=== PATIENT | female | born 1940 | race Caucasian/White ===

== ENCOUNTER → 2016-08-12 | Outpatient (CLI) | payer OTHER, MEDICARE ==
[~2016-08-12] MED LIST: ACET-1256 PO; CARV12.5 PO; CARV12.52 PO; CHOL20007 PO; CIPR1TAB11 PO; ESTR0.5T3 PO; FERR1TAB13 PO; FRS/40 PO; FURO-85 PO; LEVO137T3 PO; LOSA100T65 PO; LOSA50TA6 PO; MULT-506 PO; OXYC-57 PO; RANI300T2 PO; RIFA300C34 PO; THY/120 PO; THYR15TA PO; TRAM-10 PO; WARF2TAB PO; WARF2TAB8 PO; ZNTT/150 PO; [UNRECOGNIZED DRUG - OTHER] TOP
== END | disposition home or self-care (01) ==
LOC: C.LABBFT 09:31
PROVIDERS: ATTEND Internal Medicine
DX: E03.9 Hypothyroidism, unspecified (principal); M35.3 Polymyalgia rheumatica

== ENCOUNTER → 2016-09-06 | Outpatient (CLI) | payer OTHER, MEDICARE ==
[2016-09-06 12:38] LABS: BASO % 0.7 %; BASO ABS # 0.04 K/uL (0-0.2); COMPLETE YES; EOS % 6.6 %; HEMATOCRIT 36.5 % (37-47); IG% 0.2 %; LYMPH % 27.5 %; LYMPH ABS # 1.55 K/uL (1.2-3.4); MEAN CELL VOLUME 90.8 fL (80-100); MEAN CORPUSCULAR HEMOGLOBIN 28.9 pg (25-34); MEAN CORPUSCULAR HGB CONC 31.8 g/dl (32-36); MEAN PLATELET VOLUME 9.5 fL (7.4-10.4); MONO % 8.3 %; NEUT % 56.7 %; PLATELET COUNT 269 K/uL (130-400); RED BLOOD COUNT 4.02 M/uL (4.2-5.4); WHITE BLOOD COUNT 5.64 K/uL (4.8-10.8)
[2016-09-06 13:04] LABS: ALT/SGPT 19 U/L (12-78); BLOOD UREA NITROGEN 33 mg/dl (7-18); BUN/CREATININE RATIO 25.7 (10-20); CALCIUM 9.2 mg/dl (8.5-10.1); CARBON DIOXIDE 25 mmol/L (21-32); CHLORIDE 106 mmol/L (98-107); GLUCOSE 90 mg/dl (70-99); POTASSIUM 4.3 mmol/L (3.5-5.1); SODIUM 140 mmol/L (136-145)
[2016-09-06 13:14] LABS: ALB/GLOB RATIO 1.1 (0.9-2); ALKALINE PHOSPHATASE 81 U/L (45-117); AST/SGOT 11 U/L (15-37)
--- NOTE | 2016-09-10 13:22 | CODING QUERY MEDICAL NECESSITY ---
SUPPORTING DIAGNOSIS NEEDED Anh TUCKER, A supporting diagnosis is required for the test/procedure performed on this patient in order for us to be reimbursed by the patient's insurance. Please provide a supporting diagnosis for the following test/procedure listed below next to the test name along with your signature. *If there is no additional diagnosis for this patient that would support the following test/procedure please document that below next to the test/procedure. Test(s)/Procedure(s) that require a supporting diagnosis: * ([id number]) VITAMIN D ASSAY DIAGNOSIS: DATE OF SERVICE: 09/06/16 Provider Signature: Date: Thank you Ap [facility] Information Management Once completed, please kindly fax back to [phone] For questions please call [phone]
== END | disposition home or self-care (01) ==
LOC: C.LABBFT 10:12
PROVIDERS: ATTEND Internal Medicine
DX: R53.83 Other fatigue (principal); E03.9 Hypothyroidism, unspecified

== ENCOUNTER → 2016-10-25 | Outpatient (CLI) | payer OTHER, MEDICARE ==
[~2016-10-25] MED LIST changes: +ASPI325T39 PO; +ASPI325T60 PO; +Boost Nutritional Drink PO; +CARV25TA PO; +DAPT500I IV; +DFL100 PO; +DOCU100C31 PO; +ERTA1INJ IV; +FRRS300 PO; +LCTX PO; +MCRK20 PO; +MGNO400 PO; +MRLP17 PO; +NYSP EXT; +OXYC-88 PO; +SNK PO; +WARF3TAB6 PO
[2016-10-25 12:40] LABS: BASO % 0.5 %; BASO ABS # 0.03 K/uL (0-0.2); COMPLETE YES; EOS % 6.1 %; HEMATOCRIT 39.1 % (37-47); LYMPH % 27.4 %; LYMPH ABS # 1.71 K/uL (1.2-3.4); MEAN CELL VOLUME 90.5 fL (80-100); MEAN CORPUSCULAR HEMOGLOBIN 28.7 pg (25-34); MEAN CORPUSCULAR HGB CONC 31.7 g/dl (32-36); MEAN PLATELET VOLUME 9.3 fL (7.4-10.4); MONO % 8.7 %; NEUT % 57.3 %; PLATELET COUNT 286 K/uL (130-400); RED BLOOD COUNT 4.32 M/uL (4.2-5.4); WHITE BLOOD COUNT 6.24 K/uL (4.8-10.8)
[2016-10-25 13:07] LABS: C-REACTIVE PROTEIN 1.01 mg/dl (0-0.29); RHEUMATOID FACTOR < 10.0 U/mL (0-15)
[2016-10-25 13:16] LABS: LYME DISEASE AB IGG NEG (NEG)
[2016-10-25 13:20] LABS: LYME DISEASE AB IGM NEG (NEG)
== END | disposition home or self-care (01) ==
LOC: C.LABBFT 10:02
PROVIDERS: ATTEND Physician Assistant Medical
DX: R53.83 Other fatigue (principal)

== ENCOUNTER → 2016-12-20 | Outpatient (CLI) | payer OTHER, MEDICARE ==
[2016-12-20 13:13] LABS: THYROID STIMULATING HORMONE 24.8 uIu/ml (0.300-4.500)
== END | disposition home or self-care (01) ==
LOC: C.LABBFT 10:13
PROVIDERS: ATTEND Physician Assistant Medical
DX: E03.9 Hypothyroidism, unspecified (principal)

== ENCOUNTER → 2017-01-10 | Outpatient (CLI) | payer OTHER, MEDICARE ==
--- NOTE | 2017-01-10 14:41 | DIAGNOSTIC IMAGING REPORT ---
RIGHT HIP UNILATERAL 2 VIEWS, LEFT HIP UNILATERAL 2 VIEWS CLINICAL HISTORY: BILATERAL HIP PAIN Right COMPARISON STUDY: Pelvis and right hip 01/28/2016. FINDINGS: Interval progression of the moderate to severe right hip osteoarthritis demonstrated by cartilage space narrowing subchondral sclerosis and small marginal osteophytes. There is also a focal subchondral lucency within the right femoral head which measures 7 mm. This was not present on the prior study. No acute fracture or dislocation within the pelvis or hips. Mild left hip osteoarthritis, unchanged. IMPRESSION: 1. Interval progression of the moderate to severe right hip osteoarthritis. No change in the mild left hip osteoarthritis. 2. A focal subchondral lucency within the right femoral head which measures 7 mm. This raises the possibility of a superimposed avascular necrosis. Consider right hip MRI for further evaluation. Electronically signed by: Deni Lee M.D. 01/10/2017 2:40 PM Dictated Date/Time: 01/10/2017 2:36 PM
== END | disposition home or self-care (01) ==
LOC: C.RAD1850 14:13
PROVIDERS: ATTEND Physician Assistant Medical
DX: M25.551 Pain in right hip (principal); M25.552 Pain in left hip

== ENCOUNTER → 2017-01-14 | Outpatient (CLI) | payer OTHER, MEDICARE ==
[~2017-01-14] MED LIST changes: -ASPI325T39 PO; -Boost Nutritional Drink PO; -CARV25TA PO; -DFL100 PO; -DOCU100C31 PO; -MCRK20 PO; -MGNO400 PO; -MRLP17 PO; -NYSP EXT; -OXYC-88 PO; -SNK PO; -WARF3TAB6 PO
--- NOTE | 2017-01-14 11:02 | DIAGNOSTIC IMAGING REPORT ---
MRI OF THE RIGHT HIP WITHOUT CONTRAST CLINICAL HISTORY: Severe right hip pain. Severe osteoarthritis. Evaluate for osteomyelitis. COMPARISON STUDY: Right hip radiographs January 10, 2017. TECHNIQUE: Utilizing a 1.5 Laisha magnet and dedicated coil, multiplanar, multiecho imaging of the right hip was performed without intravenous or intraarticular contrast. FINDINGS: There is marked joint space narrowing of the right hip. There is a 3.2 x 2 cm subchondral focus of signal abnormality within the anterior superior aspect of the right femoral head with moderate edema within the right femoral head and neck. There is subchondral irregularity which suggests partial collapse of articular surface. There is a small right hip joint effusion. There is edema within the acetabulum as well. Note is made of a 1.1 cm subchondral focus of signal abnormality within the anterior superior aspect of the left femoral head without collapse. There is moderate left hip joint space narrowing. No abnormalities within the pelvis are identified on this unenhanced exam. Adjacent musculature is unremarkable. IMPRESSION: 1. Subchondral signal abnormality within the right femoral head highly suggestive of avascular necrosis with associated mild articular surface collapse and secondary severe osteoarthritis. 2. Edema within the right femoral head and acetabulum which is likely related to severe osteoarthritis. Small right hip joint effusion. 3. 1.1 cm focus of signal abnormality with the left femoral head which suggests avascular necrosis of the left femoral head without collapse. Electronically signed by: Felipe Aguilar M.D. 01/14/2017 11:01 AM Dictated Date/Time: 01/14/2017 10:47 AM
== END | disposition home or self-care (01) ==
LOC: C.MRIBC 09:35
PROVIDERS: ATTEND Physician Assistant Medical
DX: M25.551 Pain in right hip (principal); R60.9 Edema, unspecified; M25.451 Effusion, right hip; M25.851 Other specified joint disorders, right hip; M25.852 Other specified joint disorders, left hip

== ENCOUNTER → 2017-02-05 | Outpatient (CLI) | payer OTHER, MEDICARE ==
[2017-02-05 17:39] LABS: HEMATOCRIT 40.6 % (37-47); MEAN CELL VOLUME 92.7 fL (80-100); MEAN CORPUSCULAR HEMOGLOBIN 27.6 pg (25-34); MEAN CORPUSCULAR HGB CONC 29.8 g/dl (32-36); MEAN PLATELET VOLUME 9.3 fL (7.4-10.4); PLATELET COUNT 308 K/uL (130-400); RED BLOOD COUNT 4.38 M/uL (4.2-5.4); WHITE BLOOD COUNT 5.96 K/uL (4.8-10.8)
[2017-02-05 18:00] LABS: BLOOD UREA NITROGEN 47 mg/dl (7-18); BUN/CREATININE RATIO 39.1 (10-20); CALCIUM 9.6 mg/dl (8.5-10.1); CARBON DIOXIDE 27 mmol/L (21-32); CHLORIDE 105 mmol/L (98-107); GLUCOSE 107 mg/dl (70-99); PHOSPHORUS 4.2 mg/dl (2.5-4.9); POTASSIUM 4.8 mmol/L (3.5-5.1); SODIUM 139 mmol/L (136-145)
[2017-02-06 07:32] LABS: ESTIMATED AVERAGE GLUCOSE 120 mg/dl; HA1C FLAG Normal (Normal)
== END | disposition home or self-care (01) ==
LOC: C.LABBFT 17:35
PROVIDERS: ATTEND Internal Medicine Nephrology
DX: E55.9 Vitamin D deficiency, unspecified (principal); N18.3 Chronic kidney disease, stage 3 (moderate); R80.9 Proteinuria, unspecified; I12.9 Hypertensive chronic kidney disease with stage 1 through stage 4 chronic kidney disease, or unspecified chronic kidney disease; E03.9 Hypothyroidism, unspecified; M35.3 Polymyalgia rheumatica; R73.01 Impaired fasting glucose

== ENCOUNTER → 2017-02-06 | Outpatient (CLI) | payer OTHER, MEDICARE ==
[2017-02-06 16:47] LABS: URINE APPEARANCE CLEAR (CLEAR); URINE BILIRUBIN NEG (NEG); URINE COLOR YELLOW; URINE EPITHELIAL CELL AUTO >30 /lpf (0-5); URINE NITRITE NEG (NEG); URINE SPECIFIC GRAVITY 1.025 (1.000-1.030); UROBILINOGEN NEG (NEG)
[2017-02-06 16:48] LABS: MANUAL MICROSCOPIC REQUIRED? NO; REVIEW REQ? NO; URINE PROTIEN/CREAT RATIO 0.8 (0-0.2); URINE TOTAL PROTEIN 70.8 mg/dl (0-11.9)
== END | disposition home or self-care (01) ==
LOC: C.LABBFT 16:26
PROVIDERS: ATTEND Internal Medicine Nephrology
DX: I12.9 Hypertensive chronic kidney disease with stage 1 through stage 4 chronic kidney disease, or unspecified chronic kidney disease (principal); N18.3 Chronic kidney disease, stage 3 (moderate); E55.9 Vitamin D deficiency, unspecified; R80.9 Proteinuria, unspecified

== ENCOUNTER 2017-03-19 05:59 | Inpatient (IN) | payer OTHER, MEDICARE ==
[2017-02-28 14:50] VITALS: BMI 46.0
--- NOTE | 2017-02-28 15:29 | PAT Medication Instructions ---
Service Date Feb 28, 2017. Current Home Medication List Carvedilol (Coreg), 2 TABS PO QAM Carvedilol (Coreg), 12.5 MG PO QPM Cholecalciferol (Vitamin D3), 2,000 INTUNIT PO QAM Estradiol (Estradiol), 0.25 MG PO HS Furosemide (Lasix), 20 MG PO Q2D Furosemide (Lasix), 40 MG PO Q2D Losartan Potassium (Cozaar), 50 MG PO BID Multivitamin (Multivitamin), 1 TAB PO QAM Oxycodone/Acetaminophen 5MG/325MG (Percocet 5MG/325MG), 2 TABLETS PO HS PRN for RN Ranitidine (Zantac), 300 MG PO HS Thyroid (Astor Thyroid), 120 MG PO QAM Tramadol (Ultram), 1-2 MG PO Q4-6H PRN for Pain [Faison Smooth Cr], 1 DOSE TOP PRN Medication Instructions For Your Scheduled Surgery Estradiol (Estradiol), 0.25 MG PO HS (check with surgeon for instructions) - Hold the following medications 24 hours prior to surgery: [Faison Smooth Cr], 1 DOSE TOP PRN - Hold the following medications the morning of surgery: Losartan Potassium (Cozaar), 50 MG PO BID Multivitamin (Multivitamin), 1 TAB PO QAM Furosemide (Lasix), 20 MG PO Q2D Furosemide (Lasix), 40 MG PO Q2D Cholecalciferol (Vitamin D3), 2,000 INTUNIT PO QAM - Take the following medications the morning of surgery with a sip of water: Thyroid (Astor Thyroid), 120 MG PO QAM Tramadol (Ultram), 1-2 MG PO Q4-6H PRN for Pain Oxycodone/Acetaminophen 5MG/325MG (Percocet 5MG/325MG), 2 TABLETS PO HS PRN for RN (okay to take up to 4 hours prior to surgery if needed) Carvedilol (Coreg), 2 TABS PO QAM - Hold the following medications as scheduled the night before surgery: Losartan Potassium (Cozaar), 50 MG PO BID - Take the following medications as scheduled the night before surgery: Ranitidine (Zantac), 300 MG PO HS Oxycodone/Acetaminophen 5MG/325MG (Percocet 5MG/325MG), 2 TABLETS PO HS PRN for RN (if needed) Carvedilol (Coreg), 12.5 MG PO QPM If you have any questions please call us at [phone] or [phone] or [phone]
--- NOTE | 2017-02-28 16:13 | DIAGNOSTIC IMAGING REPORT ---
CHEST 2 VIEWS ROUTINE HISTORY: Preop. COMPARISON: Chest 11/18/2015. FINDINGS: The lungs are clear. Cardiac silhouette is normal in size. No pleural effusions. No pneumothorax. IMPRESSION: No acute process. Electronically signed by: Deni Lee M.D. 02/28/2017 4:11 PM Dictated Date/Time: 02/28/2017 4:11 PM
[2017-02-28 16:47] LABS: BASO % 0.5 %; BASO ABS # 0.03 K/uL (0-0.2); COMPLETE YES; EOS % 5.7 %; HEMATOCRIT 40.8 % (37-47); IG% 0.2 %; LYMPH % 27.2 %; LYMPH ABS # 1.68 K/uL (1.2-3.4); MEAN CELL VOLUME 93.8 fL (80-100); MEAN CORPUSCULAR HEMOGLOBIN 29.7 pg (25-34); MEAN CORPUSCULAR HGB CONC 31.6 g/dl (32-36); MEAN PLATELET VOLUME 9.3 fL (7.4-10.4); MONO % 7.8 %; NEUT % 58.6 %; PLATELET COUNT 294 K/uL (130-400); RED BLOOD COUNT 4.35 M/uL (4.2-5.4); WHITE BLOOD COUNT 6.18 K/uL (4.8-10.8)
[2017-02-28 17:08] LABS: INR 0.9 (0.9-1.1); PARTIAL THROMBOPLASTIN RATIO 1.1
[2017-02-28 17:10] LABS: BUN/CREATININE RATIO 29.9 (10-20); CALCIUM 9.8 mg/dl (8.5-10.1); CREATININE 1.5 mg/dl (0.60-1.20); POTASSIUM 4.4 mmol/L (3.5-5.1)
--- NOTE | 2017-03-11 15:32 | HISTORY & PHYSICAL EXAMINATION ---
DATE OF ADMISSION: 03/19/2017 CHIEF COMPLAINT: Right hip pain. HISTORY OF PRESENT ILLNESS: This 76-year-old white female presents to the office with complaints of right hip pain that has been severe for the last several months. Hip pain initially started in January of last year. She thinks she was getting out of her SUV at the time when she felt a twist in her hip. Pain is worse with motion. It is worse with weightbearing. Pain is affecting her ADLs. She has used an assistive device for ambulation as well as oral anti-inflammatories and oral pain medications. She does take prednisone chronically. No new numbness or tingling. She has chronic right foot numbness from other back issues. She also has chronic leg edema secondary to previous vein stripping. She elects to proceed with surgical intervention in hopes of alleviating her pain. Preoperative x-rays have been obtained. MRI has also been obtained. PAST MEDICAL HISTORY: Significant for actinic keratosis, cervical spine disease, eczema, hypertension, hypothyroidism, osteoarthritis, chronic low back pain, seborrhea, sleep apnea, history of skin cancer, obesity, elevated cholesterol, use of CPAP, GERD. PREVIOUS SURGERIES: Total abdominal hysterectomy in 1986, tonsillectomy with adenoidectomy 1945, bilateral carpal tunnel releases, left knee arthroscopy x2, lumbar laminectomy with nerve decompression in March 2016, right foot spur removal and Cortes's neuroma excision, D&C x4, tubal ligation, cataract surgery, and deep vein thermoablasion 1969. ALLERGIES: KNOWN ALLERGY TO ERYTHROMYCIN, PENICILLIN, SULFA DRUGS, AND LATEX BANDAGES. All of these cause hives, itching and redness. CURRENT MEDICATIONS: [place]isle thyroid 120 mg p.o. daily, clobetasol 0.05% topical solution q.a.m., estradiol 0.5 mg p.o. daily, fluocinolone 0.01% topical oil at bedtime, [place] 5 mg p.o. p.r.n., carvedilol 12.5 mg p.o. b.i.d., losartan 50 mg p.o. b.i.d., multivitamin daily, ranitidine 150 mg p.o. b.i.d., tramadol p.r.n., Synthroid 125 mcg p.o. daily, vitamin D3 2000 units daily. FAMILY HISTORY: Significant for cancer, diabetes, heart disease and stroke. 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 . No tobacco use, no ETOH use. Quit smoking in 1986. REVIEW OF SYSTEMS: Significant for above stated conditions, otherwise unremarkable. PHYSICAL EXAMINATION: GENERAL: Well-developed, well-nourished, obese, elderly white female in no acute distress. Sitting on a chair. Alert and oriented. SKIN: No obvious discomfort. SKIN: Warm and dry with good turgor. No rashes or lesions. No ecchymosis or erythema. HEAD, EYES, EARS, NOSE, AND THROAT: Normocephalic, atraumatic. Eyes PERRLA, EOMI. Nares patent bilaterally without turbinate enlargement. Oropharynx without erythema or exudate. No lesions noted. Uvula midline. Oral mucosa moist. Good dentition. HEART: RRR. No MGR. LUNGS: Clear to auscultation bilaterally. No crackles, rhonchi or wheezing. Good air movement. ABDOMEN: Obese. Bowel sounds present x4, soft, nontender. No organomegaly. No masses. MUSCULOSKELETAL: Right hip has no obvious asymmetry or deformity. She describes soreness with palpation over the greater trochanter. Her worse pain is over the anterior flexion crease. Flexion to 90 degrees. Limited internal and external rotation secondary to pain. Ambulatory with an antalgic gait using a cane. Strength is 5/5 for resisted hip flexion, abduction, and adduction. NEUROLOGIC: Cranial nerves II through XII are intact. Gross sensation is intact across the right leg via soft touch. Peripheral pulses are 2+. DATA: X-rays previously obtained along with her MRI previously obtained show severe degenerative disease of the right hip with avascular necrosis of the head. Periarticular osteophytes, subchondral sclerosis, and joint space narrowing are present. 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 PLAN: Informed written consent was obtained to proceed with right total hip arthroplasty. Conservative care measures were discussed. Consent form was reviewed with the patient. Preoperative lab work, EKG, and chest x-ray have been ordered. Medical clearance has been requested from her PCP, Dr. Quiroz. Anticipate discharge to home with home health services for 2 weeks and then outpatient PT. Postoperative prescriptions for Percocet and Coumadin will be provided at discharge from the hospital. She already has a walker. [facility]
[~2017-03-19] VITALS: Ht 157.5 cm; Wt 115.5 kg
[2017-03-19] VITALS (7 sets, daily range): BP systolic 127–215; BP diastolic 63–91; PULSE 66–95; TEMP 36.5–36.9; O2SAT 98–100; Ht 157.5 cm; Wt 115.5 kg
[~2017-03-19 05:59] MED LIST changes: -ACET-1256 PO; -ASPI325T60 PO; -CIPR1TAB11 PO; -DAPT500I IV; -ERTA1INJ IV; -FERR1TAB13 PO; -FRRS300 PO; -LCTX PO; -LEVO137T3 PO; -LOSA100T65 PO; -RIFA300C34 PO; -THYR15TA PO; -WARF2TAB PO; -WARF2TAB8 PO; -ZNTT/150 PO
[2017-03-19] MEDS ORDERED: ROPIVACAINE 5MG/ML 30 ML 150 MG, BUPIVACAINE/EPINEPHR 0.5% MPF 30 ML, KETOROLAC TROMETH... INFIL SCH ×7 (06:00)
[2017-03-19] MEDS ORDERED: LACTATED RINGER'S 1000ML 1,000 ML IV SCH ×4 (06:00→06:30)
[2017-03-19] MEDS ORDERED: TRANEXAMIC ACID INJ 1,000 MG in SODIUM CHLORIDE 0.9% 100ML 100 ML IV SCH (06:00)
[2017-03-19] MEDS ORDERED: VANCOMYCIN INJ 1,700 MG in SODIUM CHLORIDE 0.9% 500ML 500 ML IV SCH ×2 (06:00→18:00)
--- NOTE | 2017-03-19 06:26 | History & Physical Bridge Note ---
H&P Re-Evaluation Bridge Note: I have examined the patient, reviewed the History & Physical and in the interval since the performance of the History & Physical I have noted the following changes of clinical significance: consent obtained.No changes noted
[2017-03-19] MEDS ORDERED: LACTATED RINGER'S 1000ML 500 ML IV ONE (06:30)
[2017-03-19] MEDS ORDERED: BUPIVACAINE 0.5 % 5 MG/1 ML PF 10ML VIAL ONE (06:33)
[2017-03-19] MEDS ORDERED: LIDOCAINE HCL 2% 2 ML VIAL (20MG/ML) ONE ×2 (07:26→08:30)
[2017-03-19] MEDS ORDERED: PROPOFOL IV EMULSION 10 MG/ML 20 ML VIAL IV ONE ×2 (07:26→10:36)
[2017-03-19] MEDS ORDERED: MIDAZOLAM HCL 1 MG/ML 2ML VIAL ONE ×2 (07:26)
[2017-03-19] MEDS ORDERED: POVIDONE-IODINE OP SOLN 30 ML BTL ONE (08:26)
[2017-03-19] MEDS ORDERED: ORTHO JOINT ANESTHETIC ONE (08:26)
[2017-03-19] MEDS ORDERED: ROCURONIUM BROMIDE 10 MG/ML 5 ML VIAL IV ONE ×2 (08:38→10:03)
[2017-03-19] MEDS ORDERED: FENTANYL CITRATE INJ 50 MCG/1 ML 2 ML VIAL ONE ×2 (08:40→10:52)
[2017-03-19] MEDS ORDERED: ATROPINE SULFATE 0.1 MG/ML 5ML SYR IV PRN (09:15)
[2017-03-19] MEDS ORDERED: ONDANSETRON INJ 2 MG/ML 2 ML VIAL IV PRN ×2 (09:15→11:00)
[2017-03-19] MEDS ORDERED: PHENYLEPHRINE 100MCG/ML 5ML SYR IV PRN (09:15)
[2017-03-19] MEDS ORDERED: EpHEDrine SULFATE INJ 50 MG/ML AMP IV PRN (09:15)
[2017-03-19] MEDS ORDERED: ONDANSETRON INJ 2 MG/ML 2 ML VIAL ONE (09:22)
[2017-03-19] MEDS ORDERED: DEXAMETHASONE SOD INJ 4 MG/ML VIAL ONE (09:22)
[2017-03-19] MEDS ORDERED: PHENYLEPHRINE 100MCG/ML 5ML SYR ONE (09:22)
[2017-03-19] MEDS ORDERED: LABETALOL HCL IV 5 MG/ML 20ML IV ONE (09:35)
[2017-03-19] MEDS ORDERED: NEOSTIGMINE METHYLSULFATE 5 MG/5 ML SYR ONE (09:58)
[2017-03-19] MEDS ORDERED: GLYCOPYRROLATE INJ 0.2 MG/ML VIAL ONE (09:58)
--- NOTE | 2017-03-19 10:49 | [facility] Post Operative Brief Note ---
Immediate Operative Summary Operative Date Mar 19, 2017. Pre-Operative Diagnosis Right Hip Degenerative Joint Disease Post-Operative Diagnosis Same as preop Procedure(s) Performed Right Total Hip Arthroplasty Surgeon Dr. Hong [id number] Programmer Surgeon(s) Barrington Agosto PA-C Estimated Blood Loss 400 ml Findings severe djd Fluids (cc crystalloids) 1400cc Specimens A. Right Femoral Head Drains none Anesthesia GET Complication(s) None Disposition Recovery Room / PACU
[2017-03-19] MEDS ORDERED: METOCLOPRAMIDE HCL INJ 5 MG/ML 2 ML VIAL IV PRN (11:00)
[2017-03-19] MEDS ORDERED: MoRPHine SULFATE 2 MG/ML CARP IV PRN (11:00)
[2017-03-19] MEDS ORDERED: DiphenhydrAMINE HCL 50 MG/ML VIAL IV PRN (11:00)
[2017-03-19] MEDS ORDERED: MAGNESIUM HYDROXIDE SUSP 30 ML UDC PO PRN (11:00)
[2017-03-19] MEDS ORDERED: HYDROmorphone INJ 1 MG/ML SYR IV PRN (11:00)
[2017-03-19] MEDS ORDERED: BISACODYL 10 MG SUPP PR PRN (11:00)
[2017-03-19] MEDS ORDERED: ACETAMINOPHEN 325 MG TAB PO PRN (11:00)
[2017-03-19] MEDS ORDERED: ALUMINUM/MAGNESIUM/SIMETH (MAALOX MAX) 30 ML UDC PO PRN (11:00)
[2017-03-19] MEDS: HYDROmorphone INJ 2 MG/ML SYR/VIAL IV PRN ×4 (11:05→11:20)
[2017-03-19] MEDS ORDERED: HydrALAZINE HCL 20 MG/ML VIAL ONE (11:19)
--- NOTE | 2017-03-19 11:43 | OPERATIVE REPORT ---
DATE OF OPERATION: 03/19/2017 PREOPERATIVE DIAGNOSIS: Severe osteoarthritis, right hip. POSTOPERATIVE DIAGNOSIS: Same. OPERATION PERFORMED: Noncemented right total hip replacement. SURGEON: Dr. Hong. MANAGER STYLE: Barrington Agosto PA-C. PERIOPERATIVE SITUATION: Medically cleared 76-year-old female with intractable hip pain. At this point in time wants to proceed with hip replacement. X-rays reveal end-stage disease with marked joint space narrowing. She is a large woman. She is cleared medically. SUMMARY OF IMPLANTS: Size 48 cup acetabular shell sector 6.5 x 20 mm screw, hole eliminator articular liner 32 mm x 48 neutral, femoral stem, 0 standard stem, femoral head 32 mm diameter +9. ESTIMATED BLOOD LOSS: 400 mL. CRYSTALLOID: 1400 mL. PERIOPERATIVE SITUATION: Medically cleared female with intractable hip pain with x-rays revealing end-stage disease with difficulty walking and sitting wants to proceed with surgical treatment. She has a high BMI, she is cleared medically. OPERATION AND FINDINGS: PROCEDURE: The patient appropriately identified, site verified, consent verified, the maximum dose of vancomycin instilled. The right lower extremity was prepped and draped in usual routine fashion with the patient in the left lateral decubitus position. Leg lengths were slightly long on that side to begin with. The generous approach was made based on size. Full thickness flaps raised. The fascia then incised. Gluteus zeynep to IT band retractors placed. Care taken to protect the sciatic nerve. Retractors placed proximally and distally. The short external rotators were released. They were all contracted. The capsule was all contracted and was excised. The hip was then dislocated, the femoral neck was then resected. Serial reaming carried up from 43 to 48, 48 trial fit well and the permanent cup impacted into position in appropriate anteversion and inclination. It had excellent pressfit, 6.5 x 20 screw was placed for help with early healing and early stability. The wound was irrigated, trial liner was seated. The femur was then flexed and delivered into the wound, internally rotated and then the box cut made, canal rasping carried out and size zero was impacted into position with excellent purchase. A trial reduction was then carried out, +5 and +9, the 9 made leg lengths symmetric. The hip was then dislocated. The wound was irrigated copiously and then the permanent hole eliminator seated, permanent liner seated, permanent head and neck seated, the hip reduced. It was stable in all planes. The wound was then irrigated with Betadine and then irrigated with Pulsavac. It was then closed in multiple layers using #2 Vicryl for the fascial layer for the deep fat layer, 2-0 Vicryl for the more superficial fat layer, skin with olivia and retention Prolene sutures 2 and 3. The wound was then appropriately dressed. The patient was then transferred to recovery room in satisfactory condition having tolerated the procedure well. Estimated blood loss was 400 mL. Crystalloid 1400 mL. Deep venous thrombosis prophylaxis per protocol. IMPLANTS: As noted above. I attest to the content of the Intraoperative Record and any orders documented therein. Any exception s are noted below.
--- NOTE | 2017-03-19 11:52 | DIAGNOSTIC IMAGING REPORT ---
AP PELVIS History: Right total hip arthroplasty. Degenerative arthritis. Postop. FINDINGS: The patient is status post a right total hip arthroplasty. The hardware is intact. No fracture or dislocation. Skin olivia are in place. IMPRESSION: Right total hip arthroplasty. No evidence for hardware complication Electronically signed by: Deni Lee M.D. 03/19/2017 11:51 AM Dictated Date/Time: 03/19/2017 11:49 AM
--- NOTE | 2017-03-19 12:38 | Anesthesiology Progress Note ---
Anesthesia Post Op Note Date & Time Mar 19, 2017 at 12:38 Vital Signs Pain Intensity: 6.0 Vital Signs Past 12 Hours Date Time Temp Pulse Resp B/P (MAP) Pulse Ox O2 Delivery O2 Flow Rate FiO2 03/19/17 12:05 Nasal Cannula 4.0 03/19/17 12:05 Nasal Cannula 2.0 03/19/17 12:05 36.9 74 10 148/63 (91) 99 Nasal Cannula 2.0 03/19/17 11:52 57 12 03/19/17 11:52 56 12 153/60 100 03/19/17 11:47 57 12 179/57 100 03/19/17 11:47 65 12 03/19/17 11:46 36.5 03/19/17 11:41 56 13 03/19/17 11:41 55 13 181/55 100 03/19/17 11:36 69 14 03/19/17 11:36 73 14 190/66 100 03/19/17 11:31 63 15 03/19/17 11:31 63 15 187/71 100 03/19/17 11:26 72 16 184/56 100 03/19/17 11:26 70 16 03/19/17 11:21 69 19 03/19/17 11:21 70 19 183/83 100 03/19/17 11:16 65 11 03/19/17 11:16 66 11 192/76 100 03/19/17 11:11 65 12 03/19/17 11:11 67 12 198/83 100 03/19/17 11:07 184/56 03/19/17 11:06 71 17 100 03/19/17 11:06 69 17 03/19/17 11:05 36.3 72 16 183/67 100 Oxymask 10 03/19/17 11:01 67 12 177/78 100 03/19/17 11:01 68 12 03/19/17 11:00 183/67 03/19/17 06:32 36.5 95 20 215/91 100 Room Air Notes Mental Status: alert / awake / arousable, participated in evaluation Pt Amnestic to Procedure: Yes Nausea / Vomiting: adequately controlled Pain: adequately controlled Airway Patency, RR, SpO2: stable & adequate BP & HR: stable & adequate Hydration State: stable & adequate Anesthetic Complications: no major complications apparent
[2017-03-19] MEDS ORDERED: D5W AND 1/2NSS + 20MEQ KCL 1,000 ML IV SCH (12:45)
[2017-03-19] MEDS ORDERED: MoRPHine SULFATE 4 MG/ML 1 ML CARP\\VIAL IV PRN (13:00)
--- NOTE | 2017-03-19 13:36 | [facility] Operative Report ---
Operative Report Operative Date Mar 19, 2017. Pre-Operative Diagnosis Right Hip Degenerative Joint Disease Post-Operative Diagnosis Right hip Same as preop Procedure(s) Performed Right Total Hip Arthroplasty Surgeon Dr. Hong Rubber Goods Inspector Tester Surgeon(s) Barrington Agosto PA-C Estimated Blood Loss 400 ml Findings Right hip DJD Fluids 1400cc Specimens A. Right Femoral Head Drains none Anesthesia GET Complication(s) None Disposition Recovery Room / PACU Indications This 76-year-old white female presented to the office with complaints of intractable right hip pain. Symptoms have been ongoing for several months. She had tried conservative care measures including activity modification and use of an assistive device without improvement. Preoperative imaging was obtained. She was found to have avascular necrosis of the hip. She elected to proceed with surgical intervention after being educated about potential risks and outcomes. Description of Procedure Patient was taken to the operating room and given general anesthesia. She was prepped and draped in usual sterile fashion. Please see Dr. Hong's operative report for specifics of the procedure. I was present for the entire case from initial patient positioning through final wound closure. Assistance was provided in patient positioning, tissue traction, hemostasis, trial implant placement, final implant placement, and final wound closure. Patient was taken to the recovery room in satisfactory condition. I attest to the content of the Intraoperative Record and any orders documented therein. Any exceptions are noted below.
--- NOTE | 2017-03-19 13:58 | PROGRESS NOTE ---
DATE: 03/19/2017 DATE: 03/19/2017 SUBJECTIVE: Postop check. At this point in time the patient is doing well. He has no major issues with pain. Vital signs are stable. She is afebrile. She denies chest pain, shortness of breath, fever, chills, nausea, vomiting, headache. Wound dressing clean, dry and intact. Neurovascular check femoral sciatic nerve is good. Postop x-ray looked excellent. ASSESSMENT: Doing well. Continue with postop care pathway. Mobilize. Coumadin tonight.
[2017-03-19] MEDS ORDERED: WARFARIN SOD 5 MG TAB PO ONE (16:00)
[2017-03-19] MEDS ORDERED: TRANEXAMIC ACID INJ 1,000 MG in SODIUM CHLORIDE 0.9% 100ML 100 ML IV ONE (16:00)
[2017-03-19] MEDS: KETOROLAC TROMETHAMINE 15 MG/ML VIAL IV. SCH ×2 (16:26→21:30)
[2017-03-19] MEDS ORDERED: WARF2TAB PO (16:48)
[2017-03-19] MEDS ORDERED: VANCOMYCIN INJ 1,700 MG in SODIUM CHLORIDE 0.9% 250ML 250 ML IV SCH (18:00)
[2017-03-19] MEDS: ACETAMINOPHEN IV 1,000 MG in EMPTY BAG 0 ML IV SCH (18:32)
[2017-03-19] MEDS: FERROUS GLUCONATE 324 MG TAB PO SCH (18:32)
[2017-03-19] MEDS: CARVEDILOL 12.5 MG TAB PO SCH (21:27)
[2017-03-19] MEDS: DOCUSATE SODIUM 100 MG CAP PO SCH (21:28)
[2017-03-19] MEDS: ESTRADIOL 1 MG TAB PO SCH (21:28)
[2017-03-19] MEDS: LOSARTAN POTASSIUM 50 MG TAB PO SCH (21:29)
[2017-03-20] VITALS (7 sets, daily range): BP systolic 129–151; BP diastolic 69–78; PULSE 73–86; TEMP 36.5–36.8; O2SAT 93–96
[2017-03-20] MEDS: OXYCODONE HCL IR 5 MG TAB (IMMEDIATE RELEASE) PO PRN ×4 (01:06→23:26)
[2017-03-20] MEDS: ACETAMINOPHEN IV 1,000 MG in EMPTY BAG 0 ML IV SCH ×2 (01:44→09:41)
[2017-03-20] MEDS: KETOROLAC TROMETHAMINE 15 MG/ML VIAL IV. SCH ×2 (04:15→09:41)
[2017-03-20 06:17] LABS: BASO % 0.1 %; BASO ABS # 0.01 K/uL (0-0.2); COMPLETE YES; HEMATOCRIT 29.4 % (37-47); IG% 0.3 %; LYMPH % 6.4 %; LYMPH ABS # 0.61 K/uL (1.2-3.4); MEAN CELL VOLUME 91.9 fL (80-100); MEAN CORPUSCULAR HEMOGLOBIN 29.7 pg (25-34); MEAN CORPUSCULAR HGB CONC 32.3 g/dl (32-36); MEAN PLATELET VOLUME 9.3 fL (7.4-10.4); MONO % 7.2 %; PLATELET COUNT 211 K/uL (130-400)
[2017-03-20 06:44] LABS: PROTHROMBIN TIME (PATIENT) 10.6 SECONDS (9.0-12.0)
[2017-03-20 06:56] LABS: BUN/CREATININE RATIO 27.9 (10-20); CALCIUM 7.5 mg/dl (8.5-10.1); CREATININE 1.3 mg/dl (0.60-1.20); POTASSIUM 4.8 mmol/L (3.5-5.1)
[2017-03-20] MEDS ORDERED: DEXAMETHASONE INJ 10 MG in SYRINGE 0 ML IV ONE (07:30)
--- NOTE | 2017-03-20 07:33 | PROGRESS NOTE ---
DATE: 03/20/2017 Postop day #1 status post right total hip replacement. At this point, the patient is comfortable. She denies any nausea, vomiting, chest pain, shortness of breath, fever or chills. Vital signs are stable, she is afebrile. Neurovascular check, femoral sciatic nerve is good. Hematocrit stable at 29.4. INR is 1.0. Chemistry is good. ASSESSMENT: Doing well. PT/OT today. Social service arrangements, likely home tomorrow. Coumadin per nomogram.
[2017-03-20] MEDS ORDERED: OXYC-57 PO (08:36)
--- NOTE | 2017-03-20 08:38 | Orthopedic Progress Note ---
Orthopedic Progress Note Date of Service Mar 20, 2017. Subjective Post OP Day: 1 Reports: feeling well, Denies: complaints, chest pain, SOB, nausea / vomiting, light headedness, calf pain Additional Notes: Had pain and spasms overnight, but controlled now. in room. Objective calves soft nontender, N/V intact, hip located, capillary refill less than 2 sec., dressing C/D/I, incision C/D/I, A&O x3, toes mobile, CMS intact dressings with minimal drainage Date Time Temp Pulse Resp B/P (MAP) Pulse Ox O2 Delivery O2 Flow Rate FiO2 03/20/17 07:25 36.8 73 19 130/71 (90) 96 Room Air 03/20/17 04:15 36.8 79 17 151/74 (99) 95 Room Air 03/20/17 00:30 CPAP 03/20/17 00:14 36.5 86 16 149/76 (100) 95 Room Air 03/19/17 19:47 36.8 75 17 140/69 (92) 98 Room Air 03/19/17 15:57 36.5 66 12 127/73 (91) 100 Nasal Cannula 3.0 03/19/17 15:20 Nasal Cannula 2.0 03/19/17 14:16 78 12 141/76 (97) 99 3.0 03/19/17 13:11 75 12 144/74 (97) 03/19/17 12:45 72 12 145/78 (100) 98 Nasal Cannula 2.0 03/19/17 12:05 Nasal Cannula 4.0 03/19/17 12:05 Nasal Cannula 2.0 03/19/17 12:05 36.9 74 10 148/63 (91) 99 Nasal Cannula 2.0 03/19/17 11:52 57 12 03/19/17 11:52 56 12 153/60 100 03/19/17 11:47 57 12 179/57 100 03/19/17 11:47 65 12 03/19/17 11:46 36.5 03/19/17 11:41 56 13 03/19/17 11:41 55 13 181/55 100 03/19/17 11:36 69 14 03/19/17 11:36 73 14 190/66 100 03/19/17 11:31 63 15 03/19/17 11:31 63 15 187/71 100 03/19/17 11:26 72 16 184/56 100 03/19/17 11:26 70 16 03/19/17 11:21 69 19 03/19/17 11:21 70 19 183/83 100 03/19/17 11:16 65 11 03/19/17 11:16 66 11 192/76 100 03/19/17 11:11 65 12 03/19/17 11:11 67 12 198/83 100 03/19/17 11:07 184/56 03/19/17 11:06 71 17 100 03/19/17 11:06 69 17 03/19/17 11:05 36.3 72 16 183/67 100 Oxymask 10 03/19/17 11:01 67 12 177/78 100 03/19/17 11:01 68 12 03/19/17 11:00 183/ Laboratory Results 24 Hours: Test 03/20/17 05:12 White Blood Count 9.50 K/uL Red Blood Count 3.20 M/uL Hemoglobin 9.5 g/dL Hematocrit 29.4 % Mean Corpuscular Volume 91.9 fL Mean Corpuscular Hemoglobin 29.7 pg Mean Corpuscular Hemoglobin Concent 32.3 g/dl Platelet Count 211 K/uL Mean Platelet Volume 9.3 fL Neutrophils (%) (Auto) 86.0 % Lymphocytes (%) (Auto) 6.4 % Monocytes (%) (Auto) 7.2 % Eosinophils (%) (Auto) 0.0 % Basophils (%) (Auto) 0.1 % Neutrophils # (Auto) 8.17 K/uL Lymphocytes # (Auto) 0.61 K/uL Monocytes # (Auto) 0.68 K/uL Eosinophils # (Auto) 0.00 K/uL Basophils # (Auto) 0.01 K/uL Prothromb Time International Ratio 1.0 Prothrombin Time 10.6 SECONDS Assessment & Plan Assessment: Right hip post op day 1 total hip arthroplasty Plan: PT/OT today, WBAT coumadin per nomogram dressing changed by me, wound looks good likely D/C to home tomorrow with home health continue total hip precautions Discharge Planning Discharge Planning: home with home health Pain Management: Percocet DVT Prophylaxis: TEDs, SCDs, Coumadin Therapy: Physical Therapy, Occupational Therapy
[2017-03-20] MEDS ORDERED: FUROSEMIDE 40 MG TAB PO SCH (09:00)
[2017-03-20] MEDS ORDERED: FUROSEMIDE 20 MG TAB PO SCH (09:00)
[2017-03-20] MEDS: ARMOUR THYROID 30 MG TAB PO SCH (09:30)
[2017-03-20] MEDS: FERROUS GLUCONATE 324 MG TAB PO SCH ×3 (09:30→19:05)
[2017-03-20] MEDS: LOSARTAN POTASSIUM 50 MG TAB PO SCH ×2 (09:31→19:07)
[2017-03-20] MEDS: PANTOprazole SOD 40 MG TAB PO SCH (09:31)
[2017-03-20] MEDS: MULTIVITAMIN TAB PO SCH (09:31)
[2017-03-20] MEDS: DOCUSATE SODIUM 100 MG CAP PO SCH ×2 (09:31→19:08)
[2017-03-20] MEDS: CARVEDILOL 12.5 MG TAB PO SCH ×2 (09:31→19:08)
--- NOTE | 2017-03-20 09:45 | DISCHARGE SUMMARY ---
DATE OF DISCHARGE: 03/20/2017 versus 03/21/2017 pending social service arrangements. CHIEF COMPLAINT: Right hip pain. HISTORY OF PRESENT ILLNESS: A 76-year-old female underwent elective right total hip replacement. She has tolerated the procedure well. She notes marked decrease in her hip pain. She just has incisional pain at this point. PAST MEDICAL HISTORY: Remarkable for actinic keratosis, cervical spine stenosis, eczema, hypertension, hypothyroidism, osteoarthritis, back pain, seborrhea, sleep apnea, history of skin cancer, obesity, hypercholesterolemia, CPAP use and GERD. PREVIOUS SURGERIES: Include total abdominal hysterectomy, tonsillectomy, carpal tunnel releases, knee arthroscopies, lumbar laminectomies, Cortes's neuroma excision, D&Cs, tubal ligation, cataract surgery, deep vein femoral ablation. ALLERGIES: ERYTHROMYCIN, PENICILLIN, SULFA, AND LATEX. These all cause hives, itching and redness. PREADMISSION MEDICATIONS: Include Armor thyroid 120 mg p.o. daily, clobetasol 0.5% topical solution q. a.m., estradiol 0.5 mg p.o. daily, fluocinolone 0.1% topical oil at bedtime, [place] 5 mg p.o. p.r.n., carvedilol 12.5 mg p.o. b.i.d., losartan 50 mg p.o. b.i.d., multivitamin daily, ranitidine 150 mg p.o. b.i.d., tramadol p.r.n., Synthroid 125 mcg p.o. daily, vitamin D supplement. She will also be discharged on Coumadin, keep INR 1.8 to 2.2. Will start at 4 mg. Check INR on Friday. FAMILY HISTORY: Remarkable for cancer, diabetes, heart disease, and stroke. 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 No tobacco or alcohol use. Quit smoking in 1986. REVIEW OF SYSTEMS: Noncontributory. HOSPITAL COURSE: At this point in time is uneventful. Postop x-rays look good. We will continue with mobilization and have criminal justice social worker assessment and prepare for discharge either later today or tomorrow. She will need a hospital bed at home. DISCHARGE ADDENDUM: Did well overnight. Will discharge today. Discharge on 4 mg of Coumadin. Check INR on Friday. [facility]
--- NOTE | 2017-03-20 10:25 | Clinical Documentation Query ---
CLINICAL DOCUMENTATION QUERY QUERY 1 OF 2 76-year-old white female presents to the office with complaints of right hip pain that has been severe for the last several months. In your clinical opinion is this patient being managed for: ( ) Chronic kidney disease, stage 3 ( ) Not Agree ( ) Other explanation of clinical findings (Please Explain) ( ) Unable to determine (Please Define) ( ) Need to Discuss The medical record reflects the following clinical findings, treatment, and risk factors. Clinical Indicators: Elevated BUN/Creat levels, Est GFR range 33.5 to 39.8, HTN, obesity Treatment: Medication therapy, lab monitoring, treatment of comorbid conditions Risk Factors: Age, obesity, HTN, DM QUERY 2 OF 2 In your clinical opinion is this patient being managed for: ( ) Acute blood loss anemia ( ) Not Agree ( ) Other explanation of clinical findings (Please Explain) ( ) Unable to determine (Please Define) ( ) Need to Discuss The medical record reflects the following clinical findings, treatment, and risk factors. Clinical Indicators: Initial Hgb 12.9 trended down to 9.5, 400 ml EBL Treatment: type and screen, serial H&H, Risk Factors: Surgical procedure, age, obesity Please clarify and document your clinical opinion in the progress notes and discharge summary. Terms such as "probable", "suspected", "likely", "questionable", "possible", or "still to be ruled out" are acceptable. IF IN AGREEMENT, YOU MUST DOCUMENT ABOVE DIAGNOSTIC STATEMENT IN DAILY PROGRESS NOTES AND DISCHARGE SUMMARY. This document is not part of the patient's record. Thank You, Neeta Fuentes RN [phone]
--- NOTE | 2017-03-20 12:57 | Anesthesiology Progress Note ---
Anesthesia Post Op Note Date & Time Mar 20, 2017 at 12:56 Vital Signs Pain Intensity: 8.0 Vital Signs Past 12 Hours Date Time Temp Pulse Resp B/P (MAP) Pulse Ox O2 Delivery O2 Flow Rate FiO2 03/20/17 11:28 36.5 73 19 144/78 (100) 95 Room Air 03/20/17 08:00 Room Air 03/20/17 07:25 36.8 73 19 130/71 (90) 96 Room Air 03/20/17 04:15 36.8 79 17 151/74 (99) 95 Room Air Notes Mental Status: alert / awake / arousable, participated in evaluation Anesthetic Complications: no major complications apparent
[2017-03-20] MEDS ORDERED: WARFARIN SOD 5 MG TAB PO SCH (16:00)
[2017-03-20] MEDS: ESTRADIOL 1 MG TAB PO SCH (19:11)
[2017-03-21] MEDS: OXYCODONE HCL IR 5 MG TAB (IMMEDIATE RELEASE) PO PRN ×2 (05:44→10:47)
[2017-03-21 06:20] LABS: INR 1.2 (0.9-1.1); PROTHROMBIN TIME (PATIENT) 13.4 SECONDS (9.0-12.0)
--- NOTE | 2017-03-21 07:01 | PROGRESS NOTE ---
DATE: 03/21/2017 Postop day #2 status post right total hip replacement. She is doing well. Denies chest pain, shortness of breath, fever, chills, nausea, vomiting or headache. Vital signs are stable. She is afebrile. Wound dressing clean, dry and intact. Neurovascular check femoral sciatic nerve is good; hip movement is excellent. Muscle control quad is excellent. ASSESSMENT: Doing well. INR is 1.2 today. Discharge on 4 mg Coumadin daily. Check INR on Friday because of the holiday. Follow up in roughly 2 weeks for suture removal and leave retention sutures in for additional several days. Weightbearing to tolerance. Home health.
[2017-03-21 07:21] VITALS: BP 137/69; PULSE 74; TEMP 36.8; O2SAT 97
[2017-03-21] MEDS: ARMOUR THYROID 30 MG TAB PO SCH (07:30)
[2017-03-21] MEDS: DOCUSATE SODIUM 100 MG CAP PO SCH (09:01)
[2017-03-21] MEDS: FERROUS GLUCONATE 324 MG TAB PO SCH (09:01)
[2017-03-21] MEDS: LOSARTAN POTASSIUM 50 MG TAB PO SCH (09:02)
[2017-03-21] MEDS: MULTIVITAMIN TAB PO SCH (09:02)
[2017-03-21] MEDS: PANTOprazole SOD 40 MG TAB PO SCH (09:02)
[2017-03-21] MEDS: CARVEDILOL 12.5 MG TAB PO SCH (09:02)
--- NOTE | 2017-03-21 09:12 | Discharge Instructions ---
Discharge Instructions Date of Service Mar 19, 2017. Admission Reason for Admission: Right Hip Avascular Necrosis, Degenerative Joint D Discharge Discharge Diagnosis / Problem: Right hip s/p total hip replacement Discharge Goals Goal(s): Decrease discomfort, Improve function, Increase independence Activity Recommendations Activity Limitations: as noted below Lifting Limitations: gradually increase as tolerated Exercise/Sports Limitations: until after follow-up appointment Shower/Bathe: keep incision dry Driving or Machine Use: No driving until cleared by Dr. Hong Weightbearing Status: Right weightbearing (as tolerated) . Instructions / Follow-Up Instructions / Follow-Up New Medicine: * You will likely be taking one or more of these medicines: 1. Percocet - Take, as directed, when you need it, every four to six hours to control your pain. 2. Coumadin - Thins your blood to lessen the chance of forming a blood clot. The dose of this is different for each person and is based on your blood tests that are done twice a week. * The most common side effects of pain medicine and iron are nausea and constipation. If nausea or constipation is too much of a problem or if you have any questions about your new medicines or doses, call [facility] at . We will try to help you manage these issues. VERY IMPORTANT TO READ AND REVIEW" Blood Clots and Blood Thinning Medicine: * You are given Coumadin during the immediate post-operative period to lessen the risk of blood clots forming in your legs and/or lungs. Coumadin is usually given for six weeks after surgery. * The prescription is for 2 mg tablets. At discharge, you should understand your dose and take it all at the same time every day, preferably after dinner. * You need to get your blood checked 1 - 2 times per week for six weeks, or as directed. * If your dose needs to change, we will call you. Do not take your medication on the day of the blood test until we call you. * If you don't hear from us after your blood draws, keep taking the same dose. Pain: * The immediate post-operative period after hip replacement surgery is often quite painful. * You are given a prescription for pain medicine. You should take it, as directed, when you need it, especially before physical therapy and before going to bed. Pain that interferes with sleep is very common and can last several months. * You will likely need pain medicine for the first two to four weeks. It will not stop all of the pain. The pain will lessen and as you feel better, you may change to milder pain medicine such as Tylenol. * The most common side effects of pain medicine are nausea and constipation, so don't take more than you need. Physical Therapy: * Follow the "Hip Precautions Instructions." * In some cases, the social worker aide at the hospital will arrange to have a therapist come to your house for the first couple of weeks to help you learn these skills. * You need to practice on your own or with the help of a family member as needed. * When you learn these skills, most of the therapy can be done on your own. Home Exercise: * You were shown a series of exercises in the hospital. Do these exercises three to four times each day including the exercises you were shown in physical therapy. Walking: * Get up and walk several times each day. For the first four weeks, try not to stand or walk for more than one hour at a time. If you do stand or walk for more than one hour, you will not hurt anything, but your leg will likely swell. * As you feel comfortable, you may change from the walker or crutches to a cane and then to independent walking. SELF CARE INSTRUCTIONS AFTER TOTAL HIP REPLACEMENT Until the incision and soft tissues around your hip have healed, there is a possibility that the hip prosthesis could dislocate. A. Observe the following precautions to prevent dislocation: 1. Don't bend your hip greater than 90 degrees. 2. Avoid crossing your legs or ankles while standing or lying. 3. Sit with your feet placed 6 inches apart. 4. When sitting, keep your knees below your hips. Sit on a firm surface, avoid deep, soft chairs and couches. Use an elevated toilet seat in the bathroom. 5. Don't bend over at the waist. Use a long handled shoehorn and a sock aid to help you put on your shoes and socks. A analysis analyst can help you pickling grader objects that are too high or too low to reach. 6. Keep car riding to a minimum for at least one month after surgery. B. Your balance may be shaky for a while. Use crutches or a walker until directed by your doctor. C. Use hand rails when walking on stairs. D. Wear low heeled shoes with non-slip soles. E. Be sure that your floors are free of things that could trip you - throw rugs , electrical cords, small objects. Avoid wet and waxed floors, especially with crutches and canes. F. Try to walk several times a day with rest periods between. G. Continue with all the exercises taught to you in the hospital. Again, make walking a part of your daily routine. VERY IMPORTANT TO READ AND REVIEW A. Take Coumadin, or Lovenox (blood thinning medications) as directed by your doctor. If you are on Coumadin, have a pro-time (blood test) drawn according to your doctor's instructions. This will tell the doctor how well the Coumadin is thinning your blood. B. There are a few signs you need to watch for after you are home. If you notice any of the followin. Increased severe hip pain. Some pain is expected especially when you exercise. 2. Increased swelling in your leg or knee; pain or swelling of the calf muscle in either lower leg. 3. Any fluid drainage from the incision. 4. Shortness of breath or chest pain. TEDs/Elastic Stockings: * The white elastic stockings help limit swelling and prevent blood clots from forming in your legs. The more you wear them, the more they work. * Wear them for six weeks. Prevention of Infection: * Take antibiotics one hour before any dental cleaning, dental work, urological procedure, gastrointestinal procedure or any invasive surgery in order to prevent your new joint from getting infected. * You may get the antibiotics from the doctor performing the procedure or we will call in a prescription to the pharmacy of your choice. Call the office for a prescription at least 2 days prior to your appointment. Things to Watch For: * Drainage from the incision site that occurs more than one week after your surgery. * Severely increased leg pain or swelling. * Increased redness at the incision site. * Fever above 101 degrees Fahrenheit. * Unusual chest pain or shortness of breath. * Unusual pain or burning with urination. Current Hospital Diet Patient's current hospital diet: Regular Diet Discharge Diet Recommended Diet: Regular Diet Procedures Procedures Performed: Right Total Hip Arthroplasty Pending Studies Studies pending at discharge: no Laboratory Results Hemoglobin A1c Test 02/05/17 14:06 Range/Units Estimated Average Glucose 120 mg/dl Hemoglobin A1c 5.8 H 4.5-5.6 % Medical Emergencies . Who to Call and When: Medical Emergencies: If at any time you feel your situation is an emergency, please call 911 immediately. . Non-Emergent Contact Non-Emergency issues call your: Primary Care Provider, Surgeon Call Non-Emergent contact if: temperature is above 101 . "Provider Documentation" section prepared by Barrington Agosto PA-C. . VTE Core Measure Inpt VTE Proph given/why not?: Warfarin (Coumadin), T.EÁngel Woods, SCD's [place] Drug Monitoring Program Search Results: no issues identified
--- NOTE | 2017-03-21 09:16 | Orthopedic Progress Note ---
Orthopedic Progress Note Date of Service Mar 21, 2017. Subjective Post OP Day: 2 Reports: feeling well, pain controlled w PO medications, Denies: complaints, chest pain, SOB, nausea / vomiting, light headedness, calf pain Additional Notes: walked well yesterday Objective calves soft nontender, N/V intact, hip located, capillary refill less than 2 sec., dressing C/D/I, incision C/D/I, A&O x3, toes mobile, CMS intact minimal drainage on dressings Date Time Temp Pulse Resp B/P (MAP) Pulse Ox O2 Delivery O2 Flow Rate FiO2 03/21/17 07:32 Room Air 03/21/17 07:21 36.8 74 18 137/69 (91) 97 Room Air 03/20/17 23:30 Room Air CPAP 03/20/17 23:29 36.5 75 16 150/69 (96) 93 Room Air 03/20/17 19:07 83 145/77 (99) 03/20/17 15:55 Room Air 03/20/17 15:26 36.6 77 20 129/70 (89) 95 Room Air 03/20/17 11:28 36.5 73 19 144/78 (100) 95 Room Air Laboratory Results 24 Hours: Test 03/21/17 05:20 Prothromb Time International Ratio 1.2 Prothrombin Time 13.4 SECONDS Assessment & Plan Assessment: Right hip post op day 2 total hip arthroplasty Plan: PT/OT today, WBAT coumadin per nomogram dressing changed by me, wound looks good D/C to home today with home health continue total hip precautions Discharge Planning Discharge Planning: home with home health Pain Management: Percocet DVT Prophylaxis: TEDs, SCDs, Coumadin Therapy: Physical Therapy, Occupational Therapy
[2017-03-21 09:52] VITALS: BP 137/69; PULSE 74; TEMP 36.8; O2SAT 97
[2017-03-21] MEDS ORDERED: WARFARIN SOD 5 MG TAB PO SCH (16:00)
[2017-03-26] MEDS ORDERED: VANCOMYCIN INJ 1,700 MG in SODIUM CHLORIDE 0.9% 500ML 500 ML IV SCH (06:00)
[2017-03-26] MEDS ORDERED: TRANEXAMIC ACID INJ 1,000 MG in SODIUM CHLORIDE 0.9% 100ML 100 ML IV SCH (06:00)
[2017-03-26] MEDS ORDERED: LACTATED RINGER'S 1000ML 1,000 ML IV SCH ×2 (06:00)
[2017-03-26] MEDS ORDERED: LACTATED RINGER'S 1000ML 500 ML IV ONE (06:00)
[2017-04-22] MEDS ORDERED: CIPR1TAB11 PO (14:14)
[2017-04-22] MEDS ORDERED: RIFA300C34 PO (14:14)
[2017-04-24] MEDS ORDERED: ERTA1INJ IV (11:42)
[2017-04-24] MEDS ORDERED: FRRS300 PO (11:42)
[2017-04-24] MEDS ORDERED: DAPT500I IV (11:42)
[2017-04-24] MEDS ORDERED: ASPI325T60 PO (11:45)
[2017-04-24] MEDS ORDERED: LCTX PO (11:59)
== END 2017-03-21 13:12 | disposition home health service (06) | DRG 470 ==
LOC: C.ACU 05:59 → C.3E 06:25 → ENRESERV 11:38
PROVIDERS: ADMIT Physical Medicine & Rehabilitation Sports Medicine; ATTEND Physical Medicine & Rehabilitation Sports Medicine
PROC: 0SR90JA Replacement of Right Hip Joint with Synthetic Substitute, Uncemented, Open Approach (ICD-10-PCS; principal; 2017-03-19 09:00)
DX: M16.11 Unilateral primary osteoarthritis, right hip (principal); Z68.42 Body mass index [BMI] 45.0-49.9, adult; I10 Essential (primary) hypertension; E03.9 Hypothyroidism, unspecified; G47.30 Sleep apnea, unspecified; K21.9 Gastro-esophageal reflux disease without esophagitis; E66.9 Obesity, unspecified; Z51.81 Encounter for therapeutic drug level monitoring; Z79.899 Other long term (current) drug therapy; Z85.828 Personal history of other malignant neoplasm of skin; Z83.3 Family history of diabetes mellitus; Z82.49 Family history of ischemic heart disease and other diseases of the circulatory system; Z82.3 Family history of stroke

== ENCOUNTER → 2017-04-01 | Outpatient (CLI) | payer OTHER, MEDICARE ==
[~2017-04-01] MED LIST changes: +ACET-1256 PO; +ASPI325T60 PO; +CIPR1TAB11 PO; +DAPT500I IV; +ERTA1INJ IV; +FERR1TAB13 PO; +FRRS300 PO; +LCTX PO; +RIFA300C34 PO; +THYR15TA PO; -TRAM-10 PO; +WARF2TAB PO; +WARF2TAB8 PO
[2017-04-01 16:28] LABS: INR 1.2 (0.9-1.1); PROTHROMBIN TIME (PATIENT) 12.8 SECONDS (9.0-12.0)
--- NOTE | 2017-04-10 10:38 | CODING QUERY NO DIAGNOSIS ---
: 1940 TREATMENT RENDERED WITHOUT A DIAGNOSIS To promote full compliance with coding requirements relating to patient care, physician participation is requested in all cases of track repair worker uncertainty. Please assist us with providing the following: Please provide the original, signed physician order for the following tests that were rendered on 04/01/17: PROTHROMBIN TIME PROFILE Thank you [facility] [employer] Once completed, please kindly fax back to [phone] For questions please call [phone]
== END | disposition home or self-care (01) ==
LOC: C.LABSPEC 14:54
PROVIDERS: ATTEND Physical Medicine & Rehabilitation Sports Medicine
DX: Z47.1 Aftercare following joint replacement surgery (principal); Z96.641 Presence of right artificial hip joint; I10 Essential (primary) hypertension

== ENCOUNTER → 2017-04-04 | Outpatient (CLI) | payer OTHER, MEDICARE ==
[2017-04-04 12:30] LABS: BASO % 0.5 %; BASO ABS # 0.04 K/uL (0-0.2); COMPLETE YES; EOS % 5.5 %; HEMATOCRIT 31.7 % (37-47); IG% 0.5 %; LYMPH % 15.2 %; LYMPH ABS # 1.32 K/uL (1.2-3.4); MEAN CELL VOLUME 93.8 fL (80-100); MEAN CORPUSCULAR HEMOGLOBIN 28.1 pg (25-34); MEAN PLATELET VOLUME 8.5 fL (7.4-10.4); MONO % 6.4 %; NEUT % 71.9 %; PLATELET COUNT 423 K/uL (130-400); RED BLOOD COUNT 3.38 M/uL (4.2-5.4); WHITE BLOOD COUNT 8.71 K/uL (4.8-10.8)
[2017-04-04 13:25] LABS: BLOOD UREA NITROGEN 33 mg/dl (7-18); BUN/CREATININE RATIO 25.2 (10-20); CALCIUM 9.5 mg/dl (8.5-10.1); CARBON DIOXIDE 27 mmol/L (21-32); CHLORIDE 105 mmol/L (98-107); GLUCOSE 115 mg/dl (70-99); POTASSIUM 4.6 mmol/L (3.5-5.1); SODIUM 139 mmol/L (136-145)
== END | disposition home or self-care (01) ==
LOC: C.LABBFT 09:47
PROVIDERS: ATTEND Physical Medicine & Rehabilitation Sports Medicine
DX: R53.83 Other fatigue (principal); E03.9 Hypothyroidism, unspecified; M87.051 Idiopathic aseptic necrosis of right femur; Z96.641 Presence of right artificial hip joint

== ENCOUNTER 2017-04-20 13:54 | Emergency (ER) | payer OTHER, MEDICARE ==
[~2017-04-20] VITALS: Ht 157.5 cm; Wt 112.0 kg
[~2017-04-20 13:54] MED LIST changes: -ACET-1256 PO; -ASPI325T60 PO; -CIPR1TAB11 PO; -DAPT500I IV; -ERTA1INJ IV; -FERR1TAB13 PO; -FRRS300 PO; -LCTX PO; -RIFA300C34 PO; -THYR15TA PO; -WARF2TAB8 PO
[2017-04-20 14:01] VITALS: Ht 157.5 cm; Wt 112.0 kg
[2017-04-20] MEDS ORDERED: THY/120 PO (14:13)
[2017-04-20] MEDS ORDERED: WARF2TAB8 PO (14:13)
[2017-04-20] MEDS ORDERED: THYR15TA PO (14:13)
[2017-04-20] MEDS ORDERED: FERR1TAB13 PO (14:14)
[2017-04-20] MEDS ORDERED: ACET-1256 PO (14:14)
[2017-04-20] MEDS ORDERED: SODIUM CHLORIDE 0.9% 1000ML 1,000 ML IV STA (14:25)
[2017-04-20] MEDS ORDERED: FAMOTIDINE IV INJ 20 MG in DEXTROSE 5% 100ML 100 ML IV STA (14:25)
[2017-04-20] MEDS ORDERED: DiphenhydrAMINE HCL 50 MG/ML VIAL IV STA (14:25)
[2017-04-20] MEDS ORDERED: METOCLOPRAMIDE HCL INJ 5 MG/ML 2 ML VIAL IV STA (14:25)
--- NOTE | 2017-04-20 14:29 | EMERGENCY ROOM VISIT NOTE ---
History Report prepared by [place]: Eris Martinez Under the Supervision of: Dr. Justin Cardenas M.D. First contact with patient: 14:00 Chief Complaint: ABDOMINAL PAIN Stated Complaint: ILLNESS Nursing Triage Summary: Pt arrived via ambulance. Pt had recent hip surgery and has been going to PT. Pt stated that she started to have nausea yesterday morning and vomited x5. Pt has been having liquid stool yesterday and today. Pt has not had anything solid to eat since yesterday evening. Pt has been sipping water. Pt complains of burning epigastric pain and a pounding CASTANEDA. Pt stated that her temperature was elevated 101 at home. Pt took 2 tylenol. When EMS arrived pts temp was 99.1. Pt states that she her headache is a 6 out of 10 on pain scale and she still has epigastric pain. Pt was given 4mg Zofran IV which took her nausea away. Pt has + bowel sounds x 4 and no abdominal tenderness. History of Present Illness The patient is a 77 year old white female with a past medical history of hypertension, hypothyroid, 50% renal function, polymyalgia, and a recent right hip replacement who presents to the ED with a cc of abdominal pain that began yesterday but has resolved. Positive headache, diarrhea, abdominal discomfort, and a fever prior to arrival. Negative falls, nausea, vomiting, and abnormal urinary symptoms. She denies any exposures to stream water, well water, or any abnormal foods. Yesterday, she began having nausea and vomiting. She then started to experience sharp abdominal pain with diarrhea. When EMS arrived today , the patient was given Zofran 4 mg PO which helped her nausea and abdominal pain. She took 2 Tylenol prior to EMS arrival, which lowered her fever. She is taking Coumadin for her hip replacement. Source of History: patient Onset: yesterday Position: abdomen Symptom Intensity: mild Quality: other (Discomfort) Timing: constant Associated Symptoms: + headache, + diarrhea, No fevers (Secondary to 2 Tylenol), No nausea, No vomiting, No urinary symptoms Review of Systems See HPI for pertinent positives and negatives. A total of ten systems were reviewed and were otherwise negative. 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 (3) Hypotension (4) Hypothyroid Family History Omitted secondary to the patient's age. Social History Smoking Status: Former Smoker Smokeless Tobacco Use: No Drug Use: none Marital Status: Housing Status: lives with family Occupation Status: retired Current/Historical Medications Scheduled Carvedilol (Coreg), 2 TABS PO QAM Carvedilol (Coreg), 12.5 MG PO QPM Cholecalciferol (Vitamin D3), 2,000 INTUNIT PO QAM Estradiol (Estradiol), 0.25 MG PO HS Ferrous Sulfate (Kp Ferrous Sulfate), 325 MG PO DAILY Furosemide (Lasix), 20 MG PO Q2D Furosemide (Lasix), 40 MG PO Q2D Losartan Potassium (Cozaar), 50 MG PO BID Multivitamin (Multivitamin), 1 TAB PO QAM Ranitidine (Zantac), 300 MG PO HS Thyroid ([place] Thyroid), 120 MG PO QAM Thyroid ([place] Thyroid), 15 MG PO QAM Warfarin Sod (Jantoven), 2 MG PO DAILY Scheduled PRN Acetaminophen (Tylenol), 1,000 MG PO Q6 PRN for Pain Allergies Coded Allergies: Adhesives (Verified Allergy, Mild, RASH, 04/20/17) Clindamycin (Verified Allergy, Mild, RASH, 04/20/17) Ezetimibe (Verified Allergy, Mild, MEMORY LOSS, 04/20/17) Latex (Verified Allergy, Mild, RASH, 04/20/17) Penicillins (Verified Allergy, Mild, HIVES, 04/20/17) Quinolones (Verified Allergy, Mild, UNKNOWN, 03/19/17) Simvastatin (Verified Allergy, Mild, MUSCLE ACHES, 04/20/17) Sulfa Antibiotics (Verified Allergy, Mild, RASH AND ITCHING, 04/20/17) Erythromycin (Verified Allergy, Unknown, RASH, 04/20/17) Irbesartan (Verified Allergy, Unknown, FATIGUE, 04/20/17) Lisinopril (Verified Allergy, Unknown, PERIORBITAL SWELLING, 04/20/17) Niacin (Verified Allergy, Unknown, UNKNOWN, 04/20/17) Tetracycline (Verified Allergy, Unknown, RASH, 04/20/17) Gabapentin (Verified Adverse Reaction, Unknown, SWELLING ("ALL OVER"), 04/20/17) Physical Exam Vital Signs Date Time Temp Pulse Resp B/P (MAP) Pulse Ox O2 Delivery O2 Flow Rate FiO2 04/20/17 21:37 84 18 158/66 91 Room Air 04/20/17 20:26 80 18 148/63 94 Room Air 04/20/17 18:58 81 18 145/85 94 Room Air 04/20/17 17:35 37.8 88 16 174/81 94 Room Air 04/20/17 16:51 89 18 178/94 97 Room Air 04/20/17 16:02 84 18 168/71 96 Room Air 04/20/17 14:50 78 04/20/17 14:01 36.9 84 20 194/99 96 Room Air Physical Exam GENERAL: Awake, alert, well-appearing, NAD HENT: Normocephalic, atraumatic. EYES: Normal conjunctiva. Sclera non-icteric. NECK: Supple. No nuchal rigidity. FROM. RESPIRATORY: CTAB, no rhonchi, wheezing, crackles CARDIAC: RRR, no MRG ABDOMEN: Soft, mild abdominal discomfort. No focal tenderness. ND, BS+ MSK: No chest wall TTP, no LE edema. Surgical cite to the right hip. Well appearing. Mild erythema. No drainage. NEURO: GCS 15, CN 2-12 intact, moves all 4s on command. Good finger to nose. No pronator drift. 5/5 bilateral UE's and LLE strength. 4/5 strength in RLE secondary to hip replacement. SKIN: No rash or jaundice noted. Medical Decision & Procedures ER Provider Diagnostic Interpretation: Radiology results as stated below per my review and radiologist interpretation: ABD/PELVIS IV CONTRAST ONLY HISTORY: 77 years-old Female epigastric pain, diarrhea, vomiting, recent R hip DEANN acute epigastric abdominal pain with diarrhea and vomiting. Recent right total hip arthroplasty COMPARISON: Pelvis radiographs 03/19/2017 TECHNIQUE: Multiple axial CT images of the abdomen and pelvis were obtained following the intravenous administration of 117 mL Optiray 320. A dose lowering technique was used consistent with the principals of ALARA. FINDINGS: Lung bases are generally clear small left Bochdalek hernia. No pneumoperitoneum. Imaged inferior cardiac chambers are unremarkable with trace pericardial effusion. Liver, spleen, gallbladder, pancreas and adrenal glands are within normal limits. Kidneys, ureters and urinary bladder are unremarkable. Evaluation of the pelvic structures is limited secondary to right hip arthroplasty hardware. Prior hysterectomy. There is moderate arthritic carotid plaquing of the abdominal aorta. No bulky retroperitoneal adenopathy identified. Small sliding-type hiatal hernia. No focal bowel wall thickening or bowel obstruction. Scattered noninflamed colonic diverticula. There is a large partially imaged peripherally enhancing fluid collection involving the right lateral thigh, 5.5 x 5.4 x 10.2 cm within the subcutaneous tissues lateral to the right hip. Arthroplasty hardware appears intact. There is mild convex left curvature of the lumbar spine. Severe multilevel degenerative changes of the spine. There is asymmetrically increased vascularity of the right inguinal tissues which appears to emanate from the right femoral vein suggesting collateral vessels. IMPRESSION: 1. Right hip arthroplasty noted. Large partially imaged peripherally enhancing fluid collection of the subcutaneous tissues lateral right thigh measuring over 10 cm suggests postoperative seroma, hematoma or abscess. 2. No acute intra-abdominal or intrapelvic abnormality identified. 3. Colonic diverticulosis without diverticulitis. The above report was generated using voice recognition software. It may contain grammatical, syntax or spelling errors. Electronically signed by: Lance Washington M.D. 04/20/2017 5:07 PM Dictated Date/Time: 04/20/2017 5:01 PM Laboratory Results 04/20/17 13:30 Red Blood Count 3.60, Mean Corpuscular Volume 88.6, Mean Corpuscular Hemoglobin 28.1, Mean Corpuscular Hemoglobin Concent 31.7, Mean Platelet Volume 8.8, Neutrophils (%) (Auto) 85.8, Lymphocytes (%) (Auto) 7.0, Monocytes (%) (Auto) 6.7, Eosinophils (%) (Auto) 0.2, Basophils (%) (Auto) 0.1, Neutrophils # (Auto) 11.17, Lymphocytes # (Auto) 0.91, Monocytes # (Auto) 0.87, Eosinophils # (Auto) 0.03, Basophils # (Auto) 0.01 04/20/17 13:30 Test 04/20/17 13:30 04/20/17 14:39 04/20/17 20:00 White Blood Count 13.02 K/uL (4.8-10.8) Red Blood Count 3.60 M/uL (4.2-5.4) Hemoglobin 10.1 g/dL (12.0-16.0) Hematocrit 31.9 % (37-47) Mean Corpuscular Volume 88.6 fL (80-100) Mean Corpuscular Hemoglobin 28.1 pg (25-34) Mean Corpuscular Hemoglobin Concent 31.7 g/dl (32-36) Platelet Count 283 K/uL (130-400) Mean Platelet Volume 8.8 fL (7.4-10.4) Neutrophils (%) (Auto) 85.8 % Lymphocytes (%) (Auto) 7.0 % Monocytes (%) (Auto) 6.7 % Eosinophils (%) (Auto) 0.2 % Basophils (%) (Auto) 0.1 % Neutrophils # (Auto) 11.17 K/uL (1.4-6.5) Lymphocytes # (Auto) 0.91 K/uL (1.2-3.4) Monocytes # (Auto) 0.87 K/uL (0.11-0.59) Eosinophils # (Auto) 0.03 K/uL (0-0.5) Basophils # (Auto) 0.01 K/uL (0-0.2) RDW Standard Deviation 45.2 fL (36.4-46.3) RDW Coefficient of Variation 13.8 % (11.5-14.5) Immature Granulocyte % (Auto) 0.2 % Immature Granulocyte # (Auto) 0.03 K/uL (0.00-0.02) Erythrocyte Sedimentation Rate 59 mm/hr (0-21) Prothrombin Time 21.4 SECONDS (9.0-12.0) Prothromb Time International Ratio 1.9 (0.9-1.1) Activated Partial Thromboplast Time 54.5 SECONDS (21.0-31.0) Partial Thromboplastin Ratio 2.1 Anion Gap 12.0 mmol/L (3-11) Est Creatinine Clear Calc Drug Dose 50.6 ml/min Estimated GFR () 56.1 Estimated GFR (Non- 48.4 BUN/Creatinine Ratio 20.5 (10-20) Calcium Level 9.5 mg/dl (8.5-10.1) Total Bilirubin 0.5 mg/dl (0.2-1) Direct Bilirubin 0.2 mg/dl (0-0.2) Aspartate Amino Transf (AST/SGOT) 12 U/L (15-37) Alanine Aminotransferase (ALT/SGPT) 15 U/L (12-78) Alkaline Phosphatase 103 U/L (45-117) Troponin I < 0.015 ng/ml (0-0.045) C-Reactive Protein 12.80 mg/dl (0-0.29) Total Protein 6.8 gm/dl (6.4-8.2) Albumin 3.1 gm/dl (3.4-5.0) Lipase 147 U/L (73-393) Urine Color YELLOW Urine Appearance CLOUDY (CLEAR) Urine pH 5.0 (4.5-7.5) Urine Specific [place] 1.026 (1.000-1.030) Urine Protein 3+ (NEG) Urine Glucose (UA) NEG (NEG) Urine Ketones NEG (NEG) Urine Occult Blood TRACE (NEG) Urine Nitrite NEG (NEG) Urine Bilirubin NEG (NEG) Urine Urobilinogen NEG (NEG) Urine Leukocyte Esterase NEG (NEG) Urine WBC (Auto) 5-10 /hpf (0-5) Urine RBC (Auto) 0-4 /hpf (0-4) Urine Hyaline Casts (Auto) 10-30 /lpf (0-5) Urine Epithelial Cells (Auto) >30 /lpf (0-5) Urine Bacteria (Auto) NEG (NEG) Urine Renal Epithelial Cells 0-5 /lpf (0-5) Urine Crystals AMORPHOUS SEDIMENT (NONE Urine Pathogenic Casts 1-5 GRANULAR CASTS /lpf (0) Urine Yeast (Auto) (NONE PRSENT) Body Fluid Source HIP Body Fluid Color ROBERTO CARLOS Body Fluid Appearance TURBID Body Fluid WBC 34 /uL Body Fluid RBC 11074 /uL Body Fluid Polynuclear WBCs (%) 93.4 % Body Fluid Mononuclear WBCs (%) 6.6 % Laboratory results reviewed by me Medications Administered Medications (Trade) Dose Ordered Sig/Fuentes Route Start Time Stop Time Status Last Admin Dose Admin Sodium Chloride 1,000 ml @ 999 mls/hr Q1H1M STAT IV 04/20/17 14:25 04/20/17 15:25 DC 04/20/17 14:25 999 MLS/HR Metoclopramide HCl (Reglan Inj) 10 mg NOW STAT IV 04/20/17 14:25 04/20/17 14:27 DC 04/20/17 14:53 10 MG Diphenhydramine HCl (Benadryl Inj) 25 mg NOW STAT IV 04/20/17 14:25 04/20/17 14:27 DC 04/20/17 14:53 25 MG Famotidine 20 mg/ Dextrose 102 ml @ 200 mls/hr ONE STAT IV 04/20/17 14:25 04/20/17 14:55 DC 04/20/17 14:53 200 MLS/HR Lidocaine HCl (Viscous Lidocaine 2% Soln) 20 ml STK-MED ONCE .ROUTE 04/20/17 16:00 04/20/17 16:01 DC 04/20/17 16:04 10 ML Al Hydroxide/Mg Hydroxide (Maalox Susp) 30 ml STK-MED ONCE .ROUTE 04/20/17 16:00 04/20/17 16:01 DC 04/20/17 16:04 30 ML Morphine Sulfate (MoRPHine SULFATE INJ) 4 mg NOW STAT IV 04/20/17 16:05 04/20/17 16:06 DC 04/20/17 16:50 4 MG Acetaminophen (Tylenol Tab) 1,000 mg NOW STAT PO 04/20/17 17:47 04/20/17 17:48 DC 04/20/17 18:10 1,000 MG Ceftriaxone Sodium (Rocephin Inj) 2 gm NOW STAT IV 04/20/17 18:06 04/20/17 18:09 DC 04/20/17 18:54 2 GM Vancomycin HCl 1500 mg/Sodium Chloride 280 ml @ 125 mls/hr NOW STAT IV 04/20/17 18:06 04/20/17 20:20 DC 04/20/17 19:33 125 MLS/HR Miscellaneous Information (Nursing Verbal Med Order) 1 ea ONE ONCE N/A 04/20/17 19:45 04/20/17 19:49 DC 04/20/17 20:29 1 EA ECG Indication: abdominal pain Rate (beats per minute): 86 Rhythm: normal sinus Findings: no ectopy, other (Normal intervals, normal axis, questionable q-wave in V2 and 3 not in contiguous leads. Questionable t-wave inversion in lead 3. No other STS changes.) ED Course 1400: The patient was evaluated in room C2B. A complete history and physical exam was performed. 1600: The patient refused some of her medications. 1814: Upon reexamination, the patient was resting. I discussed the test results and treatment plan with Dr. Jacques of Orthopedics. The patient will be evaluated for further management. Medical Decision Differential diagnosis: Etiologies such as appendicitis, diverticulitis, PUD, biliary pathology, UTI, pancreatitis, obstruction, mesenteric ischemia, aortic pathology, infections, inflammatory bowel disease, renal colic, as well as others were entertained. The patient is a 77 year old white female with a past medical history of hypertension, hypothyroid, 50% renal function, polymyalgia, and a recent right hip replacement who presents to the ED with a cc of abdominal pain that began yesterday but has resolved. Positive headache, diarrhea, abdominal discomfort, and a fever prior to arrival. Negative falls, nausea, vomiting, and abnormal urinary symptoms. Patient had blood work as well as a UA and CT scan performed. Patient's headache and abdominal pain mildly improved. Patient had a CT the abdomen pelvis was completed without any acute intra-abdominal abnormality. Of note patient did have a fluid collection just lateral to the right hip and is 5 x 5 x 10 cm. Upon initial evaluation the site while well- healing was very erythematous and warm with mild tenderness to palpation. Given the recent procedure with her physical exam in addition to elevated white blood cell count 10 recent fever, I did speak with orthopedics who agreed that the patient should be admitted. I did speak with radiology in order to help facilitate an aspirin of this fluid under fluoroscopy. Patient did have additional lab work that was sent. Patient's UA was fairly unremarkable. Patient was seen in house by ORS. Dr. Hong performed bedside aspiration and had fluid sent. POC is for patient to be seen in clinic tomorrow. Initial WBC 34 w/ RBC 33327. Gram stain shows no organisms. Cultures pending. Patient finished abx and at which was d/c'ed to home from the department w/ f/u tomorrow in [facility]S clinic. Medication Reconcilliation Current Medication List: was personally reviewed by me Blood Pressure Screening Patient's blood pressure: Elevated blood pressure Blood pressure disposition: Elevated BP felt to be situational Consults Time Called: 1809 Consulting Physician: Dr. Jacques - Orthopedics Returned Call: 1814 Discussed the patient's case. The patient will be evaluated for further treatment and disposition. Impression Primary Impression: Abscess of hip Additional Impressions: Leukocytosis Hip pain Abdominal pain Scribe Attestation The scribe's documentation has been prepared under my direction and personally reviewed by me in its entirety. I confirm that the note above accurately reflects all work, treatment, procedures, and medical decision making performed by me. Departure Information Dispostion Home / Self-Care Referrals Noman Quiroz M.D. (PCP) Vinny Hong M.D. Patient Instructions Abdominal Pain, My [facility], Replacement Hip Manage Pain Additional Instructions Please return to the emergency department if you have worsening or recurrent symptoms not amenable to at-home treatment. Please call for a follow-up appointment with her primary care physician. Please take your medications as prescribed. If you have other concerns and/or complaints please feel free to also call your primary care physician's office or return the ED for further evaluation, management, and treatment. You may take 600 mg Ibuprofen every 6 hours as needed for pain with food for no more than 2 consecutive days. You may take tylenol 1000mg every 6 hours as needed for pain. You may take motrin and tylenol separately or at the same time. You have been examined and treated today on an emergency basis only. This is not a substitute for, or an effort to provide, complete comprehensive medical care. It is impossible to recognize and treat all injuries or illnesses in a single emergency department visit. It is therefore important that you follow up closely with [facility]. Call as soon as possible for an appointment. Thank you for your time and consideration. I look forward to speaking with you again soon. Please don't hesitate to call us if you have any questions. Problem Qualifiers Additional Impressions: Leukocytosis Leukocytosis type: unspecified Qualified Codes: D72.829 - Elevated white blood cell count, unspecified Hip pain Laterality: right Qualified Codes: M25.551 - Pain in right hip Abdominal pain Abdominal location: epigastric Qualified Codes: R10.13 - Epigastric pain
[2017-04-20 14:41] LABS: BASO % 0.1 %; BASO ABS # 0.01 K/uL (0-0.2); COMPLETE YES; EOS % 0.2 %; HEMATOCRIT 31.9 % (37-47); IG% 0.2 %; LYMPH ABS # 0.91 K/uL (1.2-3.4); MEAN CELL VOLUME 88.6 fL (80-100); MEAN CORPUSCULAR HEMOGLOBIN 28.1 pg (25-34); MEAN CORPUSCULAR HGB CONC 31.7 g/dl (32-36); MEAN PLATELET VOLUME 8.8 fL (7.4-10.4); MONO % 6.7 %; NEUT % 85.8 %; PLATELET COUNT 283 K/uL (130-400); WHITE BLOOD COUNT 13.02 K/uL (4.8-10.8)
[2017-04-20 14:54] LABS: BUN/CREATININE RATIO 20.5 (10-20); CALCIUM 9.5 mg/dl (8.5-10.1); CREATININE 1.1 mg/dl (0.60-1.20)
[2017-04-20 15:07] LABS: URINE APPEARANCE CLOUDY (CLEAR); URINE BILIRUBIN NEG (NEG); URINE COLOR YELLOW; URINE EPITHELIAL CELL AUTO >30 /lpf (0-5); URINE NITRITE NEG (NEG); URINE SPECIFIC GRAVITY 1.026 (1.000-1.030); UROBILINOGEN NEG (NEG); ZZUR CULT IF INDIC CLEAN CATCH YES
[2017-04-20 15:11] LABS: MANUAL MICROSCOPIC REQUIRED? NO; REVIEW REQ? YES
[2017-04-20 15:21] LABS: URINE PATH CASTS 1-5 GRANULAR CASTS /lpf (0)
[2017-04-20] MEDS ORDERED: GI COCKTAIL PO STA (15:39)
[2017-04-20] MEDS ORDERED: LIDOCAINE HCL 2% VISC SOLN 20 ML UDC ONE (16:00)
[2017-04-20] MEDS ORDERED: ALUMINUM/MAGNESIUM SUSP 30 ML UDC ONE (16:00)
[2017-04-20] MEDS ORDERED: MoRPHine SULFATE 4 MG/ML 1 ML CARP\\VIAL IV STA (16:05)
[2017-04-20] MEDS ORDERED: OPTIRAY 320 IV PRN (16:45)
--- NOTE | 2017-04-20 17:08 | DIAGNOSTIC IMAGING REPORT ---
ABD/PELVIS IV CONTRAST ONLY HISTORY: 77 years-old Female epigastric pain, diarrhea, vomiting, recent R hip DEANN acute epigastric abdominal pain with diarrhea and vomiting. Recent right total hip arthroplasty COMPARISON: Pelvis radiographs 03/19/2017 TECHNIQUE: Multiple axial CT images of the abdomen and pelvis were obtained following the intravenous administration of 117 mL Optiray 320. A dose lowering technique was used consistent with the principals of ABDULLAHI. FINDINGS: Lung bases are generally clear small left Bochdalek hernia. No pneumoperitoneum. Imaged inferior cardiac chambers are unremarkable with trace pericardial effusion. Liver, spleen, gallbladder, pancreas and adrenal glands are within normal limits. Kidneys, ureters and urinary bladder are unremarkable. Evaluation of the pelvic structures is limited secondary to right hip arthroplasty hardware. Prior hysterectomy. There is moderate arthritic carotid plaquing of the abdominal aorta. No bulky retroperitoneal adenopathy identified. Small sliding-type hiatal hernia. No focal bowel wall thickening or bowel obstruction. Scattered noninflamed colonic diverticula. There is a large partially imaged peripherally enhancing fluid collection involving the right lateral thigh, 5.5 x 5.4 x 10.2 cm within the subcutaneous tissues lateral to the right hip. Arthroplasty hardware appears intact. There is mild convex left curvature of the lumbar spine. Severe multilevel degenerative changes of the spine. There is asymmetrically increased vascularity of the right inguinal tissues which appears to emanate from the right femoral vein suggesting collateral vessels. IMPRESSION: 1. Right hip arthroplasty noted. Large partially imaged peripherally enhancing fluid collection of the subcutaneous tissues lateral right thigh measuring over 10 cm suggests postoperative seroma, hematoma or abscess. 2. No acute intra-abdominal or intrapelvic abnormality identified. 3. Colonic diverticulosis without diverticulitis. The above report was generated using voice recognition software. It may contain grammatical, syntax or spelling errors. Electronically signed by: Lance Washington M.D. 04/20/2017 5:07 PM Dictated Date/Time: 04/20/2017 5:01 PM
[2017-04-20] MEDS ORDERED: ACETAMINOPHEN 500 MG TAB PO STA (17:47)
[2017-04-20] MEDS ORDERED: VANCOMYCIN INJ 1,500 MG in SODIUM CHLORIDE 0.9% 250ML 250 ML IV STA (18:06)
[2017-04-20] MEDS ORDERED: CEFTRIAXONE SOD INJ 1 GM ADDVIAL IV STA (18:06)
[2017-04-20] MEDS ORDERED: NURSING VERBAL MED ORDER ONE (19:45)
[2017-04-20] MEDS ORDERED: LIDOCAINE HCL 2% LOCAL 20 ML VIAL INFIL ONE (20:00)
[2017-04-20 20:01] LABS: INR 1.9 (0.9-1.1); PARTIAL THROMBOPLASTIN RATIO 2.1; PROTHROMBIN TIME (PATIENT) 21.4 SECONDS (9.0-12.0)
--- NOTE | 2017-04-20 20:42 | Orthopedic Consultation ---
Orthopedic Consultation Date of Consultation: Apr 20, 2017. Attending Physician: Reason for Consultation: Right hip pain History of Present Illness Mismatches 77-year-old female status post a right total hip by Dr. Hong on 03/19/2017. She came into the emergency room tonight with epigastric pain as well as some right hip pain since Friday. She had some nausea and vomiting earlier today. She had a dose of morphine in the emergency room and this helped with her abdominal pain as well as her hip pain. Her daughters measured temperature home and is 101.6 but she is afebrile here. Orthopedics was consult it after a CT scan of her chest abdomen and pelvis was negative for abdominal pathology but did show a fluid collection in the subcutaneous tissues of the right hip. Past Medical/Surgical History Medical Problems: (1) Abdominal pain Status: Acute (2) Abscess of hip Status: Acute (3) Hip pain Status: Acute (4) Leukocytosis Status: Acute Social History Smoking Status: Former Smoker Smokeless Tobacco Use: No Drug Use: none Marital Status: Housing Status: lives with family Occupation Status: retired Allergies Coded Allergies: Adhesives (Verified Allergy, Mild, RASH, 04/20/17) Clindamycin (Verified Allergy, Mild, RASH, 04/20/17) Ezetimibe (Verified Allergy, Mild, MEMORY LOSS, 04/20/17) Latex (Verified Allergy, Mild, RASH, 04/20/17) Penicillins (Verified Allergy, Mild, HIVES, 04/20/17) Quinolones (Verified Allergy, Mild, UNKNOWN, 03/19/17) Simvastatin (Verified Allergy, Mild, MUSCLE ACHES, 04/20/17) Sulfa Antibiotics (Verified Allergy, Mild, RASH AND ITCHING, 04/20/17) Erythromycin (Verified Allergy, Unknown, RASH, 04/20/17) Irbesartan (Verified Allergy, Unknown, FATIGUE, 04/20/17) Lisinopril (Verified Allergy, Unknown, PERIORBITAL SWELLING, 04/20/17) Niacin (Verified Allergy, Unknown, UNKNOWN, 04/20/17) Tetracycline (Verified Allergy, Unknown, RASH, 04/20/17) Gabapentin (Verified Adverse Reaction, Unknown, SWELLING ("ALL OVER"), 04/20/17) Home Medications Scheduled Carvedilol (Coreg), 2 TABS PO QAM Carvedilol (Coreg), 12.5 MG PO QPM Cholecalciferol (Vitamin D3), 2,000 INTUNIT PO QAM Estradiol (Estradiol), 0.25 MG PO HS Ferrous Sulfate (Kp Ferrous Sulfate), 325 MG PO DAILY Furosemide (Lasix), 20 MG PO Q2D Furosemide (Lasix), 40 MG PO Q2D Losartan Potassium (Cozaar), 50 MG PO BID Multivitamin (Multivitamin), 1 TAB PO QAM Ranitidine (Zantac), 300 MG PO HS Thyroid ([place] Thyroid), 120 MG PO QAM Thyroid ([place] Thyroid), 15 MG PO QAM Warfarin Sod (Jantoven), 2 MG PO DAILY Scheduled PRN Acetaminophen (Tylenol), 1,000 MG PO Q6 PRN for Pain Current Inpatient Medications Current Inpatient Medications Medications (Trade) Dose Ordered Sig/Fuentes Route Start Time Stop Time Status Last Admin Dose Admin Ioversol (Optiray 320) 116 ml UD PRN IV 04/20/17 16:45 04/24/17 16:44 Physical Exam Date Time Temp Pulse Resp B/P (MAP) Pulse Ox O2 Delivery O2 Flow Rate FiO2 04/20/17 20:26 80 18 148/63 94 Room Air 04/20/17 18:58 81 18 145/85 94 Room Air 04/20/17 17:35 37.8 88 16 174/81 94 Room Air 04/20/17 16:51 89 18 178/94 97 Room Air 04/20/17 16:02 84 18 168/71 96 Room Air 04/20/17 14:50 78 04/20/17 14:01 36.9 84 20 194/99 96 Room Air General Appearance: no apparent distress Extremities/Musculoskelatal: + inflammation, + swelling, + pertinent finding ( examination of her right hip reveals patient be able do a straight leg raise off the bed. She can tolerate a logroll as well as passive hip flexion up to 60 without discomfort. She does have some redness over the lateral aspect of the hip approximately 12 cm in diameter with palpable of fluid collection. Slightly warm to the touch. She's distally neurovascularly intact.) Laboratory Results Last 24 Hours Test 04/20/17 13:30 04/20/17 14:39 04/20/17 20:00 White Blood Count 13.02 K/uL Red Blood Count 3.60 M/uL Hemoglobin 10.1 g/dL Hematocrit 31.9 % Mean Corpuscular Volume 88.6 fL Mean Corpuscular Hemoglobin 28.1 pg Mean Corpuscular Hemoglobin Concent 31.7 g/dl Platelet Count 283 K/uL Mean Platelet Volume 8.8 fL Neutrophils (%) (Auto) 85.8 % Lymphocytes (%) (Auto) 7.0 % Monocytes (%) (Auto) 6.7 % Eosinophils (%) (Auto) 0.2 % Basophils (%) (Auto) 0.1 % Neutrophils # (Auto) 11.17 K/uL Lymphocytes # (Auto) 0.91 K/uL Monocytes # (Auto) 0.87 K/uL Eosinophils # (Auto) 0.03 K/uL Basophils # (Auto) 0.01 K/uL RDW Standard Deviation 45.2 fL RDW Coefficient of Variation 13.8 % Immature Granulocyte % (Auto) 0.2 % Immature Granulocyte # (Auto) 0.03 K/uL Erythrocyte Sedimentation Rate 59 mm/hr Prothrombin Time 21.4 SECONDS Prothromb Time International Ratio 1.9 Activated Partial Thromboplast Time 54.5 SECONDS Partial Thromboplastin Ratio 2.1 Sodium Level 137 mmol/L Potassium Level 4.0 mmol/L Chloride Level 102 mmol/L Carbon Dioxide Level 23 mmol/L Anion Gap 12.0 mmol/L Blood Urea Nitrogen 23 mg/dl Creatinine 1.10 mg/dl Est Creatinine Clear Calc Drug Dose 50.6 ml/min Estimated GFR () 56.1 Estimated GFR (Non- 48.4 BUN/Creatinine Ratio 20.5 Random Glucose 117 mg/dl Calcium Level 9.5 mg/dl Total Bilirubin 0.5 mg/dl Direct Bilirubin 0.2 mg/dl Aspartate Amino Transf (AST/SGOT) 12 U/L Alanine Aminotransferase (ALT/SGPT) 15 U/L Alkaline Phosphatase 103 U/L Troponin I < 0.015 ng/ml C-Reactive Protein 12.80 mg/dl Total Protein 6.8 gm/dl Albumin 3.1 gm/dl Lipase 147 U/L Urine Color YELLOW Urine Appearance CLOUDY Urine pH 5.0 Urine Specific [place] 1.026 Urine Protein 3+ Urine Glucose (UA) NEG Urine Ketones NEG Urine Occult Blood TRACE Urine Nitrite NEG Urine Bilirubin NEG Urine Urobilinogen NEG Urine Leukocyte Esterase NEG Urine WBC (Auto) 5-10 /hpf Urine RBC (Auto) 0-4 /hpf Urine Hyaline Casts (Auto) 10-30 /lpf Urine Epithelial Cells (Auto) >30 /lpf Urine Bacteria (Auto) NEG Urine Renal Epithelial Cells 0-5 /lpf Urine Crystals AMORPHOUS SEDIMENT Urine Pathogenic Casts 1-5 GRANULAR CASTS /lpf Urine Yeast (Auto) Assessment & Plan Impression right hip seroma. Plan: Patient was seen by Dr. Hong. He aspirated her hip and we sent this for cell count stat Gram stain and culture. Please see Dr. Hong' s note for the procedure details. Patient will be discharged from the emergency room after she receives her IV antibiotics. She will follow up in Dr. Hong's clinic tomorrow.
[2017-04-20 20:43] LABS: FLUID APPEARANCE TURBID; FLUID RBC (A) 15000 /uL; FLUID WBC (A) 34 /uL
[2017-04-20 20:44] LABS: FLUID MONONUC 6.6 %; FLUID POLYNUC 93.4 %
--- NOTE | 2017-04-20 20:45 | OPERATIVE REPORT ---
DATE OF OPERATION: 04/20/2017 PREOPERATIVE DIAGNOSIS: At this point in time, the patient has a seroma of her right hip. Seroma, right hip. POSTOPERATIVE DIAGNOSIS: Same. PROCEDURE PERFORMED: Aspiration of right hip seroma for approximately 250 mL of cloudy serosanguineous fluid. PERIOPERATIVE SITUATION: Complicated by the patient having diarrhea, epigastric pain, nausea and vomiting for 24-36 hours prior to coming in, has some increased hip pain. She is status post hip replacement roughly 3-1/2 to 4 weeks ago. At this point in time in order to be safe, will aspirate fluid and empirically treat her with some antibiotics and it is here in the office in the morning. DESCRIPTION OF PROCEDURE: Timeout performed, verbal and written consent obtained. Area prepared with ChloraPrep and then aspirated with an 18 gauge spinal needle. It was very superficial ;deep did not produce any fluid ; superficially roughly 5-1/2 syringes fluid came out. It was sent for stat Gram stain stat cell count and aerobic and anaerobic culture. At this point in time, the area of redness was almost completely eliminated with the aspiration of the fluid indicating that this was probably more related pressure and not from infection. A pressure dressing was applied in order to try to prevent the seroma from reoccurring. As long as she is not having any major issues, she will be discharged from the ER and follow up in the office. She received vancomycin and already received some cefazolin. We will hold her Coumadin at this point in time. Follow up in a.m. Culture reports pending. I attest to the content of the Intraoperative Record and any orders documented therein. Any exceptions are noted below. ALAN
[2017-04-20 23:26] VITALS: TEMP 37.3
[2017-04-20 23:32] VITALS: BP 159/65; PULSE 85; O2SAT 95
--- NOTE | 2017-04-22 11:29 | Pharmacy Progress Note ---
ED Pharmacist Culture FollowUp Date of Service: Apr 22, 2017. One of 2 blood cultures from 04/20 is growing gram negative rods. The patient had been seen on 04/20 for nausea, vomiting, fever and epigastric pain in the setting of recent hip replacement. CT abd/pelvis was negative for intraabdominal process however a fluid collection was noted later to the R hip. Ortho was consulted, a bedside aspiration was performed in the ED. She was given IV Rocephin and Vancomycin in the ER and discharged home w/ instructions to f/u with Ortho on 04/21. I reviewed this BLCX result w/ Dr Aldana and the decision was made to have the patient return for eval in the ER. I spoke with the patient over the phone and told her we would like to see her in the ER given the abnormal blood cx results. The patient was already aware of the GNR in blood cx and the GPC in the R hip aspiration cultures. She stated she was contacted by Dr Hong 's office and the results were given to her. She stated Dr Hong started her on Ciprofloxacin and Rifampin on Friday. Despite starting ABX she feels no better. She stated she has an appointment with Dr Hong today at 1300. I contacted Dr Hong's office to be sure that he was aware of the blood cx results and to confirm the treatment plan. The RN in the office said he is currently in the OR but someone will f/u with him. She did confirm the patient does have an appointment w/ him today at 1300. I requested she call me back to confirm the patient is going to be seen in the office rather than the ER.
[2017-04-22] MEDS ORDERED: RIFA300C34 PO (14:14)
[2017-04-22] MEDS ORDERED: CIPR1TAB11 PO (14:14)
--- NOTE | 2017-04-23 12:52 | Pharmacy Progress Note ---
ED Pharmacist Culture FollowUp Date of Service: Apr 23, 2017. ED secretary specialist forwarded results of joint fluid cx to me today. The culture is growing enterococcus faecalis - pansensitive. Yesterday the patient was admitted to [facility] as a direct admit via Dr Quiroz due to gram negative rickey bacteremia. She is currently receiving Vancomycin IV, which will cover the enterococcus in this culture, as well as ertapenem for the GNR bacteremia. ID is consulted and following this patient and has referred to this cx in prior note. No action required from ED perspective.
[2017-04-24] MEDS ORDERED: FRRS300 PO (11:42)
[2017-04-24] MEDS ORDERED: ERTA1INJ IV (11:42)
[2017-04-24] MEDS ORDERED: DAPT500I IV (11:42)
[2017-04-24] MEDS ORDERED: ASPI325T60 PO (11:45)
[2017-04-24] MEDS ORDERED: LCTX PO (11:59)
== END 2017-04-20 23:34 | disposition home or self-care (01) ==
LOC: EDBD 13:54 → C.EDC 13:56
DX: L02.415 Cutaneous abscess of right lower limb (principal); D72.829 Elevated white blood cell count, unspecified; M25.551 Pain in right hip; R10.13 Epigastric pain; M19.90 Unspecified osteoarthritis, unspecified site; M16.10 Unilateral primary osteoarthritis, unspecified hip; I95.9 Hypotension, unspecified; E03.9 Hypothyroidism, unspecified; Z87.891 Personal history of nicotine dependence; Z79.01 Long term (current) use of anticoagulants; Z51.81 Encounter for therapeutic drug level monitoring

== ENCOUNTER → 2017-05-05 | Outpatient (CLI) | payer OTHER, MEDICARE ==
[~2017-05-05] MED LIST changes: +ACET-1256 PO; +ASPI325T60 PO; +DAPT500I IV; +ERTA1INJ IV; +FRRS300 PO; +LCTX PO; -OXYC-57 PO; +THYR15TA PO; -WARF2TAB PO; -[UNRECOGNIZED DRUG - OTHER] TOP
== END | disposition home or self-care (01) ==
LOC: C.RDSM 12:30
PROVIDERS: ATTEND Physical Medicine & Rehabilitation Sports Medicine
DX: Z96.641 Presence of right artificial hip joint (principal)

== ENCOUNTER 2017-05-08 10:11 | Inpatient (IN) | payer OTHER, MEDICARE ==
[~2017-05-08] VITALS: Ht 157.5 cm; Wt 112.7 kg
[2017-05-08] MEDS ORDERED: SODIUM CHLORIDE 0.9% 1000ML 1,000 ML IV ONE (10:50)
--- NOTE | 2017-05-08 10:50 | EMERGENCY ROOM VISIT NOTE ---
History Report prepared by [place]: Samaria Harper Under the Supervision of: Dr. Zhang Portillo M.D. First contact with patient: 10:35 Chief Complaint: WEAKNESS Stated Complaint: WEAKNESS, EXHAUSTION Nursing Triage Summary: Feeling weak and dehyrated per the pt. Currently being treated for sepsis, IV in place left hand. Had a fever last evening per daughter History of Present Illness The patient is a 77 year old female who presents to the Emergency Room with complaints of persistent weakness that began several days ago. She currently rates her discomfort as a 5/10 in severity. The patient states that she is currently undergoing IV antibiotic treatment for Sepsis. She states that her Infectious Disease doctors have not found the source of her infection and she states that she was going to see them today, but felt too weak. The patient states that Friday evening she began experiencing vomiting and diarrhea and states that she has not eaten since then. She states that she has been feeling fatigued today. The patient's daughter states that the patient had a fever of 101.6 degrees Fahrenheit on Friday evening. She notes that the patient has missed her last two days of IV antibiotic treatment. The patient states that she has 2 more days of Invanz and 15 more days of Daptomycin left. She denies any abdominal pain. The patient states that her bowel movements were partially formed today. Source of History: patient Onset: several days ago Position: other (global) Symptom Intensity: 5/10 Quality: other (weakness) Timing: other (persistent) Associated Symptoms: + fevers, + vomiting, + diarrhea, + fatigue Review of Systems See HPI for pertinent positives & negatives. A total of 10 systems reviewed and were otherwise negative. 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 (3) Gram-neg septicemia (4) Hypotension (5) Hypothyroid (6) Nausea & vomiting (7) Weakness (8) Wound infection after surgery Family History Cancer Diabetes mellitus Gallbladder disease Heart disease Hypertension Kidney disease Kidney stones Stroke Social History Smoking Status: Former Smoker Alcohol Use: occasionally Drug Use: none Marital Status: Housing Status: lives with family Occupation Status: retired Current/Historical Medications Scheduled Aspirin Buffered (Vel Carb-Mag (Tri-Buffered Aspirin), 325 MG PO DAILY Carvedilol (Coreg), 2 TABS PO QAM Carvedilol (Coreg), 12.5 MG PO QPM Cholecalciferol (Vitamin D3), 2,000 INTUNIT PO QAM Daptomycin (Daptomycin), 600 MG IV DAILY Ertapenem Sodium (Invanz), 1 GM IV DAILY Estradiol (Estradiol), 0.25 MG PO HS Ferrous Sulfate (Ferrous Sulfate), 325 MG PO DAILY Furosemide (Lasix), 20 MG PO Q2D Furosemide (Lasix), 40 MG PO Q2D Lactobacillus Acidophilus (Floranex), 1 TAB PO TID Losartan Potassium (Cozaar), 50 MG PO BID Multivitamin (Multivitamin), 1 TAB PO QAM Ranitidine (Zantac), 300 MG PO HS Thyroid ([place] Thyroid), 120 MG PO QAM Thyroid ([place] Thyroid), 15 MG PO QAM Scheduled PRN Acetaminophen (Tylenol), 1,000 MG PO Q6 PRN for Pain Allergies Coded Allergies: Adhesives (Verified Allergy, Mild, RASH, 05/06/17) Clindamycin (Verified Allergy, Mild, RASH, 05/06/17) Ezetimibe (Verified Allergy, Mild, MEMORY LOSS, 05/06/17) Latex (Verified Allergy, Mild, RASH, 05/06/17) Penicillins (Verified Allergy, Mild, HIVES, 05/06/17) Quinolones (Verified Allergy, Mild, UNKNOWN, 05/06/17) Simvastatin (Verified Allergy, Mild, MUSCLE ACHES, 05/06/17) Sulfa Antibiotics (Verified Allergy, Mild, RASH AND ITCHING, 05/06/17) Erythromycin (Verified Allergy, Unknown, RASH, 05/06/17) Irbesartan (Verified Allergy, Unknown, FATIGUE, 05/06/17) Lisinopril (Verified Allergy, Unknown, PERIORBITAL SWELLING, 05/06/17) Niacin (Verified Allergy, Unknown, UNKNOWN, 05/06/17) Tetracycline (Verified Allergy, Unknown, RASH, 05/06/17) Gabapentin (Verified Adverse Reaction, Unknown, SWELLING ("ALL OVER"), ) Physical Exam Vital Signs Date Time Temp Pulse Resp B/P (MAP) Pulse Ox O2 Delivery O2 Flow Rate FiO2 05/08/17 14:24 36.9 87 18 169/113 94 05/08/17 14:22 87 169/113 94 Room Air 05/08/17 13:17 96 Room Air 05/08/17 12:40 87 18 163/80 96 05/08/17 11:37 94 Room Air 05/08/17 10:16 36.9 83 18 153/79 96 Physical Exam GENERAL: Patient is a healthy-appearing well-nourished female HEAD: Normocephalic atraumatic EYES: Ocular movements intact pupils equal and react to light OROPHARYNX mucous membranes are moist no exudates present no erythema or edema present NECK: Supple no nuchal rigidity CHEST: Good equal expansion LUNGS: Clear and equal to auscultation CARDIAC: Normal S1 and S2 ABDOMEN: Soft nontender no guarding BACK: No CVA tenderness EXTREMITIES: Good range of motion of right hip area of cellulitis extending about 12 inches down the right leg approximately 6 inches in circumference NEURO: Patient is following commands and answering questions appropriately. Alert and oriented x3 Cranial Nerves 2-12 grossly intact Medical Decision & Procedures ER Provider Diagnostic Interpretation: X-ray results as stated below per interpretation by me and the radiologist: CHEST ONE VIEW PORTABLE CLINICAL HISTORY: Sepsis COMPARISON STUDY: 04/24/2017 FINDINGS: The cardiac and mediastinal contours are normal. There is no evidence of focal pulmonary consolidation. There is no evidence of failure. No pleural effusions are visualized.[ IMPRESSION: No active disease in the chest. Electronically signed by: Mahin Farr M.D. 05/08/2017 11:18 AM Dictated Date/Time: 05/08/2017 11:18 AM Laboratory Results 05/08/17 10:56 Red Blood Count 3.38, Mean Corpuscular Volume 87.0, Mean Corpuscular Hemoglobin 27.8, Mean Corpuscular Hemoglobin Concent 32.0, Mean Platelet Volume 8.5, Neutrophils (%) (Auto) 69.3, Lymphocytes (%) (Auto) 15.1, Monocytes (%) (Auto) 8.7, Eosinophils (%) (Auto) 6.6, Basophils (%) (Auto) 0.2, Neutrophils # (Auto) 6.02, Lymphocytes # (Auto) 1.31, Monocytes # (Auto) 0.76, Eosinophils # (Auto) 0.57, Basophils # (Auto) 0.02 05/08/17 10:56 Test 05/08/17 10:56 05/08/17 11:28 05/08/17 12:10 White Blood Count 8.69 K/uL (4.8-10.8) Red Blood Count 3.38 M/uL (4.2-5.4) Hemoglobin 9.4 g/dL (12.0-16.0) Hematocrit 29.4 % (37-47) Mean Corpuscular Volume 87.0 fL (80-100) Mean Corpuscular Hemoglobin 27.8 pg (25-34) Mean Corpuscular Hemoglobin Concent 32.0 g/dl (32-36) Platelet Count 356 K/uL (130-400) Mean Platelet Volume 8.5 fL (7.4-10.4) Neutrophils (%) (Auto) 69.3 % Lymphocytes (%) (Auto) 15.1 % Monocytes (%) (Auto) 8.7 % Eosinophils (%) (Auto) 6.6 % Basophils (%) (Auto) 0.2 % Neutrophils # (Auto) 6.02 K/uL (1.4-6.5) Lymphocytes # (Auto) 1.31 K/uL (1.2-3.4) Monocytes # (Auto) 0.76 K/uL (0.11-0.59) Eosinophils # (Auto) 0.57 K/uL (0-0.5) Basophils # (Auto) 0.02 K/uL (0-0.2) RDW Standard Deviation 45.5 fL (36.4-46.3) RDW Coefficient of Variation 14.3 % (11.5-14.5) Immature Granulocyte % (Auto) 0.1 % Immature Granulocyte # (Auto) 0.01 K/uL (0.00-0.02) Erythrocyte Sedimentation Rate 76 mm/hr (0-21) Prothrombin Time 10.7 SECONDS (9.0-12.0) Prothromb Time International Ratio 1.0 (0.9-1.1) Activated Partial Thromboplast Time 28.4 SECONDS (21.0-31.0) Partial Thromboplastin Ratio 1.1 Anion Gap 11.0 mmol/L (3-11) Est Creatinine Clear Calc Drug Dose 45.0 ml/min Estimated GFR () 49.0 Estimated GFR (Non- 42.3 BUN/Creatinine Ratio 23.8 (10-20) Calcium Level 9.4 mg/dl (8.5-10.1) Total Bilirubin 0.4 mg/dl (0.2-1) Aspartate Amino Transf (AST/SGOT) 12 U/L (15-37) Alanine Aminotransferase (ALT/SGPT) 19 U/L (12-78) Alkaline Phosphatase 101 U/L (45-117) Total Creatine Kinase 28 U/L (26-192) Creatine Kinase MB 0.5 ng/ml (0.5-3.6) Creatine Kinase MB Ratio 1.8 (0-3.0) Troponin I < 0.015 ng/ml (0-0.045) C-Reactive Protein 13.40 mg/dl (0-0.29) Total Protein 7.3 gm/dl (6.4-8.2) Albumin 2.9 gm/dl (3.4-5.0) Globulin 4.4 gm/dl (2.5-4.0) Albumin/Globulin Ratio 0.7 (0.9-2) Bedside Lactic Acid Venous 0.70 mmol/L (0.90-1.70) Urine Color YELLOW Urine Appearance CLEAR (CLEAR) Urine pH 5.0 (4.5-7.5) Urine Specific [place] 1.019 (1.000-1.030) Urine Protein 2+ (NEG) Urine Glucose (UA) NEG (NEG) Urine Ketones TRACE (NEG) Urine Occult Blood NEG (NEG) Urine Nitrite NEG (NEG) Urine Bilirubin NEG (NEG) Urine Urobilinogen NEG (NEG) Urine Leukocyte Esterase NEG (NEG) Urine WBC (Auto) 1-5 /hpf (0-5) Urine RBC (Auto) 0-4 /hpf (0-4) Urine Hyaline Casts (Auto) 1-5 /lpf (0-5) Urine Epithelial Cells (Auto) >30 /lpf (0-5) Urine Bacteria (Auto) NEG (NEG) Labs reviewed by ED physician. Medications Administered Medications (Trade) Dose Ordered Sig/Fuentes Route Start Time Stop Time Status Last Admin Dose Admin Sodium Chloride 1,000 ml @ 999 mls/hr Q1H1M ONCE IV 05/08/17 10:50 05/08/17 11:50 DC 05/08/17 12:02 999 MLS/HR Ertapenem 1 gm/ Sodium Chloride 50 ml @ 100 mls/hr NOW ONCE IV 05/08/17 11:45 05/08/17 12:14 DC 05/08/17 12:02 100 MLS/HR Daptomycin 600 mg/ Sodium Chloride 62 ml @ 120 mls/hr NOW ONCE IV 05/08/17 11:45 05/08/17 12:15 DC 05/08/17 12:02 120 MLS/HR ECG Indication: weakness Rate (beats per minute): 75 Rhythm: normal sinus Findings: no acute ischemic change, no ectopy ED Course 1044: Past medical records reviewed. The patient was evaluated in room C4. A complete history and physical examination was performed. 1050: Ordered Sodium Chloride 1000 ml @ 999 mls/hr IV. 1145: Ordered Daptomycin 600 mg/Sodium Chloride 62 ml @ 120 mls/hr IV, Ertapenem 1 gm/Sodium Chloride 50 ml @ 100 mls/hr IV. 1255: I discussed the patients case with Dr. Cintron. He states that the patient should be evaluated for further treatment. 1302: I discussed the patients case with Dr. Carr, Infectious Disease. He said that the patient should be evaluated for further evaluation. 1315: The patient's case was [place] [facility] [place] going to evaluate the patient for further treatment. Medical Decision Differential diagnosis: Etiologies such as viral syndrome, otitis, pharyngitis, pneumonia, influenza, meningitis, urinary tract infection, sepsis, bacteremia, as well as others were entertained. This is a 77-year-old female who presents emergency department complaining of increasing redness to the right extremity. Patient is currently being treated on antibiotics however has missed the last 2 doses due to weakness is. I did discussed the case with the patient's orthopedic surgeon as well as infectious disease who asked that the patient be admitted to the hospitalist service. The patient was pancultured up and started on Invanz and daptomycin. Medication Reconcilliation Current Medication List: was personally reviewed by me Blood Pressure Screening Patient's blood pressure: Elevated blood pressure Blood pressure disposition: Referred to PCP Consults Time Called: 1255 Consulting Physician: Dr. Roberts Returned Call: 1255 I discussed the patients case with Dr. Cintron. He states that the patient should be evaluated for further treatment. Additional Consults: Time Called: 1300 Consulted Physician: Dr. Carr, Infectious Disease Returned Call: 1302 Additional Comments: I discussed the patients case with Dr. Carr, Infectious Disease. He said that the patient should be evaluated for further evaluation. Time Called: 1305 Consulted Physician: EFRA Conway Returned Call: [phone] Additional Comments: The patient's case was discussed with EFRA Conway. He is going to evaluate the patient for further treatment. Impression Primary Impression: Cellulitis Scribe Attestation The scribe's documentation has been prepared under my direction and personally reviewed by me in its entirety. I confirm that the note above accurately reflects all work, treatment, procedures, and medical decision making performed by me. Departure Information Dispostion Being Evaluated By Hospitalist Referrals Noman Quiroz M.D. (PCP) Problem Qualifiers Primary Impression: Cellulitis Site of cellulitis: extremity Site of cellulitis of extremity: lower extremity Laterality: right Qualified Codes: L03.115 - Cellulitis of right lower limb
--- NOTE | 2017-05-08 11:20 | DIAGNOSTIC IMAGING REPORT ---
CHEST ONE VIEW PORTABLE CLINICAL HISTORY: Sepsis COMPARISON STUDY: 04/24/2017 FINDINGS: The cardiac and mediastinal contours are normal. There is no evidence of focal pulmonary consolidation. There is no evidence of failure. No pleural effusions are visualized.[ IMPRESSION: No active disease in the chest. Electronically signed by: Mahin Farr M.D. 05/08/2017 11:18 AM Dictated Date/Time: 05/08/2017 11:18 AM
[2017-05-08 11:42] LABS: PARTIAL THROMBOPLASTIN RATIO 1.1; PROTHROMBIN TIME (PATIENT) 10.7 SECONDS (9.0-12.0)
[2017-05-08 11:45] LABS: BASO % 0.2 %; BASO ABS # 0.02 K/uL (0-0.2); COMPLETE YES; EOS % 6.6 %; HEMATOCRIT 29.4 % (37-47); IG% 0.1 %; LYMPH % 15.1 %; LYMPH ABS # 1.31 K/uL (1.2-3.4); MEAN CORPUSCULAR HEMOGLOBIN 27.8 pg (25-34); MEAN PLATELET VOLUME 8.5 fL (7.4-10.4); MONO % 8.7 %; NEUT % 69.3 %; PLATELET COUNT 356 K/uL (130-400); RED BLOOD COUNT 3.38 M/uL (4.2-5.4); WHITE BLOOD COUNT 8.69 K/uL (4.8-10.8)
[2017-05-08] MEDS ORDERED: ERTAPENEM IV 1 GM in SODIUM CHLOR 0.9% AD-VAN 50ML IV ONE (11:45)
[2017-05-08] MEDS ORDERED: DAPTOmycin IV 600 MG in SODIUM CHLORIDE 0.9% 50ML 50 ML IV ONE (11:45)
[2017-05-08 11:56] LABS: ALT/SGPT 19 U/L (12-78); AST/SGOT 12 U/L (15-37); BLOOD UREA NITROGEN 29 mg/dl (7-18); BUN/CREATININE RATIO 23.8 (10-20); CALCIUM 9.4 mg/dl (8.5-10.1); CARBON DIOXIDE 23 mmol/L (21-32); CHLORIDE 103 mmol/L (98-107); CREATININE 1.23 mg/dl (0.60-1.20); GLUCOSE 101 mg/dl (70-99); POTASSIUM 4.1 mmol/L (3.5-5.1); SODIUM 137 mmol/L (136-145)
[2017-05-08 12:01] LABS: ALB/GLOB RATIO 0.7 (0.9-2); ALKALINE PHOSPHATASE 101 U/L (45-117); CKMB/CK RATIO 1.8 (0-3.0)
[2017-05-08 12:43] LABS: URINE APPEARANCE CLEAR (CLEAR); URINE BILIRUBIN NEG (NEG); URINE COLOR YELLOW; URINE EPITHELIAL CELL AUTO >30 /lpf (0-5); URINE NITRITE NEG (NEG); URINE SPECIFIC GRAVITY 1.019 (1.000-1.030); UROBILINOGEN NEG (NEG); ZZUR CULT IF INDIC CLEAN CATCH NO
[2017-05-08 12:44] LABS: MANUAL MICROSCOPIC REQUIRED? NO; REVIEW REQ? NO
[2017-05-08 13:17] VITALS: O2SAT 96; Ht 157.5 cm; Wt 112.7 kg
--- NOTE | 2017-05-08 13:22 | History and Physical ---
History & Physical Date & Time of Service: May 08, 2017 at 13:17 Chief Complaint: Weakness, Exhaustion Primary Care Physician: Noman Quiroz M.D. History of Present Illness Source: patient This is a 77 y/o female with a history of HTN, HLD, diastolic CHF, CKD stage III , prediabetes, hypothyroidism, PMR, recent post op wound infection. The patient had a right DEANN on 03/19 - developed a fluid collection which was drained and cultured - returned positive for Enterococcus Faecalis. The pt was eventually DCd 04/24 to complete an outpt course of Daptomycin and Ertapenem. She presently has 2 remaining days of treatment however she had missed her antibiotics the past 2 days. This past Tue she had a fever of 101.7 per her daughter. She also c/o of 2 days of nausea, a few episodes of vomiting and diarrhea, although this appears to have resolved. She has also developed a degree of cellulitis extending down from the wound over the past few days. The pt was evaluated by orthopedics in the ER and is to undergo washout of her wound AM. Past Medical/Surgical History 1) HTN 2) HLD 3) Diastolic CHF 4) CKD stage III 5) Prediabetes 6) Hypothyroidism 7) PMR 8) Psoriasis Family History Cancer Diabetes mellitus Gallbladder disease Heart disease Hypertension Kidney disease Kidney stones Stroke Social History Smoking Status: Former Smoker Drug Use: none Marital Status: Housing status: lives with family Occupational Status: retired Immunizations History of Influenza Vaccine: No History of Tetanus Vaccine?: No History of Pneumococcal: No History of Hepatitis B Vaccine: Yes Multi-Drug Resistant Organisms History of MDRO: No Allergies Coded Allergies: Adhesives (Verified Allergy, Mild, RASH, 05/06/17) Clindamycin (Verified Allergy, Mild, RASH, 05/06/17) Ezetimibe (Verified Allergy, Mild, MEMORY LOSS, 05/06/17) Latex (Verified Allergy, Mild, RASH, 05/06/17) Penicillins (Verified Allergy, Mild, HIVES, 05/06/17) Quinolones (Verified Allergy, Mild, UNKNOWN, 05/06/17) Simvastatin (Verified Allergy, Mild, MUSCLE ACHES, 05/06/17) Sulfa Antibiotics (Verified Allergy, Mild, RASH AND ITCHING, 05/06/17) Erythromycin (Verified Allergy, Unknown, RASH, 05/06/17) Irbesartan (Verified Allergy, Unknown, FATIGUE, 05/06/17) Lisinopril (Verified Allergy, Unknown, PERIORBITAL SWELLING, 05/06/17) Niacin (Verified Allergy, Unknown, UNKNOWN, 05/06/17) Tetracycline (Verified Allergy, Unknown, RASH, 05/06/17) Gabapentin (Verified Adverse Reaction, Unknown, SWELLING ("ALL OVER"), ) Home Medications Scheduled Aspirin Buffered (Vel Carb-Mag (Tri-Buffered Aspirin), 325 MG PO DAILY Carvedilol (Coreg), 2 TABS PO QAM Carvedilol (Coreg), 12.5 MG PO QPM Cholecalciferol (Vitamin D3), 2,000 INTUNIT PO QAM Daptomycin (Daptomycin), 600 MG IV DAILY Ertapenem Sodium (Invanz), 1 GM IV DAILY Estradiol (Estradiol), 0.25 MG PO HS Ferrous Sulfate (Ferrous Sulfate), 325 MG PO DAILY Furosemide (Lasix), 20 MG PO Q2D Furosemide (Lasix), 40 MG PO Q2D Lactobacillus Acidophilus (Floranex), 1 TAB PO TID Losartan Potassium (Cozaar), 50 MG PO BID Multivitamin (Multivitamin), 1 TAB PO QAM Ranitidine (Zantac), 300 MG PO HS Thyroid ([place] Thyroid), 120 MG PO QAM Thyroid ([place] Thyroid), 15 MG PO QAM Scheduled PRN Acetaminophen (Tylenol), 1,000 MG PO Q6 PRN for Pain Review of Systems Constitutional: + fever, + weakness, No chills, No sweats Eyes: No worsening of vision, No eye pain ENT: No hearing loss, No unusual epistaxis, No nasal symptoms Respiratory: No cough, No sputum, No wheezing Cardiovascular: No chest pain, No orthopnea, No PND Abdomen: + nausea, + vomiting, + diarrhea, No pain Musculoskeletal: + joint pain (Pain at R hip) Genitourinary - Female: No dysuria, No urinary frequency, No urinary urgency Neurologic: + weakness, No memory loss, No paralysis Psychiatric: No depression symptoms Endocrine: No fatigue Hematologic / Lymphatic: No abnormal bleeding/bruising Integumentary: + rash (Redness over R hip) Physical Exam Vital Signs Date Time Temp Pulse Resp B/P (MAP) Pulse Ox O2 Delivery O2 Flow Rate FiO2 05/08/17 12:40 87 18 163/80 96 05/08/17 11:37 94 Room Air 05/08/17 10:16 36.9 83 18 153/79 96 General Appearance: WD/WN, no apparent distress Head: normocephalic Eyes: normal inspection, EOMI ENT: normal ENT inspection, pharynx normal Neck: supple, + pertinent finding (Cannot assess JVD) Respiratory/Chest: chest non-tender, lungs clear, normal breath sounds Cardiovascular: regular rate, rhythm, no edema, no gallop, no murmur, normal peripheral pulses Abdomen/GI: normal bowel sounds, non tender, soft Back: normal inspection, no CVA tenderness, no muscle spasm, normal range of motion Neurologic/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: [employer]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 tested, no motor/sensory deficits, alert Skin: normal color, warm/dry, no rash Diagnostics Laboratory Results Results Past 24 Hours Test 05/08/17 10:56 05/08/17 11:28 05/08/17 12:10 Range/Units White Blood Count 8.69 4.8-10.8 K/uL Red Blood Count 3.38 4.2-5.4 M/uL Hemoglobin 9.4 12.0-16.0 g/dL Hematocrit 29.4 37-47 % Mean Corpuscular Volume 87.0 80-100 fL Mean Corpuscular Hemoglobin 27.8 25-34 pg Mean Corpuscular Hemoglobin Concent 32.0 32-36 g/dl Platelet Count 356 130-400 K/uL Mean Platelet Volume 8.5 7.4-10.4 fL Neutrophils (%) (Auto) 69.3 % Lymphocytes (%) (Auto) 15.1 % Monocytes (%) (Auto) 8.7 % Eosinophils (%) (Auto) 6.6 % Basophils (%) (Auto) 0.2 % Neutrophils # (Auto) 6.02 1.4-6.5 K/uL Lymphocytes # (Auto) 1.31 1.2-3.4 K/uL Monocytes # (Auto) 0.76 0.11-0.59 K/uL Eosinophils # (Auto) 0.57 0-0.5 K/uL Basophils # (Auto) 0.02 0-0.2 K/uL RDW Standard Deviation 45.5 36.4-46.3 fL RDW Coefficient of Variation 14.3 11.5-14.5 % Immature Granulocyte % (Auto) 0.1 % Immature Granulocyte # (Auto) 0.01 0.00-0.02 K/uL Erythrocyte Sedimentation Rate 76 0-21 mm/hr Prothrombin Time 10.7 9.0-12.0 SECONDS Prothromb Time International Ratio 1.0 0.9-1.1 Activated Partial Thromboplast Time 28.4 21.0-31.0 SECONDS Partial Thromboplastin Ratio 1.1 Sodium Level 137 136-145 mmol/L Potassium Level 4.1 3.5-5.1 mmol/L Chloride Level 103 98-107 mmol/L Carbon Dioxide Level 23 21-32 mmol/L Anion Gap 11.0 3-11 mmol/L Blood Urea Nitrogen 29 7-18 mg/dl Creatinine 1.23 0.60-1.20 mg/dl Est Creatinine Clear Calc Drug Dose 45.0 ml/min Estimated GFR () 49.0 Estimated GFR (Non- 42.3 BUN/Creatinine Ratio 23.8 10-20 Random Glucose 101 70-99 mg/dl Calcium Level 9.4 8.5-10.1 mg/dl Total Bilirubin 0.4 0.2-1 mg/dl Aspartate Amino Transf (AST/SGOT) 12 15-37 U/L Alanine Aminotransferase (ALT/SGPT) 19 12-78 U/L Alkaline Phosphatase 101 45-117 U/L Total Creatine Kinase 28 26-192 U/L Creatine Kinase MB 0.5 0.5-3.6 ng/ml Creatine Kinase MB Ratio 1.8 0-3.0 Troponin I < 0.015 0-0.045 ng/ml C-Reactive Protein 13.40 0-0.29 mg/dl Total Protein 7.3 6.4-8.2 gm/dl Albumin 2.9 3.4-5.0 gm/dl Globulin 4.4 2.5-4.0 gm/dl Albumin/Globulin Ratio 0.7 0.9-2 Bedside Lactic Acid Venous 0.70 0.90-1.70 mmol/L Urine Color YELLOW Urine Appearance CLEAR CLEAR Urine pH 5.0 4.5-7.5 Urine Specific [place] 1.019 1.000-1.030 Urine Protein 2+ NEG Urine Glucose (UA) NEG NEG Urine Ketones TRACE NEG Urine Occult Blood NEG NEG Urine Nitrite NEG NEG Urine Bilirubin NEG NEG Urine Urobilinogen NEG NEG Urine Leukocyte Esterase NEG NEG Urine WBC (Auto) 1-5 0-5 /hpf Urine RBC (Auto) 0-4 0-4 /hpf Urine Hyaline Casts (Auto) 1-5 0-5 /lpf Urine Epithelial Cells (Auto) >30 0-5 /lpf Urine Bacteria (Auto) NEG NEG Microbiology Results 05/08/17 Blood Culture, Received Pending 05/08/17 Blood Culture, Received Pending Impression Assessment and Plan This is a 77 y/o female with a history of HTN, HLD, diastolic CHF, CKD stage III , prediabetes, hypothyroidism, PMR, recent post op wound infection. The patient had a right DEANN on 03/19 - developed a fluid collection which was drained and cultured - returned positive for Enterococcus Faecalis. The pt was eventually DCd 04/24 to complete an outpt course of Daptomycin and Ertapenem. She presently has 2 remaining days of treatment however she had missed her antibiotics the past 2 days. This past Tue she had a fever of 101.7 per her daughter. She also c/o of 2 days of nausea, a few episodes of vomiting and diarrhea, although this appears to have resolved. She has also developed a degree of cellulitis extending down from the wound over the past few days. The pt was evaluated by orthopedics in the ER and is to undergo washout of her wound AM. 1) Wound infection - for AM washout - will continue current antibiotics per sensitivities - will be evaluated by ID. Due to c/o duirrhea we will r/o C diff. 2) Diatolic CHF - we are providing gentle hydration at present and additional Lasix will be held until after her procedure - volume status will bear monitoring. 3) CKD - IVF provided - repeat BMP following procedure. 4) HTN - cont B benito - ARB held until after surgery. 5) Hypothyroidism - cont Synthroid Full code - SCDs Total time for this admit inclufding review of labs, meds, imaging - discussion with pt and ER attending - 36 min Level of Care Med/Surg Resuscitation Status FULL RESUSCITATION VTE Prophylaxis Given or contraindicated: SCD's
[2017-05-08] MEDS ORDERED: ACETAMINOPHEN 325 MG TAB PO PRN (13:45)
[2017-05-08] MEDS ORDERED: ALUMINUM/MAGNESIUM/SIMETH (MAALOX MAX) 30 ML UDC PO PRN (13:45)
[2017-05-08] MEDS ORDERED: HEPARIN SOD 5000 UNIT/0.5 ML CARP SQ SCH (13:45)
[2017-05-08] MEDS ORDERED: MAGNESIUM HYDROXIDE SUSP 30 ML UDC PO PRN (13:45)
[2017-05-08] MEDS ORDERED: IV FLUIDS COMPLETED PRN (14:00)
--- NOTE | 2017-05-08 14:27 | Medical Consult ---
Consultation Date of Consultation: May 08, 2017. Attending Physician: Dr. 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 Patient states that she saw Dr. Hong earlier this week but did not have these symptoms other than the hip pain and redness. Pt states that she has been on IV ABX per infectious disease since the surgery ( Ertapenem and Daptomycin). Patient denies CP, SOB, GORMAN, LOC, syncope, visual disturbances, N/ T in extremities but has difficulty bearing wt or ambulating on the Left LE. Past Medical/Surgical History Medical Problems: (1) Abdominal pain Status: Acute (2) Abscess of hip Status: Acute (3) Cellulitis Status: Acute (4) Hip pain Status: Acute (5) Leukocytosis Status: Acute Family History Cancer Diabetes mellitus Gallbladder disease Heart disease Hypertension Kidney disease Kidney stones Stroke Social History Smoking Status: Former Smoker Smokeless Tobacco Use: No Alcohol Use: occasionally Drug Use: none Marital Status: Housing Status: lives with family Occupation Status: retired Allergies Coded Allergies: Adhesives (Verified Allergy, Mild, RASH, 05/06/17) Clindamycin (Verified Allergy, Mild, RASH, 05/06/17) Ezetimibe (Verified Allergy, Mild, MEMORY LOSS, 05/06/17) Latex (Verified Allergy, Mild, RASH, 05/06/17) Penicillins (Verified Allergy, Mild, HIVES, 05/06/17) Quinolones (Verified Allergy, Mild, UNKNOWN, 05/06/17) Simvastatin (Verified Allergy, Mild, MUSCLE ACHES, 05/06/17) Sulfa Antibiotics (Verified Allergy, Mild, RASH AND ITCHING, 05/06/17) Erythromycin (Verified Allergy, Unknown, RASH, 05/06/17) Irbesartan (Verified Allergy, Unknown, FATIGUE, 05/06/17) Lisinopril (Verified Allergy, Unknown, PERIORBITAL SWELLING, 05/06/17) Niacin (Verified Allergy, Unknown, UNKNOWN, 05/06/17) Tetracycline (Verified Allergy, Unknown, RASH, 05/06/17) Gabapentin (Verified Adverse Reaction, Unknown, SWELLING ("ALL OVER"), ) Current Inpatient Medications Current Inpatient Medications Medications (Trade) Dose Ordered Sig/Fuentes Route Start Time Stop Time Status Last Admin Dose Admin Ertapenem 1 gm/ Sodium Chloride 50 ml @ 120 mls/hr Q24H IV 05/09/17 13:30 05/23/17 13:29 UNV Daptomycin 600 mg/ Sodium Chloride 62 ml @ 100 mls/hr DAILY IV 05/09/17 09:00 05/23/17 08:59 UNV Heparin Sodium (Porcine) (Heparin Sq 5000 Unit/0.5ml) 5,000 unit Q8H SQ 05/08/17 13:45 06/07/17 13:44 UNV Acetaminophen (Tylenol Tab) 650 mg Q4H PRN PO 05/08/17 13:45 06/07/17 13:44 Al Hydrox/Mg Hydrox/Simethicone (Maalox Max Susp) 15 ml Q4H PRN PO 05/08/17 13:45 06/07/17 13:44 Magnesium Hydroxide (Milk Of Magnesia Susp) 30 ml Q6H PRN PO 05/08/17 13:45 06/07/17 13:44 Review of Systems Constitutional: + fever, + chills, + sweats, + weakness, + fatigue, No weight loss, No problem reported Eyes: No worsening of vision, No eye pain, No redness, No discharge, No diplopia, No problem reported Respiratory: No cough, No sputum, No wheezing, No shortness of breath, No dyspnea on exertion, No dyspnea at rest, No hemoptysis, No problem reported Cardiovascular: No chest pain, No orthopnea, No PND, No edema, No claudication , No palpitations, No problem reported Abdomen: + nausea, + vomiting, + diarrhea, No pain, No constipation, No GI bleeding, No problem reported Musculoskeletal: + joint pain, + muscle pain, + swelling, No calf pain, No problem reported Neurologic: No memory loss, No paralysis, No weakness, No numbness/tingling, No vertigo, No balance problems, No problem reported Psychiatric: No depression symptoms, No anhedonism, No anxiety, No insomnia, No substance abuse, No problem reported Endocrine: + fatigue, No excessive thirst, No excessive urination, No problem reported Hematologic / Lymphatic: No abnormal bleeding/bruising, No clotting problems, No swollen lymph nodes, No night sweats, No problem reported Integumentary: + color change, + problem reported (Cellulitic area to Rt lateral hip / thigh measuring 36 cm x 18 cm that is tender and warm to touch.), No rash, No itch, No new/changing skin lesions, No bleeding Allergic / Immunologic: No environmental allergies, No seasonal allergies, No pet sensitivities, No food allergies, No hives, No frequent infections, No poor healing, No prolonged convalescence, No problem reported Physical Exam Date Time Temp Pulse Resp B/P (MAP) Pulse Ox O2 Delivery O2 Flow Rate FiO2 05/08/17 13:17 96 Room Air 05/08/17 12:40 87 18 163/80 96 05/08/17 11:37 94 Room Air 05/08/17 10:16 36.9 83 18 153/79 96 General Appearance: WD/WN, no apparent distress, + mild distress, + obese Eyes: normal inspection, PERRL, EOMI ENT: normal ENT inspection, pharynx normal Neck: no adenopathy, trachea midline Respiratory/Chest: chest non-tender, lungs clear, normal breath sounds, no respiratory distress, no accessory muscle use Cardiovascular: regular rate, rhythm, no edema, no gallop, no JVD, normal peripheral pulses, + systolic murmur (Grade II/ holosystolic murmur heard best over left sternal border) Abdomen/GI: normal bowel sounds, non tender, soft Extremities/Musculoskelatal: no calf tenderness, normal capillary refill, + swelling, + pertinent finding (Right hip: 36 cm x 18 cm cellulitic area over lateral hip/thigh. + tenderness, warrmth and erythema. No flucutance, dehiscense or discharge. Very limited ROM at hip with exqusite pain elicited with light intermal/external rotation and attempted straight leg raise. N/V intact. Periph pulses palpable. Cap refill < 2 seconds.) Neurologic/Psych: no motor/sensory deficits, alert, oriented x 3 Skin: normal color (Except for area described in Extremities/Musculoskeletal exam) Lymphatic: no adenopathy Laboratory Results Last 24 Hours Test 05/08/17 10:56 05/08/17 11:28 05/08/17 12:10 White Blood Count 8.69 K/uL Red Blood Count 3.38 M/uL Hemoglobin 9.4 g/dL Hematocrit 29.4 % Mean Corpuscular Volume 87.0 fL Mean Corpuscular Hemoglobin 27.8 pg Mean Corpuscular Hemoglobin Concent 32.0 g/dl Platelet Count 356 K/uL Mean Platelet Volume 8.5 fL Neutrophils (%) (Auto) 69.3 % Lymphocytes (%) (Auto) 15.1 % Monocytes (%) (Auto) 8.7 % Eosinophils (%) (Auto) 6.6 % Basophils (%) (Auto) 0.2 % Neutrophils # (Auto) 6.02 K/uL Lymphocytes # (Auto) 1.31 K/uL Monocytes # (Auto) 0.76 K/uL Eosinophils # (Auto) 0.57 K/uL Basophils # (Auto) 0.02 K/uL RDW Standard Deviation 45.5 fL RDW Coefficient of Variation 14.3 % Immature Granulocyte % (Auto) 0.1 % Immature Granulocyte # (Auto) 0.01 K/uL Erythrocyte Sedimentation Rate 76 mm/hr Prothrombin Time 10.7 SECONDS Prothromb Time International Ratio 1.0 Activated Partial Thromboplast Time 28.4 SECONDS Partial Thromboplastin Ratio 1.1 Sodium Level 137 mmol/L Potassium Level 4.1 mmol/L Chloride Level 103 mmol/L Carbon Dioxide Level 23 mmol/L Anion Gap 11.0 mmol/L Blood Urea Nitrogen 29 mg/dl Creatinine 1.23 mg/dl Est Creatinine Clear Calc Drug Dose 45.0 ml/min Estimated GFR () 49.0 Estimated GFR (Non- 42.3 BUN/Creatinine Ratio 23.8 Random Glucose 101 mg/dl Calcium Level 9.4 mg/dl Total Bilirubin 0.4 mg/dl Aspartate Amino Transf (AST/SGOT) 12 U/L Alanine Aminotransferase (ALT/SGPT) 19 U/L Alkaline Phosphatase 101 U/L Total Creatine Kinase 28 U/L Creatine Kinase MB 0.5 ng/ml Creatine Kinase MB Ratio 1.8 Troponin I < 0.015 ng/ml C-Reactive Protein 13.40 mg/dl Total Protein 7.3 gm/dl Albumin 2.9 gm/dl Globulin 4.4 gm/dl Albumin/Globulin Ratio 0.7 Bedside Lactic Acid Venous 0.70 mmol/L Urine Color YELLOW Urine Appearance CLEAR Urine pH 5.0 Urine Specific [place] 1.019 Urine Protein 2+ Urine Glucose (UA) NEG Urine Ketones TRACE Urine Occult Blood NEG Urine Nitrite NEG Urine Bilirubin NEG Urine Urobilinogen NEG Urine Leukocyte Esterase NEG Urine WBC (Auto) 1-5 /hpf Urine RBC (Auto) 0-4 /hpf Urine Hyaline Casts (Auto) 1-5 /lpf Urine Epithelial Cells (Auto) >30 /lpf Urine Bacteria (Auto) NEG Assessment & Plan Assessment: Septic Right hip s/p total hip arthroplasty Plan: Dr. Hong is planning on Irrigation and debridement with poly exchange of the Right hip tomorrow around 11 AM. Consent form was reviewed with patient regarding the procedure and advises that Dr. Hong will go over it again tomorrow and both will sign the surgical consent form. Pt will be admitted by hospitalist staff with orders placed. I&D with be consulted to manage IV ABX. Additional Copies To Vinny Hong M.D.
[2017-05-08 15:00] VITALS: BP 187/88; PULSE 88; TEMP 36.5; O2SAT 91
[2017-05-08] MEDS ORDERED: DEXTROSE 50% 50 ML SYR IV PRN (15:00)
[2017-05-08] MEDS ORDERED: GLUCOSE 10 TABS/TUBE PO PRN (15:00)
[2017-05-08] MEDS ORDERED: GLUCAGON FOR INJ 1 MG VIAL SQ PRN (15:00)
[2017-05-08] MEDS ORDERED: GLUCOSE 40% GEL 15 GM TUBE PO PRN (15:00)
[2017-05-08 16:36] VITALS: BP 152/75
[2017-05-08] MEDS ORDERED: INSULIN ASPART 100 UNITS/ML 3 ML PEN SC SCH ×2 (18:00→21:00)
[2017-05-08] MEDS ORDERED: NURSING VERBAL MED ORDER ONE ×2 (19:15→23:15)
--- NOTE | 2017-05-08 19:43 | HISTORY & PHYSICAL EXAMINATION ---
DATE OF ADMISSION: 05/08/2017 ADDENDUM At this point in time, the patient is visited in bed. She is relatively comfortable. Her vital signs are stable, her T-max is 36.9. Pulse ox is in the 90s. Her wound is checked and there is a reaccumulated seroma with some minor redness around it. Logrolling of the hip is not remarkably painful. Neurovascular check distally is within normal limits. There is no sign of any DVT in the calves or in the thigh. ASSESSMENT: Perplexing problem based on the fact that she has had a blood culture with a gram negative rickey and a wound aspirate that had a gram positive cocci that was strep faecalis obviously from topical penetration, postop. She presented with nausea and diarrhea as her main symptoms however At this point in time, due to the fact that she has felt bad and had a fever and she had what appears to be either an early cellulitis or an inflammatory response to reaccumulating seroma /bursitis in light of her positive culture we have no option, but to explore the wound and potentially do either an I&D poly exchange and head exchange with cement beads with antibiotics versus complete removal and a cement spacer with antibiotic in the cement spacer. She was consented for all list including all the routine risks and complications and benefits to the procedure. Please see the consent. She understands that this could be quite complicated and could require multiple operations. She understands at this point in time that we will do what is best in clinical judgment as assessed at the time of the procedure tomorrow. She is scheduled for 11:00 a.m. She will be allowed to eat since she is not septic and things are quite stable right now. White count is relatively normal. She will have a repeat blood work tomorrow morning and will proceed with the procedure at roughly 11:00 a.m. tomorrow. Family was present and witnessed consent. ALAN
[2017-05-08] MEDS ORDERED: SODIUM CHLORIDE 0.9% 1000ML 1,000 ML IV SCH (20:00)
[2017-05-08 20:47] VITALS: BP 136/65; PULSE 86; O2SAT 94
[2017-05-08] MEDS: NYSTATIN POWDER 15GM BTL EXT PRN (20:51)
[2017-05-08] MEDS: RANITIDINE HCL 150 MG TAB PO SCH (20:54)
[2017-05-08] MEDS: CARVEDILOL 12.5 MG TAB PO SCH (20:54)
[2017-05-08] MEDS: LACTOBACILLUS ACIDOPHILUS (FLORANEX) TAB PO SCH (20:54)
[2017-05-08 23:21] VITALS: BP 126/68; PULSE 85; TEMP 36.8; O2SAT 94
[2017-05-08] MEDS: INSULIN ASPART 100 UNITS/ML 3 ML PEN SC SCH (23:51)
[2017-05-09] VITALS (7 sets, daily range): BP systolic 125–188; BP diastolic 61–80; PULSE 70–85; TEMP 36.4–36.6; O2SAT 91–98
[2017-05-09 05:50] LABS: HEMATOCRIT 30.4 % (37-47); MEAN CELL VOLUME 87.4 fL (80-100); MEAN CORPUSCULAR HEMOGLOBIN 27.3 pg (25-34); MEAN CORPUSCULAR HGB CONC 31.3 g/dl (32-36); MEAN PLATELET VOLUME 8.2 fL (7.4-10.4); PLATELET COUNT 309 K/uL (130-400); RED BLOOD COUNT 3.48 M/uL (4.2-5.4); WHITE BLOOD COUNT 6.61 K/uL (4.8-10.8)
[2017-05-09] MEDS: INSULIN ASPART 100 UNITS/ML 3 ML PEN SC SCH ×4 (06:00→21:23)
[2017-05-09] MEDS: ARMOUR THYROID 30 MG TAB PO SCH ×4 (06:00→06:45)
[2017-05-09 06:08] LABS: BUN/CREATININE RATIO 23.2 (10-20); CALCIUM 9.4 mg/dl (8.5-10.1); CREATININE 1.18 mg/dl (0.60-1.20); MAGNESIUM 2.2 mg/dl (1.8-2.4)
--- NOTE | 2017-05-09 06:44 | History & Physical Bridge Note ---
H&P Re-Evaluation Bridge Note: I have examined the patient, reviewed the History & Physical and in the interval since the performance of the History & Physical I have noted the following changes of clinical significance:surgical site signed.afebrile and wbc decreasing.wound with no drainage. will continue with present plan.
--- NOTE | 2017-05-09 07:21 | PROGRESS NOTE ---
DATE: 05/09/2017 The patient did reasonably well overnight and had no major pain issues. Her vital signs are stable. She is afebrile. White count is 6.6, hematocrit stable at 30.4. Wound redness without any real change, collection of fluid without changes, no drainage. Complex scenario. Clinically, patient presents with recurrent accumulation of fluid with some redness around the wound, has no fever, has no white count; however, in light of her prodrome and her cultures, I think we are forced to surgically explore this due to the continued issues despite IV antibiotic treatment. We will proceed with surgical procedure as consented for and scheduled for around 11:00 a.m. today. Keep n.p.o. for now. Can take medications with a sip of water.
[2017-05-09] MEDS ORDERED: BUPIVACAINE 0.5 % 5 MG/1 ML PF 10ML VIAL ONE (07:50)
[2017-05-09] MEDS: FERROUS SULFATE 325 MG TAB PO SCH (08:51)
[2017-05-09] MEDS: LACTOBACILLUS ACIDOPHILUS (FLORANEX) TAB PO SCH ×3 (08:51→20:31)
[2017-05-09] MEDS: CARVEDILOL 25 MG TAB PO SCH (08:51)
[2017-05-09] MEDS ORDERED: ROCURONIUM BROMIDE 10 MG/ML 5 ML VIAL IV ONE ×2 (10:40→13:24)
[2017-05-09] MEDS ORDERED: MIDAZOLAM HCL 1 MG/ML 2ML VIAL ONE (10:40)
[2017-05-09] MEDS ORDERED: LIDOCAINE HCL 2% 2 ML VIAL (20MG/ML) ONE (10:40)
[2017-05-09] MEDS ORDERED: PROPOFOL IV EMULSION 10 MG/ML 20 ML VIAL IV ONE (10:40)
[2017-05-09] MEDS ORDERED: FENTANYL CITRATE INJ 50 MCG/1 ML 2 ML VIAL ONE ×3 (10:41→12:48)
--- NOTE | 2017-05-09 10:54 | Progress Note ---
Progress Note Date of Service May 09, 2017. Progress Note ID Consult Dictated #[id number] A/P: 1. Post op infection Right hip -Continue current abx, follow blood cultures -For washout and poly exchange today, follow OR findings/cultures -Thank you
--- NOTE | 2017-05-09 11:15 | INFECT. DISEASE CONSULTATION ---
DATE OF CONSULTATION: 05/09/2017 REQUESTING PHYSICIAN: Dr. Marr. HISTORY OF PRESENT ILLNESS: This is a 77-year-old female who was admitted to the hospital yesterday after she had worsening fever at home as high as 101.7. She has also noticed worsening erythema, pain and edema at a previous right hip incision. She was recently admitted to the hospital for the same. She did have an aspiration of the hip and a culture that grew enterococcus. She has been on daptomycin at the medical therapy unit. She does have a PENICILLIN ALLERGY. She has been tolerating these antibiotics well. She was also found to have gram negative bloodstream infection and has been on ertapenem for this. This is due to stop tomorrow. She had been doing well at home up until the past few days when she had worsening weakness and some nausea and vomiting. She did have C. diff specimen sent this admission and it is negative. Blood cultures were obtained and the urine are negative. Her white blood count is normal at 6.6; however, her sed rate is elevated at 76. She has been afebrile since admission, but was having fevers at home. She continues on ertapenem and daptomycin via an alternating peripheral line that she was unable to have a PICC line placed. There was an attempt since her last admission to change her over to oral Zyvox therapy as she was having difficulty with IV access; however, her co-pay was greater than $4000 and she has elected to continue on daptomycin therapy. She is due for poly exchange later today. Her only complaint on my examination is pain in the hip that radiates into the groin. She denies any fevers or chills currently. She has no chest pain, cough, shortness of breath, nausea, vomiting or diarrhea. She has no abdominal pain. All remaining review of systems reviewed and are unremarkable. PAST MEDICAL HISTORY: Significant for hypertension, high cholesterol, CHF, chronic kidney disease, prediabetes, hypothyroidism, polymyalgia rheumatica, and psoriasis. PAST SURGICAL HISTORY: Significant for a right hip replacement on March 19. FAMILY HISTORY: Noncontributory. SOCIAL HISTORY: Significant for history of tobacco use. She denies any alcohol or drug use. She lives with her family. Her and daughter are present on my examination. ALLERGIES: SHE HAS MULTIPLE ALLERGIES INCLUDING ADHESIVE TAPE, CLINDAMYCIN, EZETIMIBE, LATEX, PENICILLIN, QUINOLONES, SIMVASTATIN, SULFA, ERYTHROMYCIN, IRBESARTAN, LISINOPRIL, NIACIN, TETRACYCLINE AND GABAPENTIN. CURRENT MEDICATIONS: Include ertapenem, daptomycin, Coreg, iron, thyroid supplement, insulin, Floranex, Zantac, nystatin powder, Percocet, Tylenol, Maalox, and milk of magnesia. PHYSICAL EXAMINATION: VITAL SIGNS: She is afebrile, pulse 84, respiratory rate 18, blood pressure 188/71, and oxygen saturation is 96% on room air. GENERAL: She is awake, alert and oriented x3. She is in no acute distress. HEENT: Mucous membranes are moist. Extraocular muscles are intact. HEART: Regular. LUNGS: Clear bilaterally. ABDOMEN: Soft, nontender, and nondistended. EXTREMITIES: There is no edema. Examination of the right hip reveals significant erythema and fluctuance, which is new from her prior exam. There is no active drainage and she denies any drainage at home. There is tenderness to palpation. LABORATORY STUDIES: CBC today reveals a white blood cell count of 6.6, hemoglobin 9.5, and platelets are 309. Sed rate is 76. Chemistry panel reveals a sodium of 142, potassium 4.0, chloride 111, bicarbonate 24, BUN 27, creatinine 1.1, and glucose is 109. Urinalysis is negative. C. diff is negative. Blood cultures are pending. A chest x-ray was unremarkable. ASSESSMENT AND PLAN: Right hip postoperative infection with previous cultures growing enterococcus. She will be continued on her current IV antibiotics pending additional culture results. She will likely need a prolonged course of antibiotics postoperatively. We will follow along with you. Thank you for this consultation. ALAN
[2017-05-09] MEDS ORDERED: POVIDONE-IODINE OP SOLN 30 ML BTL ONE (11:21)
[2017-05-09] MEDS ORDERED: TOBRAMYCIN SULF 1.2 GM VIAL (POWDER) ONE (11:21)
[2017-05-09] MEDS ORDERED: DOXYCYCLINE HYCLATE 100 MG VIAL IV ONE (11:22)
[2017-05-09] MEDS ORDERED: BACITRACIN 50000 UNIT VIAL ONE (11:22)
[2017-05-09] MEDS ORDERED: GENTAMICIN SULFATE 40 MG/ML 2 ML VIAL ONE ×4 (11:22→11:36)
[2017-05-09] MEDS ORDERED: VANCOMYCIN HCL 1000MG/20ML VIAL ONE ×2 (11:23→11:41)
[2017-05-09] MEDS: DAPTOmycin IV 600 MG in SODIUM CHLORIDE 0.9% 50ML 50 ML IV SCH (12:00)
--- NOTE | 2017-05-09 12:15 | Hospitalist Progress Note ---
Hospitalist Progress Note Date of Service May 09, 2017. (Nicole Boyer PA-C) Subjective Pt evaluation today including: conversation w/ patient, conversation w/ family , physical exam, chart review, lab review, review of studies, review of inpatient medication list Pain: R Hip PO Intake: NPO Voiding: no voiding problems Patient seen and evaluated. No acute events overnight. Missed 2 days Abx and had fever at home and increased redness at hip. Due for washout today by orthopedics. C. Diff was negative. Denies feelings of fever or chills since admission. Verbalizes no other complaints. Constitutional: No fever, No chills Respiratory: No cough, No shortness of breath Cardiovascular: No chest pain, No palpitations Abdomen: + problem reported (loose stool since on Abx), No pain, No nausea, No vomiting, No diarrhea, No constipation Musculoskeletal: + joint pain (R hip), No calf pain Female : No dysuria Heme: No abnormal bleeding/bruising (Nicole Boyer, NADINEC) Medications Current Inpatient Medications Medications (Trade) Dose Ordered Sig/Fuentes Route Start Time Stop Time Status Last Admin Dose Admin Ertapenem 1 gm/ Sodium Chloride 50 ml @ 120 mls/hr Q24H IV 05/09/17 13:30 05/23/17 13:29 Daptomycin 600 mg/ Sodium Chloride 62 ml @ 100 mls/hr Q24H IV 05/09/17 12:00 05/23/17 11:59 Acetaminophen (Tylenol Tab) 650 mg Q4H PRN PO 05/08/17 13:45 06/07/17 13:44 05/08/17 22:37 650 MG Al Hydrox/Mg Hydrox/Simethicone (Maalox Max Susp) 15 ml Q4H PRN PO 05/08/17 13:45 06/07/17 13:44 Magnesium Hydroxide (Milk Of Magnesia Susp) 30 ml Q6H PRN PO 05/08/17 13:45 06/07/17 13:44 Miscellaneous (Iv Fluids Completed) 1 ea PRN PRN N/A 05/08/17 14:00 05/08/18 13:59 Carvedilol (Coreg Tab) 25 mg QAM PO 05/09/17 09:00 06/08/17 08:59 05/09/17 08:51 25 MG Carvedilol (Coreg Tab) 12.5 mg QPM PO 05/08/17 21:00 06/07/17 20:59 05/08/17 20:54 12.5 MG Ferrous Sulfate (Feosol Tab) 325 mg DAILY PO 05/09/17 09:00 06/08/17 08:59 05/09/17 08:51 325 MG Lactobacillus Acidophilus (Floranex Tab) 1 tab TID PO 05/08/17 21:00 06/07/17 20:59 05/09/17 08:51 1 TAB Miscellaneous Information (Order Awaiting Action) 1 ea QS N/A 05/08/17 16:00 06/07/17 15:59 Ranitidine HCl (zANTac TAB) 300 mg HS PO 05/08/17 21:00 06/07/17 20:59 05/08/17 20:54 300 MG Thyroid ([place] Thyroid Tab) 15 mg DAILYBB PO 05/09/17 06:00 06/08/17 06:59 05/09/17 06:45 15 MG Thyroid ([place] Thyroid Tab) 120 mg DAILYBB PO 05/09/17 06:00 06/08/17 06:59 05/09/17 06:45 120 MG Oxycodone/ Acetaminophen (Percocet 10-325MG Tab) 1 tab Q4H PRN PO 05/08/17 14:30 05/22/17 14:29 Glucose (Glucose 40% Gel) 15-30 GRAMS 15 GRAMS... UD PRN PO 05/08/17 15:00 06/07/17 14:59 Glucose (Glucose Chew Tab) 4-8 Tablets 4 Tabl... UD PRN PO 05/08/17 15:00 06/07/17 14:59 Dextrose (Dextrose 50% 50ML Syringe) 25-50ML OF 50% DW IV FOR... UD PRN IV 05/08/17 15:00 06/07/17 14:59 Glucagon (Glucagon Inj) 1 mg UD PRN SQ 05/08/17 15:00 06/07/17 14:59 Nystatin (Mycostatin Powder) 1 appln DAILY PRN EXT 05/08/17 15:00 06/07/17 14:59 05/08/17 20:51 1 APPLN Insulin Aspart (novoLOG ASPART) SLIDING SCALE G... Q6 SC 05/09/17 00:00 06/08/17 00:00 (Nicole Boyer PA-C) Objective Vital Signs Date Time Temp Pulse Resp B/P (MAP) Pulse Ox O2 Delivery O2 Flow Rate FiO2 05/09/17 10:45 36.7 87 18 166/72 (103) 98 Room Air 05/09/17 07:45 36.5 84 18 188/71 (110) 96 Room Air 05/08/17 23:45 Room Air 05/08/17 23:21 36.8 85 16 126/68 (87) 94 Room Air 05/08/17 20:47 86 136/65 (88) 94 Room Air 05/08/17 16:36 152/75 (100) 05/08/17 16:30 Room Air 05/08/17 15:00 36.5 88 18 187/88 (121) 91 Room Air 05/08/17 14:24 36.9 87 18 169/113 94 05/08/17 14:22 87 169/113 94 Room Air 05/08/17 13:17 96 Room Air 05/08/17 12:40 87 18 163/80 96 (Nicole Boyer PA-C) Physical Exam General Appearance: WD/WN, no apparent distress Eyes: sclerae normal ENT: hearing grossly normal Neck: supple, no JVD, trachea midline Respiratory/Chest: lungs clear, normal breath sounds, no respiratory distress, no accessory muscle use Cardiovascular: regular rate, rhythm, no gallop, + systolic murmur (II/ murmur loudest at [place]) Abdomen: normal bowel sounds, non tender, soft Extremities: no pedal edema Neurologic/Psychiatric: alert, oriented x 3 Skin: normal color, warm/dry (Nicole Boyer PA-C) Laboratory Results Last 24 Hours Test 05/08/17 12:10 05/08/17 18:08 05/08/17 21:08 05/08/17 23:50 Urine Color YELLOW Urine Appearance CLEAR Urine pH 5.0 Urine Specific [place] 1.019 Urine Protein 2+ Urine Glucose (UA) NEG Urine Ketones TRACE Urine Occult Blood NEG Urine Nitrite NEG Urine Bilirubin NEG Urine Urobilinogen NEG Urine Leukocyte Esterase NEG Urine WBC (Auto) 1-5 /hpf Urine RBC (Auto) 0-4 /hpf Urine Hyaline Casts (Auto) 1-5 /lpf Urine Epithelial Cells (Auto) >30 /lpf Urine Bacteria (Auto) NEG Bedside Glucose 98 mg/dl 104 mg/dl 115 mg/dl Test 05/09/17 05:39 05/09/17 06:03 White Blood Count 6.61 K/uL Red Blood Count 3.48 M/uL Hemoglobin 9.5 g/dL Hematocrit 30.4 % Mean Corpuscular Volume 87.4 fL Mean Corpuscular Hemoglobin 27.3 pg Mean Corpuscular Hemoglobin Concent 31.3 g/dl RDW Standard Deviation 44.9 fL RDW Coefficient of Variation 14.3 % Platelet Count 309 K/uL Mean Platelet Volume 8.2 fL Sodium Level 142 mmol/L Potassium Level 4.0 mmol/L Chloride Level 111 mmol/L Carbon Dioxide Level 24 mmol/L Anion Gap 7.0 mmol/L Blood Urea Nitrogen 27 mg/dl Creatinine 1.18 mg/dl Est Creatinine Clear Calc Drug Dose 46.9 ml/min Estimated GFR () 51.5 Estimated GFR (Non- 44.5 BUN/Creatinine Ratio 23.2 Random Glucose 99 mg/dl Calcium Level 9.4 mg/dl Magnesium Level 2.2 mg/dl Bedside Glucose 109 mg/dl (Nicole Boyer, PALisaC) Assessment and Plan Ms. Swain is a 77 y/o female with PMHx of HTN, HLD, Diastolic CHF, CKD Stage III, Pre-DM, Hypothyroidism, PMR, and recent post-op wound infection with Enterococcus faecalis. Wound Infection: S/P R DEANN on 03/19 with Fluid Collection of Enterococcus faecalis - Due for washout today - await further cultures from procedure - Initial symptoms of fever, nausea, vomiting are resolved - reports continued loose stool since on Abx with C. Diff negative - Possibly inflammatory response? - no leukocytosis, no fever - Daptomycin and Ertapenem - Orthopedics and ID following - plan to continue current Abx coverage until further cultures obtained Chronic Diastolic CHF: - Appears euvolemic and will D/C fluids. Hold Lasix tonight until renal function assessed tomorrow after surgery HTN: - Coreg 25 mg AM and 12.5 mg PM - Continue to hold Losartan until after surgery can cover with PRN Hydralazine CKD Stage III: STABLE Pre-DM: - SSI correction coverage - no insulin needs so far Disposition: - Await further cultures from washout - continue current Abx treatment - Patient has poor venous access - was receiving treatment at [facility] Continued [facility] stay due to: multiple IV medications needed Discharge planning: home (Nicole Boyer, PA-C) I agree with PA assessment and plan and have seen and examined pt myself Resting comfortably in bed Pt admitted for polyexchange and I&D Reports fevers two days ago and missing 1 day of antibs Ortho and ID consulted No leukocytosis or fevers thus far Scheduled to OR this afternoon, await cx, cont antibx at this time Right hip swollen and red, warm to touch and mildy tender (Sacha Mcmullen, D.O.)
[2017-05-09] MEDS ORDERED: DEXAMETHASONE SOD INJ 4 MG/ML VIAL ONE (13:24)
[2017-05-09] MEDS ORDERED: ONDANSETRON INJ 2 MG/ML 2 ML VIAL ONE (13:24)
[2017-05-09] MEDS ORDERED: NEOSTIGMINE METHYLSULFATE 5 MG/5 ML SYR ONE (13:25)
[2017-05-09] MEDS ORDERED: GLYCOPYRROLATE INJ 0.2 MG/ML VIAL ONE (13:25)
[2017-05-09] MEDS ORDERED: ONDANSETRON INJ 2 MG/ML 2 ML VIAL IV PRN ×2 (13:45→14:15)
[2017-05-09] MEDS ORDERED: EpHEDrine SULFATE INJ 50 MG/ML AMP IV PRN (13:45)
[2017-05-09] MEDS ORDERED: NALOXONE HCL 0.4 MG/1 ML VIAL/CARP IV PRN (13:45)
[2017-05-09] MEDS ORDERED: LABETALOL HCL IV 5 MG/ML 20ML IV PRN (13:45)
[2017-05-09] MEDS ORDERED: ATROPINE SULFATE 0.1 MG/ML 5ML SYR IV PRN (13:45)
[2017-05-09] MEDS ORDERED: PROMETHAZINE HCL INJ 12.5 MG in SODIUM CHLORIDE 0.9% 50ML 50 ML IV PRN (13:45)
[2017-05-09] MEDS ORDERED: FLUMAZENIL 0.1 MG/1 ML 10 ML VIAL IV PRN (13:45)
[2017-05-09] MEDS ORDERED: SUCCINYLCHOLINE 100MG/5ML SYR IV ONE (13:45)
[2017-05-09] MEDS ORDERED: HYDROmorphone INJ 1 MG/ML SYR IV PRN (13:45)
--- NOTE | 2017-05-09 13:50 | [facility] Post Operative Brief Note ---
Immediate Operative Summary Operative Date May 09, 2017. Pre-Operative Diagnosis Right Hip Infection Status Post Right Total Hip Arthroplasty Post-Operative Diagnosis Right Hip Infection Status Post Right Total Hip Arthroplasty Procedure(s) Performed Right Hip Incision and Drainage, Poly Exchange, Application of Stimulan Beads Surgeon Dr. Vinny Hong Nurse'S Assistant Surgeon(s) Tony Ortez PA-C Estimated Blood Loss 250ml Findings seroma with possible extension deep Fluids (cc crystalloids) 2000cc Specimens microbiology: STAT specimen pickup sent to lab at 1211 by [place] -seroma fluid cultures Permanent: A. Right Hip Explanted Hardware Drains none Anesthesia GET Complication(s) None Disposition Recovery Room / PACU
[2017-05-09] MEDS: ERTAPENEM IV 1 GM in SODIUM CHLOR 0.9% AD-VAN 50ML 50 ML IV SCH (14:00)
[2017-05-09] MEDS ORDERED: ACETAMINOPHEN 500 MG TAB PO PRN (14:00)
[2017-05-09] MEDS ORDERED: HYDROmorphone INJ 2 MG/ML SYR/VIAL ONE (14:08)
[2017-05-09] MEDS ORDERED: MoRPHine SULFATE 2 MG/ML CARP IV PRN (14:15)
--- NOTE | 2017-05-09 14:21 | [facility] Operative Report ---
Operative Report Operative Date May 09, 2017. Pre-Operative Diagnosis Right Hip Infection Status Post Right Total Hip Arthroplasty Post-Operative Diagnosis Right Hip Infection Status Post Right Total Hip Arthroplasty Procedure(s) Performed Right Hip Incision and Drainage, Poly Exchange, Application of Stimulan Beads Surgeon Dr. Vinny Hong Scalehouse Attendant Surgeon(s) Tony Ortez PA-C Estimated Blood Loss 250ml Findings same Fluids 2000cc Specimens microbiology: STAT specimen pickup sent to lab at 1211 by [place] -seroma fluid cultures Permanent: A. Right Hip Explanted Hardware Drains none Anesthesia GET Complication(s) None Disposition Recovery Room / PACU Indications continued right hip pathology for infection s/p right DEANN that ultimately failed conservative treatment, surgery recommended, consents obtained by Dr. Hong Description of Procedure taken to the OR, prepped and draped, I was present the entire case, please see Dr. Hong's operative note for further findings and detail I attest to the content of the Intraoperative Record and any orders documented therein. Any exceptions are noted below.
--- NOTE | 2017-05-09 14:32 | OPERATIVE REPORT ---
DATE OF OPERATION: 05/09/2017 SURGEON: Vinny Hong MD [employer]ALTH[employer] INSURANCE SALES AGENT: Tony Ortez PA-C No resident or fellow available. PREOPERATIVE DIAGNOSIS: Seroma, right hip, possible sepsis. POSTOPERATIVE DIAGNOSIS: Same. OPERATION PERFORMED: Irrigation and debridement, superficial and deep with poly and head exchange and application of Stimulan beads with vancomycin and gentamicin. PERIOPERATIVE SITUATION: Medical cleared female with a long saga of recent 7 weeks having some increasing pain and intermittent fevers with a seroma that was aspirated, had a scant Streptococcus faecalis and had positive blood cultures with an unusual gram negative organism . She had some urinary symptoms. She presented with GI symptoms with diarrhea and nausea and vomiting. Upon aspiration of the seroma, the wound actually very good and she was placed on oral antibiotics preemptively, waiting for cultures and the cultures came back. Clinically, she was doing fine. So, we just tried to empirically treat her with IV antibiotics; however, at this point in time, it let to this scenario where she had again nausea, vomiting and had the fever for 24 hours. She has been afebrile last 48 hours. White count never spiked in the last 2 weeks and at this point, due to the confusion of the whole issue, we decided to proceed with irrigation and debridement, poly exchange, head exchange and application of Stimulan beads. DESCRIPTION OF PROCEDURE: The patient was appropriately identified, site verified, consent verified and antibiotics confirmed as being given. The right lower extremity was prepped and draped in the usual routine fashion with the patient in left lateral decubitus position. She is a large woman. The old incision was opened. There was a subcutaneous collection of fluid, which was evacuated and then using the Versajet, all of the skin and subcutaneous tissue were cleaned up. There was no obvious rent in the fascia; however, due to the chronicity of her complaints, it was elected to open this and debride everything. This was taken care of. There was no gross fluid encountered deep. The wound was opened and capsule excised. Care was taken to protect the sciatic nerve by palpation. Things were scarred together, so it was hard to identify normal layers. The IT band was opened from distal and worked proximal through the old visible suture line. The Charnley retractor was never placed deep in order to protect the nerves. The capsule was then excised. The hip was then dislocated and the head removed. There was no problem with fixation of the femoral stem. There was no problem with the fixation of the acetabulum. The liner was then removed using the [place] liner removal device. The hole eliminator was then removed. Everything was then irrigated behind the cup as best as possible with Pulsavac, with bacitracin and with Betadine. Once this was completed, the area was evacuated of all fluid. The hole eliminator then reseated a new one and a new liner seated with a good fit and then the new head seated. The head fit well. The head was easily reduced and stayed reduced and had excellent stability. The wound was then irrigated multiple times again with Pulsavac and Betadine and then ultimately the Stimulan beads placed about the hip in the deep layers and then the deep layer closed with #2 Vicryl and a small amount of the Stimulan was placed in the subcutaneous layer and a flap closed over that with #2 Vicryl and then the superficial 2-0 Vicryl used to close the subcutaneous layer there. The wound was then closed with horizontal mattress 2-0 nylon. Appropriate dressing applied. The patient was then transferred to recovery room in satisfactory condition having tolerated the procedure well. ESTIMATED BLOOD LOSS: 250 mL. CRYSTALLOID: Approximately 2000 mL. SUMMARY OF IMPLANTS: A poly exchange, 32 liner neutral and 32 head, +9. I attest to the content of the Intraoperative Record and any orders documented therein. Any exceptions are noted below. MTDD
[2017-05-09 14:33] LABS: HEMATOCRIT 26.1 % (37-47)
--- NOTE | 2017-05-09 15:05 | Anesthesiology Progress Note ---
Anesthesia Post Op Note Date & Time May 09, 2017 at 15:05 Vital Signs Pain Intensity: 0 Vital Signs Past 12 Hours Date Time Temp Pulse Resp B/P (MAP) Pulse Ox O2 Delivery O2 Flow Rate FiO2 05/09/17 15:00 68 16 128/67 93 Oxymask 2 05/09/17 14:50 36.4 64 16 145/67 94 Oxymask 2 05/09/17 14:40 70 16 177/82 96 Oxymask 2 05/09/17 14:30 72 16 173/73 99 Oxymask 3 05/09/17 14:20 71 16 155/92 99 Oxymask 5 05/09/17 14:10 73 16 164/63 99 Oxymask 10 05/09/17 14:04 36.0 74 16 144/54 99 Oxymask 10 05/09/17 10:45 36.7 87 18 166/72 (103) 98 Room Air 05/09/17 08:30 Room Air 05/09/17 07:45 36.5 84 18 188/71 (110) 96 Room Air Notes Mental Status: alert / awake / arousable, participated in evaluation Pt Amnestic to Procedure: Yes Nausea / Vomiting: adequately controlled Pain: adequately controlled Airway Patency, RR, SpO2: stable & adequate BP & HR: stable & adequate Hydration State: stable & adequate Anesthetic Complications: no major complications apparent
[2017-05-09] MEDS ORDERED: NURSING VERBAL MED ORDER ONE (16:30)
--- NOTE | 2017-05-09 16:42 | DIAGNOSTIC IMAGING REPORT ---
PELVIS AND RIGHT HIP 2 VIEWS CLINICAL HISTORY: Right hip arthroplasty incision and drainage. COMPARISON STUDY: 05/05/2017 FINDINGS: There are postsurgical changes of a total right hip arthroplasty. Postsurgical changes are evident, and multiple radiopaque pledgets project over the joint and adjacent soft tissues. These likely represent antibiotic pledgets. There is no acute fracture. There are no dislocations. IMPRESSION: Interval surgery with apparent placement of multiple radiopaque antibiotic pledgets Electronically signed by: Mahin Farr M.D. 05/09/2017 4:41 PM Dictated Date/Time: 05/09/2017 4:39 PM
--- NOTE | 2017-05-09 17:06 | PROGRESS NOTE ---
DATE: 05/09/2017 POSTOP CHECK: The patient is tired, pain is well managed. She denies chest pain, shortness of breath, fever, chills, nausea, vomiting or headache. OBJECTIVE: Vital signs are stable. She is afebrile. Neurovascular check femoral sciatic nerve is normal. Wound dressing clean, dry and intact. IMAGING DATA: Postop x-rays reveal no issue of any bony injury. The stimulant beads are in place. ASSESSMENT AND PLAN: Status post incision and drainage, right hip with poly exchange and femoral head exchange in order to maximize surgical washout and minimize recurrence. At this point in time, permitting was discussed in detail with her and her family. Will continue with present plans. Will change dressing tomorrow and apply a Prevena wound VAC dressing.
[2017-05-09] MEDS ORDERED: WARFARIN SOD 5 MG TAB PO ONE (20:00)
[2017-05-09] MEDS: CARVEDILOL 12.5 MG TAB PO SCH (20:27)
[2017-05-09] MEDS: DOCUSATE SODIUM 100 MG CAP PO SCH (20:28)
[2017-05-09] MEDS: LOSARTAN POTASSIUM 50 MG TAB PO SCH (20:29)
[2017-05-09] MEDS: RANITIDINE HCL 150 MG TAB PO SCH (20:30)
[2017-05-09] MEDS: NYSTATIN POWDER 15GM BTL EXT PRN (20:32)
[2017-05-09] MEDS: OXYCODONE/ACETAMINOPHEN 10/325MG TAB PO PRN (23:53)
[2017-05-10] MEDS: OXYCODONE/ACETAMINOPHEN 10/325MG TAB PO PRN ×2 (04:21→20:13)
[2017-05-10 04:23] VITALS: BP 143/71; PULSE 80; TEMP 36.4; O2SAT 97
[2017-05-10] MEDS: ARMOUR THYROID 30 MG TAB PO SCH ×2 (05:37→05:38)
[2017-05-10 06:58] VITALS: BP 99/62; PULSE 69; TEMP 36.6; O2SAT 92
[2017-05-10] MEDS: INSULIN ASPART 100 UNITS/ML 3 ML PEN SC SCH ×4 (08:00→21:00)
[2017-05-10 08:15] VITALS: BP 142/76
[2017-05-10 08:40] LABS: BASO % 0.1 %; BASO ABS # 0.01 K/uL (0-0.2); EOS % 0.1 %; HEMATOCRIT 25.8 % (37-47); IG% 0.2 %; LYMPH % 11.3 %; LYMPH ABS # 1.02 K/uL (1.2-3.4); MEAN CELL VOLUME 86.6 fL (80-100); MEAN CORPUSCULAR HEMOGLOBIN 27.5 pg (25-34); MEAN CORPUSCULAR HGB CONC 31.8 g/dl (32-36); MEAN PLATELET VOLUME 8.4 fL (7.4-10.4); MONO % 5.9 %; NEUT % 82.4 %; PLATELET COUNT 324 K/uL (130-400); RED BLOOD COUNT 2.98 M/uL (4.2-5.4); WHITE BLOOD COUNT 9.01 K/uL (4.8-10.8)
[2017-05-10 08:49] LABS: PROTHROMBIN TIME (PATIENT) 10.7 SECONDS (9.0-12.0)
[2017-05-10] MEDS ORDERED: DAPTOmycin 500 MG VIAL IV SCH (09:00)
[2017-05-10] MEDS ORDERED: FUROSEMIDE 20 MG TAB PO SCH (09:00)
[2017-05-10 09:01] LABS: COMPLETE YES
--- NOTE | 2017-05-10 09:03 | PROGRESS NOTE ---
DATE: 05/10/2017 Postop day #1 status post I&D, poly and head exchange and application of Stimulan beads to her right hip. At this point in time, she has been afebrile. She notes that her pain is well managed. She notes that her wound is comfortable. She denies any chest pain, shortness of breath, fever, chills, nausea, vomiting or headache. She is alert and oriented x3. Vital signs are stable. She is afebrile. Neurovascular check of femoral sciatic nerve is normal. She was able to get up and sit in a chair for a while yesterday and get up and walk to the bathroom. Dressing is changed today. There was a moderate amount of serosanguineous drainage on it. The wound is clean. There is no sign of any recollection. Prevena wound VAC is applied. LABORATORY WORK: This morning is pending. ASSESSMENT: Overall, doing reasonably well. We will check hematocrit today. Transfusion criteria per hospitalist coverage. We will try to hold off as long as she is not symptomatic. Continue with present antibiotic course. Would suggest another full 6 weeks based on the procedure that was performed yesterday. Adjust per infectious disease. Mobilize and weightbearing to tolerance on the right lower extremity, but no exercises to promote range of motion of the hip to try to let the wound incision calm down. Change Prevena dressing as needed. Coumadin for DVT prophylaxis.
[2017-05-10 09:15] LABS: BUN/CREATININE RATIO 23.6 (10-20); CALCIUM 10.6 mg/dl (8.5-10.1); CREATININE 1.22 mg/dl (0.60-1.20)
[2017-05-10] MEDS: FERROUS SULFATE 325 MG TAB PO SCH ×2 (09:54→18:19)
[2017-05-10] MEDS: DOCUSATE SODIUM 100 MG CAP PO SCH ×2 (09:55→20:11)
[2017-05-10] MEDS: CARVEDILOL 25 MG TAB PO SCH (09:55)
[2017-05-10] MEDS: MULTIVITAMIN TAB PO SCH (09:55)
[2017-05-10] MEDS: LOSARTAN POTASSIUM 50 MG TAB PO SCH ×2 (09:55→20:12)
[2017-05-10] MEDS: LACTOBACILLUS ACIDOPHILUS (FLORANEX) TAB PO SCH ×3 (09:56→20:11)
[2017-05-10] MEDS: NYSTATIN POWDER 15GM BTL EXT PRN (09:56)
[2017-05-10] MEDS: DAPTOmycin IV 600 MG in SODIUM CHLORIDE 0.9% 50ML 50 ML IV SCH (12:37)
[2017-05-10] MEDS: ERTAPENEM IV 1 GM in SODIUM CHLOR 0.9% AD-VAN 50ML 50 ML IV SCH (13:02)
[2017-05-10 15:16] VITALS: BP 100/63; PULSE 73; TEMP 36.4; O2SAT 93
[2017-05-10] MEDS ORDERED: ENOXAPARIN 40 MG/0.4 ML SYR SQ ONE (15:30)
--- NOTE | 2017-05-10 15:32 | Progress Note ---
Subjective Date of Service: May 10, 2017. Subjective Pt evaluation today including: conversation w/ patient, physical exam, chart review, lab review, review of studies (intra-op cultures, etc), review of inpatient medication list Pain: right hip only PO Intake: normal Voiding: no voiding problems no issues overnight reports she will be returning home rather than going to rehab at discharge feels overall pretty good Problem List Medical Problems: (1) Abdominal pain Status: Acute (2) Abscess of hip Status: Acute (3) Cellulitis Status: Acute (4) Hip pain Status: Acute (5) Leukocytosis Status: Acute Review of Systems Constitutional: No fever, No chills Respiratory: No shortness of breath Cardiac: No chest pain, No orthopnea Abdomen: + diarrhea (but improved today), No pain Objective Vital Signs Date Time Temp Pulse Resp B/P (MAP) Pulse Ox O2 Delivery O2 Flow Rate FiO2 05/10/17 15:16 36.4 73 16 100/63 (75) 93 Room Air 05/10/17 10:27 CPAP 05/10/17 08:15 142/76 (98) 05/10/17 06:58 36.6 69 15 99/62 (74) 92 CPAP 05/10/17 04:23 36.4 80 18 143/71 (95) 97 CPAP 05/09/17 23:45 CPAP 05/09/17 23:43 36.6 85 18 153/63 (93) 94 Room Air 05/09/17 18:38 36.6 79 18 143/80 (101) 97 Nasal Cannula 2.0 05/09/17 17:43 36.5 83 18 125/61 (82) 91 Room Air 05/09/17 16:44 36.4 77 18 146/75 (98) 93 Room Air 05/09/17 16:00 36.6 70 18 143/80 (101) 97 Oxymask 2.0 05/09/17 15:30 98 Oxymask 2.0 05/09/17 15:30 98 Oxymask 2.0 05/09/17 15:30 36.5 70 18 144/78 (100) 98 Oxymask 2.0 Physical Exam General Appearance: no apparent distress, + obese ENT: pharynx normal Neck: no JVD Respiratory/Chest: lungs clear, no respiratory distress, no accessory muscle use Cardiovascular: regular rate, rhythm, no gallop, + systolic murmur (2/6 RUSB) Abdomen: normal bowel sounds, non tender, soft, no organomegaly Extremities: no pedal edema Neurologic/Psychiatric: alert, oriented x 3 Skin: + pertinent finding (skin - large incision right hip with wound vac in place ) Laboratory Results Last 24 Hours Test 05/09/17 17:14 05/09/17 20:54 05/10/17 07:58 05/10/17 08:26 Bedside Glucose 119 mg/dl 191 mg/dl 120 mg/dl White Blood Count 9.01 K/uL Red Blood Count 2.98 M/uL Hemoglobin 8.2 g/dL Hematocrit 25.8 % Mean Corpuscular Volume 86.6 fL Mean Corpuscular Hemoglobin 27.5 pg Mean Corpuscular Hemoglobin Concent 31.8 g/dl Platelet Count 324 K/uL Mean Platelet Volume 8.4 fL Neutrophils (%) (Auto) 82.4 % Lymphocytes (%) (Auto) 11.3 % Monocytes (%) (Auto) 5.9 % Eosinophils (%) (Auto) 0.1 % Basophils (%) (Auto) 0.1 % Neutrophils # (Auto) 7.42 K/uL Lymphocytes # (Auto) 1.02 K/uL Monocytes # (Auto) 0.53 K/uL Eosinophils # (Auto) 0.01 K/uL Basophils # (Auto) 0.01 K/uL RDW Standard Deviation 45.2 fL RDW Coefficient of Variation 14.3 % Immature Granulocyte % (Auto) 0.2 % Immature Granulocyte # (Auto) 0.02 K/uL Red Blood Cell Morphology Unremarkable Prothrombin Time 10.7 SECONDS Prothromb Time International Ratio 1.0 Sodium Level 139 mmol/L Potassium Level 5.0 mmol/L Chloride Level 107 mmol/L Carbon Dioxide Level 25 mmol/L Anion Gap 7.0 mmol/L Blood Urea Nitrogen 29 mg/dl Creatinine 1.22 mg/dl Est Creatinine Clear Calc Drug Dose 45.4 ml/min Estimated GFR () 49.5 Estimated GFR (Non- 42.7 BUN/Creatinine Ratio 23.6 Random Glucose 118 mg/dl Calcium Level 10.6 mg/dl Test 05/10/17 12:02 Bedside Glucose 129 mg/dl Assessment and Plan 77yo female - 1. 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 Await intra-op culture (thus far negative). Prior culture from 04/20/17 showed enterococcus faecalis - pansensitive. Remains on ertapenem & daptomycin (ertapenem is for a single positive blood culture from earlier this month - gram negative rickey). Appreciate orthopedic assistance. PT, OT; WBAT on right leg per ortho recommendations. 2. acute/chronic anemia - acute component 2nd to acute blood loss anemia from surgery, blood draws, etc - Hb 8.2 today CBC in am Cont Fe replacement Tx if Hb is <7.5 3. diarrhea - antibiotic associated; c. diff negative. Lactinex TID. 4. chronic diastolic CHF - compensated. 5. HTN - controlled. 6. CKD stage 3 - creatinine stable; BMP am. 7. pre-T2DM - control adequate. 8. hypothyroidism - TSH compensated; cont armour thyroid replacement. 9. minimal hypercalcemia - follow, repeat BMP in am. 10. DVT proph - lovenox 40mg daily until INR is therapeutic on the coumadin nomogram. Continued [facility] stay due to: ambulation difficulties, multiple IV medications needed Discharge planning: home
[2017-05-10] MEDS ORDERED: WARFARIN SOD 5 MG TAB PO ONE (16:00)
[2017-05-10 20:10] VITALS: BP 126/68; PULSE 73
[2017-05-10] MEDS: CARVEDILOL 12.5 MG TAB PO SCH (20:11)
[2017-05-10] MEDS: RANITIDINE HCL 150 MG TAB PO SCH (20:11)
[2017-05-10 23:38] VITALS: BP 99/58; PULSE 77; TEMP 36.9; O2SAT 93
[2017-05-11] VITALS (16 sets, daily range): BP systolic 95–152; BP diastolic 43–79; PULSE 77–108; TEMP 36.7–37.5; O2SAT 90–94
[2017-05-11] MEDS: ARMOUR THYROID 30 MG TAB PO SCH ×2 (05:38→05:40)
[2017-05-11 06:34] LABS: BASO % 0.6 %; BASO ABS # 0.05 K/uL (0-0.2); EOS % 6.2 %; HEMATOCRIT 23.9 % (37-47); IG% 0.2 %; LYMPH ABS # 1.72 K/uL (1.2-3.4); MEAN CELL VOLUME 86.3 fL (80-100); MEAN CORPUSCULAR HEMOGLOBIN 27.8 pg (25-34); MEAN CORPUSCULAR HGB CONC 32.2 g/dl (32-36); MEAN PLATELET VOLUME 8.3 fL (7.4-10.4); MONO % 6.8 %; NEUT % 67.2 %; PLATELET COUNT 299 K/uL (130-400); RED BLOOD COUNT 2.77 M/uL (4.2-5.4); WHITE BLOOD COUNT 9.06 K/uL (4.8-10.8)
[2017-05-11 06:52] LABS: INR 1.1 (0.9-1.1); PROTHROMBIN TIME (PATIENT) 11.7 SECONDS (9.0-12.0)
[2017-05-11 06:57] LABS: COMPLETE YES; MICROCYTOSIS PRESENT
[2017-05-11 07:05] LABS: BUN/CREATININE RATIO 27.1 (10-20); CALCIUM 11.9 mg/dl (8.5-10.1); CREATININE 1.52 mg/dl (0.60-1.20); POTASSIUM 4.5 mmol/L (3.5-5.1)
[2017-05-11] MEDS ORDERED: ACETAMINOPHEN 325 MG TAB PO ONE (08:30)
[2017-05-11] MEDS ORDERED: FUROSEMIDE INJ 20 MG in SYRINGE 0 ML IV ONE (09:00)
[2017-05-11] MEDS ORDERED: NURSING VERBAL MED ORDER ONE (09:00)
[2017-05-11] MEDS ORDERED: FUROSEMIDE 40 MG TAB PO SCH (09:00)
[2017-05-11] MEDS: FERROUS SULFATE 325 MG TAB PO SCH ×3 (09:08→18:00)
[2017-05-11] MEDS: DOCUSATE SODIUM 100 MG CAP PO SCH ×2 (09:08→22:07)
[2017-05-11] MEDS: LACTOBACILLUS ACIDOPHILUS (FLORANEX) TAB PO SCH ×3 (09:08→22:08)
[2017-05-11] MEDS: LOSARTAN POTASSIUM 50 MG TAB PO SCH (09:09)
[2017-05-11] MEDS: CARVEDILOL 25 MG TAB PO SCH (09:09)
[2017-05-11] MEDS: MULTIVITAMIN TAB PO SCH (09:09)
--- NOTE | 2017-05-11 09:10 | PROGRESS NOTE ---
DATE: 05/11/2017 SUBJECTIVE: Postop check day #2. At this point in time, the patient feeling kind of tired and has a low grade temp of 37.3. Feels a little bit achy. She notes that her hip pain overall is feeling better. She feels very fatigued. She denies chest pain, shortness of breath, fever, chills, nausea, vomiting or headache. OBJECTIVE: VITAL SIGNS: Stable. T max is 37.3. SKIN: Reveals no rashes. EXTREMITY: Upper extremity exam reveals no problems with joints. Right leg is checked. Wound VAC is draining appropriately with serosanguineous drainage. Not a high-volume reservoir, so frequent changing is not unusual. Wound dressing is clean, dry and intact. There is no major discomfort about the hip with palpation. Log rolling is relatively comfortable. Neurovascular check femoral sciatic nerve is normal. Calves nontender. LABORATORY DATA: Hematocrit reveals that she has had 23.9 with a hemoglobin of 7.7. White count is 9.06. INR is 1.1. Glucose is in the 113 ranges. ASSESSMENT: Overall, feeling fatigued. Hemoglobin at this point in time is at 7.7 with her symptoms suggested transfusing 2 units over 3 hours each, premedicate with Tylenol. We will try to avoid Benadryl based on age. I suggest that she stay in the hospital presently. Continue with IV antibiotic treatments as previous. Continue Coumadin. Continue social service assessment. Of note that her appointments cannot be until after 9:00 a.m. based on travel schedules. We will follow up daily with rounds. She is not ready for discharge. ALAN
[2017-05-11] MEDS: ENOXAPARIN 40 MG/0.4 ML SYR SQ SCH (09:12)
[2017-05-11] MEDS ORDERED: WARFARIN SOD 6 MG TAB PO SCH (16:00)
[2017-05-11 17:34] LABS: BUN/CREATININE RATIO 23.4 (10-20); CALCIUM 12.6 mg/dl (8.5-10.1); CREATININE 1.57 mg/dl (0.60-1.20); POTASSIUM 4.4 mmol/L (3.5-5.1)
[2017-05-11] MEDS: DAPTOmycin IV 600 MG in SODIUM CHLORIDE 0.9% 50ML 50 ML IV SCH (17:55)
--- NOTE | 2017-05-11 18:38 | PROGRESS NOTE ---
DATE: 05/11/2017 SUBJECTIVE: At this point in time, the patient is feeling slightly more energetic, but still feels quite tired. She notes that she feels cold. Vital signs are stable. She has been afebrile. She is not tachycardic. Her H&H has improved nicely with hemoglobin above 10 and hematocrit about 30. Of note, his her calcium is elevated, PTH has been ordered per medicine and will have them treat that appropriately. Continue with supportive management. Continue antibiotics. Discussed home arrangements to prefer to go home. Will follow up in a.m. Continue with wound VAC dressing which has minimal drainage. ALAN
[2017-05-11] MEDS: SODIUM CHLORIDE 0.9% 1000ML 1,000 ML IV SCH (18:54)
[2017-05-11 18:55] LABS: MAGNESIUM 1.4 mg/dl (1.8-2.4); PHOSPHORUS 4.4 mg/dl (2.5-4.9); THYROID STIMULATING HORMONE 0.099 uIu/ml (0.300-4.500)
[2017-05-11] MEDS: ERTAPENEM IV 1 GM in SODIUM CHLOR 0.9% AD-VAN 50ML 50 ML IV SCH (18:55)
[2017-05-11] MEDS: OXYCODONE/ACETAMINOPHEN 10/325MG TAB PO PRN (19:08)
[2017-05-11] MEDS ORDERED: CALCITONIN SALMON 400 INTER.UNIT/2 ML SQ SCH (19:30)
--- NOTE | 2017-05-11 19:44 | Progress Note ---
Subjective Date of Service: May 11, 2017. Subjective Pt evaluation today including: conversation w/ patient, conversation w/ family (children, ), physical exam, chart review, lab review, review of studies (labs from today (numerous)), conversation w/ healthcare network consultant (nephrology ([facility]), endocrinology ([place])), review of inpatient medication list Pain: right hip PO Intake: poor today Voiding: no voiding problems pt states "I just don't feel well." reports lack of appetite, fatigue, feeling cold, and simply very tired. denies dyspnea. no bowel movement in 2 days. Problem List Medical Problems: (1) Abdominal pain Status: Acute (2) Abscess of hip Status: Acute (3) Cellulitis Status: Acute (4) Hip pain Status: Acute (5) Leukocytosis Status: Acute Review of Systems Constitutional: + fatigue, No fever, No chills Respiratory: No shortness of breath, No dyspnea on exertion Cardiac: No chest pain, No orthopnea, No PND, No edema Abdomen: No pain, No nausea, No vomiting Objective Vital Signs Date Time Temp Pulse Resp B/P (MAP) Pulse Ox O2 Delivery O2 Flow Rate FiO2 05/11/17 19:11 36.8 81 17 93 2.0 05/11/17 15:43 36.8 81 17 149/79 (102) 93 Room Air 05/11/17 15:30 36.8 81 17 149/79 93 05/11/17 14:33 36.9 78 15 132/77 94 05/11/17 14:03 36.7 77 16 106/43 90 05/11/17 13:25 37.0 81 16 105/66 93 05/11/17 13:14 37.2 78 16 109/65 91 05/11/17 13:01 37.0 79 16 95/55 92 05/11/17 12:38 36.9 80 18 121/72 93 05/11/17 11:28 36.9 85 110/50 91 05/11/17 10:40 37.5 106 20 124/71 91 05/11/17 10:11 37.2 101 16 122/74 90 05/11/17 09:50 37.5 103 16 138/79 91 05/11/17 09:35 37.5 105 16 137/75 90 05/11/17 09:21 37.4 108 18 148/75 93 05/11/17 07:35 Room Air 05/11/17 07:00 37.3 96 18 140/74 (96) 94 Room Air 05/10/17 23:45 CPAP 05/10/17 23:38 36.9 77 16 99/58 (72) 93 Room Air 05/10/17 20:10 73 126/68 (87) Physical Exam General Appearance: no apparent distress, + obese, + pertinent finding (looks very tired/ill but nontoxic) ENT: pharynx normal Neck: no JVD Respiratory/Chest: lungs clear, no respiratory distress, no accessory muscle use Cardiovascular: regular rate, rhythm, no gallop, + systolic murmur (1/6 DAVE LSB ) Abdomen: normal bowel sounds, non tender, soft, no organomegaly Extremities: no pedal edema, + pertinent finding (right hip dressing in place with wound vac) Neurologic/Psychiatric: alert, oriented x 3 (but sleepy) Skin: + pallor Laboratory Results Last 24 Hours Test 05/10/17 20:47 05/11/17 06:24 05/11/17 06:53 05/11/17 16:57 Bedside Glucose 111 mg/dl 113 mg/dl White Blood Count 9.06 K/uL Red Blood Count 2.77 M/uL Hemoglobin 7.7 g/dL 10.2 g/dL Hematocrit 23.9 % 32.0 % Mean Corpuscular Volume 86.3 fL Mean Corpuscular Hemoglobin 27.8 pg Mean Corpuscular Hemoglobin Concent 32.2 g/dl Platelet Count 299 K/uL Mean Platelet Volume 8.3 fL Neutrophils (%) (Auto) 67.2 % Lymphocytes (%) (Auto) 19.0 % Monocytes (%) (Auto) 6.8 % Eosinophils (%) (Auto) 6.2 % Basophils (%) (Auto) 0.6 % Neutrophils # (Auto) 6.09 K/uL Lymphocytes # (Auto) 1.72 K/uL Monocytes # (Auto) 0.62 K/uL Eosinophils # (Auto) 0.56 K/uL Basophils # (Auto) 0.05 K/uL RDW Standard Deviation 45.9 fL RDW Coefficient of Variation 14.4 % Immature Granulocyte % (Auto) 0.2 % Immature Granulocyte # (Auto) 0.02 K/uL Microcytosis PRESENT Prothrombin Time 11.7 SECONDS Prothromb Time International Ratio 1.1 Sodium Level 138 mmol/L 136 mmol/L Potassium Level 4.5 mmol/L 4.4 mmol/L Chloride Level 105 mmol/L 103 mmol/L Carbon Dioxide Level 25 mmol/L 24 mmol/L Anion Gap 8.0 mmol/L 9.0 mmol/L Blood Urea Nitrogen 41 mg/dl 37 mg/dl Creatinine 1.52 mg/dl 1.57 mg/dl Est Creatinine Clear Calc Drug Dose 36.4 ml/min 35.3 ml/min Estimated GFR () 37.9 36.5 Estimated GFR (Non- 32.7 31.5 BUN/Creatinine Ratio 27.1 23.4 Random Glucose 104 mg/dl 107 mg/dl Calcium Level 11.9 mg/dl 12.6 mg/dl Test 05/11/17 18:12 05/11/17 18:18 Phosphorus Level 4.4 mg/dl Magnesium Level 1.4 mg/dl Albumin 2.8 gm/dl Thyroid Stimulating Hormone (TSH) 0.099 uIu/ml Parathyroid Hormone (Intact) < 5.5 pg/mL Total Creatine Kinase 58 U/L Assessment and Plan 77yo female - 1. 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 Intra-op culture thus far negative. Prior culture from 04/20/17 showed enterococcus faecalis - pansensitive. Remains on ertapenem & daptomycin (ertapenem is for a single positive blood culture from earlier this month - gram negative rickey). Blood cx's this admission negative. Appreciate orthopedic assistance. PT, OT; WBAT on right leg per ortho recommendations. 2. acute/chronic anemia - acute component 2nd to acute blood loss anemia from surgery, blood draws, etc - Hb 7.7 - agree with PRBCs given her heart conditions, symptoms, etc. CBC after the transfusion and again in am. To be complete obtain hemoccult to ensure GI bleeding is not the cause. Cont Fe replacement. 3. diarrhea - antibiotic associated; c. diff negative. Lactinex TID. Resolved. 4. chronic diastolic CHF - compensated. Hold PO lasix since IV lasix will be given with PRBCs today. 5. HTN - controlled. 6. CKD stage 3 - creatinine modestly worse today at 1.5. Repeat later today and then again in AM. 7. pre-T2DM - control adequate. 8. hypothyroidism - TSH was formerly normal this summer but repeat tonight markedly suppressed. Will hold her AM armour thyroid and will speak with her primary tube building machine operator tomorrow. 9. DVT proph - lovenox 40mg daily until INR is therapeutic on the coumadin nomogram. 10. hypercalcemia - on 05/09 her total calcium level was normal at 9.4. On 05/10 it regi into the 10s, this AM regi into the 11s, and it was repeated again this evening and is now over 12. Corrected calcium is 13.2 accounting for mildly low albumin. Spoke with endocrinology as well as nephrology. Her acute hypercalcemia is puzzling as her calcium levels have been normal for weeks prior to her surgery on 05/09. Perhaps she had an occult parathyroid process that has manifested in this illness. Either way the cause is quite uncertain. TSH was checked - suppressed - see above. Awaiting intact PTH, phos, mag levels. Vitamin D levels and SPEP/UPEP also to be checked. Given the rapid rise in level and symptoms from such (lethargy, anorexia, etc) will start fluids now. Caution given her CHF history but at the current time she is wellcompensated ( and, if anything, is modestly dry). Will give 1 dose of calcitonin now. Hold off on IV bisphosphonate. BMP at midnight tonight and then again in AM. Transfer to telemetry for close monitoring. Pt, pt's , and staff are aware of transfer. If she becomes volume overloaded due to fluids then will need to give additional IV lasix. Total time about 70 minutes including 2 separate visits, multiple conversations with specialists, etc. Continued [facility] stay due to: ambulation difficulties, multiple IV medications needed, other (hypercalcemia) Discharge planning: uncertain
[2017-05-11] MEDS: MAGNESIUM SULFATE 1GM / D5W 1 GM in PREMIXED IN D5W 100 ML IV SCH ×2 (22:00→23:35)
[2017-05-11] MEDS: RANITIDINE HCL 150 MG TAB PO SCH (22:07)
[2017-05-11] MEDS: CARVEDILOL 12.5 MG TAB PO SCH (22:09)
[2017-05-12] MEDS: SODIUM CHLORIDE 0.9% 1000ML 1,000 ML IV SCH ×4 (00:40→16:56)
[2017-05-12] MEDS: METOCLOPRAMIDE HCL INJ 5 MG/ML 2 ML VIAL IV PRN ×2 (01:11→22:01)
[2017-05-12 01:20] LABS: BUN/CREATININE RATIO 24.6 (10-20); CALCIUM 12.9 mg/dl (8.5-10.1); CREATININE 1.34 mg/dl (0.60-1.20); POTASSIUM 4.1 mmol/L (3.5-5.1)
[2017-05-12 03:03] VITALS: BP 149/68; PULSE 98; TEMP 36.9; O2SAT 91
[2017-05-12 06:17] LABS: BASO % 0.4 %; BASO ABS # 0.04 K/uL (0-0.2); COMPLETE YES; EOS % 6.9 %; HEMATOCRIT 30.1 % (37-47); IG% 0.2 %; LYMPH % 10.8 %; LYMPH ABS # 1.03 K/uL (1.2-3.4); MEAN CELL VOLUME 85.3 fL (80-100); MEAN CORPUSCULAR HEMOGLOBIN 27.2 pg (25-34); MEAN CORPUSCULAR HGB CONC 31.9 g/dl (32-36); MEAN PLATELET VOLUME 8.6 fL (7.4-10.4); MONO % 7.7 %; PLATELET COUNT 296 K/uL (130-400); RED BLOOD COUNT 3.53 M/uL (4.2-5.4); WHITE BLOOD COUNT 9.53 K/uL (4.8-10.8)
[2017-05-12 06:19] LABS: INR 1.5 (0.9-1.1); PROTHROMBIN TIME (PATIENT) 16.8 SECONDS (9.0-12.0)
[2017-05-12 06:47] LABS: BUN/CREATININE RATIO 23.9 (10-20); CALCIUM 12.2 mg/dl (8.5-10.1); CREATININE 1.31 mg/dl (0.60-1.20); POTASSIUM 4.1 mmol/L (3.5-5.1)
--- NOTE | 2017-05-12 07:09 | ORTHOPEDICS PROGRESS NOTE ---
DATE: 05/12/2017 At this point in time, the patient is feeling somewhat better today, not as tired and not as weak overall. She notes that her pain is well managed. She denies chest pain, shortness of breath, fever, chills, nausea, vomiting or headache. She did have an episode of nausea with emesis last evening but has had none since. She states the whole period lasted about 8-10 minutes. Denied any chest pain with that. Vital signs are stable. She is afebrile. Abdomen soft, nontender. Neurovascular check all 4 extremities within normal limits. Hip logrolling and flexion without much discomfort. Has some minor pulling from the wound VAC. The wound VAC has been changed appropriately. The canisters have been changed appropriately. LABORATORY WORK: Reveals the hematocrit to be stable at 30.1, hemoglobin at 9.6. INR is now 1.5, would suggest stopping the Lovenox at this point in time. Chemistry reveals that her potassium is 4.1 and her calcium has dropped from 12.9 to 12.2 with the IV hydration. Other laboratory work is pending. ASSESSMENT: Overall responding to management for hypercalcemia. Workup for parathyroid and thyroid dysfunction as well as other medical issues as per medicine. INR is now 1.5. Would suggest decreasing the Lovenox to prevent extra serous drainage from the hip wound, keep INR in the 1.8-2.2 range. Coumadin will be ordered today by myself. I will leave the Lovenox up to the internal medicine coverage. Discussed wound VAC management and dressing change with the patient, she is feeling better. Presently, we will leave this in place and likely change sometime midweek.
[2017-05-12 07:44] VITALS: BP 152/69; PULSE 97; TEMP 36.8; O2SAT 91
[2017-05-12] MEDS: FERROUS SULFATE 325 MG TAB PO SCH ×3 (08:07→15:49)
[2017-05-12] MEDS: MULTIVITAMIN TAB PO SCH (08:08)
[2017-05-12] MEDS: CARVEDILOL 25 MG TAB PO SCH (08:08)
[2017-05-12] MEDS: LACTOBACILLUS ACIDOPHILUS (FLORANEX) TAB PO SCH ×3 (08:09→20:17)
[2017-05-12] MEDS: DOCUSATE SODIUM 100 MG CAP PO SCH ×2 (08:09→20:16)
[2017-05-12] MEDS: ENOXAPARIN 40 MG/0.4 ML SYR SQ SCH (08:10)
--- NOTE | 2017-05-12 10:09 | Progress Note ---
Subjective Date of Service: May 12, 2017. Subjective Pt evaluation today including: conversation w/ patient, conversation w/ family , physical exam, chart review, lab review pt seen in followup, had some vomiting overnight. no f/c. some pain in hip. Tolerating abx. all cultures negative, undergoing workup for high Ca. No abd pain, Remaining ros reviewed and are negative. Problem List Medical Problems: (1) Abdominal pain Status: Acute (2) Abscess of hip Status: Acute (3) Cellulitis Status: Acute (4) Hip pain Status: Acute (5) Leukocytosis Status: Acute Objective Vital Signs Date Time Temp Pulse Resp B/P (MAP) Pulse Ox O2 Delivery O2 Flow Rate FiO2 05/12/17 07:50 Room Air 05/12/17 07:44 36.8 97 20 152/69 (96) 91 05/12/17 04:00 Room Air 05/12/17 03:03 36.9 98 19 149/68 (95) 91 CPAP 05/12/17 00:02 Room Air 05/11/17 23:25 37.0 89 20 152/76 (101) 90 BiPAP 05/11/17 20:00 Room Air 05/11/17 19:11 36.8 81 17 93 05/11/17 15:43 36.8 81 17 149/79 (102) 93 Room Air 05/11/17 15:30 36.8 81 17 149/79 93 05/11/17 15:10 Room Air 05/11/17 14:33 36.9 78 15 132/77 94 05/11/17 14:03 36.7 77 16 106/43 90 05/11/17 13:25 37.0 81 16 105/66 93 05/11/17 13:14 37.2 78 16 109/65 91 05/11/17 13:01 37.0 79 16 95/55 92 05/11/17 12:38 36.9 80 18 121/72 93 05/11/17 11:28 36.9 85 110/50 91 05/11/17 10:40 37.5 106 20 124/71 91 05/11/17 10:11 37.2 101 16 122/74 90 Physical Exam General Appearance: WD/WN, no apparent distress Eyes: normal inspection, EOMI Neck: supple Respiratory/Chest: lungs clear, + decreased breath sounds Cardiovascular: regular rate, rhythm, no edema Abdomen: non tender, soft Extremities: no pedal edema Neurologic/Psychiatric: alert, oriented x 3 Skin: normal color, no rash Laboratory Results Item Value Date Time C.difficile Toxin B Gene (PCR) - Final Complete 04/22/17 1824 Stool No C. difficile toxin B gene detected Blood Culture - Preliminary Resulted 04/22/17 1549 Blood NO GROWTH TO DATE. Blood Culture - Preliminary Resulted 04/22/17 1539 Blood NO GROWTH TO DATE. Gram Stain - Final Complete 04/20/17 2000 Joint Fluid/Space (Synovial) Hip , Right Blood Culture - Preliminary Resulted 04/20/17 1831 Blood Gram Negative Bacilli Gram Stain - Final Resulted 05/09/17 1205 Joint Fluid/Space (Synovial) Hip , Right Blood Culture - Preliminary Resulted 05/08/17 1115 Blood NO GROWTH TO DATE. Blood Culture - Preliminary Resulted 05/08/17 1056 Blood NO GROWTH TO DATE. Last 24 Hours Test 05/11/17 16:57 05/11/17 18:12 05/11/17 18:18 05/12/17 00:41 Hemoglobin 10.2 g/dL Hematocrit 32.0 % Sodium Level 136 mmol/L 136 mmol/L Potassium Level 4.4 mmol/L 4.1 mmol/L Chloride Level 103 mmol/L 102 mmol/L Carbon Dioxide Level 24 mmol/L 23 mmol/L Anion Gap 9.0 mmol/L 11.0 mmol/L Blood Urea Nitrogen 37 mg/dl 33 mg/dl Creatinine 1.57 mg/dl 1.34 mg/dl Est Creatinine Clear Calc Drug Dose 35.3 ml/min 41.3 ml/min Estimated GFR () 36.5 44.2 Estimated GFR (Non- 31.5 38.1 BUN/Creatinine Ratio 23.4 24.6 Random Glucose 107 mg/dl 141 mg/dl Calcium Level 12.6 mg/dl 12.9 mg/dl Phosphorus Level 4.4 mg/dl Magnesium Level 1.4 mg/dl Albumin 2.8 gm/dl Thyroid Stimulating Hormone (TSH) 0.099 uIu/ml Parathyroid Hormone (Intact) < 5.5 pg/mL Total Creatine Kinase 58 U/L Test 05/12/17 05:47 White Blood Count 9.53 K/uL Red Blood Count 3.53 M/uL Hemoglobin 9.6 g/dL Hematocrit 30.1 % Mean Corpuscular Volume 85.3 fL Mean Corpuscular Hemoglobin 27.2 pg Mean Corpuscular Hemoglobin Concent 31.9 g/dl Platelet Count 296 K/uL Mean Platelet Volume 8.6 fL Neutrophils (%) (Auto) 74.0 % Lymphocytes (%) (Auto) 10.8 % Monocytes (%) (Auto) 7.7 % Eosinophils (%) (Auto) 6.9 % Basophils (%) (Auto) 0.4 % Neutrophils # (Auto) 7.05 K/uL Lymphocytes # (Auto) 1.03 K/uL Monocytes # (Auto) 0.73 K/uL Eosinophils # (Auto) 0.66 K/uL Basophils # (Auto) 0.04 K/uL RDW Standard Deviation 47.0 fL RDW Coefficient of Variation 15.0 % Immature Granulocyte % (Auto) 0.2 % Immature Granulocyte # (Auto) 0.02 K/uL Prothrombin Time 16.8 SECONDS Prothromb Time International Ratio 1.5 Sodium Level 136 mmol/L Potassium Level 4.1 mmol/L Chloride Level 102 mmol/L Carbon Dioxide Level 26 mmol/L Anion Gap 8.0 mmol/L Blood Urea Nitrogen 31 mg/dl Creatinine 1.31 mg/dl Est Creatinine Clear Calc Drug Dose 42.3 ml/min Estimated GFR () 45.4 Estimated GFR (Non- 39.2 BUN/Creatinine Ratio 23.9 Random Glucose 128 mg/dl Calcium Level 12.2 mg/dl 25-Hydroxy Vitamin D Total 29.5 ng/ml Free Thyroxine 0.73 ng/dl Assessment and Plan (1) Wound infection after surgery Assessment & Plan: will continue abx for now, if cultures remain negative, will likely stop ertapenem in am and continue with Dapto to continue treatment for previously diagnosed infection Continued [facility] stay due to: ambulation difficulties, multiple IV medications needed, other (hypercalcemia) Discharge planning: uncertain
[2017-05-12 11:31] VITALS: BP 149/69; PULSE 81; TEMP 36.9; O2SAT 90
--- NOTE | 2017-05-12 11:35 | Medical Student: [facility] ---
Med Student Progress Note Date of Service May 12, 2017. Subjective Pt evaluation today including: conversation w/ patient, physical exam Ms. Swain is a 77 year-old female with a history of DEANN, infected seroma, CHF, HTN, anemia, CKD, DM, and hypothroidism hospital day 4 for nausea, vomiting, and weakness likely secondary to hypercalcemia. Today she reports feeling "alright." She says she is feeling more alert but is still exhausted. She still feels very nauseous and reports vomiting 3 times since admission. She denies CP , SOB, dysuria, back pain, fevers, or chills. She has not had a BM since admission. She says that since her surgery, she "just doesn't care" about anything and this feeling "isn't me." She's had decreased energy, and family reports that she is more irritable. She denies ideas of self harm. She is concerned she is not getting her thyroid medication because without it, her fatigue is so intense that "she can't move her legs." Review of Systems Notes: per HPI Objective Vital Signs Date Time Temp Pulse Resp B/P (MAP) Pulse Ox O2 Delivery O2 Flow Rate FiO2 05/12/17 11:31 36.9 81 18 149/69 (95) 90 05/12/17 07:50 Room Air 05/12/17 07:44 36.8 97 20 152/69 (96) 91 05/12/17 04:00 Room Air 05/12/17 03:03 36.9 98 19 149/68 (95) 91 CPAP 05/12/17 00:02 Room Air 05/11/17 23:25 37.0 89 20 152/76 (101) 90 BiPAP 05/11/17 20:00 Room Air 05/11/17 19:11 36.8 81 17 93 05/11/17 15:43 36.8 81 17 149/79 (102) 93 Room Air 05/11/17 15:30 36.8 81 17 149/79 93 05/11/17 15:10 Room Air 05/11/17 14:33 36.9 78 15 132/77 94 05/11/17 14:03 36.7 77 16 106/43 90 05/11/17 13:25 37.0 81 16 105/66 93 05/11/17 13:14 37.2 78 16 109/65 91 05/11/17 13:01 37.0 79 16 95/55 92 05/11/17 12:38 36.9 80 18 121/72 93 Physical Exam General Appearance: no apparent distress, + pertinent finding (appears fatigued ) Neck: no carotid bruits Respiratory/Chest: lungs clear, normal breath sounds Cardiovascular: regular rate, rhythm, no gallop, + systolic murmur Abdomen: normal bowel sounds, non tender Extremities: no calf tenderness, + pedal edema Neurologic/Psychiatric: alert Laboratory Results Last 24 Hours Test 05/11/17 16:57 05/11/17 18:12 05/11/17 18:18 05/12/17 00:41 Hemoglobin 10.2 g/dL Hematocrit 32.0 % Sodium Level 136 mmol/L 136 mmol/L Potassium Level 4.4 mmol/L 4.1 mmol/L Chloride Level 103 mmol/L 102 mmol/L Carbon Dioxide Level 24 mmol/L 23 mmol/L Anion Gap 9.0 mmol/L 11.0 mmol/L Blood Urea Nitrogen 37 mg/dl 33 mg/dl Creatinine 1.57 mg/dl 1.34 mg/dl Est Creatinine Clear Calc Drug Dose 35.3 ml/min 41.3 ml/min Estimated GFR () 36.5 44.2 Estimated GFR (Non- 31.5 38.1 BUN/Creatinine Ratio 23.4 24.6 Random Glucose 107 mg/dl 141 mg/dl Calcium Level 12.6 mg/dl 12.9 mg/dl Phosphorus Level 4.4 mg/dl Magnesium Level 1.4 mg/dl Albumin 2.8 gm/dl Thyroid Stimulating Hormone (TSH) 0.099 uIu/ml Parathyroid Hormone (Intact) < 5.5 pg/mL Total Creatine Kinase 58 U/L Test 05/12/17 05:47 White Blood Count 9.53 K/uL Red Blood Count 3.53 M/uL Hemoglobin 9.6 g/dL Hematocrit 30.1 % Mean Corpuscular Volume 85.3 fL Mean Corpuscular Hemoglobin 27.2 pg Mean Corpuscular Hemoglobin Concent 31.9 g/dl Platelet Count 296 K/uL Mean Platelet Volume 8.6 fL Neutrophils (%) (Auto) 74.0 % Lymphocytes (%) (Auto) 10.8 % Monocytes (%) (Auto) 7.7 % Eosinophils (%) (Auto) 6.9 % Basophils (%) (Auto) 0.4 % Neutrophils # (Auto) 7.05 K/uL Lymphocytes # (Auto) 1.03 K/uL Monocytes # (Auto) 0.73 K/uL Eosinophils # (Auto) 0.66 K/uL Basophils # (Auto) 0.04 K/uL RDW Standard Deviation 47.0 fL RDW Coefficient of Variation 15.0 % Immature Granulocyte % (Auto) 0.2 % Immature Granulocyte # (Auto) 0.02 K/uL Prothrombin Time 16.8 SECONDS Prothromb Time International Ratio 1.5 Sodium Level 136 mmol/L Potassium Level 4.1 mmol/L Chloride Level 102 mmol/L Carbon Dioxide Level 26 mmol/L Anion Gap 8.0 mmol/L Blood Urea Nitrogen 31 mg/dl Creatinine 1.31 mg/dl Est Creatinine Clear Calc Drug Dose 42.3 ml/min Estimated GFR () 45.4 Estimated GFR (Non- 39.2 BUN/Creatinine Ratio 23.9 Random Glucose 128 mg/dl Calcium Level 12.2 mg/dl 25-Hydroxy Vitamin D Total 29.5 ng/ml Free Thyroxine 0.73 ng/dl Medications Current Inpatient Medications Medications (Trade) Dose Ordered Sig/Fuentes Route Start Time Stop Time Status Last Admin Dose Admin Ertapenem 1 gm/ Sodium Chloride 50 ml @ 120 mls/hr Q24H IV 05/09/17 13:30 05/23/17 13:29 05/11/17 18:55 120 MLS/HR Daptomycin 600 mg/ Sodium Chloride 62 ml @ 100 mls/hr Q24H IV 05/09/17 12:00 05/23/17 11:59 05/11/17 17:55 100 MLS/HR Acetaminophen (Tylenol Tab) 650 mg Q4H PRN PO 05/08/17 13:45 06/07/17 13:44 05/08/17 22:37 650 MG Al Hydrox/Mg Hydrox/Simethicone (Maalox Max Susp) 15 ml Q4H PRN PO 05/08/17 13:45 06/07/17 13:44 Magnesium Hydroxide (Milk Of Magnesia Susp) 30 ml Q6H PRN PO 05/08/17 13:45 06/07/17 13:44 Miscellaneous (Iv Fluids Completed) 1 ea PRN PRN N/A 05/08/17 14:00 05/08/18 13:59 Carvedilol (Coreg Tab) 25 mg QAM PO 05/09/17 09:00 06/08/17 08:59 05/12/17 08:08 25 MG Carvedilol (Coreg Tab) 12.5 mg QPM PO 05/08/17 21:00 06/07/17 20:59 05/11/17 22:09 12.5 MG Miscellaneous Information (Order Awaiting Action) 1 ea QS N/A 05/08/17 16:00 06/07/17 15:59 Ranitidine HCl (zANTac TAB) 300 mg HS PO 05/08/17 21:00 06/07/17 20:59 05/11/17 22:07 300 MG Thyroid (Kennard Thyroid Tab) 15 mg DAILYBB PO 05/09/17 06:00 06/08/17 06:59 Future Hold 05/11/17 05:40 15 MG Thyroid (Kennard Thyroid Tab) 120 mg DAILYBB PO 05/09/17 06:00 06/08/17 06:59 Future Hold 05/11/17 05:38 120 MG Oxycodone/ Acetaminophen (Percocet 10-325MG Tab) 1 tab Q4H PRN PO 05/08/17 14:30 05/22/17 14:29 05/11/17 19:08 1 TAB Glucose (Glucose 40% Gel) 15-30 GRAMS 15 GRAMS... UD PRN PO 05/08/17 15:00 06/07/17 14:59 Glucose (Glucose Chew Tab) 4-8 Tablets 4 Tabl... UD PRN PO 05/08/17 15:00 06/07/17 14:59 Dextrose (Dextrose 50% 50ML Syringe) 25-50ML OF 50% DW IV FOR... UD PRN IV 05/08/17 15:00 06/07/17 14:59 Glucagon (Glucagon Inj) 1 mg UD PRN SQ 05/08/17 15:00 06/07/17 14:59 Nystatin (Mycostatin Powder) 1 appln DAILY PRN EXT 05/08/17 15:00 06/07/17 14:59 05/10/17 09:56 1 APPLN Acetaminophen (Tylenol Tab) 1,000 mg Q6 PRN PO 05/09/17 14:00 06/08/17 13:59 05/10/17 12:36 1,000 MG Furosemide (Lasix Tab) 20 mg Q2D@0900 PO 05/10/17 09:00 06/09/17 08:59 Future Hold 05/10/17 09:55 20 MG Furosemide (Lasix Tab) 40 mg Q2D@0900 PO 05/11/17 09:00 06/10/17 08:59 Future Hold Losartan Potassium (coZAAR TAB) 50 mg BID PO 05/09/17 21:00 06/08/17 20:59 Future Hold 05/11/17 09:09 50 MG Multivitamins (Multivitamin Tab) 1 tab QAM PO 05/10/17 09:00 06/09/17 08:59 05/12/17 08:08 1 TAB Morphine Sulfate (MoRPHine SULFATE INJ) 2 mg Q2HWA PRN IV 05/09/17 14:15 05/23/17 14:14 Docusate Sodium (coLACE CAP) 100 mg BID PO 05/09/17 21:00 06/08/17 20:59 05/12/17 08:09 100 MG Ondansetron HCl (Zofran Inj) 4 mg Q6H PRN IV 05/09/17 14:15 06/08/17 14:14 05/11/17 20:08 4 MG Metoclopramide HCl (Reglan Inj) 10 mg Q6H PRN IV 05/09/17 14:15 06/08/17 14:14 05/12/17 01:11 10 MG Lactobacillus Acidophilus (Floranex Tab) 4 tab TID PO 05/10/17 21:00 06/07/17 20:59 05/12/17 08:09 4 TAB Enoxaparin Sodium (Lovenox Inj) 40 mg QAM SQ 05/11/17 09:00 06/10/17 08:59 05/12/17 08:10 40 MG Ferrous Sulfate (Feosol Tab) 325 mg TIDM PO 05/10/17 17:45 06/09/17 17:44 05/12/17 08:07 325 MG Sodium Chloride 1,000 ml @ 150 mls/hr Q6H40M IV 05/11/17 18:00 06/10/17 17:59 05/12/17 08:07 150 MLS/HR Calcitonin Lamoure (Calcimar Inj) 400 inter.unit ONE SQ 05/11/17 19:30 06/10/17 19:29 Warfarin Sodium (Coumadin Tab) 4 mg DAILY@16 PO 05/12/17 16:00 05/12/17 18:00 Assessment and Plan Assessment and Plan: Ms. Swain is a 77 year-old female with a history of DEANN, infected seroma, CHF, HTN, anemia, CKD, DM, and hypothroidism hospital day 4 for nausea, vomiting, and weakness likely secondary to hypercalcemia. Patient feels exhausted and still nauseous. 1. Hypercalcemia Continue diuresis 2. Infected seroma Continue ertapenem and daptomycin 3. Anemia Continue iron supplementation 4. CHF Continue lasix 5. CKD Continue to monitor RFTs - BUN 31 and Cr 1.31 today 6. Diabetes Mellitus Continue current management 7. DVT prophylaxis Continue enoxaparin and warfarin 8. Nausea Continue to offer Zofran Continued [facility] stay due to: ambulation difficulties, multiple IV medications needed, other (hypercalcemia) Discharge planning: uncertain
[2017-05-12] MEDS: DAPTOmycin IV 600 MG in SODIUM CHLORIDE 0.9% 50ML 50 ML IV SCH (12:17)
[2017-05-12] MEDS: ERTAPENEM IV 1 GM in SODIUM CHLOR 0.9% AD-VAN 50ML 50 ML IV SCH (13:52)
[2017-05-12 14:30] LABS: BUN/CREATININE RATIO 20.6 (10-20); CALCIUM 12.4 mg/dl (8.5-10.1); CREATININE 1.28 mg/dl (0.60-1.20); POTASSIUM 3.9 mmol/L (3.5-5.1)
[2017-05-12] MEDS: POLYETHYLENE (MIRALAX) 17 GM PACK PO SCH (14:45)
[2017-05-12 15:19] VITALS: BP 189/68; PULSE 82; TEMP 36.7; O2SAT 91
[2017-05-12] MEDS ORDERED: WARFARIN SOD 4 MG TAB PO SCH (16:00)
[2017-05-12] MEDS: OXYCODONE/ACETAMINOPHEN 10/325MG TAB PO PRN (16:53)
[2017-05-12] MEDS: SENNA 8.6 MG TAB PO SCH (16:54)
--- NOTE | 2017-05-12 17:25 | Progress Note ---
Progress Note Date of Service May 12, 2017. Progress Note I placed a piece of Ioban over Lalitha's already reinforced wound vac over the right hip. I used approximately 2/3 of the Ioban provided from the OR. It appeared to resolve the issue with air leaking around the wound vac and created what appeared to be an air tight seal. The wound vac machine was no longer struggling to work. Ultimately, this will be changed tomorrow by Dr. Hong. The patient had no other questions or concerns. Pleased with this evening's visit.
[2017-05-12] MEDS ORDERED: CALCITONIN SALMON 400 INTER.UNIT/2 ML SQ ONE (18:15)
--- NOTE | 2017-05-12 18:27 | Progress Note ---
Subjective Date of Service: May 12, 2017. Subjective Pt evaluation today including: conversation w/ patient, conversation w/ family ( at bedside), physical exam, chart review, lab review, conversation w/ employment consultant (nephrology, endocrinology, and orthopedics), review of inpatient medication list Pain: "achy" all over PO Intake: very poor - "just no appetite" Voiding: no voiding problems tele stable overnight once transferred to tele unit she had nausea with emesis; latter resolved, but still w/ occasional nausea still quite tired/fatigued no energy no dyspnea or orthopnea reports her armour thyroid dose was increased recently to 135mg daily no bowel movement in several days but denies abdominal pain Problem List Medical Problems: (1) Abdominal pain Status: Acute (2) Abscess of hip Status: Acute (3) Cellulitis Status: Acute (4) Hip pain Status: Acute (5) Leukocytosis Status: Acute Review of Systems Constitutional: + fatigue, No fever, No chills Respiratory: No cough, No sputum, No wheezing, No shortness of breath, No dyspnea on exertion Cardiac: No chest pain, No orthopnea, No PND, No edema Abdomen: + nausea, + constipation, No pain, No vomiting, No GI bleeding Female : No dysuria Objective Vital Signs Date Time Temp Pulse Resp B/P (MAP) Pulse Ox O2 Delivery O2 Flow Rate FiO2 05/12/17 16:00 Room Air 05/12/17 15:19 36.7 82 19 189/68 (108) 91 Room Air 05/12/17 12:15 Room Air 05/12/17 11:31 36.9 81 18 149/69 (95) 90 05/12/17 07:50 Room Air 05/12/17 07:44 36.8 97 20 152/69 (96) 91 05/12/17 04:00 Room Air 05/12/17 03:03 36.9 98 19 149/68 (95) 91 CPAP 05/12/17 00:02 Room Air 05/11/17 23:25 37.0 89 20 152/76 (101) 90 BiPAP 05/11/17 20:00 Room Air 05/11/17 19:11 36.8 81 17 93 Physical Exam General Appearance: no apparent distress, + obese, + pertinent finding (still looks ill and tired) ENT: pharynx normal Neck: no JVD Respiratory/Chest: lungs clear, no respiratory distress, no accessory muscle use Cardiovascular: regular rate, rhythm, no gallop, no murmur Abdomen: normal bowel sounds, non tender, soft, no organomegaly Extremities: no pedal edema, + pertinent finding (right hip dressing/wound vac intact) Neurologic/Psychiatric: alert, oriented x 3 Skin: no rash Laboratory Results Last 24 Hours Test 05/11/17 18:18 05/12/17 00:41 05/12/17 05:47 05/12/17 12:40 Total Creatine Kinase 58 U/L Sodium Level 136 mmol/L 136 mmol/L Potassium Level 4.1 mmol/L 4.1 mmol/L Chloride Level 102 mmol/L 102 mmol/L Carbon Dioxide Level 23 mmol/L 26 mmol/L Anion Gap 11.0 mmol/L 8.0 mmol/L Blood Urea Nitrogen 33 mg/dl 31 mg/dl Creatinine 1.34 mg/dl 1.31 mg/dl Est Creatinine Clear Calc Drug Dose 41.3 ml/min 42.3 ml/min Estimated GFR () 44.2 45.4 Estimated GFR (Non- 38.1 39.2 BUN/Creatinine Ratio 24.6 23.9 Random Glucose 141 mg/dl 128 mg/dl Calcium Level 12.9 mg/dl 12.2 mg/dl White Blood Count 9.53 K/uL Red Blood Count 3.53 M/uL Hemoglobin 9.6 g/dL Hematocrit 30.1 % Mean Corpuscular Volume 85.3 fL Mean Corpuscular Hemoglobin 27.2 pg Mean Corpuscular Hemoglobin Concent 31.9 g/dl Platelet Count 296 K/uL Mean Platelet Volume 8.6 fL Neutrophils (%) (Auto) 74.0 % Lymphocytes (%) (Auto) 10.8 % Monocytes (%) (Auto) 7.7 % Eosinophils (%) (Auto) 6.9 % Basophils (%) (Auto) 0.4 % Neutrophils # (Auto) 7.05 K/uL Lymphocytes # (Auto) 1.03 K/uL Monocytes # (Auto) 0.73 K/uL Eosinophils # (Auto) 0.66 K/uL Basophils # (Auto) 0.04 K/uL RDW Standard Deviation 47.0 fL RDW Coefficient of Variation 15.0 % Immature Granulocyte % (Auto) 0.2 % Immature Granulocyte # (Auto) 0.02 K/uL Prothrombin Time 16.8 SECONDS Prothromb Time International Ratio 1.5 25-Hydroxy Vitamin D Total 29.5 ng/ml Free Thyroxine 0.73 ng/dl Test 05/12/17 13:32 Sodium Level 136 mmol/L Potassium Level 3.9 mmol/L Chloride Level 104 mmol/L Carbon Dioxide Level 24 mmol/L Anion Gap 8.0 mmol/L Blood Urea Nitrogen 26 mg/dl Creatinine 1.28 mg/dl Est Creatinine Clear Calc Drug Dose 43.2 ml/min Estimated GFR () 46.7 Estimated GFR (Non- 40.3 BUN/Creatinine Ratio 20.6 Random Glucose 120 mg/dl Calcium Level 12.4 mg/dl Assessment and Plan 77yo female - 1. 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 Intra-op culture continues to be negative. Prior culture from 04/20/17 showed enterococcus faecalis - pansensitive. Remains on ertapenem & daptomycin (ertapenem is for a single positive blood culture from earlier this month - gram negative rickey). Blood cx's this admission negative. Appreciate orthopedic assistance and ID consultation. PT, OT; WBAT on right leg per ortho recommendations. 2. acute/chronic anemia - stable H/H overnight. Cont Fe supplementation. 3. diarrhea - antibiotic associated; c. diff negative. Lactinex TID. Resolved. 4. chronic diastolic CHF - compensated event despite copious hydration. Continue IVF cautiously. 5. HTN - uncontrolled. Now that YAJAIRA has resolved can resume losartan cautiously. 6. CKD stage 3 with acute kidney injury - latter resolved, creatinine back to baseline. BMP later today and again in AM for stability. 7. pre-T2DM - control adequate. 8. hypothyroidism - TSH suppressed; spoke with Dr. Dunn, endocrinology - recommends lowering armour thyroid dose to 120mg (from 135mg) f/u TSH in 6 weeks. 9. DVT proph - lovenox 40mg daily until INR is therapeutic on the coumadin nomogram. She is moving very little and I am concerned about DVT while she is quite bedbound. I believe risks are outweighed by benefits of lovenox until her coumadin is therapeutic 10. constipation - add miralax + senna; #11 will make this worse 11. hypercalcemia - on 05/09 her total calcium level was normal at 9.4. For several years calcium level had been normal. On 05/10 it regi into the 10s, then into the 11s and 12s on 05/11. Corrected levels were about 13. She was started on aggressive fluid resuscitation and given calcitonin 4units/ kg last evening. peak total calcium was 12.9, now down modestly today Spoke with endocrinology (2 individuals) and nephrology as well yesterday/today at this time the leading culprit for the acute hypercalcemia is the application of STIMULAN beads these abx-impregnated beads are composed of calcium sulfate there is a case-series of 15 patients in [place] that showed that 3 patients developed significant hypercalcemia post-op vitamin D level is normal PTH level is 0 doubt multiple myeloma or a PTH-related peptide issue (not ruled out, but very unlikely given the acuity of the event) the case-series suggests to treat the hypercalcemia in typical fashion (fluids, calcitonin, etc) will give another dose of calcitonin 4units/kg today repeat BMP tonight and in am I believe all the current symptoms -- fatigue, anorexia, achiness, etc - is from the high calcium patient/ informed of the possible connection between the beads and the calcium total time again today about 60 minutes including multiple phone calls to consultants, checking and reviewing frequent labs, etc Continued [facility] stay due to: ambulation difficulties, multiple IV medications needed, other (hypercalcemia) Discharge planning: uncertain
[2017-05-12 18:58] VITALS: BP 160/63; PULSE 85; TEMP 36.7; O2SAT 96
[2017-05-12 20:08] LABS: CREATININE 1.16 mg/dl (0.60-1.20); POTASSIUM 4.2 mmol/L (3.5-5.1)
[2017-05-12 20:11] LABS: CALCIUM 12.1 mg/dl (8.5-10.1)
[2017-05-12] MEDS: CARVEDILOL 12.5 MG TAB PO SCH (20:16)
[2017-05-12] MEDS: RANITIDINE HCL 150 MG TAB PO SCH (20:17)
[2017-05-12] MEDS: LOSARTAN POTASSIUM 50 MG TAB PO SCH (21:26)
[2017-05-12 23:27] VITALS: BP 155/76; PULSE 91; TEMP 36.7; O2SAT 90
[2017-05-13] VITALS (9 sets, daily range): BP systolic 125–205; BP diastolic 62–79; PULSE 70–92; TEMP 36.3–37; O2SAT 84–96
[2017-05-13] MEDS: SODIUM CHLORIDE 0.9% 1000ML 1,000 ML IV SCH ×2 (03:48→11:22)
[2017-05-13] MEDS: ARMOUR THYROID 30 MG TAB PO SCH (06:22)
[2017-05-13] MEDS: FERROUS SULFATE 325 MG TAB PO SCH ×3 (07:30→17:09)
[2017-05-13 08:40] LABS: BUN/CREATININE RATIO 21.3 (10-20); CREATININE 0.94 mg/dl (0.60-1.20); POTASSIUM 3.8 mmol/L (3.5-5.1)
[2017-05-13] MEDS: METOCLOPRAMIDE HCL INJ 5 MG/ML 2 ML VIAL IV PRN (08:58)
--- NOTE | 2017-05-13 09:15 | Orthopedic Progress Note ---
Orthopedic Progress Note Date of Service May 13, 2017. Subjective Reports: feeling well, pain controlled w PO medications, Denies: complaints, chest pain, SOB, nausea / vomiting, light headedness, calf pain Additional Notes: She states she only has pain when getting up out of bed and trying to stand. No pain with walking. Using walker to assist with ambulation. Wound VAC functioning, no issues overnight. Objective calves soft nontender, N/V intact, capillary refill less than 2 sec., dressing C /D/I, A&O x3, toes mobile Wound VAC in place and functioning Date Time Temp Pulse Resp B/P (MAP) Pulse Ox O2 Delivery O2 Flow Rate FiO2 05/13/17 07:19 36.5 88 20 184/75 (111) 91 Room Air 05/13/17 04:00 Room Air 05/13/17 03:49 36.3 83 18 187/71 (109) 91 Room Air 05/12/17 23:59 Room Air 05/12/17 23:27 36.7 91 18 155/76 (102) 90 Room Air 05/12/17 20:00 Room Air 05/12/17 18:58 36.7 85 20 160/63 (95) 96 Room Air 05/12/17 16:00 Room Air 05/12/17 15:19 36.7 82 19 189/68 (108) 91 Room Air 05/12/17 12:15 Room Air 05/12/17 11:31 36.9 81 18 149/69 (95) 90 Laboratory Results 24 Hours: Test 05/13/17 07:26 Hemoglobin 9.6 g/dL Assessment & Plan Assessment: Postop day 4 - status post I&D right total hip arthroplasty, poly-exchange, stimulan bead placement Plan: Continue out of bed, weightbearing as tolerated with the assistance of a walker Posterior hip precautions Continue wound VAC. Dr. Hong be up later today to possibly change. Diet as ordered. SCDs for DVT prophylaxis. Will continue to follow. Will discuss findings with Dr. Hong. (1) Wound infection after surgery
--- NOTE | 2017-05-13 10:08 | Medical Student: [facility] ---
Med Student Progress Note Date of Service May 13, 2017. Subjective Pt evaluation today including: conversation w/ patient, physical exam Pain: None PO Intake: Poor Voiding: no voiding problems Ms. Swain is a 77 year-old female with a history of DEANN, infected seroma, CHF, HTN, anemia, CKD, DM, and hypothroidism hospital day 4 for nausea, vomiting, and weakness likely secondary to hypercalcemia. Patient reports still having nausea and vomiting last night. This is associated with epigastric pain. She has not been able to eat. She had a bowel movement last night which describes as black and firm. She thinks this is due to the iron supplement she is taking. Pt is also concerned about hand swelling and requests that fluids be stopped as soon as possible. Review of Systems Constitutional: No fever, No chills Respiratory: No cough, No shortness of breath Cardiac: No chest pain, No palpitations Abdomen: + pain (epigastric), + nausea, + vomiting, No diarrhea Female : No dysuria, No urinary frequency Objective Vital Signs Date Time Temp Pulse Resp B/P (MAP) Pulse Ox O2 Delivery O2 Flow Rate FiO2 05/13/17 08:00 Room Air 05/13/17 07:19 36.5 88 20 184/75 (111) 91 Room Air 05/13/17 04:00 Room Air 05/13/17 03:49 36.3 83 18 187/71 (109) 91 Room Air 05/12/17 23:59 Room Air 05/12/17 23:27 36.7 91 18 155/76 (102) 90 Room Air 05/12/17 20:00 Room Air 05/12/17 18:58 36.7 85 20 160/63 (95) 96 Room Air 05/12/17 16:00 Room Air 05/12/17 15:19 36.7 82 19 189/68 (108) 91 Room Air 05/12/17 12:15 Room Air 05/12/17 11:31 36.9 81 18 149/69 (95) 90 Laboratory Results Last 24 Hours Test 05/12/17 12:40 05/12/17 13:32 05/12/17 19:31 05/13/17 07:26 Sodium Level 136 mmol/L 138 mmol/L 136 mmol/L Potassium Level 3.9 mmol/L 4.2 mmol/L 3.8 mmol/L Chloride Level 104 mmol/L 105 mmol/L 104 mmol/L Carbon Dioxide Level 24 mmol/L 24 mmol/L 24 mmol/L Anion Gap 8.0 mmol/L 9.0 mmol/L 9.0 mmol/L Blood Urea Nitrogen 26 mg/dl 26 mg/dl 20 mg/dl Creatinine 1.28 mg/dl 1.16 mg/dl 0.94 mg/dl Est Creatinine Clear Calc Drug Dose 43.2 ml/min 47.7 ml/min 59.4 ml/min Estimated GFR () 46.7 52.6 67.8 Estimated GFR (Non- 40.3 45.4 58.5 BUN/Creatinine Ratio 20.6 22.0 21.3 Random Glucose 120 mg/dl 116 mg/dl 110 mg/dl Calcium Level 12.4 mg/dl 12.1 mg/dl 12.0 mg/dl Hemoglobin 9.6 g/dL Assessment and Plan Assessment and Plan: Ms. Swain is a 77 year-old female with a history of DEANN, infected seroma, CHF, HTN, anemia, CKD, DM, and hypothroidism hospital day 4 for nausea, vomiting, and weakness likely secondary to hypercalcemia. Hypercalcemia Patient continues to be symptomatic with nausea, vomiting, and anorexia. However , her energy seems to be improving - Calcium level was 12.0 today. Two doses of calcitonin as well as fluids given. Will contact event marketing representative for additional guidance. Nausea Nausea may be separate from hypercalcemia - ordered EKG, KUB, and CXR. EKG and CXR within normal limits. KUB shows large amount of stool. Patient has only had 'only 1 BM in 7 days.' Continue to offer Zofran at 8 mg. Edema Lasix will be started. CHF Compensated. Patient reports no orthopnea or SOB. Lower extremity swelling is minimal. Continue current regimen Seroma Resolved - pt denies fever or chills. Culture negative. Monitor for changes. DM Stable - random blood sugar of 110. Continue current regimen. Hypothyroidism Thyroid replacement resumed but decreased to 120 mcg. Thyroid function tests to be done in 6 weeks outpatient. Continued [facility] stay due to: ambulation difficulties, multiple IV medications needed, other (hypercalcemia) Discharge planning: uncertain
[2017-05-13] MEDS: LOSARTAN POTASSIUM 50 MG TAB PO SCH ×2 (10:15→20:05)
[2017-05-13] MEDS: SENNA 8.6 MG TAB PO SCH (10:16)
[2017-05-13] MEDS: MULTIVITAMIN TAB PO SCH (10:16)
[2017-05-13] MEDS: LACTOBACILLUS ACIDOPHILUS (FLORANEX) TAB PO SCH ×3 (10:16→20:05)
[2017-05-13] MEDS: CARVEDILOL 25 MG TAB PO SCH (10:16)
[2017-05-13] MEDS: ENOXAPARIN 40 MG/0.4 ML SYR SQ SCH (10:17)
[2017-05-13] MEDS: POLYETHYLENE (MIRALAX) 17 GM PACK PO SCH (10:17)
[2017-05-13] MEDS ORDERED: DOCUSATE SODIUM 100 MG CAP ONE (10:19)
[2017-05-13] MEDS: DOCUSATE SODIUM 100 MG CAP PO SCH ×2 (10:20→20:04)
[2017-05-13] MEDS ORDERED: ONDANSETRON INJ 2 MG/ML 2 ML VIAL IV STA (10:47)
[2017-05-13] MEDS ORDERED: ONDANSETRON INJ 8 MG in DEXTROSE 5% 50ML 50 ML IV ONE (11:15)
[2017-05-13] MEDS ORDERED: PANTOprazole SOD 40 MG TAB PO STA (12:23)
--- NOTE | 2017-05-13 12:24 | DIAGNOSTIC IMAGING REPORT ---
ABDOMEN 2VIEW W/PA CHEST RTN CLINICAL HISTORY: persistent vomiting; eval for ileus COMPARISON STUDY: CT scan dated 04/20/2017 FINDINGS: The erect chest reveals no free air. There is no focal pulmonary consolidation. Erect and supine views the abdomen reveal no abnormally dilated loops of large or small bowel. There are no transition zones indicate bowel obstruction. There is moderate stool throughout the colon. Multiple radiopaque pledgets project over the right hip region. IMPRESSION: No evidence of bowel obstruction. No evidence of free air. Electronically signed by: Mahin Farr M.D. 05/13/2017 12:22 PM Dictated Date/Time: 05/13/2017 12:22 PM
[2017-05-13] MEDS ORDERED: FUROSEMIDE INJ 20 MG in SYRINGE 0 ML IV ONE (12:30)
[2017-05-13 12:50] LABS: INR 2.7 (0.9-1.1); PROTHROMBIN TIME (PATIENT) 30.4 SECONDS (9.0-12.0)
[2017-05-13] MEDS: DAPTOmycin IV 600 MG in SODIUM CHLORIDE 0.9% 50ML 50 ML IV SCH (13:09)
--- NOTE | 2017-05-13 14:00 | Progress Note ---
Subjective Date of Service: May 13, 2017. Subjective pt tolerating abx. All cultures negative to date, blood and OR. vac remains. ertapenem stopped earlier today. afebrile overnight. Problem List Medical Problems: (1) Abdominal pain Status: Acute (2) Abscess of hip Status: Acute (3) Cellulitis Status: Acute (4) Hip pain Status: Acute (5) Leukocytosis Status: Acute Objective Vital Signs Date Time Temp Pulse Resp B/P (MAP) Pulse Ox O2 Delivery O2 Flow Rate FiO2 05/13/17 12:40 Room Air 05/13/17 11:01 37.0 92 16 200/79 (119) 84 Room Air 05/13/17 10:12 Room Air 05/13/17 08:00 Room Air 05/13/17 07:19 36.5 88 20 184/75 (111) 91 Room Air 05/13/17 04:00 Room Air 05/13/17 03:49 36.3 83 18 187/71 (109) 91 Room Air 05/12/17 23:59 Room Air 05/12/17 23:27 36.7 91 18 155/76 (102) 90 Room Air 05/12/17 20:00 Room Air 05/12/17 18:58 36.7 85 20 160/63 (95) 96 Room Air 05/12/17 16:00 Room Air 05/12/17 15:19 36.7 82 19 189/68 (108) 91 Room Air Laboratory Results Item Value Date Time Gram Stain - Final Resulted 05/09/17 1205 Joint Fluid/Space (Synovial) Hip , Right Blood Culture - Preliminary Resulted 05/08/17 1115 Blood NO GROWTH TO DATE. Blood Culture - Preliminary Resulted 05/08/17 1056 Blood NO GROWTH TO DATE. Gram Stain - Final Resulted 05/09/17 1205 Joint Fluid/Space (Synovial) Hip , Right Last 24 Hours Test 05/12/17 19:31 05/13/17 07:26 05/13/17 12:23 Sodium Level 138 mmol/L 136 mmol/L Potassium Level 4.2 mmol/L 3.8 mmol/L Chloride Level 105 mmol/L 104 mmol/L Carbon Dioxide Level 24 mmol/L 24 mmol/L Anion Gap 9.0 mmol/L 9.0 mmol/L Blood Urea Nitrogen 26 mg/dl 20 mg/dl Creatinine 1.16 mg/dl 0.94 mg/dl Est Creatinine Clear Calc Drug Dose 47.7 ml/min 59.4 ml/min Estimated GFR () 52.6 67.8 Estimated GFR (Non- 45.4 58.5 BUN/Creatinine Ratio 22.0 21.3 Random Glucose 116 mg/dl 110 mg/dl Calcium Level 12.1 mg/dl 12.0 mg/dl Hemoglobin 9.6 g/dL Prothrombin Time 30.4 SECONDS Prothromb Time International Ratio 2.7 Assessment and Plan (1) Wound infection after surgery Assessment & Plan: continue dapto, would give 4 weeks from time of poly exchange, OR cultures negative to date, continue to follow. will need weekly cbc ,cmp, esr, cpk while on dapto. had previously attempted to place pt on zyvox due to access issues but co pay is > $4000. will continue with dapto and follow in office in 2 weeks. Continued [facility] stay due to: ambulation difficulties, multiple IV medications needed, other (hypercalcemia) Discharge planning: uncertain
[2017-05-13] MEDS ORDERED: NURSING VERBAL MED ORDER ONE (15:45)
[2017-05-13] MEDS: NITROGLYCERIN OINT 2% 1GM PACKET EXT SCH ×2 (16:41→21:56)
--- NOTE | 2017-05-13 16:49 | ORTHOPEDICS PROGRESS NOTE ---
DATE: 05/13/2017 SUBJECTIVE: The patient is feeling a little bit stronger. Still have moments where she feels quite fatigued. She notes she has no chest pain, shortness of breath, fever, chills, nausea or vomiting. T-max is 37. OBJECTIVE: VITAL SIGNS: Vital signs are stable, but she is a bit hypertensive. Neurovascular check femoral sciatic nerve is excellent. Wound VAC is changed today. The wound looks very clean, much less edema in the leg and much less niya-incisional redness. Minimal drainage. LABORATORY WORK: Today reveals hemoglobin stable at 9.6. INR is 2.7. Will discontinue the Lovenox. Hold Coumadin today. Calcium is decreased to 12.0 from a peak of 12.9. ASSESSMENT AND PLAN: Status post I&D, poly exchange infected seroma, right hip. Present cultures are negative but likely suppressed from previous antibiotics. Suggest full 6-week course of IV antibiotics post-surgery. Leave antibiotic choice up ID. With respect to postdischarge care, I had discussion with her and her in the presence of her son to have her consider rehabilitation facility, either [facility] or place like [place] or equivalent. We will discuss with social worker psychiatric as well at my advice. Will follow up tomorrow. Continue to mobilize to tolerance. No excessive hip range of motion.
[2017-05-13] MEDS ORDERED: CARVEDILOL 12.5 MG TAB PO ONE (17:30)
[2017-05-13] MEDS: CARVEDILOL 12.5 MG TAB PO SCH (20:04)
[2017-05-13] MEDS: RANITIDINE HCL 150 MG TAB PO SCH (20:05)
--- NOTE | 2017-05-13 21:34 | Progress Note ---
Subjective Date of Service: May 13, 2017. Subjective Pt evaluation today including: conversation w/ patient, conversation w/ family (son, ), physical exam, chart review, lab review, review of studies ( chest/abd x-rays), review of inpatient medication list Pain: achiness modestly improved; right hip pain controlled PO Intake: poor Voiding: no voiding problems patient continues with nausea, vomiting intermittently, and mild epigastric discomfort when she has the vomiting continues with weakness and fatigue denies ANY dyspnea, chest pain, or orthopnea tele overnight wnl - no a. fib, etc she is reluctant to go to rehab because her mother had a bad experience in rehab 20 years ago encouraging her to go to inpatient rehab, however, as is orthopedics Problem List Medical Problems: (1) Abdominal pain Status: Acute (2) Abscess of hip Status: Acute (3) Cellulitis Status: Acute (4) Hip pain Status: Acute (5) Leukocytosis Status: Acute Review of Systems Constitutional: No fever, No chills Respiratory: No cough, No sputum, No wheezing Cardiac: + edema (minimal legs), No chest pain, No orthopnea, No PND Abdomen: + pain, + nausea, + vomiting, + constipation, No GI bleeding Objective Vital Signs Date Time Temp Pulse Resp B/P (MAP) Pulse Ox O2 Delivery O2 Flow Rate FiO2 05/13/17 19:05 36.5 77 18 173/62 (99) 92 Room Air 05/13/17 16:34 205/65 (111) 05/13/17 16:00 Room Air 05/13/17 14:54 36.5 77 19 198/64 (108) 92 05/13/17 14:08 36.6 14 155/78 (103) 94 Room Air 05/13/17 12:40 Room Air 05/13/17 11:01 37.0 92 16 200/79 (119) 84 Room Air 05/13/17 10:12 Room Air 05/13/17 08:00 Room Air 05/13/17 07:19 36.5 88 20 184/75 (111) 91 Room Air 05/13/17 04:00 Room Air 05/13/17 03:49 36.3 83 18 187/71 (109) 91 Room Air 05/12/17 23:59 Room Air 05/12/17 23:27 36.7 91 18 155/76 (102) 90 Room Air Physical Exam General Appearance: no apparent distress, + obese, + pertinent finding (looks a little better than yesterday) ENT: pharynx normal Neck: no JVD Respiratory/Chest: lungs clear, no respiratory distress, no accessory muscle use Cardiovascular: regular rate, rhythm, no gallop, no murmur Abdomen: normal bowel sounds, soft, no organomegaly, + tenderness (high epigastric region ) Extremities: + pedal edema (trace b/l ) Neurologic/Psychiatric: alert, oriented x 3, + pertinent finding (not as sleepy today) Skin: + pertinent finding (wound vac in place right lateral thigh ) Laboratory Results Last 24 Hours Test 05/13/17 07:26 05/13/17 12:23 Hemoglobin 9.6 g/dL Sodium Level 136 mmol/L Potassium Level 3.8 mmol/L Chloride Level 104 mmol/L Carbon Dioxide Level 24 mmol/L Anion Gap 9.0 mmol/L Blood Urea Nitrogen 20 mg/dl Creatinine 0.94 mg/dl Est Creatinine Clear Calc Drug Dose 59.4 ml/min Estimated GFR () 67.8 Estimated GFR (Non- 58.5 BUN/Creatinine Ratio 21.3 Random Glucose 110 mg/dl Calcium Level 12.0 mg/dl Prothrombin Time 30.4 SECONDS Prothromb Time International Ratio 2.7 Assessment and Plan 77yo female - 1. infected right-sided hip seroma in the setting of prior right hip replacement - POD # 4 = s/p Right Hip Incision and Drainage, Poly Exchange, Application of Stimulan Beads. Intra-op culture continues to be negative. Prior culture from 04/20/17 showed enterococcus faecalis - pansensitive. Remains on ertapenem & daptomycin (ertapenem is for a single positive blood culture from earlier this month - gram negative rickey). Blood cx's this admission negative. Appreciate orthopedic assistance and ID consultation. PT, OT; WBAT on right leg per ortho recommendations. Ertapenem to be discontinued today. Daptomycin to continue. 2. acute/chronic anemia - stable H/H overnight. Cont Fe supplementation. 3. nausea/emesis/abd pain - suspect combination of hypercalcemia, constipation , +/- stress gastritis. Treat the constipation with miralax + senna. Treat possible gastritis with PPI qam and zantac at HS (latter she takes at home chronically). Continue to treat the hypercalcemia. Checked EKG to ensure some of the GI symptoms were not cardiac in origin - EKG wnl. Abdominal x-rays with no obstruction but copious stool. 4. chronic diastolic CHF - compensated event despite copious hydration. Continue IVF cautiously for hypercalcemia but add back IV lasix today to promote calcium excretion and prevent pulmonary edema. 5. HTN - uncontrolled. Suspect hypercalcemia and hydration playing a role. Added nitropaste 1" q6h today without improvement. Increase coreg to 25mg BID. 6. CKD stage 3 with acute kidney injury - latter resolved, creatinine back to baseline. BMP again in am. 7. pre-T2DM - control adequate. 8. hypothyroidism - TSH suppressed; spoke with Dr. Dunn, endocrinology - recommends lowering armour thyroid dose to 120mg (from 135mg) f/u TSH in 6 weeks. 9. DVT proph - INR is >2. d/c lovenox. 10. hypercalcemia - on 05/09 her total calcium level was normal at 9.4. For several years calcium level had been normal. On 05/10 it regi into the 10s, then into the 11s and 12s on 05/11. Corrected levels were about 13. She was started on aggressive fluid resuscitation and given calcitonin 4units/ kg two days in a row. Peak total calcium was 12.9, now down to 12. Spoke with endocrinology (2 individuals) and nephrology as well in the last 48 hours. at this time the leading culprit for the acute hypercalcemia is the application of STIMULAN beads these abx-impregnated beads are composed of calcium sulfate there is a case-series of 15 patients in [place] that showed that 3 patients developed significant hypercalcemia post-op vitamin D level is normal PTH level is 0 doubt multiple myeloma or a PTH-related peptide issue (not ruled out, but very unlikely given the acuity of the event) the case-series suggests to treat the hypercalcemia in typical fashion (fluids, calcitonin, etc) I believe many of her current symptoms -- fatigue, anorexia, nausea, achiness, etc - is from the high calcium patient/ informed of the possible connection between the beads and the calcium Dr. Hong aware as well dispo - highly encouraged her to consider inpatient rehab Continued [facility] stay due to: inadequate po fluid intake, ambulation difficulties , multiple IV medications needed, other (hypercalcemia) Discharge planning: uncertain
[2017-05-14] MEDS: SODIUM CHLORIDE 0.9% 1000ML 1,000 ML IV SCH ×4 (02:18→21:43)
[2017-05-14 03:30] VITALS: BP 170/68; PULSE 94; TEMP 36.5; O2SAT 94
[2017-05-14] MEDS: NITROGLYCERIN OINT 2% 1GM PACKET EXT SCH ×4 (03:35→20:53)
[2017-05-14] MEDS: ARMOUR THYROID 30 MG TAB PO SCH (05:26)
[2017-05-14 06:51] LABS: HEMATOCRIT 30.1 % (37-47); MEAN CELL VOLUME 85.5 fL (80-100); MEAN CORPUSCULAR HEMOGLOBIN 27.3 pg (25-34); MEAN CORPUSCULAR HGB CONC 31.9 g/dl (32-36); MEAN PLATELET VOLUME 8.3 fL (7.4-10.4); PLATELET COUNT 307 K/uL (130-400); RED BLOOD COUNT 3.52 M/uL (4.2-5.4); WHITE BLOOD COUNT 8.01 K/uL (4.8-10.8)
[2017-05-14 07:00] LABS: INR 2.6 (0.9-1.1); PROTHROMBIN TIME (PATIENT) 29.4 SECONDS (9.0-12.0)
--- NOTE | 2017-05-14 07:15 | PROGRESS NOTE ---
DATE: 05/14/2017 SUBJECTIVE: At this point in time, the patient has been resting comfortably. She notes she had no pertinent nausea or vomiting. She denies any chest pain, shortness of breath, fever or chills. OBJECTIVE: VITAL SIGNS: Stable. She is afebrile. Blood pressure is much better controlled in the 160 to 170 range systolically, diastolic in the 60s and 70s. EXTREMITIES: Calves are nontender. Wound dressing clean, dry and intact. ABDOMEN: Soft, nontender. NEUROVASCULAR: Both upper extremities and both lower extremities within normal limits. LABORATORY DATA: Hematocrit is stable in the 30 range. Hemoglobin at 9.6. White count is 8.0. INR is pending. Chemistry is pending. ASSESSMENT: Overall, doing well with respect to pain management. Continue to watch laboratory and hypercalcemia. We will continue with encouragement of transfer to rehab; however, she is resistant to that. Continue with present wound VAC dressing. Follow daily.
[2017-05-14 07:27] LABS: BUN/CREATININE RATIO 17.6 (10-20); CALCIUM 13.2 mg/dl (8.5-10.1); CREATININE 1.06 mg/dl (0.60-1.20); MAGNESIUM 1.3 mg/dl (1.8-2.4); PHOSPHORUS 2.6 mg/dl (2.5-4.9); POTASSIUM 3.3 mmol/L (3.5-5.1)
[2017-05-14 07:54] VITALS: BP 196/53; PULSE 80; TEMP 36.8; O2SAT 95
[2017-05-14] MEDS: DOCUSATE SODIUM 100 MG CAP PO SCH ×2 (08:04→20:51)
[2017-05-14] MEDS: FERROUS SULFATE 325 MG TAB PO SCH ×3 (08:05→17:43)
[2017-05-14] MEDS: CARVEDILOL 25 MG TAB PO SCH ×2 (08:06→20:52)
[2017-05-14] MEDS: LOSARTAN POTASSIUM 50 MG TAB PO SCH ×2 (08:06→20:51)
[2017-05-14] MEDS: LACTOBACILLUS ACIDOPHILUS (FLORANEX) TAB PO SCH ×4 (08:07→20:55)
[2017-05-14] MEDS: POLYETHYLENE (MIRALAX) 17 GM PACK PO SCH (08:07)
[2017-05-14] MEDS ORDERED: FUROSEMIDE 40 MG/4 ML VIAL IV STA (08:07)
[2017-05-14] MEDS: PANTOprazole SOD 40 MG TAB PO SCH (08:08)
[2017-05-14] MEDS: MULTIVITAMIN TAB PO SCH (08:08)
[2017-05-14] MEDS: SENNA 8.6 MG TAB PO SCH (08:08)
[2017-05-14 08:15] LABS: ALBUMIN % 68.07 %; ALPHA-2-GLOBULIN % 10.58 %; BETA GLOBULIN % 10.81 %; CREATININE UR 42 MG/DL (20-320); GAMMA GLOBULIN % 7.91 %
[2017-05-14] MEDS ORDERED: MAGNESIUM SULFATE 1GM / D5W 1 GM in PREMIXED IN D5W 100 ML IV ONE (08:30)
[2017-05-14] MEDS: POTASSIUM CHLORIDE 20 MEQ TABCR PO SCH ×2 (08:38→17:43)
[2017-05-14 10:21] VITALS: BP 159/74; PULSE 68; TEMP 36.4; O2SAT 91
[2017-05-14] MEDS: DAPTOmycin IV 600 MG in SODIUM CHLORIDE 0.9% 50ML 50 ML IV SCH (11:18)
--- NOTE | 2017-05-14 14:05 | Medical Student: [facility] ---
Med Student Progress Note Date of Service May 14, 2017. Subjective Pt evaluation today including: conversation w/ patient, physical exam Pain: None PO Intake: Poor Voiding: no voiding problems Ms. Swain is a 77 year-old female with a history of DEANN causing an infected seroma, CHF, HTN, anemia, CKD, DM, and hypothroidism hospital day 5 for nausea, vomiting, and weakness likely secondary to hypercalcemia. Patient reports decreased nausea with increased dose of Zofran. She denies vomiting last night. She is more amenable to PT today and walked around the unit. She had one BM this morning but says that it was small. She is urinating frequently. Currently has no complaints. Review of Systems Constitutional: No fever, No chills Respiratory: No shortness of breath Cardiac: No chest pain Abdomen: No pain, No vomiting Objective Vital Signs Date Time Temp Pulse Resp B/P (MAP) Pulse Ox O2 Delivery O2 Flow Rate FiO2 05/14/17 10:21 36.4 68 20 159/74 (102) 91 Room Air 05/14/17 08:00 Room Air 05/14/17 07:54 36.8 80 16 196/53 (100) 95 Room Air 05/14/17 04:02 Room Air 05/14/17 03:30 36.5 94 20 170/68 (102) 94 Room Air 05/14/17 00:02 Room Air 05/13/17 23:39 37.0 80 18 155/65 (95) 96 CPAP 05/13/17 21:57 70 125/62 (83) 05/13/17 20:00 Room Air 05/13/17 19:05 36.5 77 18 173/62 (99) 92 Room Air 05/13/17 16:34 205/65 (111) 05/13/17 16:00 Room Air 05/13/17 14:54 36.5 77 19 198/64 (108) 92 05/13/17 14:08 36.6 14 155/78 (103) 94 Room Air Physical Exam General Appearance: no apparent distress (appears sleepy) ENT: pharynx normal (membranes moist) Respiratory/Chest: lungs clear, normal breath sounds Cardiovascular: regular rate, rhythm, + systolic murmur Abdomen: normal bowel sounds Extremities: no calf tenderness, + pedal edema (1+) Laboratory Results Last 24 Hours Test 05/14/17 06:39 10/25/17 08:35 05/14/17 09:15 White Blood Count 8.01 K/uL Red Blood Count 3.52 M/uL Hemoglobin 9.6 g/dL Hematocrit 30.1 % Mean Corpuscular Volume 85.5 fL Mean Corpuscular Hemoglobin 27.3 pg Mean Corpuscular Hemoglobin Concent 31.9 g/dl RDW Standard Deviation 45.8 fL RDW Coefficient of Variation 14.5 % Platelet Count 307 K/uL Mean Platelet Volume 8.3 fL Prothrombin Time 29.4 SECONDS Prothromb Time International Ratio 2.6 Sodium Level 138 mmol/L Potassium Level 3.3 mmol/L Chloride Level 105 mmol/L Carbon Dioxide Level 27 mmol/L Anion Gap 6.0 mmol/L Blood Urea Nitrogen 19 mg/dl Creatinine 1.06 mg/dl Est Creatinine Clear Calc Drug Dose 51.9 ml/min Estimated GFR () 58.7 Estimated GFR (Non- 50.6 BUN/Creatinine Ratio 17.6 Random Glucose 104 mg/dl Calcium Level 13.2 mg/dl Phosphorus Level 2.6 mg/dl Magnesium Level 1.3 mg/dl Stool Occult Blood NEGATIVE Medications Current Inpatient Medications Medications (Trade) Dose Ordered Sig/Fuentes Route Start Time Stop Time Status Last Admin Dose Admin Acetaminophen (Tylenol Tab) 650 mg Q4H PRN PO 05/08/17 13:45 06/07/17 13:44 05/08/17 22:37 650 MG Al Hydrox/Mg Hydrox/Simethicone (Maalox Max Susp) 15 ml Q4H PRN PO 05/08/17 13:45 06/07/17 13:44 Magnesium Hydroxide (Milk Of Magnesia Susp) 30 ml Q6H PRN PO 05/08/17 13:45 06/07/17 13:44 Miscellaneous (Iv Fluids Completed) 1 ea PRN PRN N/A 05/08/17 14:00 05/08/18 13:59 Carvedilol (Coreg Tab) 25 mg QAM PO 05/09/17 09:00 06/08/17 08:59 05/14/17 08:06 25 MG Miscellaneous Information (Order Awaiting Action) 1 ea QS N/A 05/08/17 16:00 06/07/17 15:59 Ranitidine HCl (zANTac TAB) 300 mg HS PO 05/08/17 21:00 06/07/17 20:59 05/13/17 20:05 300 MG Thyroid ([place] Thyroid Tab) 120 mg DAILYBB PO 05/09/17 06:00 06/08/17 06:59 Future hold 05/14/17 05:26 120 MG Oxycodone/ Acetaminophen (Percocet 10-325MG Tab) 1 tab Q4H PRN PO 05/08/17 14:30 05/22/17 14:29 05/12/17 16:53 1 TAB Glucose (Glucose 40% Gel) 15-30 GRAMS 15 GRAMS... UD PRN PO 05/08/17 15:00 06/07/17 14:59 Glucose (Glucose Chew Tab) 4-8 Tablets 4 Tabl... UD PRN PO 05/08/17 15:00 06/07/17 14:59 Dextrose (Dextrose 50% 50ML Syringe) 25-50ML OF 50% DW IV FOR... UD PRN IV 05/08/17 15:00 06/07/17 14:59 Glucagon (Glucagon Inj) 1 mg UD PRN SQ 05/08/17 15:00 06/07/17 14:59 Nystatin (Mycostatin Powder) 1 appln DAILY PRN EXT 05/08/17 15:00 06/07/17 14:59 05/10/17 09:56 1 APPLN Acetaminophen (Tylenol Tab) 1,000 mg Q6 PRN PO 05/09/17 14:00 06/08/17 13:59 05/10/17 12:36 1,000 MG Furosemide (Lasix Tab) 20 mg Q2D@0900 PO 05/10/17 09:00 06/09/17 08:59 Future Hold 05/10/17 09:55 20 MG Furosemide (Lasix Tab) 40 mg Q2D@0900 PO 05/11/17 09:00 06/10/17 08:59 Future Hold Losartan Potassium (coZAAR TAB) 50 mg BID PO 05/09/17 21:00 06/08/17 20:59 Future hold 05/14/17 08:06 50 MG Multivitamins (Multivitamin Tab) 1 tab QAM PO 05/10/17 09:00 06/09/17 08:59 05/14/17 08:08 1 TAB Morphine Sulfate (MoRPHine SULFATE INJ) 2 mg Q2HWA PRN IV 05/09/17 14:15 05/23/17 14:14 Docusate Sodium (coLACE CAP) 100 mg BID PO 05/09/17 21:00 06/08/17 20:59 05/14/17 08:04 100 MG Ondansetron HCl (Zofran Inj) 4 mg Q6H PRN IV 05/09/17 14:15 06/08/17 14:14 05/11/17 20:08 4 MG Metoclopramide HCl (Reglan Inj) 10 mg Q6H PRN IV 05/09/17 14:15 06/08/17 14:14 05/13/17 08:58 10 MG Lactobacillus Acidophilus (Floranex Tab) 4 tab TID PO 05/10/17 21:00 06/07/17 20:59 05/14/17 13:56 4 TAB Ferrous Sulfate (Feosol Tab) 325 mg TIDM PO 05/10/17 17:45 06/09/17 17:44 05/14/17 11:16 325 MG Sodium Chloride 1,000 ml @ 125 mls/hr Q8H IV 05/11/17 18:00 06/10/17 17:59 05/14/17 13:56 125 MLS/HR Polyethylene (Miralax Powder Packet) 17 gm DAILY PO 05/12/17 14:45 06/11/17 14:44 05/13/17 10:17 17 GM Senna (Senokot Tab) 17.2 mg QAM PO 05/12/17 14:45 06/11/17 14:44 05/14/17 08:08 17.2 MG Nitroglycerin (Nitroglycerin 2% Oint) 1 inch Q6H EXT 05/13/17 16:00 06/12/17 15:59 05/14/17 09:11 1 INCH Carvedilol (Coreg Tab) 25 mg QPM PO 05/14/17 21:00 06/07/17 20:59 Pantoprazole Sodium (Protonix Tab) 40 mg QAM PO 05/14/17 09:00 06/13/17 08:59 05/14/17 08:08 40 MG Potassium Chloride (Klor-Con Tab) 20 meq BIDM PO 05/14/17 09:00 05/15/17 07:31 05/14/17 08:38 20 MEQ Daptomycin 600 mg/ Syringe 12 ml @ 6 mls/min DAILY@1200 IV 05/15/17 12:00 05/23/17 11:59 Assessment and Plan Assessment and Plan: Ms. Swain is a 77 year-old female with a history of DEANN causing an infected seroma, CHF, HTN, anemia, CKD, DM, and hypothroidism hospital day 5 for nausea, vomiting, and weakness likely secondary to hypercalcemia. Hypercalcemia Patient continues to be symptomatic with nausea and anorexia. However, her energy seems to be improving. Calcium level has increased to 13.2 today. We will increase her fluids to 125 cc/hour. [employer], the ship carpenter for the Stimulan beads, has been contacted. Their clinical compliance administrator is currently out of office, but the director for clinical research is looking into this and will contact me with updates. Edema Lasix given. CHF Compensated. Patient reports no orthopnea or SOB. Clears clear to ausculatation and lower extremity swelling is minimal. Continue current regimen. Seroma Resolved - pt denies fever or chills. Culture negative. Monitor for changes. DM Stable - Continue current regimen. Hypothyroidism Thyroid replacement resumed but decreased to 120 mcg. Thyroid function tests to be done in 6 weeks outpatient. Continued [facility] stay due to: inadequate po fluid intake, ambulation difficulties , multiple IV medications needed, other (hypercalcemia) Discharge planning: uncertain
[2017-05-14] MEDS ORDERED: NURSING VERBAL MED ORDER ONE ×3 (15:15→19:45)
[2017-05-14 15:32] VITALS: BP_SYST 162; BP_SYST 197; BP_DIAS 64; BP_DIAS 70; PULSE 80; TEMP 36.8; O2SAT 93
--- NOTE | 2017-05-14 15:51 | Progress Note ---
Subjective Date of Service: May 14, 2017. Subjective pt is not feeling the effects of her high calcium, the direct cause is still to be determined, she has some right hip pain at the operative site but is able to tolerate ambulation Problem List Medical Problems: (1) Abdominal pain Status: Acute (2) Abscess of hip Status: Acute (3) Cellulitis Status: Acute (4) Hip pain Status: Acute (5) Leukocytosis Status: Acute Review of Systems Constitutional: No fever, No chills Respiratory: No cough, No sputum Cardiac: No chest pain, No orthopnea Abdomen: No pain, No nausea Musculoskeletal: + joint pain, + muscle pain Objective Vital Signs Date Time Temp Pulse Resp B/P (MAP) Pulse Ox O2 Delivery O2 Flow Rate FiO2 05/14/17 07:54 36.8 80 16 196/53 (100) 95 Room Air 05/14/17 04:02 Room Air 05/14/17 03:30 36.5 94 20 170/68 (102) 94 Room Air 05/14/17 00:02 Room Air 05/13/17 23:39 37.0 80 18 155/65 (95) 96 CPAP 05/13/17 21:57 70 125/62 (83) 05/13/17 20:00 Room Air 05/13/17 19:05 36.5 77 18 173/62 (99) 92 Room Air 05/13/17 16:34 205/65 (111) 05/13/17 16:00 Room Air 05/13/17 14:54 36.5 77 19 198/64 (108) 92 05/13/17 14:08 36.6 14 155/78 (103) 94 Room Air 05/13/17 12:40 Room Air 05/13/17 11:01 37.0 92 16 200/79 (119) 84 Room Air 05/13/17 10:12 Room Air Physical Exam General Appearance: WD/WN, + mild distress Eyes: PERRL, EOMI Respiratory/Chest: chest non-tender, lungs clear, normal breath sounds Cardiovascular: regular rate, rhythm, no murmur Abdomen: non tender, soft Skin: + pertinent finding (wound site with vac in place, no fluctuance or focal swelling) Laboratory Results Last 24 Hours Test 05/13/17 12:23 05/14/17 06:39 Prothrombin Time 30.4 SECONDS 29.4 SECONDS Prothromb Time International Ratio 2.7 2.6 White Blood Count 8.01 K/uL Red Blood Count 3.52 M/uL Hemoglobin 9.6 g/dL Hematocrit 30.1 % Mean Corpuscular Volume 85.5 fL Mean Corpuscular Hemoglobin 27.3 pg Mean Corpuscular Hemoglobin Concent 31.9 g/dl RDW Standard Deviation 45.8 fL RDW Coefficient of Variation 14.5 % Platelet Count 307 K/uL Mean Platelet Volume 8.3 fL Sodium Level 138 mmol/L Potassium Level 3.3 mmol/L Chloride Level 105 mmol/L Carbon Dioxide Level 27 mmol/L Anion Gap 6.0 mmol/L Blood Urea Nitrogen 19 mg/dl Creatinine 1.06 mg/dl Est Creatinine Clear Calc Drug Dose 51.9 ml/min Estimated GFR () 58.7 Estimated GFR (Non- 50.6 BUN/Creatinine Ratio 17.6 Random Glucose 104 mg/dl Calcium Level 13.2 mg/dl Phosphorus Level 2.6 mg/dl Magnesium Level 1.3 mg/dl Assessment and Plan 77yo female with infected right-sided hip seroma in the setting of prior right hip replacement - 05/09 s/p Right Hip Incision and Drainage, Poly Exchange, Application of Stimulan Beads. Intra-op culture negative. Prior culture from 04/20/17 showed enterococcus faecalis - pansensitive. Remains on daptomycin (ertapenem is for a single positive blood culture from earlier this month - gram negative rickey). Blood cx's this admission negative. Appreciate orthopedic assistance and ID consultation. continue PT, OT; WBAT on right leg per ortho HyperCalcemia, will continue aggressive fluid hydration, lasix and intermittent calcitonin, will follow daily levels sent pThRP acute/chronic anemia -suspect iron deficiency anemia, stable H/H overnight. Cont Fe supplementation. constipation with miralax + senna. gastritis with PPI qam and zantac at HS (latter she takes at home chronically). chronic diastolic CHF - compensated event despite copious hydration. Continue IVF cautiously HTN - uncontrolled. augmented by ivf administration, nitropaste 1" q6h . Increased coreg to 25mg BID. CKD stage 3 with acute kidney injury resolved hypothyroidism - TSH suppressed; Dr Stovall spoke with Dr. Dunn, endocrinology - recommended lowering armour thyroid dose to 120mg (from 135mg) f/u TSH in 6 weeks. DVT proph - INR is >2. d/c lovenox. patient/ informed of the possible connection between the beads and the calcium, family updated at bedside 05/14 Dr. Hong aware as well dispo - highly encouraged her to consider inpatient rehab Continued [facility] stay due to: inadequate po fluid intake, ambulation difficulties , multiple IV medications needed, other (hypercalcemia) Discharge planning: uncertain
[2017-05-14] MEDS ORDERED: FUROSEMIDE 40 MG/4 ML VIAL IV SCH (16:00)
[2017-05-14] MEDS ORDERED: CALCITONIN SALMON 400 INTER.UNIT/2 ML SQ ONE (17:00)
[2017-05-14] MEDS: METOCLOPRAMIDE HCL INJ 5 MG/ML 2 ML VIAL IV PRN (18:19)
[2017-05-14 19:35] VITALS: BP 195/72; PULSE 84; TEMP 36.8; O2SAT 94
[2017-05-14] MEDS ORDERED: SOD PHOSPHATE/SOD BIPHOSPHATE ENEMA 132 ML BTL PR ONE (19:45)
[2017-05-14] MEDS ORDERED: PROMETHAZINE HCL INJ 25 MG in SODIUM CHLORIDE 0.9% 50ML 50 ML IV ONE (19:45)
[2017-05-14] MEDS: RANITIDINE HCL 150 MG TAB PO SCH (20:53)
[2017-05-14 23:24] VITALS: BP 150/65; PULSE 77; TEMP 36.5; O2SAT 98
[2017-05-15] VITALS (8 sets, daily range): BP systolic 118–175; BP diastolic 51–75; PULSE 66–88; TEMP 36.3–37.2; O2SAT 90–96
[2017-05-15 00:29] LABS: ALBUMIN 2.8 G/DL (3.8-4.8); GAMMA GLOBULIN 0.5 G/DL (0.8-1.7); TOTAL PROTEIN 5.6 G/DL (6.2-8.3)
[2017-05-15] MEDS: NITROGLYCERIN OINT 2% 1GM PACKET EXT SCH ×4 (04:12→21:38)
[2017-05-15] MEDS: ARMOUR THYROID 30 MG TAB PO SCH (06:33)
[2017-05-15] MEDS: POTASSIUM CHLORIDE 20 MEQ TABCR PO SCH ×3 (08:06→21:15)
[2017-05-15] MEDS: FERROUS SULFATE 325 MG TAB PO SCH ×2 (08:06→11:40)
[2017-05-15] MEDS: CARVEDILOL 25 MG TAB PO SCH ×2 (08:07→21:13)
[2017-05-15] MEDS: DOCUSATE SODIUM 100 MG CAP PO SCH ×2 (08:07→21:13)
[2017-05-15] MEDS: LOSARTAN POTASSIUM 50 MG TAB PO SCH ×2 (08:08→21:13)
[2017-05-15] MEDS: POLYETHYLENE (MIRALAX) 17 GM PACK PO SCH ×3 (08:08→20:41)
[2017-05-15] MEDS: LACTOBACILLUS ACIDOPHILUS (FLORANEX) TAB PO SCH ×3 (08:08→21:13)
[2017-05-15] MEDS: MULTIVITAMIN TAB PO SCH (08:09)
[2017-05-15] MEDS: SENNA 8.6 MG TAB PO SCH (08:09)
[2017-05-15] MEDS: PANTOprazole SOD 40 MG TAB PO SCH (08:09)
--- NOTE | 2017-05-15 08:24 | PROGRESS NOTE ---
DATE: 05/15/2017 SUBJECTIVE: At this point in time, the patient is resting comfortably in bed eating breakfast. She had some nausea yesterday evening that lasted for a couple hours responded well to Phenergan. She denies any chest pain, shortness of breath, fever, chills, nausea or vomiting presently. OBJECTIVE: Vital signs are stable. She is afebrile. Wound dressing clean, dry and intact. Calves nontender. Hip range of motion is supple without any significant discomfort. ASSESSMENT: Overall, doing reasonably well. Gastrointestinal issues, constipation remained biggest problem. Presently she has been afebrile now for multiple days. We will continue with present antibiotic treatment, present dressing treatment and will discuss anticoagulation status with medical coverage. I see no orders for PT/INR today. We will need to get that assessed. Keep her on a dose of Coumadin to keep INR between 1.8-2.2. Leave present dressing in place until next week. Can be discharged per medicine at their discretion. I have advised her again to consider transfer to [facility]. She states she will consider this.
[2017-05-15] MEDS ORDERED: FUROSEMIDE INJ 40 MG in SYRINGE 0 ML IV SCH (09:00)
[2017-05-15 09:11] LABS: BASO % 0.3 %; BASO ABS # 0.03 K/uL (0-0.2); EOS % 6.2 %; HEMATOCRIT 33.1 % (37-47); IG% 0.4 %; LYMPH % 18.2 %; LYMPH ABS # 1.65 K/uL (1.2-3.4); MEAN CELL VOLUME 85.5 fL (80-100); MEAN CORPUSCULAR HEMOGLOBIN 27.9 pg (25-34); MEAN PLATELET VOLUME 8.4 fL (7.4-10.4); MONO % 9.8 %; NEUT % 65.1 %; PLATELET COUNT 378 K/uL (130-400); RED BLOOD COUNT 3.87 M/uL (4.2-5.4); WHITE BLOOD COUNT 9.09 K/uL (4.8-10.8)
[2017-05-15 09:15] LABS: COMPLETE YES; MEAN CORPUSCULAR HGB CONC 32.6 g/dl (32-36)
[2017-05-15] MEDS: MAGNESIUM OXIDE 400 MG TAB PO SCH ×2 (10:18→21:13)
[2017-05-15 10:20] LABS: BUN/CREATININE RATIO 18.4 (10-20); CALCIUM 14.1 mg/dl (8.5-10.1); CREATININE 1.24 mg/dl (0.60-1.20); POTASSIUM 3.3 mmol/L (3.5-5.1)
[2017-05-15 10:29] LABS: INR 1.9 (0.9-1.1); PARTIAL THROMBOPLASTIN RATIO 1.6; PROTHROMBIN TIME (PATIENT) 20.7 SECONDS (9.0-12.0)
[2017-05-15] MEDS: SODIUM CHLORIDE 0.9% 1000ML 1,000 ML IV SCH ×3 (11:39→21:16)
[2017-05-15] MEDS: DAPTOmycin IV 600 MG in SYRINGE 0 ML IV SCH (12:18)
--- NOTE | 2017-05-15 13:18 | Medical Student: [facility] ---
Med Student Progress Note Date of Service May 15, 2017. Subjective Pt evaluation today including: conversation w/ patient, physical exam Pain: None PO Intake: Poor Voiding: no voiding problems Ms. Swain is a 77 year-old female with a history of DEANN causing an infected seroma, CHF, HTN, anemia, CKD, DM, and hypothroidism hospital day 5 for nausea, vomiting, and weakness likely secondary to hypercalcemia. Despite being given Zofran, she continues to have nausea and reported vomiting twice last night. For this she was given Promethazine with significant improvement of her symptoms and allowed her to have restful sleep. She has been able to walk more around the unit. She moved her bowels this AM and says it was well formed. She denies difficulty urinating. She reports she is otherwise "good." Review of Systems Constitutional: No fever Respiratory: No shortness of breath Cardiac: No chest pain Abdomen: + nausea, No pain, No diarrhea Objective Vital Signs Date Time Temp Pulse Resp B/P (MAP) Pulse Ox O2 Delivery O2 Flow Rate FiO2 05/15/17 12:08 36.5 66 19 150/68 (95) 90 Room Air 05/15/17 12:00 Room Air 05/15/17 08:03 36.3 73 19 175/69 (104) 95 Nasal Cannula 2.0 05/15/17 08:00 Nasal Cannula 2.0 05/15/17 04:00 36.7 80 16 159/51 (87) 96 Nasal Cannula 2.0 05/15/17 04:00 Room Air 05/14/17 23:59 Room Air 05/14/17 23:24 36.5 77 18 150/65 (93) 98 Nasal Cannula 2.0 05/14/17 20:00 Room Air 05/14/17 19:35 36.8 84 20 195/72 (113) 94 Room Air 05/14/17 16:00 Room Air 05/14/17 15:32 36.8 80 17 197/64 (108) 93 Room Air 162/70 (100) Physical Exam General Appearance: no apparent distress Eyes: bilateral eyes PERRL ENT: pharynx normal Respiratory/Chest: lungs clear, normal breath sounds, no respiratory distress Cardiovascular: regular rate, rhythm, + systolic murmur Abdomen: normal bowel sounds, non tender Extremities: no calf tenderness, + pedal edema (1+) Laboratory Results Last 24 Hours Test 05/15/17 08:57 White Blood Count 9.09 K/uL Red Blood Count 3.87 M/uL Hemoglobin 10.8 g/dL Hematocrit 33.1 % Mean Corpuscular Volume 85.5 fL Mean Corpuscular Hemoglobin 27.9 pg Mean Corpuscular Hemoglobin Concent 32.6 g/dl Platelet Count 378 K/uL Mean Platelet Volume 8.4 fL Neutrophils (%) (Auto) 65.1 % Lymphocytes (%) (Auto) 18.2 % Monocytes (%) (Auto) 9.8 % Eosinophils (%) (Auto) 6.2 % Basophils (%) (Auto) 0.3 % Neutrophils # (Auto) 5.92 K/uL Lymphocytes # (Auto) 1.65 K/uL Monocytes # (Auto) 0.89 K/uL Eosinophils # (Auto) 0.56 K/uL Basophils # (Auto) 0.03 K/uL RDW Standard Deviation 46.0 fL RDW Coefficient of Variation 14.5 % Immature Granulocyte % (Auto) 0.4 % Immature Granulocyte # (Auto) 0.04 K/uL Prothrombin Time 20.7 SECONDS Prothromb Time International Ratio 1.9 Activated Partial Thromboplast Time 41.2 SECONDS Partial Thromboplastin Ratio 1.6 Sodium Level 139 mmol/L Potassium Level 3.3 mmol/L Chloride Level 103 mmol/L Carbon Dioxide Level 28 mmol/L Anion Gap 8.0 mmol/L Blood Urea Nitrogen 23 mg/dl Creatinine 1.24 mg/dl Est Creatinine Clear Calc Drug Dose 44.0 ml/min Estimated GFR () 48.5 Estimated GFR (Non- 41.9 BUN/Creatinine Ratio 18.4 Random Glucose 121 mg/dl Calcium Level 14.1 mg/dl Magnesium Level 1.5 mg/dl Medications Current Inpatient Medications Medications (Trade) Dose Ordered Sig/Fuentes Route Start Time Stop Time Status Last Admin Dose Admin Acetaminophen (Tylenol Tab) 650 mg Q4H PRN PO 05/08/17 13:45 06/07/17 13:44 05/08/17 22:37 650 MG Al Hydrox/Mg Hydrox/Simethicone (Maalox Max Susp) 15 ml Q4H PRN PO 05/08/17 13:45 06/07/17 13:44 Magnesium Hydroxide (Milk Of Magnesia Susp) 30 ml Q6H PRN PO 05/08/17 13:45 06/07/17 13:44 05/14/17 17:49 30 ML Miscellaneous (Iv Fluids Completed) 1 ea PRN PRN N/A 05/08/17 14:00 05/08/18 13:59 Carvedilol (Coreg Tab) 25 mg QAM PO 05/09/17 09:00 06/08/17 08:59 05/15/17 08:07 25 MG Ranitidine HCl (zANTac TAB) 300 mg HS PO 05/08/17 21:00 06/07/17 20:59 05/14/17 20:53 300 MG Thyroid ([place] Thyroid Tab) 120 mg DAILYBB PO 05/09/17 06:00 06/08/17 06:59 Future hold 05/15/17 06:33 120 MG Oxycodone/ Acetaminophen (Percocet 10-325MG Tab) 1 tab Q4H PRN PO 05/08/17 14:30 05/22/17 14:29 05/12/17 16:53 1 TAB Glucose (Glucose 40% Gel) 15-30 GRAMS 15 GRAMS... UD PRN PO 05/08/17 15:00 06/07/17 14:59 Glucose (Glucose Chew Tab) 4-8 Tablets 4 Tabl... UD PRN PO 05/08/17 15:00 06/07/17 14:59 Dextrose (Dextrose 50% 50ML Syringe) 25-50ML OF 50% DW IV FOR... UD PRN IV 05/08/17 15:00 06/07/17 14:59 Glucagon (Glucagon Inj) 1 mg UD PRN SQ 05/08/17 15:00 06/07/17 14:59 Nystatin (Mycostatin Powder) 1 appln DAILY PRN EXT 05/08/17 15:00 06/07/17 14:59 05/10/17 09:56 1 APPLN Acetaminophen (Tylenol Tab) 1,000 mg Q6 PRN PO 05/09/17 14:00 06/08/17 13:59 05/10/17 12:36 1,000 MG Furosemide (Lasix Tab) 20 mg Q2D@0900 PO 05/10/17 09:00 06/09/17 08:59 Future Hold 05/10/17 09:55 20 MG Furosemide (Lasix Tab) 40 mg Q2D@0900 PO 05/11/17 09:00 06/10/17 08:59 Future Hold Losartan Potassium (coZAAR TAB) 50 mg BID PO 05/09/17 21:00 06/08/17 20:59 Future hold 05/15/17 08:08 50 MG Multivitamins (Multivitamin Tab) 1 tab QAM PO 05/10/17 09:00 06/09/17 08:59 05/15/17 08:09 1 TAB Morphine Sulfate (MoRPHine SULFATE INJ) 2 mg Q2HWA PRN IV 05/09/17 14:15 05/23/17 14:14 05/14/17 19:46 2 MG Docusate Sodium (coLACE CAP) 100 mg BID PO 05/09/17 21:00 06/08/17 20:59 05/15/17 08:07 100 MG Ondansetron HCl (Zofran Inj) 4 mg Q6H PRN IV 05/09/17 14:15 06/08/17 14:14 05/11/17 20:08 4 MG Metoclopramide HCl (Reglan Inj) 10 mg Q6H PRN IV 05/09/17 14:15 06/08/17 14:14 05/14/17 18:19 10 MG Lactobacillus Acidophilus (Floranex Tab) 4 tab TID PO 05/10/17 21:00 06/07/17 20:59 05/15/17 08:08 4 TAB Ferrous Sulfate (Feosol Tab) 325 mg TIDM PO 05/10/17 17:45 06/09/17 17:44 05/15/17 11:40 325 MG Sodium Chloride 1,000 ml @ 150 mls/hr Q6H40M IV 05/11/17 18:00 06/10/17 17:59 05/15/17 11:39 150 MLS/HR Senna (Senokot Tab) 17.2 mg QAM PO 05/12/17 14:45 06/11/17 14:44 05/15/17 08:09 17.2 MG Nitroglycerin (Nitroglycerin 2% Oint) 1 inch Q6H EXT 05/13/17 16:00 06/12/17 15:59 05/15/17 10:18 1 INCH Carvedilol (Coreg Tab) 25 mg QPM PO 05/14/17 21:00 06/07/17 20:59 05/14/17 20:52 25 MG Pantoprazole Sodium (Protonix Tab) 40 mg QAM PO 05/14/17 09:00 06/13/17 08:59 05/15/17 08:09 40 MG Daptomycin 600 mg/ Syringe 12 ml @ 6 mls/min DAILY@1200 IV 05/15/17 12:00 05/23/17 11:59 05/15/17 12:18 6 MLS/MIN Polyethylene (Miralax Powder Packet) 17 gm BID PO 05/15/17 09:00 06/11/17 14:44 Magnesium Oxide (Mag-Ox Tab) 400 mg BID PO 05/15/17 09:00 06/14/17 08:59 05/15/17 10:18 400 MG Potassium Chloride (Klor-Con Tab) 20 meq BID PO 05/15/17 11:00 05/16/17 09:01 05/15/17 12:18 20 MEQ Warfarin Sodium (Coumadin Tab) 2.5 mg TODAY@1600 PO 05/15/17 16:00 05/15/17 18:00 Assessment and Plan Assessment and Plan: Assessment and Plan: Ms. Swain is a 77 year-old female with a history of DEANN causing an infected seroma, CHF, HTN, anemia, CKD, DM, and hypothroidism hospital day 5 for nausea, vomiting, and weakness likely secondary to hypercalcemia. Hypercalcemia It has been deduced that most likely cause of this is the use of Stimulin Beads as a vehicle for antibiotics in her most recent hip surgery. Patient continues to be symptomatic with nausea and anorexia. However, her energy seems to be improving. Calcium level has increased to 14.1 today. [employer], the non destructive testing scientist for the Stimulan beads, has been contacted. Their clinical medicaid plan compliance director is currently out of office, but the director for clinical research is looking into this and will contact the team with updates. Due to calcium levels rising despite IVF, 3 doses of calcitonin, and furosemide, we consider adding a single dose of bisphosphonate to decrease calcium release from bone. Conversations with endocrinology and nephrology are in agreement that this is the next best step before even considering dialysis. Our team is proposing a 4mg injection of zoledronic acid. This is being checked with her orthopedic surgeon, Dr. Hong, as this might interfere with bone healing and she recently underwent DEANN. Once he approves, we will administer. Nausea Patient was previously controlled on Zofran but required Promethazine last night. She reports nausea is decreased this morning. Continue to offer Zofran PRN. Edema Lasix given. Lower extremity has had 1+ edema over the past few days and remains stable. CHF Compensated. Patient reports no orthopnea or SOB. Lungs clear to auscultation and lower extremity swelling is minimal. Continue current regimen. Seroma Resolved - pt denies fever or chills. Culture negative. Monitor for changes. DM Stable - Continue current regimen. Hypothyroidism Thyroid replacement resumed but decreased to 120 mcg. Thyroid function tests to be done in 6 weeks outpatient. Continued [facility] stay due to: inadequate po fluid intake, ambulation difficulties , multiple IV medications needed, other (hypercalcemia) Discharge planning: uncertain
[2017-05-15] MEDS ORDERED: ZOLEDRONIC ACID INJ 4 MG in SODIUM CHLORIDE 0.9% 100ML 100 ML IV ONE (14:30)
[2017-05-15] MEDS: OXYCODONE/ACETAMINOPHEN 10/325MG TAB PO PRN (15:15)
[2017-05-15] MEDS ORDERED: WARFARIN SOD 2.5 MG TAB PO SCH (16:00)
--- NOTE | 2017-05-15 17:03 | Progress Note ---
Subjective Date of Service: May 15, 2017. Subjective This patient in the morning appeared to be slightly sedate and had a nayak color although should receive Phenergan and morphine and I before for intractable vomiting. Her informs that she's had dyspeptic abdominal discomfort for many years without a good cause. Although she takes antiacid medications this has not been greatly controlled. The patient informs that she developed epigastric burning which is more intense but somewhat or previous episodes prior to her vomiting last evening next She is in no recurrence of her vomiting she's been able tolerate breakfast and lunch so far and she's feeling somewhat better Problem List Medical Problems: (1) Abdominal pain Status: Acute (2) Abscess of hip Status: Acute (3) Cellulitis Status: Acute (4) Hip pain Status: Acute (5) Leukocytosis Status: Acute Review of Systems Constitutional: + weakness, No fever, No chills Respiratory: No cough, No sputum Cardiac: No chest pain, No orthopnea Abdomen: + pain, + nausea, + vomiting Psychiatric: + depression symptoms Objective Vital Signs Date Time Temp Pulse Resp B/P (MAP) Pulse Ox O2 Delivery O2 Flow Rate FiO2 05/15/17 16:00 Room Air 05/15/17 15:15 36.4 82 18 155/59 (91) 92 Room Air 05/15/17 12:08 36.5 66 19 150/68 (95) 90 Room Air 05/15/17 12:00 Room Air 05/15/17 08:03 36.3 73 19 175/69 (104) 95 Nasal Cannula 2.0 05/15/17 08:00 Nasal Cannula 2.0 05/15/17 04:00 36.7 80 16 159/51 (87) 96 Nasal Cannula 2.0 05/15/17 04:00 Room Air 05/14/17 23:59 Room Air 05/14/17 23:24 36.5 77 18 150/65 (93) 98 Nasal Cannula 2.0 05/14/17 20:00 Room Air 05/14/17 19:35 36.8 84 20 195/72 (113) 94 Room Air Physical Exam General Appearance: WD/WN, + mild distress Eyes: PERRL, EOMI Respiratory/Chest: chest non-tender, lungs clear, normal breath sounds Cardiovascular: regular rate, rhythm, no murmur Abdomen: normal bowel sounds, non tender, soft Extremities: no pedal edema, no calf tenderness Neurologic/Psychiatric: alert, oriented x 3 Laboratory Results Last 24 Hours Test 05/15/17 08:57 White Blood Count 9.09 K/uL Red Blood Count 3.87 M/uL Hemoglobin 10.8 g/dL Hematocrit 33.1 % Mean Corpuscular Volume 85.5 fL Mean Corpuscular Hemoglobin 27.9 pg Mean Corpuscular Hemoglobin Concent 32.6 g/dl Platelet Count 378 K/uL Mean Platelet Volume 8.4 fL Neutrophils (%) (Auto) 65.1 % Lymphocytes (%) (Auto) 18.2 % Monocytes (%) (Auto) 9.8 % Eosinophils (%) (Auto) 6.2 % Basophils (%) (Auto) 0.3 % Neutrophils # (Auto) 5.92 K/uL Lymphocytes # (Auto) 1.65 K/uL Monocytes # (Auto) 0.89 K/uL Eosinophils # (Auto) 0.56 K/uL Basophils # (Auto) 0.03 K/uL RDW Standard Deviation 46.0 fL RDW Coefficient of Variation 14.5 % Immature Granulocyte % (Auto) 0.4 % Immature Granulocyte # (Auto) 0.04 K/uL Prothrombin Time 20.7 SECONDS Prothromb Time International Ratio 1.9 Activated Partial Thromboplast Time 41.2 SECONDS Partial Thromboplastin Ratio 1.6 Sodium Level 139 mmol/L Potassium Level 3.3 mmol/L Chloride Level 103 mmol/L Carbon Dioxide Level 28 mmol/L Anion Gap 8.0 mmol/L Blood Urea Nitrogen 23 mg/dl Creatinine 1.24 mg/dl Est Creatinine Clear Calc Drug Dose 44.0 ml/min Estimated GFR () 48.5 Estimated GFR (Non- 41.9 BUN/Creatinine Ratio 18.4 Random Glucose 121 mg/dl Calcium Level 14.1 mg/dl Magnesium Level 1.5 mg/dl Assessment and Plan 77yo female with 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 Intra-op culture negative. Prior culture from 04/20/17 showed enterococcus faecalis - pansensitive. Remains on daptomycin Blood cx's this admission negative. Appreciate orthopedic assistance and ID consultation. continue PT, OT; WBAT on right leg per ortho HyperCalcemia, will continue aggressive fluid hydration, lasix and had multiple conversations with physicians on 05/15 these included her primary care provider Dr. Quiroz, electric range servicer Dr. Dunn tool grinder operator surface Dr. Junior Lindsey, with orthopedic surgeon Dr. Vinny Hong. All p all parties were updated on the patient's case and condition and discussions of other therapies to further reduce her serum calcium levels. Discussions of possible dialysis were brought up with nephrology who did not feel it was indicated at this present time, endocrinology felt that zoledronic acid be attempted at its downside were little and although her hypercalcemia was not from osteoclastic bone turnover he may have a chance of reducing serum calcium level. Dr. Jonatan Buck he did not feel there was imminent risk to her hip implant as the distance from surgery is been good to promote healing and there is also little evidence to suggest zoledronic acid could affect bone healing. Her Lasix was held due to elevation of creatinine but this will be given on day-to-day basis and we're currently awaiting a pThRP that is a send out test. Nausea vomiting abdominal pain this is acute on chronic patient is in no recurrence certainly could be impacted by her high calcium levels continue to offer antiemetics and antiacid medications acute/chronic anemia -suspect iron deficiency anemia, stable H/H overnight. We will hold Fe supplementation. As it is a GI irritation constipation with miralax + senna. gastritis with PPI qam and zantac at HS (latter she takes at home chronically). chronic diastolic CHF - compensated event despite copious hydration. Continue IVF cautiously HTN - augmented by ivf administration, nitropaste 1" q6h . Increased coreg to 25mg BID. CKD stage 3 with acute kidney injury resolved hypothyroidism - TSH suppressed; Dr Stovall spoke with Dr. Dunn, endocrinology - recommended lowering armour thyroid dose to 120mg (from 135mg) f/u TSH in 6 weeks. DVT proph - INR is based upon the orthopedic nomogram patient/ informed of the possible connection between the beads and the calcium, family updated at bedside 05/14, 05/15 Dr. Hong aware as well dispo - highly encouraged her to consider inpatient rehab Continued [facility] stay due to: inadequate po fluid intake, ambulation difficulties , multiple IV medications needed, other (hypercalcemia) Discharge planning: uncertain
[2017-05-15] MEDS: RANITIDINE HCL 150 MG TAB PO SCH (21:13)
[2017-05-16] MEDS: SODIUM CHLORIDE 0.9% 1000ML 1,000 ML IV SCH ×4 (03:50→23:28)
[2017-05-16] MEDS: NITROGLYCERIN OINT 2% 1GM PACKET EXT SCH ×3 (03:51→15:36)
[2017-05-16] MEDS: ARMOUR THYROID 30 MG TAB PO SCH (06:39)
[2017-05-16 07:13] VITALS: BP 161/72; PULSE 89; TEMP 36.7; O2SAT 91
[2017-05-16 07:18] LABS: BUN/CREATININE RATIO 23.7 (10-20); CALCIUM 12.8 mg/dl (8.5-10.1); CREATININE 1.11 mg/dl (0.60-1.20); MAGNESIUM 1.3 mg/dl (1.8-2.4); POTASSIUM 3.9 mmol/L (3.5-5.1)
--- NOTE | 2017-05-16 08:10 | PROGRESS NOTE ---
DATE: 05/16/2017 DATE: 05/16/2017 SUBJECTIVE: The patient is resting comfortably. She states she had a good night, slept most of the night without any pain. She denies any chest pain, shortness of breath, fever, chills, nausea, vomiting or headache. OBJECTIVE: VITAL SIGNS: Stable. T-max 37.2. Temperature presently is 36.7. ABDOMEN: Soft, nontender. EXTREMITIES: Calves are soft, nontender. Wound dressing clean and dry. Neurovascular check femoral sciatic nerve is good. Hematocrit yesterday 33.1. INR yesterday was 1.9. Received Coumadin 2.5 mg. Check INR today. Calcium has decreased from 14.1 to 12.8. Magnesium still remains low. ASSESSMENT: Overall, doing well. At this point in time, continue with wound VAC, keep that on, needs to be changed sometime between Friday and next week. Depending on where she is located we can arrange that. Coumadin dose per medicine. Continue to follow calcium per medicine. Transfer from a medical perspective when they feel most comfortable. From an orthopedic perspective can be transferred at any time. Continue present antibiotic treatment. Keep sutures in roughly 18 days. Continue weightbearing as tolerated. No dedicated range of motion of the hip. At this point and time will let the wound calm down. Keep the wound as stable as possible for the next 2-3 week, just range of motion for gait training only. We will have Barrington Agosto follow in my absence. I am leaving to give a presentation off-site for the next 2 days.
[2017-05-16] MEDS: LACTOBACILLUS ACIDOPHILUS (FLORANEX) TAB PO SCH ×3 (08:50→20:30)
[2017-05-16] MEDS: LOSARTAN POTASSIUM 50 MG TAB PO SCH ×2 (08:50→20:31)
[2017-05-16] MEDS: FUROSEMIDE INJ 20 MG in SYRINGE 0 ML IV SCH (08:50)
[2017-05-16] MEDS: DOCUSATE SODIUM 100 MG CAP PO SCH ×2 (08:50→20:30)
[2017-05-16] MEDS: POLYETHYLENE (MIRALAX) 17 GM PACK PO SCH ×2 (08:51→20:31)
[2017-05-16] MEDS: SENNA 8.6 MG TAB PO SCH (08:51)
[2017-05-16] MEDS: MAGNESIUM OXIDE 400 MG TAB PO SCH ×2 (08:52→20:31)
[2017-05-16] MEDS: CARVEDILOL 25 MG TAB PO SCH ×2 (08:52→20:32)
[2017-05-16] MEDS: POTASSIUM CHLORIDE 20 MEQ TABCR PO SCH (08:53)
[2017-05-16] MEDS: OXYCODONE/ACETAMINOPHEN 10/325MG TAB PO PRN ×2 (09:04→15:40)
[2017-05-16] MEDS: PANTOprazole SOD 40 MG TAB PO SCH (09:05)
--- NOTE | 2017-05-16 09:37 | Orthopedic Progress Note ---
Orthopedic Progress Note Date of Service May 16, 2017. Subjective Post OP Day: day 7 Reports: feeling well, pain controlled w PO medications, Denies: complaints, chest pain, SOB, nausea / vomiting, light headedness, using FUNCTIONAL TESTER Objective calves soft nontender, N/V intact, hip located, capillary refill less than 2 sec., dressing C/D/I, incision C/D/I, A&O x3, toes mobile, CMS intact Unable to perform SLRT in Right LE. Light flexion in knee causes anterior quad pain. Date Time Temp Pulse Resp B/P (MAP) Pulse Ox O2 Delivery O2 Flow Rate FiO2 05/16/17 07:20 Room Air 05/16/17 07:13 36.7 89 16 161/72 (101) 91 Room Air 05/15/17 23:23 37.2 75 14 118/66 (83) 91 Room Air 05/15/17 23:22 CPAP 05/15/17 21:15 88 144/68 (93) 05/15/17 17:35 36.9 77 18 156/75 (102) 92 Room Air 05/15/17 17:30 Room Air 05/15/17 17:01 36.4 82 18 92 2.0 05/15/17 16:00 Room Air 05/15/17 15:15 36.4 82 18 155/59 (91) 92 Room Air 05/15/17 12:08 36.5 66 19 150/68 (95) 90 Room Air 05/15/17 12:00 Room Air Assessment & Plan Assessment: Postop day 7 - status post I&D right total hip arthroplasty, poly-exchange, stimulan bead placement Plan: Continue out of bed, weightbearing as tolerated with the assistance of a walker Posterior hip precautions Continue wound VAC. Diet as ordered. SCDs for DVT prophylaxis. Will continue to follow. Is planning on discharge to [facility] upon discharge per Medicine. Will discuss findings with Dr. Hong. (1) Wound infection after surgery Discharge Planning Discharge Planning: rehab hospital
[2017-05-16 10:57] LABS: PROTHROMBIN TIME (PATIENT) 22.5 SECONDS (9.0-12.0)
[2017-05-16] MEDS: DAPTOmycin IV 600 MG in SYRINGE 0 ML IV SCH (11:49)
[2017-05-16 15:03] VITALS: BP 146/66; PULSE 82; TEMP 37.1; O2SAT 92
--- NOTE | 2017-05-16 15:06 | Medical Student: [facility] ---
Med Student Progress Note Date of Service May 16, 2017. Subjective Pain: Controlled PO Intake: Minimal, but improving Voiding: no voiding problems Ms. Swain is a 77 year-old female with a history of DEANN causing an infected seroma, CHF, HTN, anemia, CKD, DM, and hypothroidism hospital day 8 for nausea, vomiting, and weakness likely secondary to hypercalcemia. She continues to report improvement with her nausea each day. She has been able to eat about half of her meals. Her pain is much better controlled today after taking her PRN pain meds. She says this allows her to be more mobile. Review of Systems Constitutional: No fever, No chills Respiratory: No cough, No shortness of breath Cardiac: No chest pain, No palpitations Abdomen: No pain, No nausea, No vomiting, No diarrhea Female : No dysuria, No urinary frequency Objective Vital Signs Date Time Temp Pulse Resp B/P (MAP) Pulse Ox O2 Delivery O2 Flow Rate FiO2 05/16/17 07:20 Room Air 05/16/17 07:13 36.7 89 16 161/72 (101) 91 Room Air 05/15/17 23:23 37.2 75 14 118/66 (83) 91 Room Air 05/15/17 23:22 CPAP 05/15/17 21:15 88 144/68 (93) 05/15/17 17:35 36.9 77 18 156/75 (102) 92 Room Air 05/15/17 17:30 Room Air 05/15/17 17:01 36.4 82 18 92 2.0 05/15/17 16:00 Room Air 05/15/17 15:15 36.4 82 18 155/59 (91) 92 Room Air Physical Exam General Appearance: no apparent distress Eyes: bilateral eyes PERRL, bilateral eyes EOMI ENT: hearing grossly normal, pharynx normal Respiratory/Chest: lungs clear, normal breath sounds, no respiratory distress Cardiovascular: regular rate, rhythm, + systolic murmur Abdomen: normal bowel sounds, non tender Extremities: non-tender, + pedal edema (1+) Laboratory Results Last 24 Hours Test 05/16/17 06:06 05/16/17 10:40 Sodium Level 140 mmol/L Potassium Level 3.9 mmol/L Chloride Level 107 mmol/L Carbon Dioxide Level 27 mmol/L Anion Gap 6.0 mmol/L Blood Urea Nitrogen 26 mg/dl Creatinine 1.11 mg/dl Est Creatinine Clear Calc Drug Dose 49.2 ml/min Estimated GFR () 55.5 Estimated GFR (Non- 47.9 BUN/Creatinine Ratio 23.7 Random Glucose 104 mg/dl Calcium Level 12.8 mg/dl Magnesium Level 1.3 mg/dl Prothrombin Time 22.5 SECONDS Prothromb Time International Ratio 2.0 Assessment and Plan Assessment and Plan: Ms. Swain is a 77 year-old female with a history of DEANN causing an infected seroma, CHF, HTN, anemia, CKD, DM, and hypothroidism hospital day 8 for nausea, vomiting, and weakness likely secondary to hypercalcemia. Hypercalcemia It has been deduced that most likely cause of this is the use of Stimulin Beads as a vehicle for antibiotics in her most recent hip surgery. Patient continues to be symptomatic with nausea. However, her energy and eating seem to be improving. Calcium level has decreased to 12.8 on 05/16 with the addition of 4mg injection of zoledronic acid. Continue daily CMP to monitor for progress. Continue 150 cc/hour of normal saline. Continue furosemide 20 mg. PTH-rp still pending. Nausea Pt reports improvement. Continue to offer Zofran 4mg PRN. Pain Morphine 2mg Q2h PRN Edema Stable - Furosemide as above. Lower extremity has had 1+ edema over the past few days. HTN Continue losartan 50 mg BID Continue nitroglycerin ointment PRN Continue carvedilol 25 mg daily. CHF Compensated. Patient reports no orthopnea or SOB. Lungs clear to auscultation and lower extremity swelling is minimal. Continue furosemide as above . Seroma Resolved - pt denies fever or chills. Culture negative. Monitor for changes. Continue Daptomycin 600 mg daily until 05/23. Gastritis Continue pantoprazole 40 mg. Continue Ranitidine 300 mg. Prediabetes Diet controlled - stable. Continue to monitor daily blood sugar. Hypothyroidism Thyroid replacement resumed but decreased to 120 mcg. Thyroid function tests to be done in 6 weeks outpatient. DVT prophylaxis. Continue warfarin 2.5 mg daily. Pt denies calf pain. Continued [facility] stay due to: inadequate po fluid intake, ambulation difficulties , multiple IV medications needed, other (hypercalcemia) Discharge planning: uncertain
[2017-05-16] MEDS ORDERED: WARFARIN SOD 2.5 MG TAB PO SCH (16:00)
--- NOTE | 2017-05-16 16:48 | Progress Note ---
Subjective Date of Service: May 16, 2017. Subjective this pt appears improved today, no further nausea and vomiting, family is at bedside and updated, pt is walking in hallways but still wants to consider rehab Problem List Medical Problems: (1) Abdominal pain Status: Acute (2) Abscess of hip Status: Acute (3) Cellulitis Status: Acute (4) Hip pain Status: Acute (5) Leukocytosis Status: Acute Review of Systems Constitutional: No fever, No chills, No weakness Respiratory: No cough, No shortness of breath Cardiac: No chest pain, No orthopnea, No edema Abdomen: No pain, No nausea, No vomiting Musculoskeletal: No joint pain, No muscle pain Neurologic: No memory loss, No paralysis, No weakness Psychiatric: No depression symptoms, No anhedonism Objective Vital Signs Date Time Temp Pulse Resp B/P (MAP) Pulse Ox O2 Delivery O2 Flow Rate FiO2 05/16/17 07:20 Room Air 05/16/17 07:13 36.7 89 16 161/72 (101) 91 Room Air 05/15/17 23:23 37.2 75 14 118/66 (83) 91 Room Air 05/15/17 23:22 CPAP 05/15/17 21:15 88 144/68 (93) 05/15/17 17:35 36.9 77 18 156/75 (102) 92 Room Air 05/15/17 17:30 Room Air 05/15/17 17:01 36.4 82 18 92 2.0 05/15/17 16:00 Room Air 05/15/17 15:15 36.4 82 18 155/59 (91) 92 Room Air 05/15/17 12:08 36.5 66 19 150/68 (95) 90 Room Air 05/15/17 12:00 Room Air Physical Exam General Appearance: WD/WN, + mild distress Eyes: PERRL, EOMI Respiratory/Chest: chest non-tender, lungs clear, normal breath sounds Cardiovascular: regular rate, rhythm, no murmur Abdomen: normal bowel sounds, non tender, soft Extremities: no pedal edema, no calf tenderness, + pertinent finding (right wound vac intact and non red) Neurologic/Psychiatric: alert, oriented x 3 Laboratory Results Last 24 Hours Test 05/16/17 06:06 Sodium Level 140 mmol/L Potassium Level 3.9 mmol/L Chloride Level 107 mmol/L Carbon Dioxide Level 27 mmol/L Anion Gap 6.0 mmol/L Blood Urea Nitrogen 26 mg/dl Creatinine 1.11 mg/dl Est Creatinine Clear Calc Drug Dose 49.2 ml/min Estimated GFR () 55.5 Estimated GFR (Non- 47.9 BUN/Creatinine Ratio 23.7 Random Glucose 104 mg/dl Calcium Level 12.8 mg/dl Magnesium Level 1.3 mg/dl Assessment and Plan 77yo female with 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 cultures are negative, previously(04/20/17) showed enterococcus faecalis - pansensitive. Remains on daptomycin continue PT, OT; WBAT on right leg per ortho, will look to [facility] rehab HyperCalcemia,improved with aggressive fluid hydration, lasix and zoledronic acid, I personally had multiple conversations with physicians on 05/15 these included her primary care provider Dr. Quiroz, manager support Dr. Dunn hospice entrance attendant Dr. Junior Lindsey, with orthopedic surgeon Dr. Vinny Hong. All parties were updated on the patient's case and condition and discussions of other therapies to further reduce her serum calcium levels. Discussions of possible dialysis were brought up with nephrology who did not feel it was indicated at this present time, endocrinology felt that zoledronic acid be attempted at its downside were little and although her hypercalcemia was not from osteoclastic bone turnover he may have a chance of reducing serum calcium level. Dr. Hong did not feel there was imminent risk to her hip implant as the distance from surgery is been good to promote healing and there is also little evidence to suggest zoledronic acid could affect bone healing. still with a pending pThRP that is a send out test. Nausea vomiting abdominal pain this has resolved acute/chronic anemia -suspect iron deficiency anemia, H/H continues to be stable We will hold Fe supplementation. As it is a GI irritation constipation resolved with miralax + senna. gastritis stable with PPI qam and zantac at HS (latter she takes at home chronically). chronic diastolic CHF - compensated event despite copious hydration. Continue IVF no signs of HF HTN - augmented by ivf administration, nitropaste 1" q6h . Increased coreg to 25mg BID. CKD stage 3 with acute kidney injury resolved hypothyroidism - TSH suppressed; Dr Stovall spoke with Dr. Dunn, endocrinology - recommended lowering armour thyroid dose to 120mg (from 135mg) f/u TSH in 6 weeks. DVT proph - INR is based upon the orthopedic nomogram patient/ informed of the possible connection between the beads and the calcium, family updated at bedside 05/14, 05/15, 05/16 Dr. Hong aware as well dispo - highly encouraged her to consider inpatient rehab Continued [facility] stay due to: inadequate po fluid intake, ambulation difficulties , multiple IV medications needed, other (hypercalcemia) Discharge planning: uncertain
[2017-05-16 20:30] VITALS: BP 172/81; PULSE 81; O2SAT 97
[2017-05-16] MEDS: RANITIDINE HCL 150 MG TAB PO SCH (20:32)
[2017-05-16 21:20] VITALS: BP 153/61; PULSE 82; O2SAT 96
[2017-05-16 23:26] VITALS: BP 163/77; PULSE 85; TEMP 36.9; O2SAT 95
[2017-05-17] MEDS: SODIUM CHLORIDE 0.9% 1000ML 1,000 ML IV SCH ×3 (05:55→20:59)
[2017-05-17] MEDS: ARMOUR THYROID 30 MG TAB PO SCH (05:56)
[2017-05-17 06:11] LABS: INR 2.1 (0.9-1.1); PROTHROMBIN TIME (PATIENT) 22.7 SECONDS (9.0-12.0)
[2017-05-17 07:28] VITALS: BP 189/65; PULSE 91; TEMP 37.3; O2SAT 94
[2017-05-17] MEDS: CARVEDILOL 25 MG TAB PO SCH ×2 (07:35→20:55)
[2017-05-17] MEDS: PANTOprazole SOD 40 MG TAB PO SCH (07:35)
[2017-05-17] MEDS: LACTOBACILLUS ACIDOPHILUS (FLORANEX) TAB PO SCH ×3 (07:35→20:55)
[2017-05-17] MEDS: SENNA 8.6 MG TAB PO SCH (07:36)
[2017-05-17] MEDS: POLYETHYLENE (MIRALAX) 17 GM PACK PO SCH ×2 (07:36→20:55)
[2017-05-17] MEDS: MAGNESIUM OXIDE 400 MG TAB PO SCH ×2 (07:36→20:55)
[2017-05-17] MEDS: DOCUSATE SODIUM 100 MG CAP PO SCH ×2 (07:36→20:54)
[2017-05-17] MEDS: LOSARTAN POTASSIUM 50 MG TAB PO SCH ×2 (07:36→20:55)
[2017-05-17] MEDS: FUROSEMIDE INJ 20 MG in SYRINGE 0 ML IV SCH (07:41)
[2017-05-17 09:04] VITALS: BP 161/72
--- NOTE | 2017-05-17 09:44 | ORTHOPEDICS PROGRESS NOTE ---
DATE: 05/17/2017 DATE: 05/17/2017 SUBJECTIVE: I was called this morning about Ms. Swain having some increased drainage from her wound VAC. She has the small 40 mL containers and this had to be changed twice this morning. The patient is resting comfortably in bed. She still has some groin pain which she has had with ambulation and trying to lift her leg. She has an INR of 2.1 this morning. No fevers or chills. OBJECTIVE: VITAL SIGNS: Examination of her right hip, the patient was rolled on her side. She has a wound VAC dressing in place with a good suction seal and only a small 1 inch area of very faint erythema likely from her recent surgery. Certainly nothing concerning for an infection. The wound VAC tubing shows some serous drainage in it. She tolerates logroll and passive hip flexion to 60 with minimal pain. RESULTS REVIEWED: Her INR this morning is 2.1. Her most recent albumin was low at 2.8 measured on 05/11/2017. Again, her cultures were negative from the surgery despite having earlier grown Enterococcus faecalis. She continues on daptomycin for antibiotics. BMI is 43. IMPRESSION: Serous wound drainage from the right hip status post I&D and poly exchange 8 days ago with negative cultures. PLAN: I placed a compressive dressing over the wound vac this morning with ABD' s and Microfoam tape. I instructed the nursing staff to change to a little bit larger wound VAC container so it will not have to be changed as often. We are also going to add Ensure to her diet 3 times per day to increase her protein intake since her albumin would indicate she is malnourished as this could be a potential contributing factor. Finally, her anticoagulation could be contributing. I spoke with Dr. Hong and he would like to hold her coumadin today. This was relayed to her nurse. We will check a new INR tomorrow. Goal INR is between 1.8 and 2.2. She should continue to mobilize with physical therapy and occupational therapy. MTDD
[2017-05-17] MEDS ORDERED: NURSING VERBAL MED ORDER ONE ×3 (10:00→10:30)
[2017-05-17] MEDS: DAPTOmycin IV 600 MG in SYRINGE 0 ML IV SCH (11:38)
[2017-05-17] MEDS: BOOST BREEZE NUTRITION DRINK 1 BOX PO SCH ×2 (13:20→20:53)
[2017-05-17] MEDS: OXYCODONE/ACETAMINOPHEN 10/325MG TAB PO PRN (13:21)
--- NOTE | 2017-05-17 14:46 | Progress Note ---
Subjective Date of Service: May 17, 2017. Subjective pt feels much better, does have some persistent right anterior thigh pain worsened with ambulation, no overt fluctuance or erythema seen Problem List Medical Problems: (1) Abdominal pain Status: Acute (2) Abscess of hip Status: Acute (3) Cellulitis Status: Acute (4) Hip pain Status: Acute (5) Leukocytosis Status: Acute Review of Systems Constitutional: + weakness, No fever, No chills Respiratory: No cough, No wheezing, No shortness of breath Objective Vital Signs Date Time Temp Pulse Resp B/P (MAP) Pulse Ox O2 Delivery O2 Flow Rate FiO2 05/17/17 09:04 161/72 (101) 05/17/17 08:00 Room Air 05/17/17 07:28 37.3 91 16 189/65 (106) 94 Room Air 05/16/17 23:26 36.9 85 16 163/77 (105) 95 Room Air 05/16/17 23:15 CPAP 05/16/17 21:20 82 153/61 (91) 96 CPAP 05/16/17 20:30 81 172/81 (111) 97 Room Air 05/16/17 15:30 05/16/17 15:03 37.1 82 16 146/66 (92) 92 Room Air Physical Exam General Appearance: WD/WN, + mild distress Respiratory/Chest: chest non-tender, lungs clear, normal breath sounds Cardiovascular: regular rate, rhythm, no murmur Abdomen: normal bowel sounds, non tender, soft Extremities: no pedal edema, no calf tenderness Laboratory Results Last 24 Hours Test 05/17/17 05:53 Prothrombin Time 22.7 SECONDS Prothromb Time International Ratio 2.1 Calcium Level 11.1 mg/dl Assessment and Plan 77yo female with 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 cultures are negative, previously(04/20/17) showed enterococcus faecalis - pansensitive. Remains on daptomycin continue PT, OT; WBAT on right leg per ortho, will look to [facility] rehab HyperCalcemia,improved with aggressive fluid hydration, lasix and zoledronic acid, will continue fluids as no signs of volume overload still with a pending pThRP that is a send out test. Nausea vomiting abdominal pain this has resolved acute/chronic anemia -suspect iron deficiency anemia, H/H continues to be stable We will hold Fe supplementation. As it is a GI irritation constipation bowel movements 05/16 resolved with miralax + senna. gastritis contnues to be stable with PPI qam and zantac at HS (latter she takes at home chronically). chronic diastolic CHF - continues to be compensated event despite copious hydration. HTN - augmented by ivf administration, coreg to 25mg BID. CKD stage 3 with acute kidney injury resolved hypothyroidism - TSH suppressed; Dr Stovall spoke with Dr. Dunn, endocrinology - recommended lowering armour thyroid dose to 120mg (from 135mg) f/u TSH in 6 weeks. DVT proph - INR is based upon the orthopedic nomogram patient/ informed of the possible connection between the beads and the calcium, family updated at bedside 05/14, 05/15, 05/16 dispo - highly encouraged her to consider inpatient rehab Continued [facility] stay due to: inadequate po fluid intake, ambulation difficulties , multiple IV medications needed, other (hypercalcemia) Discharge planning: uncertain
[2017-05-17 15:46] VITALS: BP 162/78; PULSE 82; TEMP 37; O2SAT 92
[2017-05-17 20:52] VITALS: BP 172/69; PULSE 79
[2017-05-17] MEDS: RANITIDINE HCL 150 MG TAB PO SCH (20:54)
[2017-05-17 22:48] VITALS: BP 148/73; PULSE 80; TEMP 37.1; O2SAT 96
[2017-05-18] MEDS: SODIUM CHLORIDE 0.9% 1000ML 1,000 ML IV SCH (02:56)
[2017-05-18 06:01] LABS: INR 1.9 (0.9-1.1); PROTHROMBIN TIME (PATIENT) 20.7 SECONDS (9.0-12.0)
[2017-05-18 06:22] LABS: BUN/CREATININE RATIO 25.7 (10-20); CALCIUM 9.6 mg/dl (8.5-10.1); CREATININE 1.13 mg/dl (0.60-1.20); MAGNESIUM 1.2 mg/dl (1.8-2.4); POTASSIUM 3.5 mmol/L (3.5-5.1)
[2017-05-18] MEDS: ARMOUR THYROID 30 MG TAB PO SCH (06:26)
[2017-05-18 07:10] VITALS: BP 155/71; PULSE 74; TEMP 36.9; O2SAT 93
[2017-05-18] MEDS: MAGNESIUM SULFATE 1GM / D5W 1 GM in PREMIXED IN D5W 100 ML IV SCH ×2 (08:05→09:36)
[2017-05-18] MEDS: POLYETHYLENE (MIRALAX) 17 GM PACK PO SCH ×2 (09:00→20:51)
[2017-05-18] MEDS: BOOST BREEZE NUTRITION DRINK 1 BOX PO SCH ×3 (09:36→20:50)
[2017-05-18] MEDS: CARVEDILOL 25 MG TAB PO SCH ×2 (09:36→21:02)
[2017-05-18] MEDS: DOCUSATE SODIUM 100 MG CAP PO SCH ×2 (09:37→20:55)
[2017-05-18] MEDS: LOSARTAN POTASSIUM 50 MG TAB PO SCH ×2 (09:37→21:02)
[2017-05-18] MEDS: PANTOprazole SOD 40 MG TAB PO SCH (09:37)
[2017-05-18] MEDS: LACTOBACILLUS ACIDOPHILUS (FLORANEX) TAB PO SCH ×3 (09:37→20:54)
[2017-05-18] MEDS: MAGNESIUM OXIDE 400 MG TAB PO SCH ×2 (09:37→20:54)
[2017-05-18] MEDS: SENNA 8.6 MG TAB PO SCH (09:37)
[2017-05-18] MEDS: OXYCODONE/ACETAMINOPHEN 10/325MG TAB PO PRN ×2 (10:40→21:34)
[2017-05-18] MEDS ORDERED: OPTIRAY 320 IV PRN (11:30)
--- NOTE | 2017-05-18 12:06 | Progress Note ---
Subjective Date of Service: May 18, 2017. Subjective pt with persistent right leg pain now more near distal lateral right knee, no fever or wbc, but is on antibiotics, she overall feels better despite the leg pain Problem List Medical Problems: (1) Abdominal pain Status: Acute (2) Abscess of hip Status: Acute (3) Cellulitis Status: Acute (4) Hip pain Status: Acute (5) Leukocytosis Status: Acute Review of Systems Constitutional: + weakness, + fatigue, No fever, No chills Respiratory: No cough, No shortness of breath, No dyspnea on exertion Cardiac: No chest pain, No PND, No edema Abdomen: No pain, No nausea, No vomiting, No diarrhea Musculoskeletal: + joint pain, + muscle pain, + swelling Objective Vital Signs Date Time Temp Pulse Resp B/P (MAP) Pulse Ox O2 Delivery O2 Flow Rate FiO2 05/18/17 08:00 Room Air 05/18/17 07:10 36.9 74 18 155/71 (99) 93 Room Air 05/18/17 02:59 CPAP 05/18/17 00:02 Room Air 05/17/17 22:48 37.1 80 16 148/73 (98) 96 Room Air 05/17/17 20:52 79 172/69 (103) 05/17/17 19:20 Room Air 05/17/17 16:29 Room Air 05/17/17 15:46 37.0 82 16 162/78 (106) 92 Room Air Physical Exam General Appearance: WD/WN, + mild distress Eyes: PERRL, EOMI Respiratory/Chest: chest non-tender, lungs clear, normal breath sounds Cardiovascular: regular rate, rhythm, no murmur Abdomen: normal bowel sounds, non tender, soft Extremities: + pertinent finding (swelling and tenderness to lateral right thigh) Laboratory Results Last 24 Hours Test 05/18/17 05:31 Prothrombin Time 20.7 SECONDS Prothromb Time International Ratio 1.9 Sodium Level 140 mmol/L Potassium Level 3.5 mmol/L Chloride Level 109 mmol/L Carbon Dioxide Level 24 mmol/L Anion Gap 7.0 mmol/L Blood Urea Nitrogen 29 mg/dl Creatinine 1.13 mg/dl Est Creatinine Clear Calc Drug Dose 48.3 ml/min Estimated GFR () 54.3 Estimated GFR (Non- 46.8 BUN/Creatinine Ratio 25.7 Random Glucose 109 mg/dl Calcium Level 9.6 mg/dl Magnesium Level 1.2 mg/dl Assessment and Plan 77yo female with 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 cultures are negative, previously(04/20/17) showed enterococcus faecalis - pansensitive. Remains on daptomycin Progressive thigh pain, check CT for more distal infection continue PT, OT; WBAT on right leg per ortho, will look to [facility] rehab HyperCalcemia,now normalized after fluid hydration, lasix and zoledronic acid, will stop ivf but continue her typical daily lasix still with a pending pThRP that is a send out test. acute/chronic anemia -suspect iron deficiency anemia, H/H continues to be stable We will hold Fe supplementation. As it is a GI irritation constipation follow and continue on miralax + senna. gastritis continues to be stable with PPI qam and zantac at HS (latter she takes at home chronically) chronic diastolic CHF - is stable with hydration, resume po lasix 05/18 HTN - coreg to 25mg BID. CKD stage 3 with acute kidney injury resolved hypothyroidism - TSH suppressed; Dr Stovall spoke with Dr. Dunn, endocrinology - recommended lowering armour thyroid dose to 120mg (from 135mg) f/u TSH in 6 weeks. DVT proph - INR is based upon the orthopedic nomogram patient/ updated at bedside dispo - highly encouraged her to consider inpatient rehab Continued [facility] stay due to: inadequate po fluid intake, ambulation difficulties , multiple IV medications needed, other (hypercalcemia) Discharge planning: uncertain
[2017-05-18] MEDS: DAPTOmycin IV 600 MG in SYRINGE 0 ML IV SCH (12:25)
--- NOTE | 2017-05-18 12:37 | DIAGNOSTIC IMAGING REPORT ---
R LOWER EXTREMITY WITH CLINICAL HISTORY: eval for progression of inaction distally as now more painful TECHNIQUE: Transaxial acquisition of multi axial reformatted images COMPARISON STUDY: 04/20/2017 FINDINGS: Findings of progressive complex collection lateral to the right hip now extending superiorly within the subcutaneous fat and posterior to the right gluteal musculature. Current dimensions are 14 cm in greatest cephalocaudal dimension with transaxial dimensions of 9 x 7 cm. Several hyperdense foci are identified within the collection possibly related to direct antibiotic treatment. Air is identified within the collection. In addition, there is a semicircular fluid component posterior to the right hip prosthetic measuring 8 x 3 cm in thickness. This appears to be in contact with the major subcutaneous fat collection. This appears to be a progressive finding as compared to the prior study as does the fact component within the fat of the lateral thigh.. IMPRESSION: 1. Progressive complex partially air-containing collection lateral to the total right hip prosthetic. 2. Now demonstrates progressive semicircular complex fluid component posterior to the hip prosthetic and is seen and potentially involves components of the gluteal musculature. 3. Air, radiopaque pellets possibly related antibiotic treatment, and a lateral incision line appear to be interval findings compared to the prior study. 4. The appearance suggests a progressive inflammatory/infectious process with the air component at least raising the possibility of an anaerobic gas producing organism type component versus simple post procedural air. 5. Given the extension posterior to the femoral prosthetic, involvement of the joint space is not excluded on this exam although the bulk of the findings as discussed above related to the subcutaneous fat and posterior gluteal musculature. 6. Overall, the appearance is considerably progressive compared to the prior exam The above report was generated using voice recognition software. It may contain grammatical, syntax or spelling errors. Electronically signed by: Naeem Meza M.D. 05/18/2017 12:36 PM Dictated Date/Time: 05/18/2017 12:26 PM
[2017-05-18] MEDS: FUROSEMIDE 20 MG TAB PO SCH (12:41)
--- NOTE | 2017-05-18 15:14 | PROGRESS NOTE ---
DATE: 05/18/2017 SUBJECTIVE: At this point in time, the patient is comfortable. She has some thigh pain, which has really not been out of proportion to what she has had all along. She notes that she feels much better, much stronger. She denies chest pain, shortness of breath, fever, chills, nausea, vomiting or headache. OBJECTIVE: VITAL SIGNS: Stable. Her T-max is 37.1. She is presently 36.9. Previous T-max was 37.3 on May 17. ABDOMEN: Soft, nontender. EXTREMITIES: Thigh and calves are soft, nontender. There is no subcutaneous air crepitation. The wound VAC is changed. There is some scant serous drainage. There are no major collections. There is no subcutaneous air. There are no exposed beads. Wound is well approximated. LABORATORY DATA: INR is 1.9 today. Electrolytes are good. Calcium is now down to 9.6. She had a CT ordered today by the hospitalist to ensure that there was no extension of disease below the hip joint. The official read is showing that there is complex fluid collections larger than the previous CAT scan that was done several weeks ago . All of these changes are secondary to postop I/D and poly exchange. Her clinical picture looks good. ASSESSMENT: Overall, continuing to improve. Wound VAC dressing changed today. There are no major issues with any unrecognized anaerobic subcutaneous bacterial progression. There is no subcutaneous air. There is no tenderness to pressure over the wound. She is increasing her function. She has pain with resisted quad function; however, this has been present for some time and presently; it has actually gotten better with function getting stronger. Her neurovascular check is normal distally. Her INR is at a good level. We will give her 2.5 mg of Coumadin today. We will keep weightbearing to tolerance. We will keep wound VAC dressing in place. Continue present antibiotic management unless something changes. We will obtain x-ray tomorrow to assess for dissolution of the beads as well as it gives an idea of migration of the beads. This is likely responsible for some of the changes on the CT scan. ALAN
[2017-05-18] MEDS ORDERED: WARFARIN SOD 2.5 MG TAB PO SCH (16:00)
[2017-05-18 16:30] VITALS: BP 152/74; PULSE 72; TEMP 36.9; O2SAT 92
[2017-05-18 20:30] VITALS: BP 191/81; PULSE 82
[2017-05-18] MEDS: RANITIDINE HCL 150 MG TAB PO SCH (20:54)
[2017-05-18 23:18] VITALS: BP 138/68; PULSE 83; TEMP 37.2; O2SAT 97
[2017-05-19] MEDS: ARMOUR THYROID 30 MG TAB PO SCH (05:28)
[2017-05-19 05:51] LABS: INR 1.5 (0.9-1.1); PROTHROMBIN TIME (PATIENT) 16.1 SECONDS (9.0-12.0)
--- NOTE | 2017-05-19 07:18 | DIAGNOSTIC IMAGING REPORT ---
SINGLE VIEW PELVIS; SINGLE VIEW RIGHT HIP CLINICAL HISTORY: Postoperative examination. FINDINGS: An AP portable view of the hips and pelvis with a crosstable lateral portable view of the right hip are compared to study dated 05/09/2017. A bipolar right hip arthroplasty is in near-anatomic alignment. A single cortical lag screw transfixes the acetabular cup. No acute fracture is identified. There are expected postoperative changes overlying the right hip including subcutaneous gas and soft tissue swelling. Mild to moderate arthritic change is seen in the left hip. Several antibiotic pledgets remain. These have decreased in number from 05/09/2017. A wound VAC is suggested. IMPRESSION: Postoperative changes involving the right hip as above. No acute bony abnormality is seen. Electronically signed by: Eugenio Ramesh M.D. 05/19/2017 7:17 AM Dictated Date/Time: 05/19/2017 7:14 AM
--- NOTE | 2017-05-19 07:27 | PROGRESS NOTE ---
DATE: 05/19/2017 SUBJECTIVE: At this point in time, the patient has slept comfortably. She denies any chest pain, shortness of breath, fever, chills, nausea, vomiting or headache. Her pain is reasonable. She only had medication twice yesterday. OBJECTIVE: VITAL SIGNS: Stable. She is afebrile. T-max 37.2. Wound dressing clean, dry and intact. Neurovascular check femoral sciatic nerve is good. X-ray, AP pelvis today reveals the Stimulan antibiotic beads are markedly diminished, some are extruded into the subcutaneous tissue. This is likely accounting for the CT scan. Detailed examination of extremity reveals no collections, no pockets, no subcutaneous air. INR is 1.5. Calcium is 9.4. ASSESSMENT: Continues to make progress. Still need to observe this soft. There are still long way to go with respect to salvaging this implant with continue medical treatment. Everyone understands that this could ultimately lead to an exchange with a spacer completely. We will keep weightbearing to tolerance. We will minimize hip motion to let the wound settle and continue with wound VAC dressing. We will follow up in the afternoon. Coumadin ordered for today, 3 mg.
[2017-05-19 07:39] VITALS: BP 125/76; PULSE 74; TEMP 37; O2SAT 97
[2017-05-19] MEDS: POLYETHYLENE (MIRALAX) 17 GM PACK PO SCH ×2 (08:56→20:55)
[2017-05-19] MEDS: SENNA 8.6 MG TAB PO SCH (08:57)
[2017-05-19] MEDS: MAGNESIUM OXIDE 400 MG TAB PO SCH ×2 (08:59→20:55)
[2017-05-19] MEDS: PANTOprazole SOD 40 MG TAB PO SCH (08:59)
[2017-05-19] MEDS: DOCUSATE SODIUM 100 MG CAP PO SCH ×2 (08:59→20:54)
[2017-05-19] MEDS: LACTOBACILLUS ACIDOPHILUS (FLORANEX) TAB PO SCH ×3 (08:59→20:55)
[2017-05-19] MEDS: CARVEDILOL 25 MG TAB PO SCH ×2 (08:59→20:54)
[2017-05-19] MEDS: LOSARTAN POTASSIUM 50 MG TAB PO SCH ×2 (08:59→20:54)
[2017-05-19] MEDS: FUROSEMIDE 20 MG TAB PO SCH (09:00)
[2017-05-19] MEDS: BOOST BREEZE NUTRITION DRINK 1 BOX PO SCH ×3 (09:56→20:54)
[2017-05-19] MEDS: DAPTOmycin IV 600 MG in SYRINGE 0 ML IV SCH (13:03)
--- NOTE | 2017-05-19 14:36 | Progress Note ---
Subjective Date of Service: May 19, 2017. Subjective pt feels much better still right thigh pain, wound vac is in place, overall she feels better Problem List Medical Problems: (1) Abdominal pain Status: Acute (2) Abscess of hip Status: Acute (3) Cellulitis Status: Acute (4) Hip pain Status: Acute (5) Leukocytosis Status: Acute Review of Systems Constitutional: + weakness, + fatigue, No fever, No chills Respiratory: No cough, No shortness of breath, No dyspnea on exertion Cardiac: No chest pain, No orthopnea, No edema Abdomen: No pain, No nausea, No vomiting, No diarrhea Musculoskeletal: + joint pain, + muscle pain Neurologic: No memory loss, No paralysis Psychiatric: No depression symptoms, No anhedonism Objective Vital Signs Date Time Temp Pulse Resp B/P (MAP) Pulse Ox O2 Delivery O2 Flow Rate FiO2 05/19/17 07:40 Room Air 05/19/17 07:39 37.0 74 18 125/76 (92) 97 Room Air 05/18/17 23:30 Room Air 05/18/17 23:18 37.2 83 16 138/68 (91) 97 Room Air 05/18/17 20:30 82 191/81 (117) 05/18/17 16:30 36.9 72 16 152/74 (100) 92 Room Air 05/18/17 16:20 Room Air Physical Exam General Appearance: WD/WN, + mild distress Eyes: PERRL, EOMI Respiratory/Chest: chest non-tender, lungs clear Cardiovascular: regular rate, rhythm, no murmur Abdomen: normal bowel sounds, non tender, soft Extremities: no pedal edema, no calf tenderness Neurologic/Psychiatric: alert, oriented x 3 Laboratory Results Last 24 Hours Test 05/19/17 05:11 Prothrombin Time 16.1 SECONDS Prothromb Time International Ratio 1.5 Calcium Level 9.4 mg/dl Assessment and Plan 77yo female with 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 cultures are negative, previously(04/20/17) showed enterococcus faecalis - pansensitive. Remains on daptomycin Progressive thigh pain, CT negative for more distal infection, did personally discuss results with Dr Roberts continue PT, OT; WBAT on right leg per ortho, will look to [facility] rehab, may have bed this week HyperCalcemia,now normalized after fluid hydration, lasix and zoledronic acid, will stop ivf but continue her typical daily lasix negative pThRP also acute/chronic anemia -suspect iron deficiency anemia, H/H continues to be stable We will hold Fe supplementation. As it is a GI irritation constipation follow and continue on miralax + senna. gastritis continues to be stable with PPI qam and zantac at HS (latter she takes at home chronically) chronic diastolic CHF - is stable with hydration, resume po lasix 05/18 HTN - coreg to 25mg BID. CKD stage 3 with acute kidney injury resolved hypothyroidism - TSH suppressed; Dr Stovall spoke with Dr. Dunn, endocrinology - recommended lowering armour thyroid dose to 120mg (from 135mg) f/u TSH in 6 weeks. DVT proph - INR is based upon the orthopedic nomogram patient/ updated at bedside dispo - highly encouraged her to consider inpatient rehab Continued [facility] stay due to: inadequate po fluid intake, ambulation difficulties , multiple IV medications needed, other (hypercalcemia) Discharge planning: uncertain
[2017-05-19] MEDS ORDERED: WARFARIN SOD 3 MG TAB PO SCH (16:00)
[2017-05-19 16:15] VITALS: BP 140/73; PULSE 81; TEMP 36.7; O2SAT 95
[2017-05-19] MEDS: OXYCODONE/ACETAMINOPHEN 10/325MG TAB PO PRN (16:34)
[2017-05-19 19:45] VITALS: O2SAT 95
[2017-05-19 20:50] VITALS: BP 148/76; PULSE 78
[2017-05-19] MEDS: RANITIDINE HCL 150 MG TAB PO SCH (20:55)
[2017-05-19 22:55] VITALS: BP 144/62; PULSE 77; TEMP 37; O2SAT 96
[2017-05-20] MEDS: ARMOUR THYROID 30 MG TAB PO SCH (05:45)
[2017-05-20 06:32] LABS: HEMATOCRIT 26.7 % (37-47); MEAN CELL VOLUME 85.9 fL (80-100); MEAN CORPUSCULAR HEMOGLOBIN 27.3 pg (25-34); MEAN CORPUSCULAR HGB CONC 31.8 g/dl (32-36); MEAN PLATELET VOLUME 8.7 fL (7.4-10.4); PLATELET COUNT 291 K/uL (130-400); RED BLOOD COUNT 3.11 M/uL (4.2-5.4); WHITE BLOOD COUNT 8.81 K/uL (4.8-10.8)
[2017-05-20 06:38] LABS: INR 1.6 (0.9-1.1); PROTHROMBIN TIME (PATIENT) 17.2 SECONDS (9.0-12.0)
[2017-05-20 06:55] LABS: BUN/CREATININE RATIO 19.7 (10-20); CALCIUM 8.9 mg/dl (8.5-10.1); CREATININE 1.64 mg/dl (0.60-1.20); MAGNESIUM 1.9 mg/dl (1.8-2.4); POTASSIUM 3.4 mmol/L (3.5-5.1)
[2017-05-20 07:20] VITALS: BP 142/73; PULSE 86; TEMP 37; O2SAT 94
[2017-05-20] MEDS ORDERED: POTASSIUM CHLORIDE 10 MEQ TABCR PO STA (07:22)
[2017-05-20] MEDS: POLYETHYLENE (MIRALAX) 17 GM PACK PO SCH (09:00)
[2017-05-20] MEDS ORDERED: FLUCONAZOLE 50 MG TAB PO ONE (09:45)
[2017-05-20] MEDS ORDERED: FUROSEMIDE 40 MG TAB PO ONE (10:15)
[2017-05-20] MEDS: CARVEDILOL 25 MG TAB PO SCH (11:02)
[2017-05-20] MEDS: MAGNESIUM OXIDE 400 MG TAB PO SCH (11:02)
[2017-05-20] MEDS: SENNA 8.6 MG TAB PO SCH (11:03)
[2017-05-20] MEDS: LACTOBACILLUS ACIDOPHILUS (FLORANEX) TAB PO SCH ×2 (11:03→13:19)
[2017-05-20] MEDS: DOCUSATE SODIUM 100 MG CAP PO SCH (11:03)
[2017-05-20] MEDS: PANTOprazole SOD 40 MG TAB PO SCH (11:04)
[2017-05-20] MEDS: BOOST BREEZE NUTRITION DRINK 1 BOX PO SCH ×2 (11:04→13:19)
[2017-05-20 12:44] LABS: CALCIUM 9.3 mg/dl (8.5-10.1); CREATININE 1.56 mg/dl (0.60-1.20); POTASSIUM 3.3 mmol/L (3.5-5.1)
--- NOTE | 2017-05-20 13:01 | PROGRESS NOTE ---
DATE: 05/20/2017 SUBJECTIVE: At this point in time, the patient is doing well and feels no major pain. She notes that she has no nausea, vomiting, headache, shortness of breath, fever or chills. She is eating well. Wound VAC dressing is continuing to work. She has mild fluid production. Examination of the incision through the dressing reveals no overt weakness, no collections, no other issues noted. She has good quad tone. Neurovascular check distally is normal. Hematocrit this morning had dropped from 33-26 over the last 4-5 days. White count is 8.8. INR is 1.6. Chemistry this morning revealed potassium of 3.4, calcium is down to 8.9. ASSESSMENT: Overall, doing well. She is having laboratory work repeated prior to potential transfer today. Hopefully, her hematocrit is stable and this likely based on hemodilution; however, she denies any diarrhea or belly pain that would be indicative of any gastrointestinal source. Her INR is elevated, but not alarming so, so it is likely unrelated to that. Her wound is not draining blood; it is all serous fluid. We will continue with observation discharge/transfer. Plans per medicine pending lab results.
[2017-05-20] MEDS: DAPTOmycin IV 600 MG in SYRINGE 0 ML IV SCH (13:19)
[2017-05-20] MEDS ORDERED: POTASSIUM CHLORIDE 10 MEQ TABCR PO ONE (13:45)
[2017-05-20] MEDS ORDERED: NYSP EXT (14:48)
[2017-05-20] MEDS ORDERED: DAPT500I IV (14:48)
[2017-05-20] MEDS ORDERED: CARV25TA PO (14:48)
[2017-05-20] MEDS ORDERED: WARF3TAB6 PO (14:48)
[2017-05-20] MEDS ORDERED: MRLP17 PO (14:48)
[2017-05-20] MEDS ORDERED: DFL100 PO (14:48)
[2017-05-20] MEDS ORDERED: SNK PO (14:48)
[2017-05-20] MEDS ORDERED: Boost Nutritional Drink PO (14:48)
[2017-05-20] MEDS ORDERED: FRRS300 PO (14:48)
[2017-05-20] MEDS ORDERED: FRS/40 PO (14:48)
[2017-05-20] MEDS ORDERED: OXYC-88 PO (14:48)
[2017-05-20] MEDS ORDERED: LCTX PO (14:48)
[2017-05-20] MEDS ORDERED: MGNO400 PO (14:48)
[2017-05-20] MEDS ORDERED: MCRK20 PO (14:48)
--- NOTE | 2017-05-20 15:01 | Discharge Instructions ---
Discharge Instructions Date of Service May 20, 2017. Admission Reason for Admission: Nausea, Vomiting, Weakness Discharge Discharge Diagnosis / Problem: Right Hip Infection- s/p I & D, Poly Exchange, Application Stimulan Beads Discharge Goals Goal(s): Decrease discomfort, Improve function, Increase independence, Improve disease control, Improve nutritional status, Learn about illness, Diagnostic testing, Therapeutic intervention Activity Recommendations Activity Level: Assistance Required Therapies: Physical Therapy, Occupational Therapy Per Dr. Hong - WBAT (weight bear as tolerated) to right leg, but NO MANIPULATION OF RIGHT HIP JOINT OR RANGE OF MOTION EXERCISES OF THE RIGHT HIP. . Additional Information Patient informed of condition: Yes Advance Directives: Yes DNR: No Level of Care: Acute Rehab Communicable Disease: No Prognosis: Improving Oxygen at (LPM): NONE Arambula Catheter: No Instructions / Follow-Up Instructions / Follow-Up 1. See Dr. Vinny Hong on Friday, May 26. Please call to set this appointment up. 2. See Dr. Junior Lindsey, nephrology, within 1 week. Please call to set this appointment up. 3. See PCP within 1 week of discharge from [facility]. 4. TSH will be needed in 5-6 weeks as outpatient. Current Hospital Diet Patient's current hospital diet: AHA Diet (Heart Healthy) Discharge Diet Recommended Diet: AHA Diet (Heart Healthy) Procedures Procedures Performed: Right Hip Incision and Drainage, Poly Exchange, Application of Stimulan Beads Pending Studies Studies pending at discharge: no Physician Orders On Transfer Dressing Changes: WoundVac to right hip IV Therapy: none Vital Signs: daily Weigh: every morning on standing scale report any weight gain of more than 2-3 pounds in 1-2 days to medical recruiter Additional Orders: 1. DAILY INR STARTING 05/21/17. INR goal is 1.8-2.2. 2. DAILY BMP FOR 3 DAYS starting 05/21/17, THEN WEEKLY THEREAFTER. 3. MAGNESIUM LEVEL 05/21/17. 4. CBC IN 2-3 DAYS then weekly thereafter. 5. LFTS weekly starting 05/21/17. 6. CPK weekly starting 06/06/17. POLST Discussion: Not Applicable Medical Emergencies . Who to Call and When: Medical Emergencies: If at any time you feel your situation is an emergency, please call 911 immediately. . Non-Emergent Contact Non-Emergency issues call your: Surgeon (ORTHOPEDICS), Specialist ([facility]) Call Non-Emergent contact if: temperature is above 100.5, your pain is not controlled, your pain is worsening, your pain is unusual for you, your pain is concerning you, wound has increased drainage, wound has increased redness, wound has increased pain, you have any medication questions . . "Provider Documentation" section prepared by Dylon Stovall. . Core Measure Problem Core Measures: None
[2017-05-20 16:12] VITALS: BP 142/73; PULSE 86; TEMP 37; O2SAT 94
--- NOTE | 2017-05-20 17:10 | Discharge Summary ---
Discharge Summary Date of Service May 20, 2017. Discharge Summary Admission Date: May 09, 2017 at 10:27 Discharge Date: May 20, 2017 Discharge Disposition: Rehab ([facility]) Principal Diagnosis: infected seroma, right hip, s/p I/D, polyexchange, Stimulan Beads applied Problems/Secondary Diagnoses: 1. hypercalcemia likely 2nd to Stimulan Beads - resolved 2. hypothyroidism 3. acute/chronic anemia - acute component 2nd to acute blood loss anemia 4. acute/chronic diastolic CHF 5. acute kidney injury 6. CKD stage 2-3 7. hypomagnesemia - resolved 8. hypokalemia 9. morbid obesity with BMI 45 10. HTN 11. pre-T2DM Immunizations: Have You Had Influenza Vaccine: No History of Tetanus Vaccine?: No History of Pneumococcal: No History of Hepatitis B Vaccine: Yes Procedures: 1. CT right hip: IMPRESSION: 1. Progressive complex partially air-containing collection lateral to the total right hip prosthetic. 2. Now demonstrates progressive semicircular complex fluid component posterior to the hip prosthetic and is seen and potentially involves components of the gluteal musculature. 3. Air, radiopaque pellets possibly related antibiotic treatment, and a lateral incision line appear to be interval findings compared to the prior study. 4. The appearance suggests a progressive inflammatory/infectious process with the air component at least raising the possibility of an anaerobic gas producing organism type component versus simple post procedural air. 5. Given the extension posterior to the femoral prosthetic, involvement of the joint space is not excluded on this exam although the bulk of the findings as discussed above related to the subcutaneous fat and posterior gluteal musculature. 6. Overall, the appearance is considerably progressive compared to the prior exam. 2. Right Hip Incision and Drainage, Poly Exchange, Application of Stimulan Beads - Vinny Hong MD 3. PRBCs x 2 units 4. IV zometa therapy Consultations: 1. orthopedics - Vinny Hong MD 2. infectious disease - Linnea Echevarria DO 3. PT, OT Medication Reconciliation New Medications: Potassium Chloride (Klor-Con M20) 20 Meq Tabcr 20 MEQ PO BID for 7 Days, #14 TAB 0 Refills Warfarin Sod (Jantoven) 3 Mg Tab 3 MG PO DAILY, #30 TAB 0 Refills Fluconazole (Fluconazole) 100 Mg Tab 100 MG PO QAM for 6 Days, #6 TAB 0 Refills starting 05/21/17 Magnesium Oxide (Magnesium-Oxide) 400 Mg Tab 400 MG PO BID, #30 TAB 0 Refills Nystatin (Nystop) 45 Appln/15 Gm Powd 1 APPLN EXT TID, #1 CAN 2 Refills apply to lower abdominal skin folds, under breasts, etc Oxycodone/Acetaminophen 10MG/325MG (Oxycodone/Acetaminophen 10MG/325MG) 1 Tab Tab 1 TAB PO Q6H PRN for Pain, #30 TAB 0 Refills Polyethylene (Miralax) 17 Gm Pow 17 GM PO DAILY, #30 PKT 0 Refills Senna (Senna Lax) 8.6 Mg Tab 17.2 MG PO QAM for 30 Days, #60 TAB 0 Refills [Boost Nutritional Drink] () 1 BOX LIQD 1 BOX PO TID for 14 Days, #42 BOX 0 Refills Changed Medications: Carvedilol (Coreg) 25 Mg Tab 1 TAB PO BID for 30 Days, #60 TAB 5 Refills (Changed from: Carvedilol (Coreg) 12.5 Mg Tab 2 Tabs PO QAM) Daptomycin (Daptomycin) 500 Mg Inj 600 MG IV DAILY for 17 Days, #17 DOSE 0 Refills (Changed from: 28; Refills: ) starting 05/21/17 Ferrous Sulfate (Ferrous Sulfate) 325 Mg Tab 325 MG PO BID for 30 Days, #60 TAB 2 Refills (Changed from: DAILY; 30; Refills: ) Furosemide (Lasix) 40 Mg Tab 40 MG PO DAILY for 7 Days, #7 TAB 0 Refills (Changed from: Q2D; Refills: ) Lactobacillus Acidophilus (Floranex) 1 Tab Tab 3 TAB PO TID for 20 Days, #180 TAB 0 Refills (Changed from: 1 TAB; 90; 30; Refills: ) Continued Medications: Acetaminophen (Tylenol) 500 Mg Tab 1000 MG PO Q6 PRN for Pain, TAB Cholecalciferol (Vitamin D3) 2,000 Unit Tab 2000 INTUNIT PO QAM Estradiol (Estradiol) 0.5 Mg Tab 0.25 MG PO HS Multivitamin (Multivitamin) Tab 1 TAB PO QAM, TAB Ranitidine (Zantac) 300 Mg Tab 300 MG PO HS, TAB Thyroid (Hoople Thyroid) 120 Mg Tab 120 MG PO QAM Discontinued Medications: Aspirin Buffered (Vel Carb-Mag (Tri-Buffered Aspirin) 1 Tab Tab 325 MG PO DAILY for 30 Days, #30 TAB Carvedilol (Coreg) 12.5 Mg Tab 12.5 MG PO QPM Furosemide (Lasix) 20 Mg Tab 20 MG PO Q2D, TAB Losartan Potassium (Cozaar) 50 Mg Tab 50 MG PO BID, TAB Thyroid (Hoople Thyroid) 15 Mg Tab 15 MG PO QAM Referrals At Discharge Follow up Referrals: Advertising Solicitor Referral - Within 1 Week with Junior Lindsey M.D. Orthopedics Referral - 05/26/17 with Vinny Hong M.D. Discharge Exam Physical Exam: General Appearance: no apparent distress, + obese ENT: pharynx normal Neck: no JVD Respiratory/Chest: lungs clear, no respiratory distress, no accessory muscle use Cardiovascular: regular rate, rhythm, no gallop, normal peripheral pulses, + systolic murmur (2/6 RUSB) Abdomen / GI: normal bowel sounds, non tender, soft, no organomegaly Extremities: + swelling (2+ b/l legs) Neurologic/Psychiatric: alert, oriented x 3 Skin: + pertinent finding (dressing in place, right hip, with wound vac present ) Hospital Course HISTORY OF PRESENT ILLNESS: This is a 77 y/o female with a history of HTN, hyperlipidemia, chronic diastolic CHF, CKD stage III, prediabetes, hypothyroidism, history of PMR, and recent post op wound infection. The patient had a right DEANN on 03/19/17. She ultimately developed a fluid collection which was drained and cultured on . This returned positive for Enterococcus Faecalis. The patient was subsequently hospitalized from April 22 to April 24 for her infected seroma. She was discharged to home on IV daptomycin for the enterococcus as well as IV ertapenem (blood cultures were positive for an unusual gram negative pathogen - hence the ertapenem). She presently has 2 remaining days of treatment however she had missed her antibiotics the past 2 days. This past Friday she had a fever of 101.7 per her daughter. She also complained of 2 days of nausea, a few episodes of vomiting and diarrhea, although this appears to have resolved. She has also developed a degree of cellulitis extending down from the wound over the past few days. HOSPITAL COURSE: 1. infected right-sided hip seroma in the setting of prior right hip replacement - On hospital day #1 the patient underwent right Hip Incision and Drainage, Poly Exchange, and Application of Stimulan Beads by Dr. Hong. Intra-op culture remained negative while hospitalized. She was continued on IV daptomycin and IV ertapenem (again, the latter for a positive blood culture earlier in April). Blood cultures remained negative and the ertapenem was discontinued. Although the intra-operative cultures remained negative infectious disease felt she should continue on IV daptomycin. 4 weeks of daptomycin were recommended following her 05/09/17 incision/drainage procedure. Thus, at time of transfer to [facility], she will need an additional 17 days of treatment. PICC line had been attempted in the past and was unsuccessful; thus, she will require intermittent peripheral IVs to finish her course. Dr. Hong has recommended weight-bearing as tolerated but no manipulation of the right hip. She will continue with a wound vac on the right hip. 2. hypercalcemia - prior to her 05/09/17 operation the patient's total calcium level was normal. On Post-OP day #1 the calcium regi to 10.6, peaking at 14.1 later on in her stay. She was severely symptomatic from the hypercalcemia with multiple GI symptoms, fatigue, myalgias/arthralgias, mild alteration in consciousness, etc. Intact PTH, PTH-related peptide, 25-OH vitamin D, 1,25-OH vitamin D, SPEP, UPEP , and phosphorus were all normal. She received copious hydration, calcitonin, lasix, and ultimately one dose of IV zometa (bisphosphanate). The culprit for her severe hypercalcemia was felt to be the STIMULAN Beads as these beads are composed of calcium sulfate. No other plausible explanation was ever found. Fortunately there was some literature available demonstrating a causality between STIMULAN Beads and hypercalcemia. During the 3 days prior to discharge her calcium remained normal. Advise a repeat BMP shortly after admission to [facility] to track the calcium level. 3. acute/chronic anemia - hemoglobin dropped to <8 during her stay following her surgery necessitating the use of 2 units of PRBCs. Following the blood transfusion her hemoglobin remained stable with negative hemoccult. Discharge hemoglobin was 9. She was advised to continue on iron supplementation. CBC will be needed routinely to ensure stability. 4. chronic diastolic CHF - she may have had mild acute/chronic diastolic CHF while here in the setting of copious hydration for her hypercalcemia. Weight was 248 pounds at discharge. Recommend 40mg of daily lasix at [facility] until she is back to baseline dry weight. Then, can resume 40mg daily alternating with 20mg daily as previous. Potassium/magnesium supplement to be continued. 5. HTN - her losartan was held at discharge due to the mild acute kidney injury. Her coreg was increased to 25mg BID while hospitalized. 6. CKD stage 3 with acute kidney injury - the patient's creatinine regi several times while hospitalized in the setting of fluids and diuresis for her hypercalcemia. Creatinine at discharge was 1.5 with baseline of about 1.1. 7. hypothyroidism - TSH was suppressed and thus her armour thyroid dose was lowered to 120mg (from 135mg). Follow-up TSH in 5-6 weeks is recommended. 8. DVT prophylaxis - she was placed on the coumadin nomogram while here. INR goal is 1.8 - 2.2. INR on day of discharge was 1.6. Recommend daily INRs at [facility] until INR is stable and a dose of 3mg of coumadin daily. The following labs are recommended at discharge: 1. DAILY INR STARTING 05/21/17. INR goal is 1.8-2.2. 2. DAILY BMP FOR 3 DAYS starting 05/21/17, THEN WEEKLY THEREAFTER. 3. MAGNESIUM LEVEL 05/21/17. 4. CBC IN 2-3 DAYS after discharge then WEEKLY thereafter. 5. LFTS weekly starting 05/21/17. 6. CPK weekly starting 06/06/17. Total Time Spent: Greater than 30 minutes This includes examination of the patient, discharge planning, medication reconciliation, and communication with other providers. Discharge Instructions Please refer to the electronic Patient Visit Report (Discharge Instructions) for additional information. Follow-Up 1. see Dr. Vinny Hong, orthopedics, on Friday05/26/17 - time to be arranged 2. see Dr. Rohith Lindsey, nephrology, within 1 week 3. medical assistant of [facility] within 48 hours 4. PCP (Dr. Brenton Quiroz) within 1 week of discharge from [facility] Additional Copies To Junior Lindsey M.D.; [facility]; Noman Quiroz M.D.; Vinny Hong M.D.; Rajendra Mckay D.O.; Chay Dunn M.D.
[2017-05-21] MEDS ORDERED: FLUCONAZOLE 100 MG TAB PO SCH (09:00)
== END 2017-05-20 16:15 | DRG 467 ==
LOC: C.EDB 10:12 → C.MSW 13:40 → EDBEDREQSVC 13:44 → ENRESERV 13:51 → OBSVTOIN 05-09 10:27 → ENRESERV 05-11 19:02 → C.2T 05-11 19:38 → ENRESERV 05-15 16:31 → C.3E 05-15 17:31
PROVIDERS: ADMIT Internal Medicine; ATTEND Internal Medicine
PROC: 0SRR0JZ Replacement of Right Hip Joint, Femoral Surface with Synthetic Substitute, Open Approach (ICD-10-PCS; principal; 2017-05-09 11:00)
PROC: 0SH908Z Insertion of Spacer into Right Hip Joint, Open Approach (ICD-10-PCS; principal; 2017-05-09 11:00)
PROC: 0SUA09Z Supplement Right Hip Joint, Acetabular Surface with Liner, Open Approach (ICD-10-PCS; principal; 2017-05-09 11:00)
PROC: 0SPR0JZ Removal of Synthetic Substitute from Right Hip Joint, Femoral Surface, Open Approach (ICD-10-PCS; principal; 2017-05-09 11:00)
PROC: 0SP909Z Removal of Liner from Right Hip Joint, Open Approach (ICD-10-PCS; principal; 2017-05-09 11:00)
PROC: 0JDL0ZZ Extraction of Right Upper Leg Subcutaneous Tissue and Fascia, Open Approach (ICD-10-PCS; principal; 2017-05-09 11:00)
DX: T84.7XXA Infection and inflammatory reaction due to other internal orthopedic prosthetic devices, implants and grafts, initial encounter (principal); L03.115 Cellulitis of right lower limb; M96.842 Postprocedural seroma of a musculoskeletal structure following a musculoskeletal system procedure; I50.32 Chronic diastolic (congestive) heart failure; I12.9 Hypertensive chronic kidney disease with stage 1 through stage 4 chronic kidney disease, or unspecified chronic kidney disease; E03.9 Hypothyroidism, unspecified; N18.3 Chronic kidney disease, stage 3 (moderate); M19.90 Unspecified osteoarthritis, unspecified site; Z79.82 Long term (current) use of aspirin; E66.01 Morbid (severe) obesity due to excess calories; Z87.891 Personal history of nicotine dependence; Z80.9 Family history of malignant neoplasm, unspecified; Z83.3 Family history of diabetes mellitus; Z82.49 Family history of ischemic heart disease and other diseases of the circulatory system; Z84.1 Family history of disorders of kidney and ureter; Z82.3 Family history of stroke; Y83.1 Surgical operation with implant of artificial internal device as the cause of abnormal reaction of the patient, or of later complication, without mention of misadventure at the time of the procedure; T81.4XXA Infection following a procedure, initial encounter; Y83.8 Other surgical procedures as the cause of abnormal reaction of the patient, or of later complication, without mention of misadventure at the time of the procedure; R78.81 Bacteremia

== ENCOUNTER → 2017-06-02 | Outpatient (CLI) | payer OTHER, MEDICARE ==
[~2017-06-02] MED LIST changes: +ASPI325T39 PO; -ASPI325T60 PO; +Boost Nutritional Drink PO; -CARV12.5 PO; +CARV25TA PO; +DFL100 PO; +DOCU100C31 PO; -ERTA1INJ IV; -FURO-85 PO; +MCRK20 PO; +MGNO400 PO; +MRLP17 PO; +NYSP EXT; +OXYC-88 PO; +SNK PO; -THYR15TA PO; +WARF3TAB6 PO
[2017-06-02 11:33] LABS: INR 2.8 (0.9-1.1); PROTHROMBIN TIME (PATIENT) 30.9 SECONDS (9.0-12.0)
== END | disposition home or self-care (01) ==
LOC: C.LAB 10:44
PROVIDERS: ATTEND Physician Assistant
DX: M87.051 Idiopathic aseptic necrosis of right femur (principal); Z96.641 Presence of right artificial hip joint

== ENCOUNTER 2017-06-05 09:52 | Inpatient (IN) | payer OTHER, MEDICARE ==
[~2017-06-05] VITALS: Ht 157.5 cm; Wt 109.4 kg
[~2017-06-05 09:52] MED LIST changes: -ASPI325T39 PO; -CARV12.52 PO; -DOCU100C31 PO; -LOSA50TA6 PO; +OXYC-594 PO; -OXYC-88 PO
[2017-06-05 10:55] LABS: BASO % 0.3 %; BASO ABS # 0.03 K/uL (0-0.2); EOS % 7.8 %; EOS ABS # 0.68 K/uL (0-0.5); HEMATOCRIT 24.8 % (37-47); IG# 0.03 K/uL (0.00-0.02); LYMPH % 9.2 %; MEAN CELL VOLUME 83.8 fL (80-100); MEAN CORPUSCULAR HGB CONC 32.3 g/dl (32-36); MEAN PLATELET VOLUME 8.1 fL (7.4-10.4); MONO % 8.5 %; MONO ABS # 0.74 K/uL (0.11-0.59); NEUT % 73.9 %; NEUT ABS # 6.42 K/uL (1.4-6.5); PLATELET COUNT 344 K/uL (130-400); RED CELL DISTRIBUTION WIDTH CV 15.3 % (11.5-14.5); RED CELL DISTRIBUTION WIDTH SD 47.7 fL (36.4-46.3)
[2017-06-05] MEDS ORDERED: DAPTOmycin IV 600 MG in SODIUM CHLORIDE 0.9% 50ML 50 ML IV STA (11:03)
[2017-06-05] MEDS ORDERED: DAPTOmycin IV 600 MG in SYRINGE 0 ML IV SCH (11:03)
--- NOTE | 2017-06-05 11:14 | DIAGNOSTIC IMAGING REPORT ---
SINGLE VIEW CHEST CLINICAL HISTORY: Dyspnea. Generalized weakness FINDINGS: 2 AP, portable, upright chest radiographs are compared to study dated 05/13/2017. The examination is degraded by portable technique and patient rotation. The heart is enlarged and there is atherosclerotic calcification of the thoracic aorta. There is pulmonary vascular congestion. Small pleural effusions are identified. There are hazy airspace opacities with more focal areas of consolidation seen in the right upper lobe and at both lung bases. No pneumothorax is seen. The skeletal structures are osteopenic. The bony thorax is grossly intact. IMPRESSION: 1. Cardiomegaly with evidence of congestive failure. 2. Hazy bilateral airspace opacities are identified with more focal regions of consolidation as above. This could represent pulmonary edema and/or multifocal pneumonia. Clinical correlation will be required and radiographic follow-up to resolution is recommended. 3. Small pleural effusions. Electronically signed by: Eugenio Ramesh M.D. 06/05/2017 11:13 AM Dictated Date/Time: 06/05/2017 11:11 AM
[2017-06-05 11:15] LABS: INR 1.7 (0.9-1.1)
[2017-06-05 11:18] LABS: ALBUMIN 2.5 gm/dl (3.4-5.0); ALT/SGPT 39 U/L (12-78); BLOOD UREA NITROGEN 25 mg/dl (7-18); CALCIUM 8.1 mg/dl (8.5-10.1); CARBON DIOXIDE 20 mmol/L (21-32); CREATININE 1.71 mg/dl (0.60-1.20); GLUCOSE 108 mg/dl (70-99); LIPASE 245 U/L (73-393); POTASSIUM 4.3 mmol/L (3.5-5.1); SODIUM 134 mmol/L (136-145)
[2017-06-05 11:27] LABS: ALKALINE PHOSPHATASE 133 U/L (45-117); AST/SGOT 27 U/L (15-37); CKMB < 0.5 ng/ml (0.5-3.6); PTT PATIENT 50.8 SECONDS (21.0-31.0); TOTAL PROTEIN 7.3 gm/dl (6.4-8.2)
[2017-06-05] MEDS ORDERED: FRS/40 PO (11:37)
[2017-06-05] MEDS ORDERED: LOSA50TA6 PO (11:37)
[2017-06-05] MEDS ORDERED: DOCU100C31 PO (11:37)
[2017-06-05] MEDS ORDERED: ASPI325T39 PO (11:37)
[2017-06-05] MEDS ORDERED: CARV12.52 PO ×2 (11:37)
--- NOTE | 2017-06-05 11:50 | DIAGNOSTIC IMAGING REPORT ---
ULTRASOUND VENOUS DOPPLER LWR EXT BILA CLINICAL HISTORY: Leg pain, recent surgery, bilateral edema. Shortness of breath. COMPARISON STUDY: September 2008 FINDINGS: Real-time and color flow Doppler imaging were performed. Flow was seen within the femoral, popliteal and calf veins with no intraluminal thrombus demonstrated. The saphenous vein is patent. There is increased pulsatility within the waveforms, a finding which may indicate elevated right heart pressures. IMPRESSION: 1. No evidence of lower extremity DVT 2. Increased pulsatility within the waveforms a finding which may indicate elevated right heart pressures Electronically signed by: Mahin Farr M.D. 06/05/2017 11:49 AM Dictated Date/Time: 06/05/2017 11:47 AM
[2017-06-05] MEDS ORDERED: FUROSEMIDE 40 MG/4 ML VIAL IV STA (12:04)
[2017-06-05] MEDS ORDERED: LEVAQUIN 750MG / 150ML D5W IV STA (12:04)
[2017-06-05 12:20] VITALS: O2SAT 96; Ht 157.5 cm; Wt 109.4 kg
--- NOTE | 2017-06-05 12:20 | NUR ---
A/ID: 77 year old female in ED. c/o shortness of breath. Possible admission/observation. Admission Assessment done. Code Word/Fall Agreement reviewed with patient and completed. Continued care in ED by SHANNON Medina.
[2017-06-05] MEDS ORDERED: ONDANSETRON INJ 2 MG/ML 2 ML VIAL IV PRN (12:45)
[2017-06-05] MEDS ORDERED: ACETAMINOPHEN 325 MG TAB PO PRN (12:45)
--- NOTE | 2017-06-05 12:53 | History and Physical ---
History & Physical Date & Time of Service: Jun 05, 2017 at 12:45 Chief Complaint: Breathing Difficulty Primary Care Physician: Noman Quiroz M.D. History of Present Illness 77-year-old female recently discharged from our facility after issue with hypercalcemia and a right hip prosthetic infection. The patient went to acute rehabilitation then transition to home she is eclipsed her home anticoagulation for DVT prevention and transitioned aspirin she is maintained on intravenous daptomycin with infectious disease and orthopedic oversight. She presents today with a few days' worth of increasing shortness of breath a nonproductive cough and episodes of confusion. Her initial evaluation shows an abnormal chest x-ray which is read as possible infection versus heart failure there are changes of the right base and subtle changes throughout. She has no significant history of systolic dysfunction but there is some suggestion of diastolic dysfunction. The patient has been persistently elevated sedimentation rate, no defined leukocytosis or fever but her x-ray looks more convincing to be this an infectious situation with likely metabolic encephalopathy. Family History Cancer Diabetes mellitus Gallbladder disease Heart disease Hypertension Kidney disease Kidney stones Stroke Social History Smoking Status: Unknown if Ever Smoked Drug Use: none Marital Status: Housing status: lives with family Occupational Status: retired Immunizations History of Influenza Vaccine: No History of Tetanus Vaccine?: Yes History of Pneumococcal: Yes History of Hepatitis B Vaccine: Yes Multi-Drug Resistant Organisms History of MDRO: No Allergies Coded Allergies: Adhesives (Verified Allergy, Mild, RASH, 06/05/17) Clindamycin (Verified Allergy, Mild, RASH, 06/05/17) Ezetimibe (Verified Allergy, Mild, MEMORY LOSS, 06/05/17) Latex (Verified Allergy, Mild, RASH, 06/05/17) Penicillins (Verified Allergy, Mild, HIVES, 06/05/17) Quinolones (Verified Allergy, Mild, UNKNOWN, 06/05/17) Simvastatin (Verified Allergy, Mild, MUSCLE ACHES, 06/05/17) Sulfa Antibiotics (Verified Allergy, Mild, RASH AND ITCHING, 06/05/17) Erythromycin (Verified Allergy, Unknown, RASH, 06/05/17) Irbesartan (Verified Allergy, Unknown, FATIGUE, 06/05/17) Lisinopril (Verified Allergy, Unknown, PERIORBITAL SWELLING, 06/05/17) Niacin (Verified Allergy, Unknown, UNKNOWN, 06/05/17) Tetracycline (Verified Allergy, Unknown, RASH, 06/05/17) Gabapentin (Verified Adverse Reaction, Unknown, SWELLING ("ALL OVER"), ) Home Medications Scheduled Aspirin (Aspirin Ec), 325 MG PO DAILY Carvedilol (Coreg), 25 MG PO QAM Carvedilol (Coreg), 12.5 MG PO QPM Cholecalciferol (Vitamin D3), 2,000 INTUNIT PO QAM Daptomycin (Daptomycin), 600 MG IV DAILY Docusate Sodium (Docusate Sodium), 100 MG PO BID Estradiol (Estradiol), 0.25 MG PO HS Ferrous Sulfate (Ferrous Sulfate), 325 MG PO BID Lactobacillus Acidophilus (Floranex), 3 TAB PO TID Losartan Potassium (Cozaar), 50 MG PO BID Multivitamin (Multivitamin), 1 TAB PO QAM Polyethylene (Miralax), 17 GM PO DAILY Ranitidine (Zantac), 300 MG PO HS Thyroid (Reedy Thyroid), 120 MG PO QAM Scheduled PRN Furosemide (Lasix), 20-40 MG PO UD PRN for WATER RETENTION Review of Systems ROS: well nourished well developed confused at times No double vision blurry vision No problems with speech or swallowing No palpitations, chest pain or pressure No Wheezing but a violent nonproductive cough No abdominal pain occasional mild nausea but no vomiting she attributes this to nervousness, No diarrhea changes in appetite or weight No burning urine urine frequency or changes in color She has persistent mild right hip pain and some associated swelling No skin rashes or oral lesions there is mild redness surrounding her hip incision her orthopedics believes this is acceptable No unusual bruising or bleeding No focused back pain or numbness or loss of strength No changes in memory during my evaluation Physical Exam Vital Signs Date Time Temp Pulse Resp B/P (MAP) Pulse Ox O2 Delivery O2 Flow Rate FiO2 06/05/17 11:36 80 20 161/60 98 Nasal Cannula 2.0 06/05/17 10:23 98 Nasal Cannula 2.0 06/05/17 10:19 37.4 85 22 187/69 95 Room Air 06/05/17 10:14 95 Room Air 06/05/17 10:03 84 General Appearance: WD/WN, no apparent distress Head: normocephalic, atraumatic Eyes: PERRL, EOMI ENT: hearing grossly normal, pharynx normal Neck: supple, no adenopathy, thyroid normal, no JVD Respiratory/Chest: chest non-tender, + pertinent finding (occasional scant Rales heard best in the mid lung salgado no focal air loss the right base or egophony) Cardiovascular: regular rate, rhythm, no murmur Abdomen/GI: normal bowel sounds, non tender, soft Back: no muscle spasm, normal range of motion, + pertinent finding Extremities/Musculoskelatal: + pertinent finding (her wound is intact mild erythema trace edema to her right leg) Neurologic/Psych: alert, oriented x 3 Diagnostics Laboratory Results Results Past 24 Hours Test 06/05/17 10:35 06/05/17 10:43 Range/Units Urine Color YELLOW Urine Appearance CLEAR CLEAR Urine pH 5.0 4.5-7.5 Urine Specific [place] 1.017 1.000-1.030 Urine Protein 3+ NEG Urine Glucose (UA) NEG NEG Urine Ketones NEG NEG Urine Occult Blood 1+ NEG Urine Nitrite NEG NEG Urine Bilirubin NEG NEG Urine Urobilinogen NEG NEG Urine Leukocyte Esterase NEG NEG Urine WBC (Auto) 1-5 0-5 /hpf Urine RBC (Auto) 0-4 0-4 /hpf Urine Hyaline Casts (Auto) 1-5 0-5 /lpf Urine Epithelial Cells (Auto) >30 0-5 /lpf Urine Bacteria (Auto) NEG NEG Urine Pathogenic Casts 0-3 GRANULAR CASTS 0 /lpf Urine Yeast (Auto) NONE PRSENT White Blood Count 8.70 4.8-10.8 K/uL Red Blood Count 2.96 4.2-5.4 M/uL Hemoglobin 8.0 12.0-16.0 g/dL Hematocrit 24.8 37-47 % Mean Corpuscular Volume 83.8 80-100 fL Mean Corpuscular Hemoglobin 27.0 25-34 pg Mean Corpuscular Hemoglobin Concent 32.3 32-36 g/dl Platelet Count 344 130-400 K/uL Mean Platelet Volume 8.1 7.4-10.4 fL Neutrophils (%) (Auto) 73.9 % Lymphocytes (%) (Auto) 9.2 % Monocytes (%) (Auto) 8.5 % Eosinophils (%) (Auto) 7.8 % Basophils (%) (Auto) 0.3 % Neutrophils # (Auto) 6.42 1.4-6.5 K/uL Lymphocytes # (Auto) 0.80 1.2-3.4 K/uL Monocytes # (Auto) 0.74 0.11-0.59 K/uL Eosinophils # (Auto) 0.68 0-0.5 K/uL Basophils # (Auto) 0.03 0-0.2 K/uL RDW Standard Deviation 47.7 36.4-46.3 fL RDW Coefficient of Variation 15.3 11.5-14.5 % Immature Granulocyte % (Auto) 0.3 % Immature Granulocyte # (Auto) 0.03 0.00-0.02 K/uL Polychromasia 1+ Erythrocyte Sedimentation Rate 67 0-21 mm/hr Prothrombin Time 18.9 9.0-12.0 SECONDS Prothromb Time International Ratio 1.7 0.9-1.1 Activated Partial Thromboplast Time 50.8 21.0-31.0 SECONDS Partial Thromboplastin Ratio 2.0 Sodium Level 134 136-145 mmol/L Potassium Level 4.3 3.5-5.1 mmol/L Chloride Level 104 98-107 mmol/L Carbon Dioxide Level 20 21-32 mmol/L Anion Gap 10.0 3-11 mmol/L Blood Urea Nitrogen 25 7-18 mg/dl Creatinine 1.71 0.60-1.20 mg/dl Est Creatinine Clear Calc Drug Dose 32.1 ml/min Estimated GFR () 32.9 Estimated GFR (Non- 28.4 BUN/Creatinine Ratio 14.5 10-20 Random Glucose 108 70-99 mg/dl Calcium Level 8.1 8.5-10.1 mg/dl Magnesium Level 1.8 1.8-2.4 mg/dl Total Bilirubin 0.4 0.2-1 mg/dl Direct Bilirubin 0.1 0-0.2 mg/dl Aspartate Amino Transf (AST/SGOT) 27 15-37 U/L Alanine Aminotransferase (ALT/SGPT) 39 12-78 U/L Alkaline Phosphatase 133 45-117 U/L Total Creatine Kinase 33 26-192 U/L Creatine Kinase MB < 0.5 0.5-3.6 ng/ml Creatine Kinase MB Ratio 0-3.0 Troponin I < 0.015 0-0.045 ng/ml Pro-B-Type Natriuretic Peptide 4328 0-1800 pg/ml Total Protein 7.3 6.4-8.2 gm/dl Albumin 2.5 3.4-5.0 gm/dl Lipase 245 73-393 U/L Thyroid Stimulating Hormone (TSH) 0.446 0.300-4.500 uIu/ml Microbiology Results 06/05/17 Blood Culture, Received Pending 06/05/17 Blood Culture, Received Pending 06/05/17 Urine Culture, Received Pending Diagnostic Radiology Pending sedimentation rate at time of presentation her INR is 1.7, BUn creatinine 25/1.7 other (chest x-ray shows infiltrate at the right base possible diffuse for a vascular congestion) Normal EKG Impression Assessment and Plan 77-year-old female presenting with metabolic encephalopathy from suspect a right lower lobe pneumonia with concern for gram-negative organisms, mild concern for acute on chronic diastolic heart failure Infectious disease the patient was placed on levofloxacin and cefepime and cultures are obtained continuing daptomycin infectious disease evaluation. The patient does not give clinical complaints of aspiration will not formally cover this at this time unless becomes more apparent bedside evaluation next Possible acute on chronic diastolic heart failure because of the patient's chronic kidney disease stage III we'll avoid diuresis unless we needed we'll monitor renal function and an echocardiogram, there would be an outside chance the patient could have endocarditis so we'll evaluate for valvular vegetations also Acute on chronic anemia. Anemia also from acute blood loss from her previous surgery we'll maintain her iron supplementation and follow her blood count Chronic kidney disease we'll maintain her ARB watch her renal function if questionable consulting nephrology for oversight Her previous hypercalcemia has resolved on intake her calcium is acceptable Elevated INR repeat this in the morning DVT prevention is renal-based heparin Patient is a full code VTE Prophylaxis VTE Risk Assessment Done? Y/N: Yes Risk Level: Moderate
[2017-06-05] MEDS ORDERED: MoRPHine SULFATE 4 MG/ML 1 ML CARP\\VIAL IV PRN (13:00)
[2017-06-05] MEDS ORDERED: MoRPHine SULFATE 2 MG/ML CARP IV PRN (13:00)
[2017-06-05] MEDS ORDERED: LORAZEPAM 2 MG/ML 1 ML VIAL IV PRN ×2 (13:00)
[2017-06-05] MEDS ORDERED: HydrALAZINE HCL 20 MG/ML VIAL IV PRN (13:00)
[2017-06-05] MEDS ORDERED: POLYETHYLENE (MIRALAX) 17 GM PACK PO PRN (13:15)
[2017-06-05] MEDS ORDERED: LORAZEPAM INJ 0.5 MG in SYRINGE 0.75 ML IV PRN (13:30)
[2017-06-05] MEDS ORDERED: LORAZEPAM INJ 1 MG in SYRINGE 0.5 ML IV PRN (13:45)
[2017-06-05] MEDS ORDERED: LEVOFLOXACIN CONSULT ACTIVE PRN (14:00)
[2017-06-05] MEDS ORDERED: CEFEPIME CONSULT ACTIVE PRN (14:00)
--- NOTE | 2017-06-05 14:01 | Medical Consult ---
Consultation Note Date of Service Jun 05, 2017. 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 This was Complicated by perioperative Infection with possible extension into the joint. As she did not make usual progress with medical management she was taken back a second time for I&D would poly- exchange and application of antibiotic beads. Her hospital course with that was complicated by hypercalcemia.Since discharge last time the wound has been quiet with minimal drainage and improvement in appearance. She now presents to the emergency department with a low-grade temp and shortness of breath. Pertinent orthopedic examination reveals the wound to be clean and dry. Range of motion of the hip is supple and pain-free. She does have low-grade abductor type discomfort with resisted movement. There is no finding of concern there with respect to collection of fluid or redness. Neurovascular check of the femoral sciatic nerves is normal. Chest x-ray reveals congestive heart failure changes and potential pneumonia. Venous ultrasound of the lower extremities consistent with elevated right-sided heart pressures. Laboratory work as noted. Assessment: Unfortunate white female status post right hip replacement with multiple medical comorbidities as developed over her postoperative course. At this point in time, her present problem does not appear to be related to the right hip. Differential diagnosis includes pneumonia, congestive heart failure , and pulmonary embolism. She was anticoagulated for 4 full weeks and started on aspirin on Friday. At this point in time DVT PE prophylaxis per medicine. Continue medical management for perioperative hip infection to include daptomycin. That needs to continue until she 6 weeks Postoperatively from her I &D of her left hip. Treatment for heart failure and pneumonia per medicine. With respect orthopedic perspective, she can be full weightbearing on the right hip and be mobilized to tolerance based on her lung symptoms. Dictated not read.
[2017-06-05] MEDS ORDERED: PERFLUTREN LIPID MICROSPHERE (DEFINITY) IV ONE (14:44)
[2017-06-05] MEDS: OXYCODONE HCL IR 5 MG TAB (IMMEDIATE RELEASE) PO PRN ×2 (14:50→23:24)
[2017-06-05 15:34] VITALS: BP 152/71; PULSE 82; TEMP 37.6; O2SAT 92
[2017-06-05 16:00] VITALS: O2SAT 92
[2017-06-05] MEDS: ESTRACE~ORDER AWAITING ACTION SCH (16:00)
--- NOTE | 2017-06-05 16:00 | NUR ---
A: Pt admitted for RLL pneumonia. A+O X 4. at bedside. VSS. Lung sounds coarse in RLL, all other lobes diminished, denies SOB or chest pain, O2 sats stable on RA. 1 assist w/walker OOB. R hip healing incision from recent surgery, open to air. SL in R AC, WNL. Also has US guided peripheral IV in L FA, WNL. Voiding clear yellow urine in toilet, wears brief for stress incontinence. Oriented to room and call castellano. Will continue to monitor.
[2017-06-05] MEDS: CEFEPIME IV 2,000 MG in SYRINGE 7.5 ML IV SCH (16:24)
[2017-06-05] MEDS: FERROUS SULFATE 325 MG TAB PO SCH (16:31)
[2017-06-05] MEDS: LACTOBACILLUS ACIDOPHILUS (FLORANEX) TAB PO SCH (16:32)
--- NOTE | 2017-06-05 17:15 | PROGRESS NOTE ---
DATE: 06/05/2017 Orthopedic p.m. rounds. At this point in time, the patient feels much better. Since she received her Lasix, she notes that she is breathing more. She had a significant amount of diuresis. She states that she had trouble making it to the bathroom as she is urinating so frequently. Vital signs are stable. T max is 37.6. Blood pressure is stable. Pulse ox is in the high 90s. ASSESSMENT: Being treated appropriately with diuresis and additional antibiotics for pneumonia. We will continue to follow carefully. Of note is that repeat examination of the leg this afternoon reveals no change. The leg is supple and without any tenseness or significant tenderness with palpation and the wound is clean and dry. Hip range of motion is supple and pain free.minor adductor pain over varicosity. MTDD
--- NOTE | 2017-06-05 17:51 | ECHOCARDIOGRAM REPORT ---
*NOTICE TO RECEIVING [employer] This information is strictly Confidential and protected under [place] law. [place] law prohibits you from making any further disclosure of this information unless further disclosure is expressly permitted by the written consent of the person to whom it pertains or is authorized by law. A general authorization for the release of medical or other information is not sufficient for this purpose. Hospital accepts no responsibility if the information is made available to any other person, INCLUDING THE PATIENT. Interpretation Summary * Name: MAGDY CARDOZA Study Date: 06/05/2017 01:30 PM BP: 168/59 mmHg * Patient Location: [facility] HR: 85 * : 1940 (M/d/yyyy) Gender: Female Height: 62 in * Age: 77 yrs Ethnicity: [place] Weight: 241 lb * Ordering Physician: Schuyler Luna * Referring Physician: Self, Referred * Performed By: Rohini Castillo RCS * * Reason For Study: CHF * BSA: 2.1 m2 * -- Conclusions -- * 1. Normal left ventricular size with hyperdynamic systolic function. EF 65-70%. No regional wall motion abnormalities. No left ventricular hypertrophy. Type 2 diastolic dysfunction; pseudo normalized pattern. * 2. No significant valvular abnormalities visualized. * 3. Technically difficult study, enhanced with IV Definity. * 4. No significant change from prior study on 03/23/2015. Procedure Details * A complete two-dimensional transthoracic echocardiogram was performed (2D, M-mode, Doppler and color flow Doppler). * A contrast injection of Definity was performed to improve assessment of LV function. * Contrast was injected into an intravenous site in the right arm. * One vial of Definity ultrasound contrast was diluted in normal saline to a total volume of 10 ml. A total of '1' ml of solution was administered during imaging. * Lot # [id number] of Definity utilized for procedure. * Expiration date 1DEC18. * The attending nurse who injected the contrast agent was Manny Gamez RN. Left Ventricle * Normal left ventricular size with hyperdynamic systolic function. EF 65-70%. No regional wall motion abnormalities. No left ventricular hypertrophy. Type 2 diastolic dysfunction; pseudo normalized pattern. Right Ventricle * The right ventricle is not well visualized. * The right ventricle is grossly normal size. * The right ventricular systolic function is normal as assessed by tricuspid annular plane systolic excursion (TAPSE) (normal >1.5 cm). Atria * The left atrial size is normal. * Right atrial size is normal. * There is no evidence of atrial septal defect, but resolution does not allow assessment for a patent foramen ovale. Mitral Valve * The mitral valve is grossly normal. * There is no mitral valve stenosis. * Significant mitral regurgitation is absent. Tricuspid Valve * The tricuspid valve is not well visualized. * There is no tricuspid stenosis. * Significant tricuspid regurgitation is absent. Aortic Valve * The aortic valve is trileaflet. * No hemodynamically significant valvular aortic stenosis. * No aortic regurgitation is present. Pulmonic Valve * The pulmonary valve is inadequately visualized, but the Doppler data is adequate for interpretation. * There is no pulmonic valvular stenosis. * There is no significant pulmonary regurgitation. Great Vessels * The aortic root is normal size. Pericardium/Pleural * There is no pericardial effusion. Great Vessels * Normal inferior vena cava size and collapsability with sniff indicates a normal right atrial pressure of 3 mmHg MMode 2D Measurements and Calculations IVSd 0.84 cm IVSs 1.2 cm LVIDd 4.6 cm LVIDs 2.6 cm LVPWd 1.1 cm LVPWs 1.5 cm IVS/LVPW 0.73 FS 43.0 % EDV(Teich) 96.6 ml ESV(Teich) 24.9 ml EF(Teich) 74.2 % EDV(cubed) 96.4 ml ESV(cubed) 17.9 ml EF(cubed) 81.5 % % IVS thick 48.0 % % LVPW thick 32.1 % LV mass(C)d 156.2 grams LV mass(C)dI 75.5 grams/m\S\2 LV mass(C)s 114.4 grams LV mass(C)sI 55.3 grams/m\S\2 SV(Teich) 71.7 ml SI(Teich) 34.7 ml/m\S\2 SV(cubed) 78.6 ml SI(cubed) 38.0 ml/m\S\2 Ao root diam 3.0 cm Ao root area 7.2 cm\S\2 ACS 1.1 cm LA dimension 3.9 cm asc Aorta Diam 2.9 cm LA/Ao 1.3 LVOT diam 2.0 cm LVOT area 3.0 cm\S\2 LVAd ap4 29.3 cm\S\2 LVLd ap4 7.7 cm EDV(MOD-sp4) 92.5 ml EDV(sp4-el) 95.4 ml LVAs ap4 15.8 cm\S\2 LVLs ap4 6.7 cm ESV(MOD-sp4) 31.5 ml ESV(sp4-el) 31.4 ml EF(MOD-sp4) 65.9 % EF(sp4-el) 67.0 % LVAd ap2 28.5 cm\S\2 LVLd ap2 7.5 cm EDV(MOD-sp2) 89.0 ml EDV(sp2-el) 91.5 ml LVAs ap2 15.2 cm\S\2 LVLs ap2 6.3 cm ESV(MOD-sp2) 30.5 ml ESV(sp2-el) 31.3 ml EF(MOD-sp2) 65.7 % EF(sp2-el) 65.8 % LVLd %diff 0.30 % EDV(MOD-bp) 95.5 ml LVLs %diff -3.08 % ESV(MOD-bp) 29.2 ml EF(MOD-bp) 69.4 % SV(MOD-sp4) 61.0 ml SI(MOD-sp4) 29.5 ml/m\S\2 SV(MOD-sp2) 58.5 ml SI(MOD-sp2) 28.3 ml/m\S\2 SV(MOD-bp) 66.3 ml SI(MOD-bp) 32.0 ml/m\S\2 SV(sp4-el) 64.0 ml SI(sp4-el) 30.9 ml/m\S\2 SV(sp2-el) 60.2 ml SI(sp2-el) 29.1 ml/m\S\2 Doppler Measurements and Calculations MV E max malcolm 107.8 cm/sec MV A max malcolm 93.9 cm/sec MV E/A 1.1 MV P1/2t max malcolm 147.5 cm/sec MV P1/2t 78.7 msec MVA(P1/2t) 2.8 cm\S\2 MV dec slope 549.3 cm/sec\S\2 MV dec time 0.27 sec Ao V2 max 200.8 cm/sec Ao max PG 16.1 mmHg Ao max PG (full) 11.5 mmHg Ao V2 mean 127.7 cm/sec Ao mean PG 7.5 mmHg Ao mean PG (full) 5.3 mmHg Ao V2 VTI 40.8 cm ISAI(I,A) 1.7 cm\S\2 ISAI(I,D) 1.7 cm\S\2 ISAI(V,A) 1.6 cm\S\2 ISAI(V,D) 1.6 cm\S\2 LV V1 max PG 4.7 mmHg LV V1 mean PG 2.2 mmHg LV V1 max 107.8 cm/sec LV V1 mean 69.4 cm/sec LV V1 VTI 22.5 cm SV(Ao) 294.4 ml SI(Ao) 142.3 ml/m\S\2 SV(LVOT) 67.8 ml SI(LVOT) 32.8 ml/m\S\2 TR max malcolm 137.8 cm/sec RVSP(TR) 10.6 mmHg RAP systole 3.0 mmHg
--- NOTE | 2017-06-05 18:40 | EMERGENCY ROOM VISIT NOTE ---
History Report prepared by [place]: Rasheed Worthy Under the Supervision of: Dr. Glen Pisano M.D. First contact with patient: 10:11 Stated Complaint: BREATHING DIFFICULTY History of Present Illness The patient is a 77 year old female who presents to the Emergency Room with complaints of persistent pain in the inner aspect of her right thigh and shortness of breath several days ago. Per Johny Childs PA-C, she recently had a hip replacement and then developed an infection. He states that the patient had a revision surgery and she was started on IV antibiotics and is healing well. Donald Agosto notes that the patient was in [facility] for several weeks, but has now been home receiving her IV antibiotics as an outpatient. He states that the patient recently stopped Coumadin and is now only taking Aspirin. Donald Agosto notes that the patient is currently on daptomycin. Per the patient's , the patient has periods of confusion and disorientation. The patient endorses fevers and chills with a new onset of shortness of breath. The patient normally is on Lasix but has stopped taking it for the past few weeks. She states that she has been experiencing chest pain and a cough. The patient reports dark stools from Iron supplements. The patient endorses a history of congestive heart failure but denies a history of heart or lung disease. Pt denies LOC, headache, fevers, chills, diaphoresis, visual changes, neck pain,nausea, vomiting, abdominal pain, back pain, melena, hematochezia, urinary symptoms, numbness, weakness, lymphadenopathy, rash, or other complaints. Source of History: patient, treating provider (Johny Childs), spouse/significant other () Onset: several days ago Position: other (right thigh) Timing: other (persistent) Associated Symptoms: + cough, + chest pain, + SOB Note: Associated Symptoms: dark stools Review of Systems See HPI for pertinent positives and negatives. A total of ten systems were reviewed and were otherwise negative. Past Medical & Surgical Medical Problems: (1) Acute kidney injury (2) Arthritis (3) DJD (degenerative joint disease) of hip (4) Gram-neg septicemia (5) Hypotension (6) Hypothyroid (7) Nausea & vomiting (8) Right lower lobe pneumonia (9) Weakness (10) Wound infection after surgery Family History Cancer Diabetes mellitus Gallbladder disease Heart disease Hypertension Kidney disease Kidney stones Stroke Social History Smoking Status: Former Smoker Alcohol Use: occasionally Drug Use: none Marital Status: Housing Status: lives with family Occupation Status: retired Current/Historical Medications Scheduled Aspirin (Aspirin Ec), 325 MG PO DAILY Carvedilol (Coreg), 25 MG PO QAM Carvedilol (Coreg), 12.5 MG PO QPM Cholecalciferol (Vitamin D3), 2,000 INTUNIT PO QAM Daptomycin (Daptomycin), 600 MG IV DAILY Docusate Sodium (Docusate Sodium), 100 MG PO BID Estradiol (Estradiol), 0.25 MG PO HS Ferrous Sulfate (Ferrous Sulfate), 325 MG PO BID Lactobacillus Acidophilus (Floranex), 3 TAB PO TID Losartan Potassium (Cozaar), 50 MG PO BID Multivitamin (Multivitamin), 1 TAB PO QAM Polyethylene (Miralax), 17 GM PO DAILY Ranitidine (Zantac), 300 MG PO HS Thyroid (Atkinson Thyroid), 120 MG PO QAM Scheduled PRN Furosemide (Lasix), 20-40 MG PO UD PRN for WATER RETENTION Allergies Coded Allergies: Adhesives (Verified Allergy, Mild, RASH, 06/05/17) Clindamycin (Verified Allergy, Mild, RASH, 06/05/17) Ezetimibe (Verified Allergy, Mild, MEMORY LOSS, 06/05/17) Latex (Verified Allergy, Mild, RASH, 06/05/17) Penicillins (Verified Allergy, Mild, HIVES, 06/05/17) Quinolones (Verified Allergy, Mild, UNKNOWN, 06/05/17) Simvastatin (Verified Allergy, Mild, MUSCLE ACHES, 06/05/17) Sulfa Antibiotics (Verified Allergy, Mild, RASH AND ITCHING, 06/05/17) Erythromycin (Verified Allergy, Unknown, RASH, 06/05/17) Irbesartan (Verified Allergy, Unknown, FATIGUE, 06/05/17) Lisinopril (Verified Allergy, Unknown, PERIORBITAL SWELLING, 06/05/17) Niacin (Verified Allergy, Unknown, UNKNOWN, 06/05/17) Tetracycline (Verified Allergy, Unknown, RASH, 06/05/17) Gabapentin (Verified Adverse Reaction, Unknown, SWELLING ("ALL OVER"), ) Physical Exam Vital Signs Date Time Temp Pulse Resp B/P (MAP) Pulse Ox O2 Delivery O2 Flow Rate FiO2 06/05/17 12:20 96 Nasal Cannula 2.0 06/05/17 11:36 80 20 161/60 98 Nasal Cannula 2.0 06/05/17 10:23 98 Nasal Cannula 2.0 06/05/17 10:19 37.4 85 22 187/69 95 Room Air 06/05/17 10:14 95 Room Air 06/05/17 10:03 84 Physical Exam GENERAL: Awake, alert, very tired appearing, in no distress HENT: Normocephalic, atraumatic. Oropharynx unremarkable. EYES: Normal conjunctiva. Sclera non-icteric. NECK: Supple. No nuchal rigidity. FROM. No JVD. RESPIRATORY: Mildly dyspneic, Clear to auscultation. CARDIAC: Regular rate, normal rhythm. Extremities warm and well perfused. Pulses equal. ABDOMEN: Soft, non-distended. No tenderness to palpation. No rebound or guarding. No masses. RECTAL: Deferred. MUSCULOSKELETAL: Chest examination reveals no tenderness. The back is symmetrical on inspection without obvious abnormality. There is no CVA tenderness to palpation. No joint edema. LOWER EXTREMITIES: Calves are equal size bilaterally and non-tender. No discoloration.Trace pedal edema +1. Medial thigh tenderness of right thigh. Right hip incision is clean, dry, intact with no drainage and no erythema. NEURO: Normal sensorium. No sensory or motor deficits noted. SKIN: No rash or jaundice noted. Medical Decision & Procedures ER Provider Diagnostic Interpretation: Radiology results as stated below per my review and radiologist interpretation: SINGLE VIEW CHEST CLINICAL HISTORY: Dyspnea. Generalized weakness FINDINGS: 2 AP, portable, upright chest radiographs are compared to study dated 05/13/2017. The examination is degraded by portable technique and patient rotation. The heart is enlarged and there is atherosclerotic calcification of the thoracic aorta. There is pulmonary vascular congestion. Small pleural effusions are identified. There are hazy airspace opacities with more focal areas of consolidation seen in the right upper lobe and at both lung bases. No pneumothorax is seen. The skeletal structures are osteopenic. The bony thorax is grossly intact. IMPRESSION: 1. Cardiomegaly with evidence of congestive failure. 2. Hazy bilateral airspace opacities are identified with more focal regions of consolidation as above. This could represent pulmonary edema and/or multifocal pneumonia. Clinical correlation will be required and radiographic follow-up to resolution is recommended. 3. Small pleural effusions. Electronically signed by: Eugenio Ramesh M.D. 06/05/2017 11:13 AM Dictated Date/Time: 06/05/2017 11:11 AM ULTRASOUND VENOUS DOPPLER LWR EXT BILA CLINICAL HISTORY: Leg pain, recent surgery, bilateral edema. Shortness of breath. COMPARISON STUDY: September 2008 FINDINGS: Real-time and color flow Doppler imaging were performed. Flow was seen within the femoral, popliteal and calf veins with no intraluminal thrombus demonstrated. The saphenous vein is patent. There is increased pulsatility within the waveforms, a finding which may indicate elevated right heart pressures. IMPRESSION: 1. No evidence of lower extremity DVT 2. Increased pulsatility within the waveforms a finding which may indicate elevated right heart pressures Electronically signed by: Mahin Farr M.D. 06/05/2017 11:49 AM Dictated Date/Time: 06/05/2017 11:47 AM Laboratory Results 06/05/17 10:43 Red Blood Count 2.96, Mean Corpuscular Volume 83.8, Mean Corpuscular Hemoglobin 27.0, Mean Corpuscular Hemoglobin Concent 32.3, Mean Platelet Volume 8.1, Neutrophils (%) (Auto) 73.9, Lymphocytes (%) (Auto) 9.2, Monocytes (%) (Auto) 8.5, Eosinophils (%) (Auto) 7.8, Basophils (%) (Auto) 0.3, Neutrophils # (Auto) 6.42, Lymphocytes # (Auto) 0.80, Monocytes # (Auto) 0.74, Eosinophils # (Auto) 0.68, Basophils # (Auto) 0.03 06/05/17 10:43 Test 06/05/17 10:35 06/05/17 10:43 Urine Color YELLOW Urine Appearance CLEAR (CLEAR) Urine pH 5.0 (4.5-7.5) Urine Specific [place] 1.017 (1.000-1.030) Urine Protein 3+ (NEG) Urine Glucose (UA) NEG (NEG) Urine Ketones NEG (NEG) Urine Occult Blood 1+ (NEG) Urine Nitrite NEG (NEG) Urine Bilirubin NEG (NEG) Urine Urobilinogen NEG (NEG) Urine Leukocyte Esterase NEG (NEG) Urine WBC (Auto) 1-5 /hpf (0-5) Urine RBC (Auto) 0-4 /hpf (0-4) Urine Hyaline Casts (Auto) 1-5 /lpf (0-5) Urine Epithelial Cells (Auto) >30 /lpf (0-5) Urine Bacteria (Auto) NEG (NEG) Urine Pathogenic Casts 0-3 GRANULAR CASTS /lpf (0) Urine Yeast (Auto) (NONE PRSENT) White Blood Count 8.70 K/uL (4.8-10.8) Red Blood Count 2.96 M/uL (4.2-5.4) Hemoglobin 8.0 g/dL (12.0-16.0) Hematocrit 24.8 % (37-47) Mean Corpuscular Volume 83.8 fL (80-100) Mean Corpuscular Hemoglobin 27.0 pg (25-34) Mean Corpuscular Hemoglobin Concent 32.3 g/dl (32-36) Platelet Count 344 K/uL (130-400) Mean Platelet Volume 8.1 fL (7.4-10.4) Neutrophils (%) (Auto) 73.9 % Lymphocytes (%) (Auto) 9.2 % Monocytes (%) (Auto) 8.5 % Eosinophils (%) (Auto) 7.8 % Basophils (%) (Auto) 0.3 % Neutrophils # (Auto) 6.42 K/uL (1.4-6.5) Lymphocytes # (Auto) 0.80 K/uL (1.2-3.4) Monocytes # (Auto) 0.74 K/uL (0.11-0.59) Eosinophils # (Auto) 0.68 K/uL (0-0.5) Basophils # (Auto) 0.03 K/uL (0-0.2) RDW Standard Deviation 47.7 fL (36.4-46.3) RDW Coefficient of Variation 15.3 % (11.5-14.5) Immature Granulocyte % (Auto) 0.3 % Immature Granulocyte # (Auto) 0.03 K/uL (0.00-0.02) Polychromasia 1+ Erythrocyte Sedimentation Rate 67 mm/hr (0-21) Prothrombin Time 18.9 SECONDS (9.0-12.0) Prothromb Time International Ratio 1.7 (0.9-1.1) Activated Partial Thromboplast Time 50.8 SECONDS (21.0-31.0) Partial Thromboplastin Ratio 2.0 Anion Gap 10.0 mmol/L (3-11) Est Creatinine Clear Calc Drug Dose 32.1 ml/min Estimated GFR () 32.9 Estimated GFR (Non- 28.4 BUN/Creatinine Ratio 14.5 (10-20) Calcium Level 8.1 mg/dl (8.5-10.1) Magnesium Level 1.8 mg/dl (1.8-2.4) Total Bilirubin 0.4 mg/dl (0.2-1) Direct Bilirubin 0.1 mg/dl (0-0.2) Aspartate Amino Transf (AST/SGOT) 27 U/L (15-37) Alanine Aminotransferase (ALT/SGPT) 39 U/L (12-78) Alkaline Phosphatase 133 U/L (45-117) Total Creatine Kinase 33 U/L (26-192) Creatine Kinase MB < 0.5 ng/ml (0.5-3.6) Creatine Kinase MB Ratio (0-3.0) Troponin I < 0.015 ng/ml (0-0.045) Pro-B-Type Natriuretic Peptide 4328 pg/ml (0-1800) Total Protein 7.3 gm/dl (6.4-8.2) Albumin 2.5 gm/dl (3.4-5.0) Lipase 245 U/L (73-393) Thyroid Stimulating Hormone (TSH) 0.446 uIu/ml (0.300-4.500) Laboratory results reviewed by me Medications Administered Medications (Trade) Dose Ordered Sig/Fuentes Route Start Time Stop Time Status Last Admin Dose Admin Daptomycin 600 mg/ Syringe 12 ml @ 6 mls/min TODAY@1103 IV 06/05/17 11:03 06/05/17 11:35 DC 06/05/17 11:57 6 MLS/MIN Levofloxacin (Levaquin / D5W) 750 mg NOW STAT IV 06/05/17 12:04 06/05/17 12:07 DC 06/05/17 12:52 750 MG Furosemide (Lasix Inj) 40 mg NOW STAT IV 06/05/17 12:04 06/05/17 12:07 DC 06/05/17 12:52 40 MG ED Course 1010: The patient was evaluated in room A9. A complete history and physical exam was performed. 1103: Ordered Daptomycin 600 mg/Syringe 12 ml @ 6 mls/min Protocol IV. 1155: I discussed the patients case with Dr. Hong, Orthopedics. He agrees with hospitalization. He said the plan is for IV antibiotics for 6 weeks. 1204: Ordered Lasix Inj 40 mg IV, Levofloxacin 750 mg IV. 1209: I discussed the patients case with EFRA Subramanian. He is going to evaluate the patient for further treatment. 1227: I reevaluated the patient and she is doing well. I discussed the exam findings with her and I discussed the treatment plan. She verbalized complete understanding and agreement. She will be evaluated for further treatment and Dr. Luna is at the bedside. Medical Decision Triage Nursing notes reviewed. The patient's presentation and history were concerning for SOB and recent post- op infection. Etiologies such as metabolic, infection, hypo/hyperglycemia, electrolyte abnormalities, cardiac sources, PE, DVT, intracerebral event, toxicologic, neurologic, as well as others were entertained. The patient was evaluated. She was tired-appearing. Her wound looked like it was healing well. Orthopedics, Barrington Agosto PA-C, was in the Emergency Room and noted that her wound appeared to be healing well from the orthopedic standpoint. She was due for her dose of the daptomycin and has been previously set. This was given. Chest x-ray, ultrasound, and blood work obtained. The patient has findings on chest x-ray concerning for pneumonia but also CHF. She had elevated pressures on her ultrasound concerning for elevated right heart pressure. She also had an elevated BNP. She has not been taking her Lasix for a few weeks by her own report. The patient was given IV Lasix and IV Levaquin. She will need further evaluation and management in the hospital. Consultation was made with internal medicine. The patient was evaluated for further treatment. Medication Reconcilliation Current Medication List: was personally reviewed by me Blood Pressure Screening Patient's blood pressure: Elevated blood pressure Blood pressure disposition: Referred to PCP (hospitalist) Consults Time Called: 1202 Consulting Physician: EFRA Subramanian Returned Call: 1209 I discussed the patients case with EFRA Subramanian. He is going to evaluate the patient for further treatment. Impression Primary Impression: CHF (congestive heart failure) Additional Impressions: Pneumonia Shortness of breath Scribe Attestation The scribe's documentation has been prepared under my direction and personally reviewed by me in its entirety. I confirm that the note above accurately reflects all work, treatment, procedures, and medical decision making performed by me. Departure Information Dispostion Being Evaluated By Hospitalist Referrals Noman Quiroz M.D. (PCP) Problem Qualifiers
[2017-06-05 21:07] VITALS: BP 149/80; PULSE 76
[2017-06-05] MEDS: DOCUSATE SODIUM 100 MG CAP PO SCH (21:09)
[2017-06-05] MEDS: LOSARTAN POTASSIUM 50 MG TAB PO SCH (21:09)
[2017-06-05] MEDS: RANITIDINE HCL 150 MG TAB PO SCH (21:09)
[2017-06-05] MEDS: CARVEDILOL 12.5 MG TAB PO SCH (21:10)
[2017-06-06] VITALS (18 sets, daily range): BP systolic 121–179; BP diastolic 69–81; PULSE 69–99; TEMP 36.4–37.4; O2SAT 90–96
--- NOTE | 2017-06-06 | NUR ---
A NOTE: Alert and oriented. at bedside to assist patient with ambulation. One assist oob w/ aid of walker. Medicated for right leg pain. Verbalizes to mimi for assistance.
[2017-06-06] MEDS: CEFEPIME IV 2,000 MG in SYRINGE 7.5 ML IV SCH (04:13)
[2017-06-06 05:37] LABS: HEMATOCRIT 22.6 % (37-47); HEMOGLOBIN 7.2 g/dL (12.0-16.0); MEAN CORPUSCULAR HEMOGLOBIN 26.8 pg (25-34); MEAN CORPUSCULAR HGB CONC 31.9 g/dl (32-36); PLATELET COUNT 356 K/uL (130-400); RED CELL DISTRIBUTION WIDTH CV 15.6 % (11.5-14.5); RED CELL DISTRIBUTION WIDTH SD 48.3 fL (36.4-46.3)
[2017-06-06 06:01] LABS: INR 1.7 (0.9-1.1)
[2017-06-06 06:09] LABS: CALCIUM 8.1 mg/dl (8.5-10.1); CREATININE 2.04 mg/dl (0.60-1.20); POTASSIUM 4.5 mmol/L (3.5-5.1)
[2017-06-06] MEDS: ESTRACE~ORDER AWAITING ACTION SCH ×4 (06:46→22:59)
--- NOTE | 2017-06-06 07:15 | Clinical Documentation Query ---
CLINICAL DOCUMENTATION QUERY QUERY 1 OF 2 77-year-old female presenting with metabolic encephalopathy from suspect a right lower lobe pneumonia with concern for gram-negative organisms, mild concern for acute on chronic diastolic heart failure In your clinical opinion is this patient being managed for: ( ) Acute kidney failure ( ) Not Agree ( ) Other explanation of clinical findings (Please Explain) ( ) Unable to determine (Please Define) (x ) Need to Discuss The medical record reflects the following clinical findings, treatment, and risk factors. Clinical Indicators: Creatinine increase 2.04 from 1.71, GFR decrease 22.9 from 28.4 Treatment: Serial PRP's, I&O Risk Factors: CKD 3, HTN, diastolic CHF, age QUERY 2 OF 2 Coders may capture your patient's BMI value from documentation other than the physician's, e.g. the golf course assistant. However, the physician must document a correlating diagnosis in the medical record. *A significantly high ( > 40) or low ( < 19) BMI will qualify as a CC and impact the severity of illness and risk of mortality of your patient. *A BMI > 40 is an endocrine diagnosis (MDC 10). *Morbid obesity is defined by the [employer] [place] [employer] as having a BMI >40 or, being 100 pounds or more above ideal body weight or, having a BMI >35 with one or more co-morbid conditions. *The Adult BMI diagnoses are for persons over the age of 21; the Pediatric BMI diagnoses are for persons 2-20 years of age. The patient's BMI is 44.1 In your clinical opinion is this patient being managed for: ( ) Obesity ( ) Not Agree Please clarify and document your clinical opinion in the progress notes and discharge summary. Terms such as "probable", "suspected", "likely", "questionable", "possible", or "still to be ruled out" are acceptable. IF IN AGREEMENT, YOU MUST DOCUMENT ABOVE DIAGNOSTIC STATEMENT IN DAILY PROGRESS NOTES AND DISCHARGE SUMMARY. This document is not part of the patient's record. Thank You, Neeta Fuentes RN [phone]
--- NOTE | 2017-06-06 08:03 | Orthopedic Progress Note ---
Orthopedic Progress Note Date of Service Jun 06, 2017. Subjective Reports: feeling well, Denies: complaints, chest pain, SOB, nausea / vomiting, light headedness, calf pain Additional Notes: states no fever overnight. continues to complain about inner Right thigh pain. She required Percocet overnight for relief. Otherwise feels fine. SOB resolved. at bedside. Objective calves soft nontender, N/V intact, hip located, capillary refill less than 2 sec., toes mobile, CMS intact Afebrile. Surgical scar looks fine. No redness/warmth. Appears more comfortable than yesterday. Pleasant, conversive. Date Time Temp Pulse Resp B/P (MAP) Pulse Ox O2 Delivery O2 Flow Rate FiO2 06/06/17 00:07 37.4 99 18 179/80 (113) 90 Room Air 06/06/17 00:00 Room Air 06/05/17 21:07 76 149/80 (103) 06/05/17 16:00 92 Room Air 06/05/17 15:34 37.6 82 20 152/71 (98) 92 Room Air 06/05/17 14:50 82 20 191/60 96 Room Air 06/05/17 12:50 85 18 168/59 96 Nasal Cannula 2.0 06/05/17 12:20 96 Nasal Cannula 2.0 06/05/17 11:36 80 20 161/60 98 Nasal Cannula 2.0 06/05/17 10:23 98 Nasal Cannula 2.0 06/05/17 10:19 37.4 85 22 187/69 95 Room Air 06/05/17 10:14 95 Room Air 06/05/17 10:03 84 Laboratory Results 24 Hours: Test 06/05/17 10:43 06/06/17 05:16 White Blood Count 8.70 K/uL Red Blood Count 2.96 M/uL Hemoglobin 8.0 g/dL 7.2 g/dL Hematocrit 24.8 % 22.6 % Mean Corpuscular Volume 83.8 fL Mean Corpuscular Hemoglobin 27.0 pg Mean Corpuscular Hemoglobin Concent 32.3 g/dl Platelet Count 344 K/uL Mean Platelet Volume 8.1 fL Neutrophils (%) (Auto) 73.9 % Lymphocytes (%) (Auto) 9.2 % Monocytes (%) (Auto) 8.5 % Eosinophils (%) (Auto) 7.8 % Basophils (%) (Auto) 0.3 % Neutrophils # (Auto) 6.42 K/uL Lymphocytes # (Auto) 0.80 K/uL Monocytes # (Auto) 0.74 K/uL Eosinophils # (Auto) 0.68 K/uL Basophils # (Auto) 0.03 K/uL Prothromb Time International Ratio 1.7 1.7 Prothrombin Time 18.9 SECONDS 18.6 SECONDS Assessment & Plan Assessment: CHF. Possible pneumonia.Right medial thigh pain Plan: Pt may be OOB and full weight bearing. Ok to start PT today. Will continue to follow while in the hospital. From orthopedic standpoint, she appears well. The inner thigh pain may be muscular in nature-will continue to follow. No evidence of DVT on Doppler US yesterday. Discharge Planning Discharge Planning: uncertain
[2017-06-06] MEDS ORDERED: NURSING VERBAL MED ORDER ONE (08:15)
[2017-06-06] MEDS ORDERED: ACETAMINOPHEN 500 MG TAB PO ONE ×2 (08:15→08:30)
[2017-06-06] MEDS: POLYETHYLENE (MIRALAX) 17 GM PACK PO SCH (08:18)
[2017-06-06] MEDS: HEPARIN SOD 5000 UNIT/0.5 ML CARP SQ SCH ×2 (08:18→20:54)
[2017-06-06] MEDS: CARVEDILOL 25 MG TAB PO SCH (08:20)
[2017-06-06] MEDS: DOCUSATE SODIUM 100 MG CAP PO SCH ×2 (08:20→20:54)
[2017-06-06] MEDS: FERROUS SULFATE 325 MG TAB PO SCH ×2 (08:20→17:24)
[2017-06-06] MEDS: ARMOUR THYROID 30 MG TAB PO SCH (08:20)
[2017-06-06] MEDS: LACTOBACILLUS ACIDOPHILUS (FLORANEX) TAB PO SCH ×3 (08:20→17:25)
[2017-06-06] MEDS: MULTIVITAMIN TAB PO SCH (08:21)
[2017-06-06] MEDS: CHOLECALCIFEROL 1000 INTER.UNIT TAB PO SCH (08:21)
[2017-06-06] MEDS: LOSARTAN POTASSIUM 50 MG TAB PO SCH (08:21)
[2017-06-06] MEDS: ASPIRIN 325 MG ECTAB PO SCH (08:21)
[2017-06-06] MEDS ORDERED: DAPTOmycin 500 MG VIAL IV SCH (09:00)
[2017-06-06] MEDS ORDERED: FUROSEMIDE INJ 40 MG in SYRINGE 0 ML IV SCH ×2 (09:00→10:00)
--- NOTE | 2017-06-06 09:18 | PROGRESS NOTE ---
DATE: 06/06/2017 SUBJECTIVE: At this point in time the patient is not having any significant pain. She notes she used pain medication last evening but presently is comfortable. She noticed that it is adductor based nothing else. She denies any incisional pain, any true hip pain. OBJECTIVE: VITAL SIGNS: Her vital signs are stable. Her T-max is 37.4. EXTREMITIES: Today reveals supple hip motion. No pain with palpation across the thigh over the incisions. There is no cellulitis. There is no collection of fluid. Neurovascular check femoral sciatic nerve is good, able to do a straight leg raise, which is much improved from past. LABORATORY WORK: Reveals hematocrit of 22. White count is 10.0. ASSESSMENT: Right hip wound appears to be doing well. At this point in time main issue is her lungs and potential pneumonia. She is breathing better since the Lasix. Hematocrit of 22 again is indicating chronic anemia. There is no obvious GI source, although she states she had a hemorrhoid. In addition, we need to consider poor erythropoietin secondary to her renal disease and whether or not that has a play in this. In addition, we need to consider any type of marrow suppression from medications. Presently would continue with observation from an orthopedic perspective and continue medical management for her congestive heart failure and pneumonia. Continue antibiotics. Anemia workup per medicine. Preemptively ordered 2 units of blood with clearance by hospitalist when I saw her labs this morning at 6:30. MTDD
[2017-06-06] MEDS ORDERED: METHYLPREDNISOLONE IV 20 MG in SYRINGE 0 ML IV ONE (10:00)
[2017-06-06 10:20] LABS: INFLUENZA B ANTIGEN Neg for Influ B (NEG)
--- NOTE | 2017-06-06 11:17 | Progress Note ---
Progress Note Date of Service Jun 06, 2017. Progress Note ID Consult Dictated #[id number] A/P: 1. Pneumonitis/RLL consolidation - suspect dapto as cause 2. H/o infected right hip, E. faecalis, s/p 6 weeks IV abx -Hold dapto -Continue cefepime/levaquin for now pending additional workup -Suggest steroid taper -Will check ct chest -Consult pulm -Discussed with pulm and primary -No additional abx for hip at this time -Thank you
--- NOTE | 2017-06-06 11:33 | INFECT. DISEASE CONSULTATION ---
DATE OF CONSULTATION: 06/06/2017 DATE OF CONSULTATION: 06/06/2017 REQUESTING PHYSICIAN: Dr. Luna. HISTORY OF PRESENT ILLNESS: This is a 77-year-old female who was recently seen in the infectious diseases office earlier this week. She does have a complicated history with a right hip infection. Cultures from 04/20/2017 grew pansensitive Enterococcus faecalis. She does have a penicillin allergy with hives and did not have the ability to undergo home IV antibiotics. For this reason, she was placed on intravenous daptomycin and she has been receiving her infusions at the medical therapy unit. She did attempt to transition to Zyvox; however, her copay was greater than $4,000 and for this reason she was continued on daptomycin. She has been getting her infusions through a peripheral IV as she was unable to have a PICC line or port placed. She has had multiple admissions to the hospital; however, her wound has been improving and is now closed. She has received multiple weeks of intravenous daptomycin. Her lab work has been improving with the exception of her sed rate which remains elevated but the patient also has a history of polymyalgia rheumatica for which she was on chronic steroids previously. She was seen in the office for routine followup earlier this week and her antibiotics were to be discontinued; however, she had followed up with her orthopedic surgery office prior and they had requested that she remain on IV antibiotics for an additional 2 weeks with transition to oral antibiotics. Because of her penicillin allergy and high Zyvox copay there are no oral options available and for this reason she was kept on daptomycin. She was found to be mildly anemic with a hemoglobin of 8.5. When she presented to the ID office earlier this week she did have some complaints of fatigue and shortness of breath. It was unclear if this was due to underlying anemia or if it could be due to daptomycin. She denied any cough, fevers or chills or wheezing. She has no chest pain. Her hip did not have any pain. The plan was to follow her closely with the antibiotics and monitor for any worsening shortness of breath. Unfortunately, yesterday she had severe shortness of breath and presented to the Emergency Room. She did have a chest x-ray which showed a right lower lobe consolidation in addition to bilateral hazy opacities. It is unclear if this is due to pneumonia or if she is having interstitial pneumonitis due to daptomycin. For this reason her daptomycin has been discontinued. I did speak both with her primary care physician as well as pulmonary and she will be evaluated by the pulmonary service today as well. A CAT scan has been ordered. Her sed rate is elevated at 67. It was most recently 59 on the 06/02/2017. Her creatinine on the was 1.3, it is increased to 2. Her CK and LFTs remain normal. Her white blood cell count is normal at 10. Her LFTs remain normal. Urinalysis was unremarkable. Flu swab was negative. Blood and urine cultures are pending. She did have Doppler studies in the ER which were negative for DVT. She currently is continuing to complain of fatigue. Her hemoglobin has decreased to 7 from 8.5 and she will be receiving a blood transfusion today. She was placed on Levaquin and cefepime empirically due to her right lower lobe pneumonia. Her BNP is elevated at 4300 as well. She denies any chest pain. She has no nausea, vomiting or diarrhea. She denies any pain in the hip. She is also being followed by orthopedic surgery. Her remaining review of systems is reviewed and is unremarkable. PAST MEDICAL HISTORY: Significant for diastolic dysfunction, right hip infection with Enterococcus faecalis which is being treated with prolonged intervenous antibiotics. She has hypertension, high cholesterol, chronic kidney disease, prediabetes, hypothyroidism, polymyalgia rheumatica and psoriasis. FAMILY HISTORY: Noncontributory. SOCIAL HISTORY: Significant for history of tobacco use. She denies any alcohol or drug use. She is and lives with her family. ALLERGIES: SHE HAS MULTIPLE ALLERGIES INCLUDING ADHESIVE TAPE, CLINDAMYCIN, EZETIMIBE, LATEX, PENICILLIN, QUINOLONES, SIMVASTATIN, SULFA ANTIBIOTICS, ERYTHROMYCIN, IRBESARTAN, LISINOPRIL, NIACIN, TETRACYCLINE AND GABAPENTIN. PHYSICAL EXAMINATION: VITAL SIGNS: She is afebrile with the exception of a mildly elevated temperature 37.6 last evening, pulse 71, respiratory rate 17, blood pressure is 121/69, oxygen saturation is 90-94% on room air. She did receive oxygen overnight and her oxygen saturation was 98% on 2 liters. GENERAL: She is awake, alert and oriented x3. She is in no acute distress. HEAD, EYES, EARS, NOSE, AND THROAT: Mucous membranes are dry. Extraocular muscles are intact. HEART: Regular. LUNGS: There is no wheezing or rhonchi and lungs are clear bilaterally. ABDOMEN: Soft. There is no edema. SKIN: Without rash. EXTREMITIES: Examination of the right hip incision reveals incision to be closed and well healed. There is no surrounding induration, fluctuance, tenderness, warmth or erythema. There is no wound dehiscence. LABORATORY STUDIES: CBC today reveals a white blood cell count of 10, hemoglobin 7.2 and platelets of 356. Sed rate is 67. Chemistry panel reveals a sodium of 131, potassium 4.5, chloride 102, bicarb 20, BUN 30, creatinine 2, glucose is 119. LFTs were normal. In the Emergency Room, her CPK was normal. UA negative. Flu swab was negative. Cultures are pending. IMAGING: As reviewed above. ASSESSMENT AND PLAN: Pneumonitis with right lower lobe consolidation. I suspect secondary to daptomycin. This has been discontinued. I will continue her on her additional antibiotics pending blood culture results. I did discuss this case with the hospitalist service as well as pulmonary service. She will undergo CAT scan today to further evaluate the right lower lobe consolidation and she also will be placed on steroids. A CAT scan will be obtained. She will not receive any additional daptomycin. I did have a long conversation with the patient and her who is at the bedside during my examination regarding further antibiotics. She does not have oral options with the exception of Zyvox, with a copay of greater than $4,000 she does not wish to continue on antibiotics at this time. Her incision is well healed. She will be followed off of antibiotics for the hip infection at this time. We will follow along with you. Thank you for this consultation.
[2017-06-06] MEDS ORDERED: DAPTOmycin IV 600 MG in SYRINGE 0 ML IV SCH (12:00)
--- NOTE | 2017-06-06 12:04 | Clinical Documentation Query ---
CLINICAL DOCUMENTATION QUERY QUERY 1 OF 2 77-year-old female presenting with metabolic encephalopathy from suspect a right lower lobe pneumonia with concern for gram-negative organisms, mild concern for acute on chronic diastolic heart failure In your clinical opinion is this patient being managed for: ( x ) Acute kidney failure ( ) Not Agree ( ) Other explanation of clinical findings (Please Explain) ( ) Unable to determine (Please Define) ( ) Need to Discuss The medical record reflects the following clinical findings, treatment, and risk factors. Clinical Indicators: Creatinine increase 2.04 from 1.71, GFR decrease 22.9 from 28.4 Treatment: Serial PRP's, I&O Risk Factors: CKD 3, HTN, diastolic CHF, age QUERY 2 OF 2 Coders may capture your patient's BMI value from documentation other than the physician's, e.g. the loan documentation specialist. However, the physician must document a correlating diagnosis in the medical record. *A significantly high ( > 40) or low ( < 19) BMI will qualify as a CC and impact the severity of illness and risk of mortality of your patient. *A BMI > 40 is an endocrine diagnosis (MDC 10). *Morbid obesity is defined by the National Calvin of Health as having a BMI >40 or, being 100 pounds or more above ideal body weight or, having a BMI >35 with one or more co-morbid conditions. *The Adult BMI diagnoses are for persons over the age of 21; the Pediatric BMI diagnoses are for persons 2-20 years of age. The patient's BMI is 44.1 In your clinical opinion is this patient being managed for: (x ) Obesity ( ) Not Agree Please clarify and document your clinical opinion in the progress notes and discharge summary. Terms such as "probable", "suspected", "likely", "questionable", "possible", or "still to be ruled out" are acceptable. IF IN AGREEMENT, YOU MUST DOCUMENT ABOVE DIAGNOSTIC STATEMENT IN DAILY PROGRESS NOTES AND DISCHARGE SUMMARY. This document is not part of the patient's record. Thank You, Neeta Fuentes RN [phone]
--- NOTE | 2017-06-06 14:06 | DIAGNOSTIC IMAGING REPORT ---
(CHEST) THORAX WITHOUT CLINICAL HISTORY: 77 years-old Female presenting with pneumonitis, rll infiltrate. TECHNIQUE: Multidetector CT imaging of the chest was performed without the use of intravenous contrast. IV contrast: None. A dose lowering technique was used consistent with the principles of ALARA (as low as reasonably achievable). COMPARISON: Chest x-ray from 05/05/2017. CT DOSE (mGy.cm): The estimated cumulative dose is 730.04 mGy.cm. FINDINGS: Cane Flume Watchman topogram: Unremarkable. On soft tissue windows, normal thyroid and thoracic inlet. No axillary, supraclavicular, or mediastinal lymphadenopathy. Evaluation of the jessica limited without intravenous contrast. Atherosclerosis of the aorta. Aortic valve calcification. Top normal heart size. Trace pericardial effusion. Small bilateral pleural effusions. Borderline hepatic steatosis. On lung windows, multifocal subpleural/peripheral consolidation involving all 5 lobes to varying degrees with somewhat of an upper lobe predominance. Peripheral consolidation has a cystic appearance with reticulation. No evidence of underlying emphysema. Background mosaic attenuation noted. Airways patent. On bone windows, degenerative changes of the bilateral glenohumeral joints. IMPRESSION: 1. Multifocal subpleural/peripheral consolidation involving all 5 lobes to varying degrees with an upper lobe predominance. 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 Differential considerations include organizing pneumonia and eosinophilic granulomatosis with polyangiitis (Churg-Darin syndrome). 2. Bilateral small pleural effusions. Electronically signed by: Aneudy Biswas M.D. 06/06/2017 2:05 PM Dictated Date/Time: 06/06/2017 1:58 PM
--- NOTE | 2017-06-06 15:01 | Pulmonary Consultation ---
History General Date of Service: Jun 06, 2017. Stated Complaint: Progressive shortness of breath with associated cough HPI The patient is a 77 year old female who presents to [facility] with complaints of Right Lower Lobe Pneumonia. The patient's primary care provider is Noman Quiroz M.D.. 77-year-old female here for progressive shortness of breath with associated dry cough and subjective fevers. The patient has had a tumultuous last few months undergoing a right hip DEANN on 03/19/2017 but experience post procedural infection admitted between April 22 through May 04, 2017. She off also required admission between May 10 through May 19, 2017 for this infection. The post procedural serous infection was noted grew out Enterococcus faecalis which was pansensitive. During her previous admission between May 09 through she experience hypercalcemia, acute on chronic anemia chronic CHF exacerbation acute on chronic kidney injury. He was believe the hypercalcemia was secondary to Stimulan Beads placement for the infection. The patient has been treated with daptomycin as well as ertapenem IV secondary to her surgical site infection as well as blood cultures growing out Chryseobacterium Indologenes. She was showing progression physically since her last admission but the last 7-10 days and noticed increasing shortness of breath, nonproductive cough and subjective fevers. Her daughter was at the bedside during her interview noted that her mom and also been notably confused over this period of time. Current workup EKG: WBC: 9K 10K (Eosinophil: 0.68>, monocytes: 0.74 >) H/H: 8/25 PLT: [id number] ESR: 67 APTT: 50.8 Cr: 1.712.04 Lactic Acide: 0.86 < Ca: 8.1 < Pro-BNP: 4328 Influenza type a and B antigen: Negative CXR: Bilateral hilar fullness, cephalization, niya-bronchial cuffing and new RLL Echocardiogram 06/05/2017 Left ventricle: EF=65-70%, type 2 diastolic dysfunction/pseudonormalization pattern Right ventricle: TAPSE > 1.5cm Atria: Within normal limits Pulmonary valve: Poor visualization IVC: Normal collapsibility with sniff indicating normal right atrial pressure of 3 mmHg Microbiology history Blood 04/20/2017: Chryseobacterium Indologenes Right hip 04/20/2017: Enterococcus faecalis Bilateral Lower Ext DVT No evidence of lower ext DVT Increased pulsatlity within the waveform CXR 05/13/17: RML collapse CTA 04/20/2017: lung WNL, RML RB4 inflitrate, niya-cardial fat Past medical history 1. Abdominal pain, RUQ (right upper quadrant) 2. Acute confusion 3. Chronic Diastolic congestive heart failure 4. Meniscal Tear Of Left Knee 5. Allergic rhinitis 6. Anemia 7. Arthralgia of multiple sites 8. Avascular necrosis of bone of right hip 9. Back Pain 10. Bacteremia 11. Carotid artery stenosis 12. Chronic kidney disease, stage 3 (moderate) 13. Diarrhea, unspecified type 14. Dysphagia 15. Excessive daytime sleepiness 16. Former smoker 17. Gastroesophageal reflux disease 18. Hypercholesterolemia 19. Hypertension 20. Hypothyroidism 21. Infected prosthesis of right hip 22. Lumbar radiculopathy 23. Obesity 24. Polymyalgia rheumatica 25. Polyneuropathy 26. Postmenopausal hormone replacement therapy 27. Psoriasis 28. Sciatica 29. 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 Trochanteric bursitis 32. Tubular adenoma of colon 33. Varicose veins 34. Venous insufficiency 35. Vitamin D deficiency PsHx: 1. (R) DEANN 03/19/2017 with postoperative wound infection 2. Right hip I and D, poly exchange, application of Stimulan Beads 05/09/2017 3. L4-L5 laminectomy performed 2016 at [facility] Family History Cerebral Artery Occlusion With Cerebral Infarction Hypertension Malignant Parotid Neoplasm Coronary Artery Disease Diabetes Mellitus Hyperlipidemia Hypothyroidism Renal Failure Aneurysm Of The Iliac Artery Social History Alcohol Former smoker --quit 30 years prior Marital History - Currently Occupation: No pertinent social history Current Meds 1. [place] Thyroid 120 MG Oral Tablet; TAKE 1 TABLET BY MOUTH EVERY MORNING 2. Aspirin 325 MG Oral Tablet Delayed Release; Take 1 tablet daily; 3. Carvedilol 12.5 MG Oral Tablet; Take 2 tablets in the morning and one tablet each 4. DAPTOmycin 500 MG Intravenous Solution Reconstituted; infuse IV piggyback at [facility]. 5. Estrace 0.5 MG Oral Tablet (Estradiol); TAKE 1 TABLET DAILY; 6. Furosemide 20 MG Oral Tablet; take 1 tablet by mouth once daily ALTERNATE WITH 2 7. Losartan Potassium 50 MG Oral Tablet; Take 1 tablet twice daily; 8. Multivitamins Oral Capsule; 9. RaNITidine HCl - 150 MG Oral Tablet; 1-2 tablets twice daily as needed for reflux 10. TraMADol HCl - 50 MG Oral Tablet; 1-2 tablets q 6 hours prn pain; 11. Tylenol Extra Strength 500 MG Oral Tablet; TAKE 1 TABLET EVERY 4 TO 6 HOURS 12. Vitamin D3 2000 UNIT Oral Tablet; Take 1 tablet daily; Allergies Gabapentin CAPS Niaspan TBCR Zetia TABS Adhesive Tape TAPE Clindamycin Erythromycin Derivatives Ezetimibe TABS Lisinopril TABS periorbital swelling Niacin TBCR Penicillins Quinolones Simvastatin TABS Statins Crestor, Zocor, Baycol, Pravachol all cause myalgias Sulfa Drugs Tetracyclines Latex Irbesartan TABS fatigue Allergies not assessed Historian: patient, family, EMS Review of Systems Constitutional: reports: weakness Eyes: reports: no symptoms ENT: reports: no symptoms Cardiovascular: reports: edema Respiratory: reports: as stated in HPI Gastrointestinal: reports: no symptoms Genitourinary - Female: reports: no symptoms Musculoskeletal: reports: as stated in HPI Integumentary: reports: as stated in HPI Neurologic: reports: no symptoms Psychiatric: reports: no symptoms Endocrine: no symptoms Hematologic / Lymphatic: no symptoms Allergic / Immunologic: no symptoms Past Medical History Past Medical History: Please see the HPI Past Surgical History: Please refer to the HPI Family History Cancer Diabetes mellitus Gallbladder disease Heart disease Hypertension Kidney disease Kidney stones Stroke Please refer to the HPI Social History Please refer to the HPI Hx Tobacco Use In Past Year?: No Smoking Status: Former Smoker Marital status: Housing status: lives with family Occupational Status: retired Immunizations History of Influenza Vaccine: No History of Tetanus Vaccine?: Yes History of Pneumococcal: Yes History of Hepatitis B Vaccine: Yes History of MDRO History of MDRO: No Allergies Coded Allergies: Adhesives (Verified Allergy, Mild, RASH, 06/05/17) Clindamycin (Verified Allergy, Mild, RASH, 06/05/17) Ezetimibe (Verified Allergy, Mild, MEMORY LOSS, 06/05/17) Latex (Verified Allergy, Mild, RASH, 06/05/17) Penicillins (Verified Allergy, Mild, HIVES, 06/05/17) Quinolones (Verified Allergy, Mild, UNKNOWN, 06/05/17) Simvastatin (Verified Allergy, Mild, MUSCLE ACHES, 06/05/17) Sulfa Antibiotics (Verified Allergy, Mild, RASH AND ITCHING, 06/05/17) Erythromycin (Verified Allergy, Unknown, RASH, 06/05/17) Irbesartan (Verified Allergy, Unknown, FATIGUE, 06/05/17) Lisinopril (Verified Allergy, Unknown, PERIORBITAL SWELLING, 06/05/17) Niacin (Verified Allergy, Unknown, UNKNOWN, 06/05/17) Tetracycline (Verified Allergy, Unknown, RASH, 06/05/17) Gabapentin (Verified Adverse Reaction, Unknown, SWELLING ("ALL OVER"), ) Current Medications Reported Home Medications Medications Dose Route/Sig Max Daily Dose Days Date Category Dose Instructions Docusate Sodium 100 Mg Cap 100 Mg PO BID 7 06/05/17 Reported Aspirin Ec (Aspirin) 325 Mg Tab 325 Mg PO DAILY 06/05/17 Reported Cozaar (Losartan Potassium) 50 Mg Tab 50 Mg PO BID 06/05/17 Reported Lasix (Furosemide) 40 Mg Tab 20-40 Mg PO UD PRN 06/05/17 Reported PATIENT ALTERNATES BETWEEN 20MG & 40MG NEEDED FOR WEIGHT GAIN. HAS NOT HAD TO USE IT IN A WHILE Coreg (Carvedilol) 12.5 Mg Tab 12.5 Mg PO QPM 06/05/17 Reported Coreg (Carvedilol) 12.5 Mg Tab 25 Mg PO QAM 06/05/17 Reported Miralax (Polyethylene) 17 Gm Pow 17 Gm PO DAILY 05/20/17 Rx Floranex (Lactobacillus Acidophilus) 1 Tab Tab 3 Tab PO TID 20 05/20/17 Rx Daptomycin 500 Mg Inj 600 Mg IV DAILY 17 05/20/17 Rx starting 05/21/17 Ferrous Sulfate 325 Mg Tab 325 Mg PO BID 30 05/20/17 Rx Multivitamin (Multivitamins) Tab 1 Tab PO QAM 02/28/17 Reported Zantac (Ranitidine HCl) 300 Mg Tab 300 Mg PO HS 02/28/17 Reported [place] Thyroid (Thyroid) 120 Mg Tab 120 Mg PO QAM 02/28/17 Reported Vitamin D3 (Cholecalciferol) 2,000 Unit Tab 2,000 Intunit PO QAM 08/19/14 Reported Estradiol 0.5 Mg Tab 0.25 Mg PO HS 08/19/14 Reported IF ADMITTED AT ANY TIME, PT IS AWARE PHARMACY DOES NOT CARRY THIS DRUG . PT STATES SHE'S NOT BRINGING IT IN FROM HOME Physical Physical Exam Vital Signs: Date Time Temp Pulse Resp B/P (MAP) Pulse Ox O2 Delivery O2 Flow Rate FiO2 06/06/17 14:40 36.6 69 17 129/74 93 06/06/17 14:25 36.6 70 18 160/74 94 06/06/17 14:08 36.6 73 18 165/77 95 06/06/17 13:05 37.0 72 18 140/75 94 06/06/17 12:40 36.7 81 16 134/78 90 06/06/17 11:40 36.9 71 18 127/71 94 06/06/17 11:10 37.1 70 16 134/71 91 06/06/17 10:40 36.9 71 17 121/69 91 06/06/17 10:25 37.0 70 18 141/73 92 06/06/17 10:08 37.0 78 18 145/70 94 06/06/17 08:00 Room Air 06/06/17 00:07 37.4 99 18 179/80 (113) 90 Room Air 06/06/17 00:00 Room Air 06/05/17 21:07 76 149/80 (103) 06/05/17 16:00 92 Room Air 06/05/17 15:34 37.6 82 20 152/71 (98) 92 Room Air General Appearance: NO APPARENT DISTRESS Head: NORMOCEPHALIC, ATRAUMATIC Eyes: PERRLA, NO DISCHARGE, EOMI, SCLERAE NORMAL ENT: NORMAL EAR EXAM, NORMAL NASAL EXAM, NORMAL MOUTH EXAM, NORMAL THROAT EXAM , NORMAL DENTAL EXAM Neck: NORMAL RANGE OF MOTION, NO TENDERNESS, TRACHEA MIDLINE, NO STRIDOR, SUPPLE, NO THYROMEGALY Respiratory: other (Mild rhonchi throughout thoracic ultrasound showed minimal intraparenchymal fluid in no signs of pleural effusions) Cardiovasular: other (S1-S2 normal sinus rhythm but distant heart sounds unable to auscultate for murmurs rubs or gallops) Abdomen: other (Obese positive bowel sounds soft nontender no rebound) Genitourinary - Female: EXTERNAL GENITALIA NORMAL Back: NORMAL INSPECTION, NO MIDLINE TENDERNESS, NO CVA TENDERNESS, other ( Midline lumbar scar well-healed) Upper Extremities: other (No clubbing cyanosis or edema noted) Lower Extremities: other (Bilateral lower extremity edema 1+ pitting) Neuro: ALERT, ORIENTED x 3, NORMAL MOTOR EXAM, NORMAL SENSATION, NORMAL CEREBELLAR EXAM, NORMAL SPEECH, NORMAL GAIT Reflexes: biceps (R) (1+), bicpes (L) (1+), patellar (R) (1+), patellar (L) (1+ ) Babinski Testing: right (downgoing), left (downgoing) Psychiatric: NORMAL AFFECT, NO SUICIDAL IDEATION Diagnostics Labs Results Past 24 Hours Test 06/06/17 00:00 06/06/17 05:16 Range/Units Influenza Type A Antigen Neg for Influ A NEG Influenza Type B Antigen Neg for Influ B NEG White Blood Count 10.00 4.8-10.8 K/uL Red Blood Count 2.69 4.2-5.4 M/uL Hemoglobin 7.2 12.0-16.0 g/dL Hematocrit 22.6 37-47 % Mean Corpuscular Volume 84.0 80-100 fL Mean Corpuscular Hemoglobin 26.8 25-34 pg Mean Corpuscular Hemoglobin Concent 31.9 32-36 g/dl RDW Standard Deviation 48.3 36.4-46.3 fL RDW Coefficient of Variation 15.6 11.5-14.5 % Platelet Count 356 130-400 K/uL Mean Platelet Volume 8.0 7.4-10.4 fL Prothrombin Time 18.6 9.0-12.0 SECONDS Prothromb Time International Ratio 1.7 0.9-1.1 Sodium Level 131 136-145 mmol/L Potassium Level 4.5 3.5-5.1 mmol/L Chloride Level 102 98-107 mmol/L Carbon Dioxide Level 20 21-32 mmol/L Anion Gap 9.0 3-11 mmol/L Blood Urea Nitrogen 30 7-18 mg/dl Creatinine 2.04 0.60-1.20 mg/dl Est Creatinine Clear Calc Drug Dose 26.9 ml/min Estimated GFR () 26.6 Estimated GFR (Non- 22.9 BUN/Creatinine Ratio 14.6 10-20 Random Glucose 119 70-99 mg/dl Calcium Level 8.1 8.5-10.1 mg/dl Diagnostic Radiology Please refer to the [facility] EKG Interpretation: NORMAL EKG Impression Assessment and Plan 77-year-old female with abnormal CT scan: 1. Abnormal CT scan: Patient does have some non progressive dyspnea on exertion as well as cough. She has had to multiple his past 2-3 months with infection as well as antibiotic use. Her high-resolution CT scan obtained today does show diffuse consolidative findings globally/per fully predominant in the upper lobes with some bronchiectatic changes. There is a large differential diagnosis including: Cryptogenic organizing pneumonia, atypical bacteria infection, fungal infection, eosinophilic pneumonitis, drug-induced ILD and underlying vasculitic ILD ease/rheumatologic. At this time I would like to send off a vasculitic workup. I have also asked the patient her if they would consent to a bronchoscopy tomorrow morning so we can evaluate for infection as well as send off for cell count with differential to help with workup for pneumonitis versus ILD. Thank you for this consultation I will continue follows the patient is in-house.
--- NOTE | 2017-06-06 15:15 | NUR ---
A: Pt receiving second unit of PRBC at this time tolerating infusion well. Will continue to monitor.
--- NOTE | 2017-06-06 15:22 | Pharmacy Progress Note ---
Pharmacy Antibiotic Consult Date of Service: Jun 06, 2017. Pharmacy Dosing Scope Pharmacy is consulted to initiate vancomycin IV dosing therapy, order appropriate labs and adjust drug dose/frequency. Subjective The patient is a 77 year old female admitted on Jun 05, 2017 at 12:45. Objective Height (Feet): 5 Height (Inches): 2.00 Weight (Kilograms): 109.400 Lab Results (24hrs): Test 06/06/17 00:00 06/06/17 05:16 Influenza Type A Antigen Neg for Influ A (NEG) Influenza Type B Antigen Neg for Influ B (NEG) White Blood Count 10.00 K/uL (4.8-10.8) Red Blood Count 2.69 M/uL (4.2-5.4) Hemoglobin 7.2 g/dL (12.0-16.0) Hematocrit 22.6 % (37-47) Mean Corpuscular Volume 84.0 fL (80-100) Mean Corpuscular Hemoglobin 26.8 pg (25-34) Mean Corpuscular Hemoglobin Concent 31.9 g/dl (32-36) RDW Standard Deviation 48.3 fL (36.4-46.3) RDW Coefficient of Variation 15.6 % (11.5-14.5) Platelet Count 356 K/uL (130-400) Mean Platelet Volume 8.0 fL (7.4-10.4) Prothrombin Time 18.6 SECONDS (9.0-12.0) Prothromb Time International Ratio 1.7 (0.9-1.1) Sodium Level 131 mmol/L (136-145) Potassium Level 4.5 mmol/L (3.5-5.1) Chloride Level 102 mmol/L (98-107) Carbon Dioxide Level 20 mmol/L (21-32) Anion Gap 9.0 mmol/L (3-11) Blood Urea Nitrogen 30 mg/dl (7-18) Creatinine 2.04 mg/dl (0.60-1.20) Est Creatinine Clear Calc Drug Dose 26.9 ml/min Estimated GFR () 26.6 Estimated GFR (Non- 22.9 BUN/Creatinine Ratio 14.6 (10-20) Random Glucose 119 mg/dl (70-99) Calcium Level 8.1 mg/dl (8.5-10.1) Micro Results: Item Value Date Time Blood Culture - Preliminary Resulted 06/05/17 1053 Blood Gram Positive Cocci Assessment & Plan ASSESSMENT: Ms Swain is a 77 y/o F admitted with pneumonitis, suspected to be from long-term daptomycin. 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 Currently 1 of 2 blood cultures is positive for Gram positive cocci. Repeat blood cultures are pending. Loading dose: vancomycin 2250 mg IV X 1 dose then: Check random level tomorrow morning secondary to increasing kidney dysfunction Goal peak level estimate: between 35 - 40 mcg/mL. Goal trough level estimate: between 15 - 20 mcg/mL. Pharmacy will continue to follow and will adjust dose/frequency as necessary. Thank you
--- NOTE | 2017-06-06 15:26 | NUR ---
Discharge planning consult received. Patient is also on the screening list for 30 day readmission. Patient was discharged from [facility] to [facility] with a wound vac status post infection from hip surgery. From there she returned home. Patient lives with her in their own home. She currently has a walker and cane. Patients assists with needs, she has no home health services. Her plan is to return return home at discharge. Discharge needs uncertain at this time, case management to follow.
[2017-06-06] MEDS ORDERED: VANCOMYCIN IV 2,250 MG in SODIUM CHLORIDE 0.9% 500ML 500 ML IV ONE (15:30)
[2017-06-06] MEDS ORDERED: VANCOMYCIN CONSULT ACTIVE PRN (15:45)
[2017-06-06] MEDS: AZITHROMYCIN 250 MG TAB PO SCH (17:24)
--- NOTE | 2017-06-06 17:40 | NUR ---
A: Pt completed with blood transfusion. No untoward effects noted. Vitals = wnl. Administered Vancomycin and started IVF at this time after the completion of transfusion. Will continue to monitor.
[2017-06-06] MEDS: SODIUM CHLORIDE 0.9% 1000ML 1,000 ML IV SCH (17:44)
[2017-06-06] MEDS: OXYCODONE HCL IR 5 MG TAB (IMMEDIATE RELEASE) PO PRN (20:53)
[2017-06-06] MEDS: CARVEDILOL 12.5 MG TAB PO SCH (20:54)
[2017-06-06] MEDS: RANITIDINE HCL 150 MG TAB PO SCH (20:55)
[2017-06-06] MEDS: METHYLPREDNISOLONE IV 20 MG in SYRINGE 0 ML IV SCH (20:58)
--- NOTE | 2017-06-06 22:04 | Progress Note ---
Subjective Date of Service: Jun 06, 2017. Subjective Pt evaluation today including: conversation w/ patient, conversation w/ family (), physical exam, lab review, review of studies, conversation w/ telecommunications consultant, review of inpatient medication list Pain: no pain PO Intake: poor appetite Voiding: no voiding problems met with patient and at the bedside patient still with dyspnea and nonproductive cough, no fever reviewed labs, normal WBC, Cr up slightly at 2.0 one blood culture positive for gram positive cocci Hb low at 7.2, will transfuse reviewed CT of the chest with consolidation in all 5 lobes discussed case with Dr. Echevarria, possible Daptomycin pneumonitis appreciate recommendations from Dr. Lopez, plan for bronchoscopy tomorrow Problem List Medical Problems: (1) Abdominal pain Status: Acute (2) Abscess of hip Status: Acute (3) Cellulitis Status: Acute (4) CHF (congestive heart failure) Status: Acute (5) Hip pain Status: Acute (6) Leukocytosis Status: Acute (7) Pneumonia Status: Acute (8) Shortness of breath Status: Acute Review of Systems Constitutional: + weakness, + fatigue Respiratory: + cough, + shortness of breath, + dyspnea on exertion All Other Systems: Reviewed and Negative Medications Current Inpatient Medications Medications (Trade) Dose Ordered Sig/Fuentes Route Start Time Stop Time Status Last Admin Dose Admin Acetaminophen (Tylenol Tab) 650 mg Q4H PRN PO 06/05/17 12:45 07/05/17 12:44 Polyethylene (Miralax Powder Packet) 17 gm DAILY PRN PO 06/05/17 13:15 07/05/17 13:14 Ondansetron HCl (Zofran Inj) 4 mg Q6H PRN IV 06/05/17 12:45 07/05/17 12:44 Heparin Sodium (Porcine) (Heparin Sq 5000 Unit/0.5ml) 5,000 unit Q12H SQ 06/06/17 09:00 07/06/17 08:59 Aspirin (Ecotrin Tab) 325 mg DAILY PO 06/06/17 09:00 07/06/17 08:59 06/06/17 08:21 325 MG Carvedilol (Coreg Tab) 12.5 mg QPM PO 06/05/17 21:00 07/05/17 20:59 06/06/17 20:54 12.5 MG Carvedilol (Coreg Tab) 25 mg QAM PO 06/06/17 09:00 07/06/17 08:59 06/06/17 08:20 25 MG Docusate Sodium (coLACE CAP) 100 mg BID PO 06/05/17 21:00 07/05/17 20:59 06/06/17 20:54 100 MG Ferrous Sulfate (Feosol Tab) 325 mg BIDM PO 06/05/17 17:00 07/05/17 17:59 06/06/17 17:24 325 MG Lactobacillus Acidophilus (Floranex Tab) 3 tab TIDM PO 06/05/17 17:00 07/05/17 17:59 06/06/17 17:25 3 TAB Multivitamins (Multivitamin Tab) 1 tab QAM PO 06/06/17 09:00 07/06/17 08:59 06/06/17 08:21 1 TAB Polyethylene (Miralax Powder Packet) 17 gm DAILY PO 06/06/17 09:00 07/06/17 08:59 Cholecalciferol (Vitamin D Tab) 2,000 inter.unit QAM PO 06/06/17 09:00 07/06/17 08:59 06/06/17 08:21 2,000 INTER.UNIT Miscellaneous Information (Order Awaiting Action) 1 ea QS N/A 06/05/17 16:00 07/05/17 15:59 Ranitidine HCl (zANTac TAB) 300 mg HS PO 06/05/17 21:00 07/05/17 20:59 06/06/17 20:55 300 MG Thyroid ([place] Thyroid Tab) 120 mg QAM PO 06/06/17 09:00 07/06/17 08:59 06/06/17 08:20 120 MG Lorazepam (Ativan Inj) 0.5 mg Q4H PRN IV 06/05/17 13:00 07/05/17 12:59 Lorazepam (Ativan Inj) 1 mg Q4H PRN IV 06/05/17 13:00 07/05/17 12:59 Morphine Sulfate (MoRPHine SULFATE INJ) 2 mg Q4H PRN IV 06/05/17 13:00 06/19/17 12:59 Morphine Sulfate (MoRPHine SULFATE INJ) 4 mg Q4H PRN IV 06/05/17 13:00 06/19/17 12:59 Hydralazine HCl (HydrALAZINE INJ) 10 mg Q4H PRN IV 06/05/17 13:00 07/05/17 12:59 Oxycodone HCl (Roxicodone Immediate Rel Tab) 10 mg Q6 PRN PO 06/05/17 13:00 06/19/17 12:59 06/06/17 20:53 10 MG Lorazepam 0.5 mg/ Syringe 1 ml @ 1 mls/min Q4H PRN IV 06/05/17 13:30 07/05/17 13:29 Lorazepam 1 mg/ Syringe 1 ml @ 1 mls/min Q4H PRN IV 06/05/17 13:45 07/05/17 13:44 Methylprednisolone Sodium Succinate 20 mg/Syringe 0.32 ml @ 1.5 mls/min Q12 IV 06/06/17 21:00 07/06/17 20:59 06/06/17 20:58 1.5 MLS/MIN Sodium Chloride 1,000 ml @ 75 mls/hr [id number] IV 06/06/17 10:00 07/06/17 09:59 06/06/17 17:44 75 MLS/HR Azithromycin (Zithromax Tab) 500 mg QAM PO 06/06/17 16:00 06/13/17 15:59 06/06/17 17:24 500 MG Cefepime HCl 1000 mg/Syringe 11 ml @ 5.5 mls/min Q24H IV 06/07/17 04:00 06/14/17 03:59 Vancomycin HCl (Consult) 1 ea UD PRN N/A 06/06/17 15:45 07/06/17 15:44 Objective Vital Signs Date Time Temp Pulse Resp B/P (MAP) Pulse Ox O2 Delivery O2 Flow Rate FiO2 06/06/17 21:24 Room Air 06/06/17 20:05 36.7 72 18 153/76 (101) 94 Room Air 06/06/17 19:11 94 Room Air 06/06/17 17:40 36.7 77 18 167/75 92 06/06/17 16:40 36.4 76 18 177/81 95 06/06/17 15:40 36.6 70 18 155/80 92 06/06/17 15:10 36.5 69 18 152/76 94 06/06/17 14:40 36.6 69 17 129/74 93 06/06/17 14:25 36.6 70 18 160/74 94 06/06/17 14:08 36.6 73 18 165/77 95 06/06/17 13:05 37.0 72 18 140/75 94 06/06/17 12:40 36.7 81 16 134/78 90 06/06/17 11:40 36.9 71 18 127/71 94 06/06/17 11:10 37.1 70 16 134/71 91 06/06/17 10:40 36.9 71 17 121/69 91 06/06/17 10:25 37.0 70 18 141/73 92 06/06/17 10:08 37.0 78 18 145/70 94 06/06/17 08:00 Room Air 06/06/17 00:07 37.4 99 18 179/80 (113) 90 Room Air 06/06/17 00:00 Room Air Physical Exam General Appearance: no apparent distress, + obese Eyes: normal inspection, EOMI, sclerae normal Neck: supple, no adenopathy, no JVD, trachea midline Respiratory/Chest: chest non-tender, lungs clear, no respiratory distress, no accessory muscle use, + decreased breath sounds Cardiovascular: regular rate, rhythm, no edema, no gallop, no JVD, no murmur Abdomen: normal bowel sounds, non tender, soft, no organomegaly Extremities: normal range of motion, non-tender, normal inspection, no pedal edema, no calf tenderness, pelvis stable, + pertinent finding (right hip incision clean, dry, well healed) Neurologic/Psychiatric: chemical weigher II-XII nml as tested, alert, normal mood/affect, oriented x 3 Skin: normal color, warm/dry, no rash Laboratory Results Last 24 Hours Test 06/06/17 00:00 06/06/17 05:16 06/06/17 15:47 06/06/17 16:00 Influenza Type A Antigen Neg for Influ A Influenza Type B Antigen Neg for Influ B White Blood Count 10.00 K/uL Red Blood Count 2.69 M/uL Hemoglobin 7.2 g/dL Hematocrit 22.6 % Mean Corpuscular Volume 84.0 fL Mean Corpuscular Hemoglobin 26.8 pg Mean Corpuscular Hemoglobin Concent 31.9 g/dl RDW Standard Deviation 48.3 fL RDW Coefficient of Variation 15.6 % Platelet Count 356 K/uL Mean Platelet Volume 8.0 fL Prothrombin Time 18.6 SECONDS Prothromb Time International Ratio 1.7 Sodium Level 131 mmol/L Potassium Level 4.5 mmol/L Chloride Level 102 mmol/L Carbon Dioxide Level 20 mmol/L Anion Gap 9.0 mmol/L Blood Urea Nitrogen 30 mg/dl Creatinine 2.04 mg/dl Est Creatinine Clear Calc Drug Dose 26.9 ml/min Estimated GFR () 26.6 Estimated GFR (Non- 22.9 BUN/Creatinine Ratio 14.6 Random Glucose 119 mg/dl Calcium Level 8.1 mg/dl Random Vancomycin Level < 0.8 mcg/ml Test 06/06/17 19:50 Cyclic Citrullinated Peptide IgG Ab 1.15 U/mL Assessment and Plan 77 yo female who presents with increased dyspnea for several weeks, progressive , now really bad on exertion with possible pneumonia on CXR on admission - Acute dyspnea with CT chest showing multilobar consolidation appreciate pulmonary consultation, wide differential cryptogenic organizing pneumonia, bacterial or fungal infection, vasculitis ( drug induced or rheumatologic) plan for bronchoscopy tomorrow continue Cefepime and Vancomycin vasculitic studies sent out breathing comfortably at rest, no hypoxia - Recent right hip infection after DEANN: 6 weeks of Daptomycin concerns for Daptomycin causing pneumonitis, stop and observe hip off of antibiotics - Acute on chronic anemia: Hb down to 7.2, will give 2 units today, repeat tomorrow - YAJAIRA on CKD: Cr up to 2.0 from 1.7 on admission, baseline appears closer to 1.3 -1.4 could be prerenal (not drinking well prior to admission) or possibly related to vasculitis? repeat labs tomorrow, hold nephrotoxins - Elevated INR: unclear etiology, remains at 1.7, will follow plan for bronchoscopy tomorrow, repeat lab work tomorrow
--- NOTE | 2017-06-06 22:55 | NUR ---
A; Pt does not wish to participate in bedside report for 2300 shift change
[2017-06-07] VITALS (10 sets, daily range): BP systolic 122–198; BP diastolic 60–88; PULSE 67–84; TEMP 36.3–36.5; O2SAT 90–99
[2017-06-07] MEDS: CEFEPIME IV 1,000 MG in SYRINGE 0 ML IV SCH (04:00)
[2017-06-07] MEDS: SODIUM CHLORIDE 0.9% 1000ML 1,000 ML IV SCH ×2 (04:00→14:18)
--- NOTE | 2017-06-07 05:00 | NUR ---
ID: Pt alert and oriented this shift. x1/supervision assist while OOB with walker. at bedside, assists with all care this shift. IVF infusing. NPO for bronch this morning, pt aware and compliant. Antibiotics intermittently. S/p 2 units blood. VSS on CPAP HS, RA during the day. Assessment completed, no complaints. D/c plan for pt to return home once stable.
[2017-06-07] MEDS: ESTRACE~ORDER AWAITING ACTION SCH ×3 (07:24→23:09)
[2017-06-07 07:54] LABS: CALCIUM 8.4 mg/dl (8.5-10.1); CREATININE 1.85 mg/dl (0.60-1.20); POTASSIUM 4.5 mmol/L (3.5-5.1)
[2017-06-07] MEDS: LACTOBACILLUS ACIDOPHILUS (FLORANEX) TAB PO SCH ×3 (08:00→17:31)
[2017-06-07] MEDS: FERROUS SULFATE 325 MG TAB PO SCH ×2 (08:00→17:31)
[2017-06-07] MEDS: DOCUSATE SODIUM 100 MG CAP PO SCH ×2 (08:20→21:46)
[2017-06-07] MEDS: MULTIVITAMIN TAB PO SCH (08:21)
[2017-06-07] MEDS: HEPARIN SOD 5000 UNIT/0.5 ML CARP SQ SCH ×2 (08:21→21:45)
[2017-06-07] MEDS: POLYETHYLENE (MIRALAX) 17 GM PACK PO SCH (08:21)
[2017-06-07] MEDS: CHOLECALCIFEROL 1000 INTER.UNIT TAB PO SCH (08:21)
[2017-06-07] MEDS: ASPIRIN 325 MG ECTAB PO SCH (08:24)
[2017-06-07] MEDS: AZITHROMYCIN 250 MG TAB PO SCH (08:30)
[2017-06-07] MEDS: CARVEDILOL 25 MG TAB PO SCH (08:30)
[2017-06-07] MEDS: ARMOUR THYROID 30 MG TAB PO SCH (08:30)
[2017-06-07] MEDS: METHYLPREDNISOLONE IV 20 MG in SYRINGE 0 ML IV SCH (08:30)
[2017-06-07] MEDS ORDERED: CEFEPIME IV 1,000 MG in DEXTROSE 5% 100ML 100 ML IV SCH (09:00)
--- NOTE | 2017-06-07 09:20 | History & Physical Bridge Note ---
H&P Re-Evaluation Bridge Note: I have examined the patient, reviewed the History & Physical and in the interval since the performance of the History & Physical I have noted the following changes of clinical significance: No changes noted
--- NOTE | 2017-06-07 09:21 | Procedure Note ---
Pre-Mod Sedation Assessment General Date of Moderate Sedation: Jun 07, 2017. Vital Signs: Vital Signs Past 12 Hours Date Time Temp Pulse Resp B/P (MAP) Pulse Ox O2 Delivery O2 Flow Rate FiO2 06/07/17 08:00 Room Air 06/07/17 07:18 36.4 67 18 172/78 (109) 94 06/07/17 00:00 94 Room Air 06/06/17 23:58 36.5 76 18 160/77 (104) 96 Room Air 06/06/17 21:24 Room Air Review Cardiovascular: regular rate, rhythm, + pertinent finding (1+ pitting edema ) Abdomen: normal bowel sounds, non tender, soft, no organomegaly, no pulsatile mass Lungs: + rhonchi Pre-Sedation Airway Assessment Oral Cavity: Capped Teeth Able to Visualize Vocal Cords: Yes Short Thick Neck: Yes Hx of Sleep Apnea: No Smoking Status: Former Smoker Mallampati Classification: Class III ASA Classification: Class III Procedure Planning Contraindications-for Mod Sed: None Yes Notes The planned sedation has been discussed with the patient and consent obtained. I have identified the patient, determined the appropriateness of sedation and have assessed the patient immediately prior to the procedure. All medicine(s) and interventions are by my order.
--- NOTE | 2017-06-07 09:30 | PROGRESS NOTE ---
DATE: 06/07/2017 SUBJECTIVE: The patient is feeling better. She notes that she feels much more strength and comfortable since she has had her transfusion. She notes that she feels a little bloated from the steroid. She has minimal hip or leg pain. We think she really complains about a little bit of inner thigh pain, which is related to varicosity related likely to some adductor strain and some pressure from the Doppler ultrasound looking for clot. OBJECTIVE: Vital signs are stable. She is afebrile. Hip wound is clean, dry and intact. Hip motion is supple and pain free. Can do straight leg raise. Neurovascular check femoral sciatic nerve is normal. The pelvis assessment of the groin pain produces some minor tenderness along the adductor longus, very distal to the hip joint. LABORATORY WORK: Pending this morning with respect to hematocrit. The rest of her laboratory work is noted. Of note, is that she has had one positive blood culture. This is assessed by infectious disease as well. We will continue with the vancomycin for now. Assessment from an orthopedic perspective, seems to be doing reasonably well, will have a bronchoscopy today to assess lung issues. We will keep abreast of her day to day.
--- NOTE | 2017-06-07 10:43 | Pharmacy Progress Note ---
Pharmacy Abx Dose Progress Nt Date of Service Jun 07, 2017. Pharmacy Dosing Scope The patient is currently receiving the following antimicrobial agents per Pharmacy consult: Vancomycin single doses based on random levels due to poor renal function. Objective Height (Feet): 5 Height (Inches): 2.00 Weight (Kilograms): 109.400 Vital Signs (Past 12Hrs) Vital Signs Past 12 Hours Date Time Temp Pulse Resp B/P (MAP) Pulse Ox O2 Delivery O2 Flow Rate FiO2 06/07/17 08:00 Room Air 06/07/17 07:18 36.4 67 18 172/78 (109) 94 06/07/17 00:00 94 Room Air 06/06/17 23:58 36.5 76 18 160/77 (104) 96 Room Air Lab Results (24Hrs) Item Value Date Time Random Vancomycin Level 23.0 mcg/ml 06/07/17 0920 Micro Results Date/Time Source Procedure Growth Status 06/06/17 15:42 Blood Blood Culture Pending Received 06/06/17 15:35 Blood Blood Culture Pending Received 06/05/17 10:53 Blood Blood Culture - Preliminary Gram Positive Cocci Resulted 06/05/17 10:43 Blood Blood Culture - Preliminary NO GROWTH TO DATE. Resulted 06/05/17 10:35 Urine,Catheterized Urine Culture - Final GREATER THAN THREE TYPES OF ORGANISMS... Complete Risk Factors for Resistance * Antimicrobial use within the last 90 days- Had been on Daptomycin IV Assessment & Plan Assessment 77 year old female receiving Vancomycin for treatment of Bacteremia Day # 2/14 of antimicrobial therapy Plan Vancomycin IV * Random level of 23 mcg/mL is supratherapeutic at this time. * Patient received loading dose of Vancomycin 2250 mg IV at 17:29 hrs yesterday. * Serum creatinine improved from 2.04 yesterday to 1.8 today. * I expect the level to fall below 20 mcg/ml by tonight. * Hence I ordered a Vancomycin dose = 1500 mg IV x 1 at 2200 tonight. * Goal trough level for bacteremia: 15 to 20 mcg/mL * A random level ordered for: 06/09/17 with AM labs * Will check level and order further Vancomycin doses as necessary. Pharmacy will continue to follow and will adjust dose/frequency as necessary. Thank you.
[2017-06-07] MEDS ORDERED: MIDAZOLAM HCL 5 MG/ML 1 ML VIAL ONE (13:36)
[2017-06-07] MEDS ORDERED: FENTANYL CITRATE INJ 50 MCG/1 ML 2 ML VIAL ONE (13:37)
[2017-06-07] MEDS ORDERED: LEVOFLOXACIN / D5W 750 MG in PREMIXED IN D5W 150 ML IV SCH (14:00)
--- NOTE | 2017-06-07 14:04 | NUR ---
Bronchoscopy completed by Dr. Lopez under moderate sedation. See eMAR Patient in room 103 on heart monitor. Cardiac monitoring, pulse oximetry and blood pressure monitoring continuous during procedure, patient tolerated procedure well, see EMR.
--- NOTE | 2017-06-07 14:08 | Bronchoscopy Procedure Note ---
Bronchoscopy Procedure Note Procedure: Bronchoscopy, conscious sedation, bronchial lavage right upper lobe Consent: Obtained through the patient placed into the chart Pre-procedural diagnosis: Pneumonitis versus interstitial lung disease Post-procedural diagnosis: Pneumonitis versus interstitial lung disease Analgesia: 2% liquid lidocaine: Via nebulizer 4% gel lidocaine: Via right naris 2% liquid lidocaine: Via bronchoscopy Sedation: Versed IV: 3mg Fentanyl IV: 50 g Hydralazine IV: 10 mg Procedure: The [employer] video bronchoscope was used for this procedure and passed down through the right naris Right naris/posterior naris/posterior oropharynx: Anatomically within normal limits, mild inflammation noted on the middle turbinate posteriorly Glottis: Anatomically within normal limits Vocal cords: Proper abduction and abduction, anatomically within normal limits Subglottis/trachea/Amanda: Anatomically within normal limits Right bronchial tree: Right mainstem bronchus: Anatomically within normal limits Right upper lobe: Anatomically within normal limits Bronchus intermedius: Anatomically within normal limits Right middle lobe: Anatomically within normal limits Right lower lobe: Anatomically within normal limits Findings: No significant findings noted Left bronchial tree: Left mainstem bronchus: Anatomically within normal limits Left upper lobe: Anatomically within normal limits Lingula: Anatomically within normal limits Left lower lobe: Anatomically within normal limits Findings: No significant findings noted Bronchial alveolar lavage: Right upper lobe EBL: None Complications: None Follow-up: ASU
--- NOTE | 2017-06-07 14:27 | Procedure Note ---
Post-Moderate Sedation Plan General Date of Moderate Sedation Jun 07, 2017. Vital Signs: Vital Signs Past 12 Hours Date Time Temp Pulse Resp B/P (MAP) Pulse Ox O2 Delivery O2 Flow Rate FiO2 06/07/17 14:19 78 14 140/60 (86) 99 Oxymask 5.0 06/07/17 14:08 79 16 153/64 99 06/07/17 14:00 82 18 198/88 99 Room Air 06/07/17 08:00 Room Air 06/07/17 07:18 36.4 67 18 172/78 (109) 94 Review - Discharge Plan Post Moderate Sedation Plan: On clinical assessment, the patient appears to have tolerated the conscious sedation without complications. Patient is recovering as anticipated. Patient is to return to room 283 to when she meets postprocedural criteria. At this time I will reinitiate the steroid dosing at 0.5 mg/kg of ideal body weight. In this patient is approximately equal to 25 mg of prednisone daily. We will have to be cautious as the patient is noted to have fluid retention exacerbating her underlying diastolic heart failure. This critical presentation as well as radiographic is suggestive of pneumonitis versus ILD. Bronchoscopic washings have been sent off for analysis.
--- NOTE | 2017-06-07 20:49 | Progress Note ---
Subjective Date of Service: Jun 07, 2017. Subjective Pt evaluation today including: conversation w/ patient, conversation w/ family , physical exam, lab review, review of studies, conversation w/ art consultant, review of inpatient medication list Pain: no pain PO Intake: NPO for bronchoscopy Voiding: no voiding problems patient feeling well, a little less short of breath today seen prior to bronchoscopy reviewed labs, Cr down to 1.85, will check H/H tomorrow Problem List Medical Problems: (1) Abdominal pain Status: Acute (2) Abscess of hip Status: Acute (3) Cellulitis Status: Acute (4) CHF (congestive heart failure) Status: Acute (5) Hip pain Status: Acute (6) Leukocytosis Status: Acute (7) Pneumonia Status: Acute (8) Shortness of breath Status: Acute Review of Systems Constitutional: + weakness, + fatigue Respiratory: + dyspnea on exertion All Other Systems: Reviewed and Negative Medications Current Inpatient Medications Medications (Trade) Dose Ordered Sig/Fuentes Route Start Time Stop Time Status Last Admin Dose Admin Acetaminophen (Tylenol Tab) 650 mg Q4H PRN PO 06/05/17 12:45 07/05/17 12:44 Polyethylene (Miralax Powder Packet) 17 gm DAILY PRN PO 06/05/17 13:15 07/05/17 13:14 Ondansetron HCl (Zofran Inj) 4 mg Q6H PRN IV 06/05/17 12:45 07/05/17 12:44 Heparin Sodium (Porcine) (Heparin Sq 5000 Unit/0.5ml) 5,000 unit Q12H SQ 06/06/17 09:00 07/06/17 08:59 Aspirin (Ecotrin Tab) 325 mg DAILY PO 06/06/17 09:00 07/06/17 08:59 06/06/17 08:21 325 MG Carvedilol (Coreg Tab) 12.5 mg QPM PO 06/05/17 21:00 07/05/17 20:59 06/06/17 20:54 12.5 MG Carvedilol (Coreg Tab) 25 mg QAM PO 06/06/17 09:00 07/06/17 08:59 06/07/17 08:30 25 MG Docusate Sodium (coLACE CAP) 100 mg BID PO 06/05/17 21:00 07/05/17 20:59 06/06/17 20:54 100 MG Ferrous Sulfate (Feosol Tab) 325 mg BIDM PO 06/05/17 17:00 07/05/17 17:59 06/07/17 17:31 325 MG Lactobacillus Acidophilus (Floranex Tab) 3 tab TIDM PO 06/05/17 17:00 07/05/17 17:59 06/07/17 17:31 3 TAB Multivitamins (Multivitamin Tab) 1 tab QAM PO 06/06/17 09:00 07/06/17 08:59 06/06/17 08:21 1 TAB Polyethylene (Miralax Powder Packet) 17 gm DAILY PO 06/06/17 09:00 07/06/17 08:59 Cholecalciferol (Vitamin D Tab) 2,000 inter.unit QAM PO 06/06/17 09:00 07/06/17 08:59 06/06/17 08:21 2,000 INTER.UNIT Miscellaneous Information (Order Awaiting Action) 1 ea QS N/A 06/05/17 16:00 07/05/17 15:59 Ranitidine HCl (zANTac TAB) 300 mg HS PO 06/05/17 21:00 07/05/17 20:59 06/06/17 20:55 300 MG Thyroid ([place] Thyroid Tab) 120 mg QAM PO 06/06/17 09:00 07/06/17 08:59 06/07/17 08:30 120 MG Lorazepam (Ativan Inj) 0.5 mg Q4H PRN IV 06/05/17 13:00 07/05/17 12:59 Lorazepam (Ativan Inj) 1 mg Q4H PRN IV 06/05/17 13:00 07/05/17 12:59 Morphine Sulfate (MoRPHine SULFATE INJ) 2 mg Q4H PRN IV 06/05/17 13:00 06/19/17 12:59 Morphine Sulfate (MoRPHine SULFATE INJ) 4 mg Q4H PRN IV 06/05/17 13:00 06/19/17 12:59 Hydralazine HCl (HydrALAZINE INJ) 10 mg Q4H PRN IV 06/05/17 13:00 07/05/17 12:59 06/07/17 14:00 10 MG Oxycodone HCl (Roxicodone Immediate Rel Tab) 10 mg Q6 PRN PO 06/05/17 13:00 06/19/17 12:59 06/06/17 20:53 10 MG Lorazepam 0.5 mg/ Syringe 1 ml @ 1 mls/min Q4H PRN IV 06/05/17 13:30 07/05/17 13:29 Lorazepam 1 mg/ Syringe 1 ml @ 1 mls/min Q4H PRN IV 06/05/17 13:45 07/05/17 13:44 Sodium Chloride 1,000 ml @ 75 mls/hr [id number] IV 06/06/17 10:00 07/06/17 09:59 06/07/17 14:18 75 MLS/HR Azithromycin (Zithromax Tab) 500 mg QAM PO 06/06/17 16:00 06/13/17 15:59 06/07/17 08:30 500 MG Cefepime HCl 1000 mg/Syringe 11 ml @ 5.5 mls/min Q24H IV 06/07/17 04:00 06/14/17 03:59 06/07/17 04:00 5.5 MLS/MIN Vancomycin HCl (Consult) 1 ea UD PRN N/A 06/06/17 15:45 07/06/17 15:44 Vancomycin HCl 1500 mg/Sodium Chloride 530 ml @ 200 mls/hr 2200 IV 06/07/17 22:00 06/08/17 00:38 Objective Vital Signs Date Time Temp Pulse Resp B/P (MAP) Pulse Ox O2 Delivery O2 Flow Rate FiO2 06/07/17 16:15 36.3 74 18 125/78 (94) 94 06/07/17 16:00 Room Air 06/07/17 15:54 36.4 75 18 122/70 (87) 93 Room Air 06/07/17 15:15 36.5 84 18 145/81 (102) 90 Room Air 06/07/17 14:44 36.4 84 20 133/72 (92) 97 Room Air 06/07/17 14:22 Mask 06/07/17 14:19 78 14 140/60 (86) 99 Oxymask 5.0 06/07/17 14:08 79 16 153/64 99 06/07/17 14:00 82 18 198/88 99 Room Air 06/07/17 08:00 Room Air 06/07/17 07:18 36.4 67 18 172/78 (109) 94 06/07/17 00:00 94 Room Air 06/06/17 23:58 36.5 76 18 160/77 (104) 96 Room Air 06/06/17 21:24 Room Air Physical Exam General Appearance: no apparent distress, + obese Eyes: normal inspection, EOMI ENT: normal ENT inspection, TMs normal, pharynx normal Neck: supple, no adenopathy, no JVD, trachea midline Respiratory/Chest: chest non-tender, lungs clear, normal breath sounds, no respiratory distress, no accessory muscle use Cardiovascular: regular rate, rhythm, no edema, no gallop, no JVD, no murmur Abdomen: normal bowel sounds, non tender, soft, no organomegaly Extremities: normal range of motion, non-tender, normal inspection, no pedal edema, no calf tenderness Neurologic/Psychiatric: mortician helper II-XII nml as tested, no motor/sensory deficits, alert, normal mood/affect, oriented x 3 Skin: normal color, warm/dry, no rash Laboratory Results Last 24 Hours Test 06/07/17 06:49 06/07/17 09:20 06/07/17 09:35 06/07/17 14:00 Sodium Level 136 mmol/L Potassium Level 4.5 mmol/L Chloride Level 108 mmol/L Carbon Dioxide Level 20 mmol/L Anion Gap 8.0 mmol/L Blood Urea Nitrogen 34 mg/dl Creatinine 1.85 mg/dl Est Creatinine Clear Calc Drug Dose 29.7 ml/min Estimated GFR () 29.9 Estimated GFR (Non- 25.8 BUN/Creatinine Ratio 18.4 Random Glucose 148 mg/dl Calcium Level 8.4 mg/dl Rheumatoid Factor < 10.0 U/mL Random Vancomycin Level 23.0 mcg/ml Body Fluid Polynuclear WBCs 32.0 % Body Fluid Mononuclear Cells 68.0 % Assessment and Plan 77 yo female who presents with increased dyspnea for several weeks, progressive , now really bad on exertion with possible pneumonia on CXR on admission - Acute dyspnea with CT chest showing multilobar consolidation appreciate pulmonary consultation, wide differential cryptogenic organizing pneumonia, bacterial or fungal infection, vasculitis ( drug induced or rheumatologic) bronchoscopy performed today, no obvious changes on inspection, lavage taken continue Cefepime and Vancomycin vasculitic studies sent out, still pending breathing comfortably at rest, no hypoxia actually reports that breathing better today, maybe response to steroids and stopping Daptomycin - Recent right hip infection after DEANN: 6 weeks of Daptomycin concerns for Daptomycin causing pneumonitis, stop and observe hip off of antibiotics - Acute on chronic anemia: Hb down to 7.2, 2 units transfused on 06/06, will check H/H tomorrow - YAJAIRA on CKD: Cr up to 2.0 from 1.7 on admission, baseline appears closer to 1.3 -1.4 could be prerenal (not drinking well prior to admission) or possibly related to vasculitis? Cr 1.85 today, responding to volume repeat BMP tomorrow - Elevated INR: unclear etiology, 1.7 yesterday, will repeat tomorrow check AM labs, PT/OT
[2017-06-07] MEDS: CARVEDILOL 12.5 MG TAB PO SCH (21:47)
[2017-06-07] MEDS: RANITIDINE HCL 150 MG TAB PO SCH (21:47)
[2017-06-07] MEDS ORDERED: VANCOMYCIN IV 1,500 MG in SODIUM CHLORIDE 0.9% 500ML 500 ML IV SCH (22:00)
--- NOTE | 2017-06-08 | NUR ---
ID: Assessment completed see EMR. Pt is A&Ox4 and is OOB with an assist of one with a walker in the room. Pt admitted with right lower lobe pneumonia. Pt complains of right inner thigh pain at this time rating it a 6 out of 10. see eMAR. Vitals WNL. Trace edema noted to pts BLE. Pt is a high fall risk. Call castellano within reach, pt encouraged to ring and bed alarm in use. Pt is from home and plans to return there upon discharge. No discharge date at this time.
[2017-06-08] MEDS: OXYCODONE HCL IR 5 MG TAB (IMMEDIATE RELEASE) PO PRN (00:05)
[2017-06-08] MEDS: CEFEPIME IV 1,000 MG in SYRINGE 0 ML IV SCH (05:00)
[2017-06-08] MEDS: SODIUM CHLORIDE 0.9% 1000ML 1,000 ML IV SCH (05:00)
[2017-06-08 07:10] LABS: HEMATOCRIT 27.3 % (37-47); HEMOGLOBIN 8.8 g/dL (12.0-16.0); MEAN CORPUSCULAR HEMOGLOBIN 27.1 pg (25-34); MEAN CORPUSCULAR HGB CONC 32.2 g/dl (32-36); MEAN PLATELET VOLUME 8.3 fL (7.4-10.4); PLATELET COUNT 390 K/uL (130-400); RED CELL DISTRIBUTION WIDTH CV 15.5 % (11.5-14.5); RED CELL DISTRIBUTION WIDTH SD 47.9 fL (36.4-46.3); WHITE BLOOD COUNT 10.26 K/uL (4.8-10.8)
[2017-06-08 07:15] LABS: INR 1.4 (0.9-1.1)
[2017-06-08] MEDS: ESTRACE~ORDER AWAITING ACTION SCH (07:32)
[2017-06-08 07:38] LABS: CALCIUM 7.9 mg/dl (8.5-10.1); CREATININE 1.57 mg/dl (0.60-1.20); POTASSIUM 4.8 mmol/L (3.5-5.1)
[2017-06-08] MEDS: HEPARIN SOD 5000 UNIT/0.5 ML CARP SQ SCH (07:39)
[2017-06-08] MEDS: ASPIRIN 325 MG ECTAB PO SCH (07:39)
[2017-06-08] MEDS: ARMOUR THYROID 30 MG TAB PO SCH (07:39)
[2017-06-08] MEDS: LACTOBACILLUS ACIDOPHILUS (FLORANEX) TAB PO SCH (07:39)
[2017-06-08] MEDS: CARVEDILOL 25 MG TAB PO SCH (07:39)
[2017-06-08] MEDS: DOCUSATE SODIUM 100 MG CAP PO SCH (07:39)
[2017-06-08] MEDS: POLYETHYLENE (MIRALAX) 17 GM PACK PO SCH (07:39)
[2017-06-08] MEDS: FERROUS SULFATE 325 MG TAB PO SCH (07:39)
[2017-06-08 07:40] VITALS: BP 182/90; PULSE 79; TEMP 36.3; O2SAT 92
[2017-06-08] MEDS: MULTIVITAMIN TAB PO SCH (07:40)
[2017-06-08] MEDS: CHOLECALCIFEROL 1000 INTER.UNIT TAB PO SCH (07:40)
[2017-06-08] MEDS: AZITHROMYCIN 250 MG TAB PO SCH (07:40)
--- NOTE | 2017-06-08 09:42 | ORTHOPEDICS PROGRESS NOTE ---
DATE: 06/08/2017 SUBJECTIVE: The patient is sitting up in bed comfortable. She denies any significant pain. She denies chest pain, shortness of breath, fever, chills, nausea, vomiting or headache. She notes that she got through the bronchoscopy yesterday without any issues. Abdomen is soft and nontender. Hip motion is supple and pain free. Calves nontender. Still has a small area of medial varicosity in the thigh in the abductor region that is a little bit tender to palpation. Otherwise no findings. The incision is clean and dry. There is no tenses, redness, cellulitis or issues of pain. Hip motion is supple and pain free. Recent blood culture looks like it is coag negative staph, not lugdunensis. I would suspect that this likely represents a contaminant. ASSESSMENT: Overall, doing well from an orthopedic perspective. Things look stable. At this point in time, discharge plans per medicine. Full weightbearing to tolerance with right lower extremity. Can discontinue walker when the patient is strong enough. Of note, her hematocrit is 27. Continue with present plans. Suggest continue full 6-week course of antibiotics post-surgical treatment of the hip with oral antibiotic treatment for additional 2 months after that. This will be up to ID. Follow up with me in the office in 2 weeks. ALAN
--- NOTE | 2017-06-08 11:00 | Discharge Instructions ---
Discharge Instructions Date of Service Jun 08, 2017. 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 Instructions / Follow-Up Instructions / Follow-Up Medications: - DAPTOMYCIN: stop this medication - LASIX: resume today when you get home, take 40mg today In summary, full work up for dyspnea reveals that you have drug induced pneumonitis and recommendations are to stop Daptomycin, no steroids needed. Acute kidney injury, resolved, your Cr is 1.5 today, it was 2.0 on admission, safe to resume Lasix and Losartan Anemia: Hb 8.8 today, was 7.2 when you required transfusion, recommend labs this week, script provided Close follow up with pulmonary, ID and orthopedic surgery recommended. FOLLOW UP - Dr. Quiroz next week, call for appointment for hospital follow up - Dr. Lopez in two weeks, [phone] - Dr. Echevarria in two weeks, [phone] - Dr. Roberts in two weeks Current Hospital Diet Patient's current hospital diet: Regular Diet Discharge Diet Recommended Diet: Regular Diet Pending Studies Studies pending at discharge: yes List of pending studies: bronchial lavage cultures, Dr. Lopez will have results Medical Emergencies . Who to Call and When: Medical Emergencies: If at any time you feel your situation is an emergency, please call 911 immediately. . Non-Emergent Contact Non-Emergency issues call your: Primary Care Provider, Sales Planning Coordinator, Specialist Call Non-Emergent contact if: you have a fever, you have any medication questions . . "Provider Documentation" section prepared by Mike Payan. . VTE Core Measure Inpt VTE Proph given/why not?: Unfractionated heparin SQ [place] Drug Monitoring Program Search Results: no issues identified
--- NOTE | 2017-06-08 11:09 | Pulmonology Progress Note ---
Pulmonary Progress Note Date of Service Jun 08, 2017. Attending Dr. Lopez Subjective Patient is doing well today and has no active pulmonary complaints at this time. Objective Patient is doing well able set up in. She is not tachypneic able to complete full sentences without signs of shortness of Breath such as accessory muscle use or tachypnea. VS: I/Os: +920cc Sao2%: 92 FiO2: Room air RR: 18 Resp: Clear to auscultation bilaterally Card: S1-S2 distant heart sounds but regular rate and rhythm noted Abd: Positive bowel sounds soft nontender Ext: 1+ pitting edema Studies WBC: 10 K PLT: 390 K BMP: 06/05/20174328 (creatinine on that day: 1.71) Rheumatoid factor: Within normal limits CCP: Within normal limits Influenza a and B: Negative BAL (RUL//RB2) 06/07/2017 o WBCs: 32 o Mononuclear cells 68% o HSV: Pending Microbiology o Blood culture 06/05/2017: Coag-negative staph 1 of 4 AGUSTINA: Pending ANCA: Pending GBM antibody: Pending Cocci antibody: Pending Histo antibody: Pending [id number]: Pending Legionella urine antigen: Pending Active pulmonary Medications: 1. Cefepime 1 g Q 24 IV 2. Azithromycin 500 mg Q 24 3. Vancomycin 4. Ranitidine 300 mg q.h.s. 5. Prednisone 25 mg orally (equivalent to 0.5 mg/kg of ideal body weight) Assessment & Plan 77-year-old female admitted with abnormal CT of the chest after being treated for right hip secondary infection: 1. Abnormal CT of the chest: Bronchoscopy was performed yesterday on 2016 an current BAL findings are consistent drug induced eosinophilic pneumonitis. The eosinophil % was notably 68% of the overall cysts white blood cell count brought back in the BAL. 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 At this time as the drug has been withdrawn it is the appropriate treatment an in most cases steroids are not necessary. As this patient has notable diastolic heart failure and is prone to volume overload, especially when previously treated with 20 mg/q.d. prednisone daily for polymyalgia rheumatica, will hold off on any steroids at this time. Patient will have to be followed up closely over the next 6 weeks to monitor for resolution. I would like to obtain a CT of the chest in 6 weeks to make sure she has had complete resolution of her CT/chest abnormalities. Please have the patient follow-up with the [facility] within the next 2 weeks. 2. Bronchial lavage: Full findings on the bronchial lavage are currently pending such as microbiologic analysis and viral analysis. Data Medications: Current Inpatient Medications Medications (Trade) Dose Ordered Sig/Fuentes Route Start Time Stop Time Status Last Admin Dose Admin Acetaminophen (Tylenol Tab) 650 mg Q4H PRN PO 06/05/17 12:45 07/05/17 12:44 Polyethylene (Miralax Powder Packet) 17 gm DAILY PRN PO 06/05/17 13:15 07/05/17 13:14 Ondansetron HCl (Zofran Inj) 4 mg Q6H PRN IV 06/05/17 12:45 07/05/17 12:44 Heparin Sodium (Porcine) (Heparin Sq 5000 Unit/0.5ml) 5,000 unit Q12H SQ 06/06/17 09:00 07/06/17 08:59 Aspirin (Ecotrin Tab) 325 mg DAILY PO 06/06/17 09:00 07/06/17 08:59 06/08/17 07:39 325 MG Carvedilol (Coreg Tab) 12.5 mg QPM PO 06/05/17 21:00 07/05/17 20:59 06/07/17 21:47 12.5 MG Carvedilol (Coreg Tab) 25 mg QAM PO 06/06/17 09:00 07/06/17 08:59 06/08/17 07:39 25 MG Ferrous Sulfate (Feosol Tab) 325 mg BIDM PO 06/05/17 17:00 07/05/17 17:59 06/08/17 07:39 325 MG Lactobacillus Acidophilus (Floranex Tab) 3 tab TIDM PO 06/05/17 17:00 07/05/17 17:59 06/08/17 07:39 3 TAB Multivitamins (Multivitamin Tab) 1 tab QAM PO 06/06/17 09:00 07/06/17 08:59 06/08/17 07:40 1 TAB Polyethylene (Miralax Powder Packet) 17 gm DAILY PO 06/06/17 09:00 07/06/17 08:59 06/08/17 07:39 17 GM Cholecalciferol (Vitamin D Tab) 2,000 inter.unit QAM PO 06/06/17 09:00 07/06/17 08:59 06/08/17 07:40 2,000 INTER.UNIT Miscellaneous Information (Order Awaiting Action) 1 ea QS N/A 06/05/17 16:00 07/05/17 15:59 Ranitidine HCl (zANTac TAB) 300 mg HS PO 06/05/17 21:00 07/05/17 20:59 06/07/17 21:47 300 MG Thyroid ([place] Thyroid Tab) 120 mg QAM PO 06/06/17 09:00 07/06/17 08:59 06/08/17 07:39 120 MG Lorazepam (Ativan Inj) 0.5 mg Q4H PRN IV 06/05/17 13:00 07/05/17 12:59 Lorazepam (Ativan Inj) 1 mg Q4H PRN IV 06/05/17 13:00 07/05/17 12:59 Morphine Sulfate (MoRPHine SULFATE INJ) 2 mg Q4H PRN IV 06/05/17 13:00 06/19/17 12:59 Morphine Sulfate (MoRPHine SULFATE INJ) 4 mg Q4H PRN IV 06/05/17 13:00 06/19/17 12:59 Hydralazine HCl (HydrALAZINE INJ) 10 mg Q4H PRN IV 06/05/17 13:00 07/05/17 12:59 06/07/17 14:00 10 MG Oxycodone HCl (Roxicodone Immediate Rel Tab) 10 mg Q6 PRN PO 06/05/17 13:00 06/19/17 12:59 06/08/17 00:05 10 MG Lorazepam 0.5 mg/ Syringe 1 ml @ 1 mls/min Q4H PRN IV 06/05/17 13:30 07/05/17 13:29 Lorazepam 1 mg/ Syringe 1 ml @ 1 mls/min Q4H PRN IV 06/05/17 13:45 07/05/17 13:44 Azithromycin (Zithromax Tab) 500 mg QAM PO 06/06/17 16:00 06/13/17 15:59 06/08/17 07:40 500 MG Cefepime HCl 1000 mg/Syringe 11 ml @ 5.5 mls/min Q24H IV 06/07/17 04:00 06/14/17 03:59 06/08/17 05:00 5.5 MLS/MIN Vancomycin HCl (Consult) 1 ea UD PRN N/A 06/06/17 15:45 07/06/17 15:44 Losartan Potassium (coZAAR TAB) 50 mg BID PO 06/08/17 21:00 07/08/17 20:59 Vital Signs: Date Time Temp Pulse Resp B/P (MAP) Pulse Ox O2 Delivery O2 Flow Rate FiO2 06/08/17 08:00 Room Air 06/08/17 07:40 36.3 79 18 182/90 (120) 92 06/08/17 00:00 Room Air CPAP 06/07/17 22:44 36.3 72 16 165/82 (109) 91 Room Air 06/07/17 16:15 36.3 74 18 125/78 (94) 94 06/07/17 16:00 Room Air 06/07/17 15:54 36.4 75 18 122/70 (87) 93 Room Air 06/07/17 15:15 36.5 84 18 145/81 (102) 90 Room Air 06/07/17 14:44 36.4 84 20 133/72 (92) 97 Room Air 06/07/17 14:22 Mask 06/07/17 14:19 78 14 140/60 (86) 99 Oxymask 5.0 06/07/17 14:08 79 16 153/64 99 06/07/17 14:00 82 18 198/88 99 Room Air Laboratory Results: Last 24 Hours Test 06/07/17 14:00 06/08/17 06:49 Body Fluid Polynuclear WBCs 32.0 % Body Fluid Mononuclear Cells 68.0 % White Blood Count 10.26 K/uL Red Blood Count 3.25 M/uL Hemoglobin 8.8 g/dL Hematocrit 27.3 % Mean Corpuscular Volume 84.0 fL Mean Corpuscular Hemoglobin 27.1 pg Mean Corpuscular Hemoglobin Concent 32.2 g/dl RDW Standard Deviation 47.9 fL RDW Coefficient of Variation 15.5 % Platelet Count 390 K/uL Mean Platelet Volume 8.3 fL Prothrombin Time 15.1 SECONDS Prothromb Time International Ratio 1.4 Sodium Level 138 mmol/L Potassium Level 4.8 mmol/L Chloride Level 110 mmol/L Carbon Dioxide Level 18 mmol/L Anion Gap 10.0 mmol/L Blood Urea Nitrogen 40 mg/dl Creatinine 1.57 mg/dl Est Creatinine Clear Calc Drug Dose 35.0 ml/min Estimated GFR () 36.5 Estimated GFR (Non- 31.5 BUN/Creatinine Ratio 25.4 Random Glucose 129 mg/dl Calcium Level 7.9 mg/dl
[2017-06-08 11:41] VITALS: BP 182/90; PULSE 79; TEMP 36.3; O2SAT 92
--- NOTE | 2017-06-08 11:55 | NUR ---
A: DISCHARGE COMPLETED, PT AND VERBALIZED UNDERSTANDING. IV SITE TAKEN OUT. ALL BELONGINGS WITH PT. [facility] CALLED FOR TRANSPORTATION TO [facility].
--- NOTE | 2017-06-08 15:21 | Discharge Summary ---
Discharge Summary Date of Service Jun 08, 2017. Discharge Summary Admission Date: Jun 05, 2017 at 12:45 Discharge Date: Jun 08, 2017 Discharge Disposition: Home Principal Diagnosis: Drug induced pneumonitis Problems/Secondary Diagnoses: YAJAIRA Anemia Dyspnea recent DEANN with infection, hypercalcemia Immunizations: Have You Had Influenza Vaccine: No History of Tetanus Vaccine?: Yes History of Pneumococcal: Yes History of Hepatitis B Vaccine: Yes Procedures: Bronchoscopy Consultations: Orthopedic surgery Infectious disease Pulmonology Medication Reconciliation Continued Medications: Aspirin (Aspirin Ec) 325 Mg Tab 325 MG PO DAILY Carvedilol (Coreg) 12.5 Mg Tab 25 MG PO QAM, TAB Carvedilol (Coreg) 12.5 Mg Tab 12.5 MG PO QPM, TAB Cholecalciferol (Vitamin D3) 2,000 Unit Tab 2000 INTUNIT PO QAM Docusate Sodium (Docusate Sodium) 100 Mg Cap 100 MG PO BID for 7 Days, #14 CAP Estradiol (Estradiol) 0.5 Mg Tab 0.25 MG PO HS IF ADMITTED AT ANY TIME, PT IS AWARE PHARMACY DOES NOT CARRY THIS DRUG . PT STATES SHE'S NOT BRINGING IT IN FROM HOME Ferrous Sulfate (Ferrous Sulfate) 325 Mg Tab 325 MG PO BID for 30 Days, #60 TAB 2 Refills Furosemide (Lasix) 40 Mg Tab 20-40 MG PO UD PRN for WATER RETENTION, TAB PATIENT ALTERNATES BETWEEN 20MG & 40MG NEEDED FOR WEIGHT GAIN. HAS NOT HAD TO USE IT IN A WHILE Lactobacillus Acidophilus (Floranex) 1 Tab Tab 3 TAB PO TID for 20 Days, #180 TAB 0 Refills Losartan Potassium (Cozaar) 50 Mg Tab 50 MG PO BID, TAB Multivitamin (Multivitamin) Tab 1 TAB PO QAM, TAB Polyethylene (Miralax) 17 Gm Pow 17 GM PO DAILY, #30 PKT 0 Refills Ranitidine (Zantac) 300 Mg Tab 300 MG PO HS, TAB Thyroid ([place] Thyroid) 120 Mg Tab 120 MG PO QAM Discontinued Medications: Daptomycin (Daptomycin) 500 Mg Inj 600 MG IV DAILY for 17 Days, #17 DOSE 0 Refills starting 05/21/17 Discharge Exam Patient feeling much better, wanted to go home this AM. Breathing improved. Eating well, urinating well. No BM yet. Discussed with jenae Nguyen for discharge, follow up with him in 2 weeks. reviewed labs, Cr 1.5 and Hb up to 8.8 Review of Systems: Constitutional: + weakness, + fatigue, No fever, No chills, No sweats, No weight loss, No problem reported Eyes: No worsening of vision, No eye pain, No redness, No discharge, No diplopia, No problem reported ENT: No hearing loss, No unusual epistaxis, No nasal symptoms, No sore throat, No tinnitus, No dental problems, No trouble swallowing, No problem reported Respiratory: + dyspnea on exertion (mild, much better), No cough, No sputum , No wheezing, No shortness of breath, No dyspnea at rest, No hemoptysis, No problem reported Cardiovascular: No chest pain, No orthopnea, No PND, No edema, No claudication, No palpitations, No problem reported Abdomen: No pain, No nausea, No vomiting, No diarrhea, No constipation, No GI bleeding, No problem reported Musculoskeletal: No joint pain, No muscle pain, No swelling, No calf pain, No problem reported Genitourinary - Female: No dysuria, No urinary frequency, No urinary urgency , No urinary incontinence, No urinary retention, No hematuria Neurologic: No memory loss, No paralysis, No weakness, No numbness/tingling , No vertigo, No balance problems, No problem reported Psychiatric: No depression symptoms, No anhedonism, No anxiety, No insomnia , No substance abuse, No problem reported Endocrine: No fatigue, No excessive thirst, No excessive urination, No problem reported Hematologic / Lymphatic: No abnormal bleeding/bruising, No clotting problems , No swollen lymph nodes, No night sweats, No problem reported Integumentary: No rash, No itch, No new/changing skin lesions, No color change, No bleeding, No problem reported Physical Exam: General Appearance: no apparent distress, + obese Eyes: normal inspection, EOMI, sclerae normal ENT: normal ENT inspection, hearing grossly normal, pharynx normal Neck: supple, no adenopathy, no JVD, trachea midline Respiratory/Chest: chest non-tender, lungs clear, normal breath sounds, no respiratory distress, no accessory muscle use Cardiovascular: regular rate, rhythm, no edema, no gallop, no JVD, no murmur , normal peripheral pulses Abdomen / GI: normal bowel sounds, non tender, soft, no organomegaly Extremities: normal inspection, no calf tenderness, normal capillary refill , no pedal edema, normal range of motion, pelvis stable Neurologic/Psychiatric: pot fluxer II-XII nml as tested, no motor/sensory deficits , alert, normal mood/affect, normal reflexes, oriented x 3 Skin: normal color, warm/dry, no rash Hospital Course 77 yo female who presents with increased dyspnea for several weeks, progressive , now really bad on exertion with possible pneumonia on CXR on admission - Acute dyspnea: secondary to drug induced eosinophilic pneumonitis discussed with Dr. Lopez, will resolve with stopping Daptomycin, no steroids needed bronchoscopy performed 06/07, no obvious changes on inspection, lavage taken , cultures still pending stop antibiotics vasculitic studies sent out, still pending breathing comfortably at rest, no hypoxia breathing much improved follow up with Dr. Lopez in two weeks - Recent right hip infection after DEANN: 6 weeks of Daptomycin concerns for Daptomycin causing pneumonitis, stop and observe hip off of antibiotics follow up with Dr. Roberts and Dr. Echevarria - Acute on chronic anemia: Hb down to 7.2, 2 units transfused on 06/06, Hb 8.8 today, continue to follow as outpatient - YAJAIRA on CKD: Cr up to 2.0 from 1.7 on admission, baseline appears closer to 1.3 -1.5 could be prerenal (not drinking well prior to admission) or possibly related to vasculitis? Cr 1.5 today, so the acute component resolved, back to stage III disease continue to follow as outpatient - Elevated INR: unclear etiology, 1.4 today, seems to be resolving d/c to home off of Daptomycin Total Time Spent: Greater than 30 minutes This includes examination of the patient, discharge planning, medication reconciliation, and communication with other providers. Discharge Instructions Please refer to the electronic Patient Visit Report (Discharge Instructions) for additional information. Follow-Up Dr. Quiroz in one week Dr. Echevarria, Dr Lopez and Dr. Roberts in 2 weeks Additional Copies To Noman Quiroz M.D.; Jennifer. Echevarria D.Anton.; Vinny Hong M.D.; Schuyler Lopez MD
[2017-06-08] MEDS ORDERED: LOSARTAN POTASSIUM 50 MG TAB PO SCH (21:00)
[2017-06-11 09:53] LABS: HERPES SIMPLEX VIRUS CULT ISOLATED (NOT ISOLATED)
[2017-09-03] MEDS ORDERED: LEVO-17 PO (08:37)
[2017-09-03] MEDS ORDERED: ASPI-435 PO (08:37)
[2017-09-03] MEDS ORDERED: THY/120 PO (08:37)
[2017-09-03] MEDS ORDERED: THYR15TA PO (08:37)
== END 2017-06-08 11:57 | disposition home or self-care (01) | DRG 166 ==
LOC: EDBD 09:52 → C.EDA 09:53 → C.MED 12:45 → ENRESERV 12:59
PROVIDERS: ADMIT Internal Medicine; ATTEND Internal Medicine
PROC: 0B9C8ZX Drainage of Right Upper Lung Lobe, Via Natural or Artificial Opening Endoscopic, Diagnostic (ICD-10-PCS; principal; 2017-06-07)
DX: J70.2 Acute drug-induced interstitial lung disorders (principal); G93.41 Metabolic encephalopathy; D62 Acute posthemorrhagic anemia; N17.9 Acute kidney failure, unspecified; I13.0 Hypertensive heart and chronic kidney disease with heart failure and stage 1 through stage 4 chronic kidney disease, or unspecified chronic kidney disease; I50.32 Chronic diastolic (congestive) heart failure; T36.8X5A Adverse effect of other systemic antibiotics, initial encounter; T84.51XD Infection and inflammatory reaction due to internal right hip prosthesis, subsequent encounter; Z96.641 Presence of right artificial hip joint; N18.3 Chronic kidney disease, stage 3 (moderate); E03.9 Hypothyroidism, unspecified; M35.3 Polymyalgia rheumatica; R79.1 Abnormal coagulation profile; Z87.891 Personal history of nicotine dependence; Z79.2 Long term (current) use of antibiotics; Z79.82 Long term (current) use of aspirin; Z79.890 Hormone replacement therapy; Z79.899 Other long term (current) drug therapy; Z91.040 Latex allergy status; Z88.0 Allergy status to penicillin; Z88.1 Allergy status to other antibiotic agents; Z88.2 Allergy status to sulfonamides; Z88.8 Allergy status to other drugs, medicaments and biological substances; Z83.3 Family history of diabetes mellitus; Z82.49 Family history of ischemic heart disease and other diseases of the circulatory system; Z84.1 Family history of disorders of kidney and ureter; Z82.3 Family history of stroke

== ENCOUNTER → 2017-06-16 | Outpatient (CLI) | payer OTHER, MEDICARE ==
[~2017-06-16] MED LIST changes: -ACET-1256 PO; +ASPI325T39 PO; -Boost Nutritional Drink PO; +CARV12.52 PO; -CARV25TA PO; -DAPT500I IV; -DFL100 PO; +DOCU100C31 PO; +LOSA50TA6 PO; -MCRK20 PO; -MGNO400 PO; -NYSP EXT; -OXYC-594 PO; -SNK PO; -WARF3TAB6 PO
[2017-06-16 17:42] LABS: BASO % 0.6 %; BASO ABS # 0.06 K/uL (0-0.2); COMPLETE YES; EOS % 5.5 %; HEMATOCRIT 34.7 % (37-47); IG% 1.1 %; LYMPH % 17.2 %; LYMPH ABS # 1.73 K/uL (1.2-3.4); MEAN CELL VOLUME 88.5 fL (80-100); MEAN CORPUSCULAR HGB CONC 30.5 g/dl (32-36); MEAN PLATELET VOLUME 8.6 fL (7.4-10.4); MONO % 7.2 %; NEUT % 68.4 %; PLATELET COUNT 369 K/uL (130-400); RED BLOOD COUNT 3.92 M/uL (4.2-5.4); WHITE BLOOD COUNT 10.03 K/uL (4.8-10.8)
[2017-06-16 17:56] LABS: BLOOD UREA NITROGEN 37 mg/dl (7-18); BUN/CREATININE RATIO 24.2 (10-20); CALCIUM 10.3 mg/dl (8.5-10.1); CARBON DIOXIDE 25 mmol/L (21-32); CHLORIDE 102 mmol/L (98-107); CREATININE 1.53 mg/dl (0.60-1.20); GLUCOSE 102 mg/dl (70-99); PHOSPHORUS 3.8 mg/dl (2.5-4.9); POTASSIUM 4.6 mmol/L (3.5-5.1); SODIUM 137 mmol/L (136-145)
== END | disposition home or self-care (01) ==
LOC: C.LABBFT 12:08
PROVIDERS: ATTEND Internal Medicine
DX: D64.9 Anemia, unspecified (principal); N18.9 Chronic kidney disease, unspecified; T84.51XA Infection and inflammatory reaction due to internal right hip prosthesis, initial encounter; Y83.1 Surgical operation with implant of artificial internal device as the cause of abnormal reaction of the patient, or of later complication, without mention of misadventure at the time of the procedure

== ENCOUNTER → 2017-07-08 | Outpatient (CLI) | payer OTHER, MEDICARE ==
--- NOTE | 2017-07-08 10:12 | DIAGNOSTIC IMAGING REPORT ---
(CHEST) THORAX WITHOUT CLINICAL HISTORY: 77 years-old Female presenting with J82 Eosinophilic pneumoniaScheduled for 07/07/17 at 12:30pm. Pt, shortness of breath, history of renal disease. TECHNIQUE: Multidetector CT imaging of the chest was performed without the use of intravenous contrast. IV contrast: None. A dose lowering technique was used consistent with the principles of ALARA (as low as reasonably achievable). COMPARISON: 06/06/2017. CT DOSE (mGy.cm): The estimated cumulative dose is 603.67 mGycm. FINDINGS: Chief Building Inspector topogram: Unremarkable. On soft tissue windows, normal thyroid and thoracic inlet. Few prominent subcentimeter mediastinal lymph nodes, unchanged. Evaluation of the jessica limited without intravenous contrast. Atherosclerosis of the aorta. Aortic valve calcification. Normal heart size. Trace pericardial effusion. No pleural effusion. Upper abdomen normal. On lung windows, significant interval decrease in peripheral upper lobe predominant opacities. Minimal groundglass and reticular opacities persist primarily at the lung apices. No new focal infiltrate. Airways patent. On bone windows, degenerative changes of the spine. Vertebral body height loss of T6 unchanged from prior. Mild osteopenia may be present. IMPRESSION: 1. Significant interval decrease in peripheral and upper lobe predominant opacities. Minimal groundglass and reticular opacities persist primarily at the apices. This again is consistent most consistent with chronic eosinophilic pneumonia. Electronically signed by: Aneudy Biswas M.D. 07/08/2017 10:10 AM Dictated Date/Time: 07/08/2017 10:04 AM
== END | disposition home or self-care (01) ==
LOC: C.CTS 09:48
PROVIDERS: ATTEND Internal Medicine Critical Care Medicine
DX: J82 Pulmonary eosinophilia, not elsewhere classified (principal); R91.8 Other nonspecific abnormal finding of lung field

== ENCOUNTER → 2017-07-17 | Outpatient (CLI) | payer OTHER, MEDICARE ==
[2017-07-17 12:18] LABS: BASO % 0.8 %; BASO ABS # 0.04 K/uL (0-0.2); COMPLETE YES; HEMATOCRIT 35.3 % (37-47); IG% 0.2 %; LYMPH % 27.1 %; MEAN CELL VOLUME 89.6 fL (80-100); MEAN CORPUSCULAR HEMOGLOBIN 28.9 pg (25-34); MEAN CORPUSCULAR HGB CONC 32.3 g/dl (32-36); MEAN PLATELET VOLUME 9.2 fL (7.4-10.4); MONO % 9.3 %; NEUT % 50.6 %; PLATELET COUNT 251 K/uL (130-400); RED BLOOD COUNT 3.94 M/uL (4.2-5.4); WHITE BLOOD COUNT 5.16 K/uL (4.8-10.8)
[2017-07-17 12:31] LABS: ALT/SGPT 22 U/L (12-78); AST/SGOT 16 U/L (15-37); BLOOD UREA NITROGEN 26 mg/dl (7-18); BUN/CREATININE RATIO 21.6 (10-20); CALCIUM 8.6 mg/dl (8.5-10.1); CARBON DIOXIDE 25 mmol/L (21-32); CHLORIDE 107 mmol/L (98-107); GLUCOSE 105 mg/dl (70-99); POTASSIUM 4.3 mmol/L (3.5-5.1); SODIUM 138 mmol/L (136-145)
[2017-07-17 12:40] LABS: ALB/GLOB RATIO 0.9 (0.9-2); ALKALINE PHOSPHATASE 95 U/L (45-117)
== END | disposition home or self-care (01) ==
LOC: C.LABBFT 09:50
PROVIDERS: ATTEND Internal Medicine
DX: M87.051 Idiopathic aseptic necrosis of right femur (principal); N18.3 Chronic kidney disease, stage 3 (moderate); E03.9 Hypothyroidism, unspecified

== ENCOUNTER → 2017-07-18 | Outpatient (CLI) | payer OTHER, MEDICARE ==
[~2017-07-18] MED LIST changes: +ASPI-435 PO; +LEVO-17 PO; +THYR15TA PO
== END | disposition home or self-care (01) ==
LOC: C.RDSM 09:21
PROVIDERS: ATTEND Physical Medicine & Rehabilitation Sports Medicine
DX: Z96.641 Presence of right artificial hip joint (principal)

== ENCOUNTER → 2017-08-29 | Outpatient (CLI) | payer OTHER, MEDICARE ==
[2017-08-29 13:08] LABS: HEMOGLOBIN A1C 5.4 % (4.5-5.6)
== END | disposition home or self-care (01) ==
LOC: C.LABBFT 10:36
PROVIDERS: ATTEND Internal Medicine
DX: T81.4XXA Infection following a procedure, initial encounter (principal); R73.01 Impaired fasting glucose; E03.9 Hypothyroidism, unspecified; Y83.9 Surgical procedure, unspecified as the cause of abnormal reaction of the patient, or of later complication, without mention of misadventure at the time of the procedure

== ENCOUNTER → 2017-09-02 | Outpatient (CLI) | payer OTHER, MEDICARE ==
[2017-09-02 12:53] LABS: BASO % 0.6 %; BASO ABS # 0.03 K/uL (0-0.2); HEMATOCRIT 37.1 % (37-47); HEMOGLOBIN 11.9 g/dL (12.0-16.0); IG# 0.01 K/uL (0.00-0.02); LYMPH ABS # 1.15 K/uL (1.2-3.4); MEAN CORPUSCULAR HEMOGLOBIN 29.8 pg (25-34); MEAN CORPUSCULAR HGB CONC 32.1 g/dl (32-36); MEAN PLATELET VOLUME 9.4 fL (7.4-10.4); MONO % 10.6 %; MONO ABS # 0.53 K/uL (0.11-0.59); NEUT % 55.6 %; NEUT ABS # 2.79 K/uL (1.4-6.5); PLATELET COUNT 232 K/uL (130-400); RED CELL DISTRIBUTION WIDTH CV 15.5 % (11.5-14.5); RED CELL DISTRIBUTION WIDTH SD 52.5 fL (36.4-46.3); WHITE BLOOD COUNT 5.01 K/uL (4.8-10.8)
[2017-09-02 13:38] LABS: ALBUMIN 3.7 gm/dl (3.4-5.0); ALT/SGPT 21 U/L (12-78); BLOOD UREA NITROGEN 37 mg/dl (7-18); CALCIUM 9.2 mg/dl (8.5-10.1); CARBON DIOXIDE 26 mmol/L (21-32); CREATININE 1.12 mg/dl (0.60-1.20); GLUCOSE 106 mg/dl (70-99); POTASSIUM 4.7 mmol/L (3.5-5.1); SODIUM 141 mmol/L (136-145)
[2017-09-02 13:41] LABS: ALKALINE PHOSPHATASE 69 U/L (45-117); AST/SGOT 14 U/L (15-37)
== END | disposition home or self-care (01) ==
LOC: C.LABBFT 10:33
PROVIDERS: ATTEND Internal Medicine
DX: R53.83 Other fatigue (principal)

== ENCOUNTER → 2017-09-05 | Outpatient (CLI) | payer OTHER, MEDICARE ==
[~2017-09-05] MED LIST changes: -ASPI325T39 PO; -LCTX PO; -MRLP17 PO
--- NOTE | 2017-09-05 08:36 | DIAGNOSTIC IMAGING REPORT ---
(CHEST) THORAX WITHOUT CLINICAL HISTORY: 77 years-old Female presenting with R04.2 Hemoptysis. TECHNIQUE: Multidetector CT imaging of the chest was performed without the use of intravenous contrast. IV contrast: None. A dose lowering technique was used consistent with the principles of ALARA (as low as reasonably achievable). COMPARISON: 07/08/2017. CT DOSE (mGy.cm): The estimated cumulative dose is 740.76 mGy.cm. FINDINGS: Lan Engineer topogram: Unremarkable. On soft tissue windows, normal thyroid and thoracic inlet. No axillary, supraclavicular, or mediastinal lymphadenopathy. Evaluation of the jessica limited without intravenous contrast. Atherosclerosis of the aorta. Normal heart size. Coronary artery calcification at the origin of the left main coronary artery. No pericardial or pleural effusion. Upper abdomen normal. On lung windows, continued interval decrease with near complete resolution of patchy peripheral opacities. Only trace residual peripheral groundglass opacity at the right apex and to a lesser extent scattered elsewhere. No new focal infiltrate or nodule. Airways patent. On bone windows, degenerative changes of the spine. Degenerative changes of the bilateral glenohumeral joints. IMPRESSION: 1. Near-complete resolution of patchy peripheral opacities, which could be compatible with resolving chronic eosinophilic pneumonitis. No new focal infiltrate. Electronically signed by: Aneudy Biswas M.D. 09/05/2017 8:35 AM Dictated Date/Time: 09/05/2017 8:30 AM
== END | disposition home or self-care (01) ==
LOC: C.CTS 08:11
PROVIDERS: ATTEND Internal Medicine
DX: R04.2 Hemoptysis (principal)

== ENCOUNTER → 2017-09-15 | Day surgery (SDC) | payer OTHER, MEDICARE ==
[2017-09-03 08:38] VITALS: Ht 157.5 cm; Wt 109.1 kg
[~2017-09-15] VITALS: Ht 157.5 cm; Wt 109.1 kg
[~2017-09-15] MED LIST changes: +FENTANYL CITRATE INJ 50 MCG/1 ML 2 ML VIAL ONE; +LIDOCAINE HCL 2% 2 ML VIAL (20MG/ML) ONE; +MIDAZOLAM HCL 1 MG/ML 2ML VIAL ONE; +PROPOFOL IV EMULSION 10 MG/ML 20 ML VIAL IV ONE
--- NOTE | 2017-09-15 14:45 | Endo History and Physical ---
History & Physical Date of Service: Sep 15, 2017. Chief Complaint: Dysphagia Referring Physician: Dr. Quiroz History of Present Illness For EGD Past Medical History Arthritis, Reflux, High Cholesterol, Hypertension, Thyroid Disease Past Surgical History Hx Cardiac Surgery: No Hx Internal Defibrillator: No Hx Pacemaker: No Hx Abdominal Surgery: Yes (Tubal ligation, hysterectomy with bso) Hx of Implantable Prosthesis: No Hx Post-Op Nausea and Vomiting: No Hx Cancer Surgery: No Hx Thoracic Surgery: No Hx Orthopedic: Yes (RIGHT DEANN W/ REVISION, carpal tunnel release, L TKA, R foot x4, laminectomy) Hx Urinary Tract Surgery: No Family History None Social History Smoking Status: Former Smoker Hx Substance Use: No Hx Alcohol Use: Yes (1 glass of wine per day ) Allergies Coded Allergies: Adhesives (Verified Allergy, Mild, RASH, 09/03/17) Clindamycin (Verified Allergy, Mild, RASH, 09/03/17) Latex (Verified Allergy, Mild, RASH, 09/03/17) Penicillins (Verified Allergy, Mild, HIVES, 09/03/17) Quinolones (Verified Allergy, Mild, INTOLERANCE, 09/03/17) Sulfa Antibiotics (Verified Allergy, Mild, ITCHING, 09/03/17) Erythromycin (Verified Allergy, Unknown, ITCHING, 09/03/17) Latex1 -Allergic Contact Dermititis (Verified Allergy, Unknown, ITCHING, ) Lisinopril (Verified Allergy, Unknown, PERIORBITAL SWELLING, 09/03/17) Niacin (Verified Allergy, Unknown, "JUST DID NOT TOLERATE IT", 09/03/17) Tetracycline (Verified Allergy, Unknown, GI INTOLERANCE, 09/03/17) Daptomycin (Unverified Adverse Reaction, Severe, ANAPHYLAXIS, 09/15/17) INFLAMED LUNGS, COATED LUNGS Ezetimibe (Verified Adverse Reaction, Mild, MEMORY LOSS, 09/03/17) Simvastatin (Verified Adverse Reaction, Mild, MUSCLE ACHES, 09/03/17) Gabapentin (Verified Adverse Reaction, Unknown, SWELLING ("ALL OVER"), ) Irbesartan (Verified Adverse Reaction, Unknown, FATIGUE, 09/03/17) Current Medications Reported Home Medications Medications Dose Route/Sig Max Daily Dose Days Date Category Dose Instructions Levaquin (Levofloxacin) 250 Mg Tab 250 Mg PO Q2D 10 09/03/17 Reported STARTED 09/02/17 [place] Thyroid (Thyroid) 120 Mg Tab 120 Mg PO QAM 09/03/17 Reported PLUS 30MG FOR A TOTAL 150MG Aspirin 81 (Aspirin) 81 Mg Tab 81 Mg PO QPM 09/03/17 Reported [place] Thyroid (Thyroid) 15 Mg Tab 30 Mg PO QAM 09/03/17 Reported Docusate Sodium 100 Mg Cap 100 Mg PO BID 7 06/05/17 Reported Cozaar (Losartan Potassium) 50 Mg Tab 50 Mg PO BID 06/05/17 Reported Lasix (Furosemide) 40 Mg Tab 20-40 Mg PO UD PRN 06/05/17 Reported PATIENT ALTERNATES BETWEEN 20MG & 40MG NEEDED FOR WEIGHT GAIN. HAS NOT HAD TO USE IT IN A WHILE Coreg (Carvedilol) 12.5 Mg Tab 12.5 Mg PO QPM 06/05/17 Reported Coreg (Carvedilol) 12.5 Mg Tab 25 Mg PO QAM 06/05/17 Reported Ferrous Sulfate 325 Mg Tab 325 Mg PO BID 30 05/20/17 Rx Multivitamin (Multivitamins) Tab 1 Tab PO QAM 02/28/17 Reported Zantac (Ranitidine HCl) 300 Mg Tab 300 Mg PO HS 02/28/17 Reported Vitamin D3 (Cholecalciferol) 2,000 Unit Tab 2,000 Intunit PO QAM 08/19/14 Reported Estradiol 0.5 Mg Tab 0.25 Mg PO HS 08/19/14 Reported Vital Signs Weight (Kilograms): 109.09 Height (Feet): 5 Height (Inches): 2 Date Time Temp Pulse Resp B/P (MAP) Pulse Ox O2 Delivery O2 Flow Rate FiO2 09/15/17 14:07 36.9 83 18 260/132 (174) 98 Room Air Physical Exam General Appearance: + obese Respiratory/Chest: Respiratory effort: no dyspnea Cardiovascular: Heart Auscultation: RRR Abdomen: Inspection & Palpation: soft Assessment and Plan Dysphagia for EGD
--- NOTE | 2017-09-15 15:12 | Discharge Instructions ---
Endoscopy Patient Instructions Date / Procedure(s) Performed Sep 15, 2017. EGD Allergy Information Coded Allergies: Adhesives (Verified Allergy, Mild, RASH, 09/03/17) Clindamycin (Verified Allergy, Mild, RASH, 09/03/17) Latex (Verified Allergy, Mild, RASH, 09/03/17) Penicillins (Verified Allergy, Mild, HIVES, 09/03/17) Quinolones (Verified Allergy, Mild, INTOLERANCE, 09/03/17) Sulfa Antibiotics (Verified Allergy, Mild, ITCHING, 09/03/17) Erythromycin (Verified Allergy, Unknown, ITCHING, 09/03/17) Latex1 -Allergic Contact Dermititis (Verified Allergy, Unknown, ITCHING, ) Lisinopril (Verified Allergy, Unknown, PERIORBITAL SWELLING, 09/03/17) Niacin (Verified Allergy, Unknown, "JUST DID NOT TOLERATE IT", 09/03/17) Tetracycline (Verified Allergy, Unknown, GI INTOLERANCE, 09/03/17) Daptomycin (Unverified Adverse Reaction, Severe, ANAPHYLAXIS, 09/15/17) INFLAMED LUNGS, COATED LUNGS Ezetimibe (Verified Adverse Reaction, Mild, MEMORY LOSS, 09/03/17) Simvastatin (Verified Adverse Reaction, Mild, MUSCLE ACHES, 09/03/17) Gabapentin (Verified Adverse Reaction, Unknown, SWELLING ("ALL OVER"), ) Irbesartan (Verified Adverse Reaction, Unknown, FATIGUE, 09/03/17) Discharge Date / Findings Sep 15, 2017. Normal EGD Medication Instructions Restart Stopped Medication(s): resume meds Reported Home Medications Medications Dose Route/Sig Max Daily Dose Days Date Category Dose Instructions Levaquin (Levofloxacin) 250 Mg Tab 250 Mg PO Q2D 10 09/03/17 Reported STARTED 09/02/17 [place] Thyroid (Thyroid) 120 Mg Tab 120 Mg PO QAM 09/03/17 Reported PLUS 30MG FOR A TOTAL 150MG Aspirin 81 (Aspirin) 81 Mg Tab 81 Mg PO QPM 09/03/17 Reported [place] Thyroid (Thyroid) 15 Mg Tab 30 Mg PO QAM 09/03/17 Reported Docusate Sodium 100 Mg Cap 100 Mg PO BID 7 06/05/17 Reported Cozaar (Losartan Potassium) 50 Mg Tab 50 Mg PO BID 06/05/17 Reported Lasix (Furosemide) 40 Mg Tab 20-40 Mg PO UD PRN 06/05/17 Reported PATIENT ALTERNATES BETWEEN 20MG & 40MG NEEDED FOR WEIGHT GAIN. HAS NOT HAD TO USE IT IN A WHILE Coreg (Carvedilol) 12.5 Mg Tab 12.5 Mg PO QPM 06/05/17 Reported Coreg (Carvedilol) 12.5 Mg Tab 25 Mg PO QAM 06/05/17 Reported Ferrous Sulfate 325 Mg Tab 325 Mg PO BID 30 05/20/17 Rx Multivitamin (Multivitamins) Tab 1 Tab PO QAM 02/28/17 Reported Zantac (Ranitidine HCl) 300 Mg Tab 300 Mg PO HS 02/28/17 Reported Vitamin D3 (Cholecalciferol) 2,000 Unit Tab 2,000 Intunit PO QAM 08/19/14 Reported Estradiol 0.5 Mg Tab 0.25 Mg PO HS 08/19/14 Reported Provider Instructions Activity Restrictions - No exercising or heavy lifting for 24 hours. - Do not drink alcohol the day of the procedure. - Do not drive a car or operate machinery until the day after the procedure. - Do not make any important decisions or sign important papers in 24 hours after the procedure. Following Day: - Return to full activity which may include returning to work/school. Diet Start your diet with liquids and light foods (jello, soup, juice, toast). Then eat your usual diet if not nauseated. Treatment For Common After Affects For mild abdominal pain, bloating, or excessive gas: - Rest - Eat lightly - Lie on right side Follow-Up Information Follow-up with Dr. Quiroz as scheduled Anesthesia Information What You Should Know You have had a procedure that required some medicine to reduce anxiety and discomfort. This treatment is called moderate sedation. After receiving the treatment, you may be sleepy, but you will be able to breathe on your own. The effects of the treatment may last for several hours. Follow these instructions along with Activity/Diet recommendations noted above: * Do NOT do anything where dizziness or clumsiness would be dangerous. * Rest quietly at home today, then you can be up and about tomorrow. * Have a responsible person stay with you the rest of today. * You may have had an I.V. today. If so, you may take the dressing off later today. Recommendations Call your doctor if: * Trouble breathing * Continuous vomiting for more than 24 hours * Temperature above 101 degrees * Severe abdominal pain or bloating * Pain not relieved by pain medicine ordered * There is increased drainage or redness from any incision * A large amount of rectal bleeding greater than 2-3 tablespoons. (If you had a polyp/s removed or have hemorrhoids, a small amount of blood - from the rectum is to be expected.) * You have any unanswered questions or concerns. IN THE EVENT OF A SERIOUS EMERGENCY, GO TO THE NEAREST EMERGENCY ROOM Your discharge instructions were prepared by provider Jimmie Capone. Patient Instructions Signature Page Lalitha Swain Patient (or Guardian) Signature/Date: I have read and understand the instructions given to me by my caregivers. Caregiver/RN/Doctor Signature/Date: The above-named patient and/or guardian has received patient instructions on this date. + Original Patient Signature Page (only) stays with chart. Please make copy for patient.
--- NOTE | 2017-09-15 15:16 | GI REPORT ---
Procedure Date: 09/15/2017 2:34 PM Procedure: Upper GI endoscopy Indications: Dysphagia, Heartburn, Suspected esophageal reflux Medicines: Fentanyl 100 micrograms IV, Midazolam 2 mg IV, Propofol total dose 50 mg IV, Lidocaine 40 mg IV Complications: No immediate complications. Estimated Blood Loss: Estimated blood loss: none. Procedure: Pre-Anesthesia Assessment: - Prior to the procedure, a History and Physical was performed, and patient medications, allergies and sensitivities were reviewed. The patient's tolerance of previous anesthesia was reviewed. - The risks and benefits of the procedure and the sedation options and risks were discussed with the patient. All questions were answered and informed consent was obtained. After obtaining informed consent, the endoscope was passed under direct vision. Throughout the procedure, the patient's blood pressure, pulse, and oxygen saturations were monitored continuously. The scope was introduced through the mouth, and advanced to the second part of duodenum. The upper GI endoscopy was accomplished without difficulty. The patient tolerated the procedure well. Findings: The Z-line was regular and was found 38 cm from the incisors. No stricture or esophagitis. The entire examined stomach was normal. The examined duodenum was normal. Impression: - Z-line regular, 38 cm from the incisors. - Normal stomach. - Normal examined duodenum. - No specimens collected. Recommendation: - Discharge patient to home (ambulatory). - Continue present medications. - Return to primary care physician PRN. Jimmie Capone M.D. Jimmie Capone MD 09/15/2017 3:15:51 PM This report has been signed electronically. Note Initiated On: 09/15/2017 2:34 PM I attest to the content of the Intraoperative Record and orders documented therein, exceptions below
--- NOTE | 2017-09-15 15:32 | Anesthesiology Progress Note ---
Anesthesia Post Op Note Date & Time Sep 15, 2017 at 15:32 Vital Signs Pain Intensity: 0 Vital Signs Past 12 Hours Date Time Temp Pulse Resp B/P (MAP) Pulse Ox O2 Delivery O2 Flow Rate FiO2 09/15/17 15:18 76 12 151/84 (106) 98 Room Air 09/15/17 14:07 36.9 83 18 260/132 (174) 98 Room Air Notes Mental Status: alert / awake / arousable, participated in evaluation Pt Amnestic to Procedure: Yes Nausea / Vomiting: adequately controlled Pain: adequately controlled Airway Patency, RR, SpO2: stable & adequate BP & HR: stable & adequate Hydration State: stable & adequate Anesthetic Complications: no major complications apparent
[2017-09-15 15:48] VITALS: BP 208/74; PULSE 66; O2SAT 97
== END | disposition home or self-care (01) ==
LOC: C.GI 13:26
PROVIDERS: ATTEND Internal Medicine Gastroenterology
DX: R13.10 Dysphagia, unspecified (principal); G47.33 Obstructive sleep apnea (adult) (pediatric); N18.9 Chronic kidney disease, unspecified; M19.90 Unspecified osteoarthritis, unspecified site; K21.9 Gastro-esophageal reflux disease without esophagitis; Z88.2 Allergy status to sulfonamides; Z91.040 Latex allergy status; Z88.0 Allergy status to penicillin; Z79.82 Long term (current) use of aspirin; Z90.710 Acquired absence of both cervix and uterus; Z90.79 Acquired absence of other genital organ(s); Z90.722 Acquired absence of ovaries, bilateral; Z96.641 Presence of right artificial hip joint; Z96.652 Presence of left artificial knee joint

== ENCOUNTER → 2017-09-17 | Outpatient (CLI) | payer OTHER, MEDICARE ==
[~2017-09-17] MED LIST changes: -FENTANYL CITRATE INJ 50 MCG/1 ML 2 ML VIAL ONE; -LIDOCAINE HCL 2% 2 ML VIAL (20MG/ML) ONE; -MIDAZOLAM HCL 1 MG/ML 2ML VIAL ONE; -PROPOFOL IV EMULSION 10 MG/ML 20 ML VIAL IV ONE
--- NOTE | 2017-09-17 15:55 | MAMMOGRAPHY REPORT ---
BILATERAL DIGITAL SCREENING MAMMOGRAM TOMOSYNTHESIS WITH CAD: 09/17/2017 CLINICAL HISTORY: Routine screening. TECHNIQUE: Breast tomosynthesis in addition to standard 2D mammography was performed. Current study was also evaluated with a Computer Aided Detection (CAD) system. COMPARISON: Comparison is made to exams dated: 02/05/2016 mammogram, 02/01/2015 mammogram, 01/31/2014 m ammogram, 01/29/2013 mammogram, 01/29/2012 mammogram, and 12/19/2010 mammogram - [facility] nter. BREAST COMPOSITION: There are scattered areas of fibroglandular density in both breasts. FINDINGS: No suspicious mass, architectural distortion or cluster of suspicious microcalcifications is seen. There are benign-appearing coarse calcifications in both breasts, most numerous in the lowe r inner left breast. IMPRESSION: ACR BI-RADS CATEGORY 1: NEGATIVE There is no mammographic evidence of malignancy. A 1 year screening mammogram is recommended. The pa tient will receive written notification of the results. Approximately 10% of breast cancers are not detected with mammography. A negative mammographic report should not delay biopsy if a clinically suggestive mass is present. Dalia Batres M.D. ay/:09/17/2017 11:21:50 Supply Controller: Sally SILVA(R)(M), [facility] letter sent: Normal 1/2 BI-RADS Code: ACR BI-RADS Category 1: Negative
== END | disposition home or self-care (01) ==
LOC: C.MAMM 10:56
PROVIDERS: ATTEND Obstetrics & Gynecology
DX: Z12.31 Encounter for screening mammogram for malignant neoplasm of breast (principal)

== ENCOUNTER → 2017-09-28 | Outpatient (CLI) | payer OTHER, MEDICARE | END | disposition home or self-care (01) | LOC: C.LABSPEC 09:37 | PROVIDERS: ATTEND Internal Medicine | DX: R19.7 Diarrhea, unspecified (principal) ==

== ENCOUNTER → 2017-10-01 | Outpatient (CLI) | payer OTHER, MEDICARE ==
[2017-10-01 12:18] LABS: BASO % 0.7 %; BASO ABS # 0.04 K/uL (0-0.2); EOS % 6.3 %; EOS ABS # 0.38 K/uL (0-0.5); HEMATOCRIT 38.7 % (37-47); HEMOGLOBIN 12.8 g/dL (12.0-16.0); IG# 0.02 K/uL (0.00-0.02); LYMPH % 20.8 %; LYMPH ABS # 1.26 K/uL (1.2-3.4); MEAN CELL VOLUME 90.8 fL (80-100); MEAN CORPUSCULAR HGB CONC 33.1 g/dl (32-36); MEAN PLATELET VOLUME 9.2 fL (7.4-10.4); MONO % 12.9 %; MONO ABS # 0.78 K/uL (0.11-0.59); NEUT ABS # 3.57 K/uL (1.4-6.5); PLATELET COUNT 262 K/uL (130-400); RED CELL DISTRIBUTION WIDTH CV 13.1 % (11.5-14.5); RED CELL DISTRIBUTION WIDTH SD 42.8 fL (36.4-46.3); WHITE BLOOD COUNT 6.05 K/uL (4.8-10.8)
[2017-10-01 12:28] LABS: ALBUMIN 3.3 gm/dl (3.4-5.0); ALT/SGPT 28 U/L (12-78); BLOOD UREA NITROGEN 16 mg/dl (7-18); CALCIUM 8.4 mg/dl (8.5-10.1); CARBON DIOXIDE 24 mmol/L (21-32); CREATININE 1.13 mg/dl (0.60-1.20); GLUCOSE 109 mg/dl (70-99); POTASSIUM 3.8 mmol/L (3.5-5.1); SODIUM 137 mmol/L (136-145)
[2017-10-01 12:31] LABS: ALKALINE PHOSPHATASE 74 U/L (45-117); AST/SGOT 28 U/L (15-37); TOTAL PROTEIN 6.8 gm/dl (6.4-8.2)
== END | disposition home or self-care (01) ==
LOC: C.LABBFT 09:23
PROVIDERS: ATTEND Internal Medicine
DX: I10 Essential (primary) hypertension (principal); A04.72 Enterocolitis due to Clostridium difficile, not specified as recurrent; K62.5 Hemorrhage of anus and rectum; R53.1 Weakness

== ENCOUNTER → 2017-10-09 | Outpatient (CLI) | payer OTHER, MEDICARE | END | disposition home or self-care (01) | LOC: C.LABBFT 10:47 | PROVIDERS: ATTEND Internal Medicine Nephrology | DX: I10 Essential (primary) hypertension (principal); E55.9 Vitamin D deficiency, unspecified; N18.3 Chronic kidney disease, stage 3 (moderate); D64.9 Anemia, unspecified; E83.52 Hypercalcemia ==

== ENCOUNTER → 2017-11-26 | Outpatient (CLI) | payer OTHER, MEDICARE | END | disposition home or self-care (01) | LOC: C.LABBFT 15:19 | PROVIDERS: ATTEND Internal Medicine | DX: R19.7 Diarrhea, unspecified (principal) ==

== ENCOUNTER → 2018-02-16 | Outpatient (CLI) | payer OTHER, MEDICARE | END | disposition home or self-care (01) | LOC: C.RDSM 09:48 | PROVIDERS: ATTEND Physical Medicine & Rehabilitation Sports Medicine | DX: Z96.641 Presence of right artificial hip joint (principal) ==

== ENCOUNTER → 2018-02-22 | Outpatient (CLI) | payer OTHER, MEDICARE | END | disposition home or self-care (01) | LOC: C.LAB 09:11 | PROVIDERS: ATTEND Internal Medicine Gastroenterology | DX: A04.72 Enterocolitis due to Clostridium difficile, not specified as recurrent (principal) ==

== ENCOUNTER → 2018-03-09 | Outpatient (CLI) | payer OTHER, MEDICARE | END | disposition home or self-care (01) | LOC: C.LABBFT 12:39 | PROVIDERS: ATTEND Physical Medicine & Rehabilitation Sports Medicine | DX: E03.9 Hypothyroidism, unspecified (principal); Z96.641 Presence of right artificial hip joint ==

== ENCOUNTER 2021-06-06 05:11 | Observation (INO) ==
--- NOTE | 2021-04-26 12:44 | PAT Medication Instructions ---
Medication Instructions Date of Service April 26, 2021 Home Medications Medication Instructions Recorded clonidine HCl 0.1 mg tablet 0.1 mg PO DAILY PRN #30 tab 03/18/19 furosemide 20 mg tablet 40 mg PO Q OTHER DAY #30 tab 03/28/20 tramadol 50 mg tablet See Rx Instructions PO Q6H PRN 11/02/20 #100 tab amlodipine 2.5 mg tablet 2.5 mg PO QAM #90 tab 03/19/21 furosemide 20 mg tablet 20 mg PO Q OTHER DAY #100 tab 04/25/21 levothyroxine 125 mcg capsule 125 mcg PO HS #90 cap 04/25/21 acetaminophen 500 mg tablet 500 mg PO UD PRN mometasone 0.1 % topical ointment 1 appln TOPICAL UD PRN clonidine HCl 0.1 mg tablet 0.1 mg PO DAILY PRN triamcinolone acetonide 0.1 % topical cream 1 appln TOP BID cefuroxime axetil 500 mg tablet 1,000 mg PO UD PRN famotidine 20 mg tablet (Pepcid AC) 20 mg PO DAILY PRN multivitamin 1 tab PO QAM furosemide 20 mg tablet 40 mg PO Q OTHER DAY tramadol 50 mg tablet See Rx Instructions PO Q6H PRN hydroxyzine HCl 10 mg tablet 10 mg PO TID PRN amlodipine 2.5 mg tablet 2.5 mg PO QAM clobetasol 0.05 % topical ointment 1 applic TOPICAL BID colestipol 1 gram tablet 1 g PO BID PRN diphenoxylate-atropine 2.5 mg-0.025 mg tablet (Lomotil) 1 tab PO BID isosorbide mononitrate 30 mg tablet,extended release 24 hr 30 mg PO QAM isosorbide mononitrate 60 mg tablet,extended release 24 hr 60 mg PO QAM furosemide 20 mg tablet 20 mg PO Q OTHER DAY levothyroxine 125 mcg capsule 125 mcg PO HS Continue as directed cefuroxime axetil 500 mg tablet 1,000 mg PO UD PRN (prior to procedures) STOP taking 48 hours before surgery colestipol 1 gram tablet 1 g PO BID PRN STOP taking 24 hours before surgery mometasone 0.1 % topical ointment 1 appln TOPICAL UD PRN triamcinolone acetonide 0.1 % topical cream 1 appln TOP BID clobetasol 0.05 % topical ointment 1 applic TOPICAL BID DO NOT take the morning of surgery famotidine 20 mg tablet (Pepcid AC) 20 mg PO DAILY PRN multivitamin 1 tab PO QAM furosemide 20 mg tablet 40 mg PO Q OTHER DAY hydroxyzine HCl 10 mg tablet 10 mg PO TID PRN diphenoxylate-atropine 2.5 mg-0.025 mg tablet (Lomotil) 1 tab PO BID furosemide 20 mg tablet 20 mg PO Q OTHER DAY Take morning of surgery With a small sip of water, OTHERWISE NOTHING TO EAT OR DRINK AFTER MIDNIGHT: acetaminophen 500 mg tablet 500 mg PO UD PRN (okay to take up to 4 hours prior to surgery if needed) clonidine HCl 0.1 mg tablet 0.1 mg PO DAILY PRN (if needed) tramadol 50 mg tablet See Rx Instructions PO Q6H PRN (okay to take up to 4 hours prior to surgery if needed) amlodipine 2.5 mg tablet 2.5 mg PO QAM isosorbide mononitrate 30 mg tablet,extended release 24 hr 30 mg PO QAM isosorbide mononitrate 60 mg tablet,extended release 24 hr 60 mg PO QAM Take evening before surgery acetaminophen 500 mg tablet 500 mg PO UD PRN (if needed) clonidine HCl 0.1 mg tablet 0.1 mg PO DAILY PRN (if needed) famotidine 20 mg tablet (Pepcid AC) 20 mg PO DAILY PRN (if needed) tramadol 50 mg tablet See Rx Instructions PO Q6H PRN (if needed) hydroxyzine HCl 10 mg tablet 10 mg PO TID PRN (if needed) diphenoxylate-atropine 2.5 mg-0.025 mg tablet (Lomotil) 1 tab PO BID levothyroxine 125 mcg capsule 125 mcg PO HS Other Notes If you have any questions please call us at [phone] or [phone] or [phone] or [phone]
--- NOTE | 2021-04-30 11:46 | Anesthesiology Consultation ---
Date of Service April 30, 2021 Assessment & Plan (1) Encounter for pre-operative examination: - Blood bank: Per blood bank, patient needs additional preop testing for positive antibodies. Patient came into [facility] 05/02 for additional lab work as ordered by blood bank for further evaluation of positive antibodies. Spoke with Salomon at blood bank. He reviewed antibodies and indicated that in her case, recommendation for patient to have repeat T&S done 2 days prior to surgery (as long as it does not cross over a weekend). Due to lack of current inpatient beds, surgery now being postponed until 08/08/20 at this time. He recommends patient have T&S done 08/06/20 at that time to allow for adequate analysis/preparation for DOS. Rose at surgeon's office aware and states she will document/arrange closer to new surgery date. - PCP addendum (05/01/21): "I reviewed patient's preop CBC, BMP. Renal insuff is stable. She has mild hyponatremia. H/H is stable. EKG shows NSR and no acute changes. Chest xray shows no acute disease. At this time, I think the patient is medically stable for planned knee replacement surgery. Given her age and chronic conditions, the patient is at moderate to high risk for post operative complications. Since conservative treatment for her knee arthritis has failed, I do think knee replacement is warranted. Recommend close monitoring of renal function and electrolytes post op." - COVID screening: Per assessment on 04/30: Travel screen negative, no known COVID-19 positive contacts or current COVID-19 related symptoms. Patient vaccinated. Surgeon arranging preop COVID testing. Awaiting results. - Hx unsuccessful SAB: Per patient, remote hx of unsuccessful spinal. She states she was told this might have been related to previous lumbar decompression surgery that she had. She states that for that reason, previous right hip surgeries were under under GA. S/P Right DEANN (03/19/17): DL x1 attempt, grade 4 view > Glidescope#[address] [facility]. Right hip I&D, poly exchange insertion, stimulan beads (05/09/17): Grade view 1 with glidescope #3, *several attempts with glidescope to advance ETT* at [facility]. Patient is requesting GA for upcoming Left TKA. Discussed SAB vs. GA. Advised patient that ultimate decision for anesthesia determined AM DOS after discussion with anesthesiologist. Chart Review Chart Review: Acceptable Risk for Surgery and Patient seen in Pre Admission Testing Teaching & Discussion Pre-Anesthesia Teaching/Discussion Notes: Instructed NPO after midnight before surgery,except medications with 15 cc of water. Medication instructions provided according to the PAT guidelines. History Surgery Operation Date: 08/08/21 07:00 Proposed Procedures p Left Total Knee Arthroplasty - Vinny Hong MD Height/Weight Height: 5 ft Weight: 107.5 kg Allergies Allergy/AdvReac Type Severity Reaction Status Date / Time lisinopril Allergy Severe Periorbital Verified 04/30/21 12:34 swelling losartan Allergy Severe "Lesions" Verified 04/30/21 12:34 JEREMI Inhibitors Allergy Intermediate "Lesions", Verified 04/30/21 12:34 itchy Beta-Blockers Allergy Intermediate "Lesions", Verified 04/30/21 12:34 (Beta-Adrenergic Bloc itchy adhesive Allergy Mild Rash Verified 04/30/21 12:34 clindamycin Allergy Mild Rash Verified 04/30/21 12:34 erythromycin base Allergy Mild Itching Verified 04/30/21 12:34 latex Allergy Mild Rash Verified 04/30/21 12:34 Penicillins Allergy Mild Hives Verified 04/30/21 12:34 Sulfa (Sulfonamide Allergy Mild Itching Verified 04/30/21 12:34 Antibiotics) daptomycin AdvReac Severe Anaphylaxis Verified 04/30/21 12:34 gabapentin AdvReac Severe Diffuse Verified 04/30/21 12:34 swelling hydroxychloroquine AdvReac Intermediate Diarrhea Verified 04/30/21 12:34 [From Plaquenil] irbesartan AdvReac Intermediate Fatigue Verified 04/30/21 12:34 niacin AdvReac Intermediate "Did not Verified 04/30/21 12:34 tolerate" ezetimibe AdvReac Mild Memory loss Verified 04/30/21 12:34 Quinolones AdvReac Mild Intolerance Verified 04/30/21 12:34 simvastatin AdvReac Mild Muscle Verified 04/30/21 12:34 aches tetracycline AdvReac Mild GI Verified 04/30/21 12:34 intolerance Medications Home Medications Medication Instructions Recorded Confirmed Last Taken acetaminophen 500 mg tablet 500 mg PO UD PRN tab 02/02/19 04/23/21 03/12/20 09:00 mometasone 0.1 % topical ointment 1 appln TOPICAL UD PRN gm 02/02/19 04/23/21 0 03/16/19 clonidine HCl 0.1 mg tablet 0.1 mg PO DAILY PRN #30 tab 03/18/19 04/23/21 Unknown triamcinolone acetonide 0.1 % 1 appln TOP BID 05/14/19 04/23/21 03/13/20 12:00 topical cream cefuroxime axetil 500 mg tablet 1,000 mg PO UD PRN 03/08/20 04/23/21 Unknown famotidine 20 mg tablet (Pepcid AC) 20 mg PO DAILY PRN 03/08/20 04/23/21 Unknown multivitamin 1 tab PO QAM 03/08/20 04/23/21 03/10/20 09:00 furosemide 20 mg tablet 40 mg PO Q OTHER DAY #30 tab 03/28/20 04/23/21 Unknown tramadol 50 mg tablet See Rx Instructions PO Q6H PRN 11/02/20 04/23/21 Unknown #100 tab hydroxyzine HCl 10 mg tablet 10 mg PO TID PRN 03/08/21 04/23/21 Unknown amlodipine 2.5 mg tablet 2.5 mg PO QAM #90 tab 03/19/21 04/23/21 Unknown clobetasol 0.05 % topical ointment 1 applic TOPICAL BID 04/23/21 04/23/21 Unknown colestipol 1 gram tablet 1 g PO BID PRN 04/23/21 04/23/21 Unknown diphenoxylate-atropine 2.5 1 tab PO BID 04/23/21 04/23/21 Unknown mg-0.025 mg tablet (Lomotil) isosorbide mononitrate 30 mg 30 mg PO QAM 04/23/21 04/23/21 Unknown tablet,extended release 24 hr isosorbide mononitrate 60 mg 60 mg PO QAM 04/23/21 04/23/21 Unknown tablet,extended release 24 hr furosemide 20 mg tablet 20 mg PO Q OTHER DAY #100 tab 04/25/21 Unknown levothyroxine 125 mcg capsule 125 mcg PO HS #90 cap 04/25/21 Unknown Past Medical History Medical History Carotid artery stenosis Per remote records, no evidence of stenosis on 2015 carotid imaging Chronic kidney disease, stage 3 (moderate) Depression Gastroesophageal reflux disease History of blood transfusion Remote hx post-op knee surgery History of fluid overload 2016 (fluid overload 2/2 reaction from prednisone tx for PMR) Hypercholesterolemia Hypertension Hypothyroidism Lumbar radiculopathy Morbid obesity with BMI of 45.0-49.9, adult Polymyalgia rheumatica Prediabetes Psoriasis Sleep apnea CPAP (compliant) Squamous cell carcinoma of left wrist Venous insufficiency Exercise / Class Metabolic Activity III < 4 Walking/Shop/Light housework Past Family History Family History Father Malignant neoplasm of parotid gland Hypertension Stroke Family history of reaction to anesthesia "coded on table during hernia sx 1951"--able to bring him back Mother Hypertension Stroke Brother Diabetes Aneurysm artery, iliac Sister Diabetes Coronary heart disease Hyperlipidemia Hypothyroidism Breast cancer Renal failure Hypertension Denies family history of Ovarian cancer Prostate cancer Myocardial infarction Colorectal cancer Past Surgical History Surgical History History of arthroscopy of knee R/L History of carpal tunnel release of both wrists History of cataract surgery R/L History of colonoscopy with polypectomy History of dilation and curettage History of esophagogastroduodenoscopy (EGD) History of foot surgery Right "toes straightened"/subsequent pins removal History of lumbar surgery Laminectomy History of squamous cell carcinoma excision History of tooth extraction History of total hip arthroplasty Right DEANN (03/19/17): DL x1 attempt, grade 4 view > Glidescope#[address] [facility] Right hip I&D, poly exchange insertion, stimulan beads (05/09/17): Grade view 1 with glidescope #3, *several attempts with glidescope to advance ETT* at [facility] History of total hysterectomy with bilateral salpingo-oophorectomy (BSO) S/P tonsillectomy and adenoidectomy Status post excision of Cortes's neuroma Past Anesthesia History Difficult Airway Father: niya-operative coding > survived Patient: Per patient, spinal was attempted in the past but unsuccessful. She states for that reason, previous right hip surgeries were done under general anesthesia. She says was told this might have been related to previous lumbar decompression surgery that she had. S/P Right DEANN (03/19/17): DL x1 attempt, grade 4 view > Glidescope#[address] [facility]. Right hip I&D, poly exchange insertion, stimulan beads (05/09/17): Grade view 1 with glidescope #3, *several attempts with glidescope to advance ETT* at [facility] History of PONV No Hx of PONV and No Hx of Motion Sickness Social History Smoking Status: Former smoker tobacco type: cigarettes Do You Dip or Chew Tobacco: No Smoking End Date: Quit 1986 (light use prior to quitting) Hx Alcohol Use: Yes Alcohol type: wine alcohol intake frequency: 0-2 drinks per day (1 glass/day) Hx Substance Use: No substance use type: does not use Review of Systems Patient denies chest pain, shortness of breath, dyspnea on exertion, fever, chills, cough, wheezing, palpitations. Physical Exam Vital Signs VITALS BP 144/74 P 85 TEMP 97.9 SP02 96%RA RESP 18 PHYSICAL Full cervical extension range of motion. Full TMJ range of motion. TMD 4 finger breaths Mallampati Score Dentition: intact, + caps (several), + bridge, left upper front tooth repaired (fragile) Lungs: clear throughout to auscultation Cardiac: regular rate and rhythm, I/ systolic murmur with faint right carotid bruit vs. murmur Spine: normal Extremities: no edema Lab Results Anesthesia Preop Results Results Anesthesia Widget: WBC 7.62 K/uL (4.8-10.8) 04/30/21 Hgb 11.6 g/dL (12.0-16.0) L 04/30/21 Hct 37.0 % (37-47) 04/30/21 Plt 337 K/uL (130-400) 04/30/21 Na 134 mmol/L (136-145) L 04/30/21 K 4.5 mmol/L (3.5-5.1) 04/30/21 Cl 100 mmol/L (98-107) 04/30/21 CO2 26 mmol/L (21-32) 04/30/21 BUN 41 mg/dl (7-18) H 04/30/21 Creat 2.13 mg/dl (0.6-1.2) H 04/30/21 Glucose Level 102 mg/dl (70-99) H 04/30/21 PT 9.6 Seconds (9.0-12.0) 04/30/21 PTT 28.7 Seconds (21.0-31.0) 04/30/21 INR 0.9 (0.9-1.1) 04/30/21 TSH 1.310 uIu/ml (0.300-4.500) 03/22/21 HA1c 5.8 % (4.5-5.6) H 03/22/21 Urine Color Yellow 04/30/21 Urine Appearance Clear (Clear) 04/30/21 Urine pH 5.0 (4.5-7.5) 04/30/21 Urine Specific [place] 1.021 (1.000-1.030) 04/30/21 Urine Protein 2+ (Negative) H 04/30/21 Urine Glucose (UA) Negative (Negative) 04/30/21 Urine Ketones Trace (Negative) H 04/30/21 Urine Blood Negative (Negative) 04/30/21 Urine Nitrite Negative (Negative) 04/30/21 Urine Bilirubin Negative (Negative) 04/30/21 Urine Urobilinogen Negative (Negative) 04/30/21 Urine Leukocyte Esterase Negative (Negative) 04/30/21 Urine WBC (Auto) 1-5 /hpf (0-5) 04/30/21 Urine RBC (Auto) 0-4 /hpf (0-4) 04/30/21 Urine Hyaline Casts (Auto) 1-5 /lpf (0-5) 04/30/21 Urine Epithelial Cells (Auto) 10-20 /lpf (0-5) H 04/30/21 Urine Bacteria (Auto) Negative (Negative) 04/30/21 Blood Type O Positive 04/30/21 Antibody Screen POSITIVE A 04/30/21 Direct Antiglob Test Positive (Negative) A 04/30/21 Testing Electrocardiogram Date: 04/30/21 Findings: + NSR @ (80) Chest X-Ray Date: 04/30/21 FINDINGS: PA and lateral chest radiographs are compared to study dated 09/18/2019 and correlated with chest CT dated 09/05/2017. The heart is mildly enlarged noting atherosclerotic calcification of the thoracic aorta. The pulmonary vasculature is noncongested. Chronic interstitial thickening is similar to previous. The lungs and pleural spaces are clear. There is no pneumothorax. The skeletal structures are osteopenic. The bony thorax appears intact. Degenerative change is noted throughout the thoracic spine. Advanced arthritic change is seen in the shoulders. Joint bodies are noted on the right. IMPRESSION: Mild cardiac enlargement with no active disease in the chest. Echocardiogram Date: 03/13/21 EF 55-60%. No regional wall motion abnormality. Moderate mitral annular calcification. RVSP elevated at 38-48 mmHg. Mild AV sclerosis. Other Testing Carotid artery ultrasound (03/23/15): There is no sonographic evidence of hemodynamically significant stenosis inthe right or left carotid arterial system. Antegrade flow in vertebral arteries.
--- NOTE | 2021-05-01 14:56 | History & Physical Report ---
Date of Service May 01, 2021 Assessment & Plan (1) Left knee DJD: Plan: Postoperative prescriptions for Percocet and Coumadin will be provided at discharge from the hospital. Anticipate discharge to home with home health services. She understands that the surgery may be postponed at the last minute secondary to bed status availability at the hospital. The patient is currently asymptomatic of any COVID-19 symptoms. She is aware of the COVID-19 risks associated with surgery. She will obtain nasal swab testing for COVID-19 two days prior to surgery. She will attend PAT today for preoperative lab work, EKG, and chest x-ray. She has already received medical clearance from her PCP. She recently had an echocardiogram on 03/13/2021 that showed a normal ejection fraction of 55-60%. There is aortic valve sclerosis without significant aortic valvular stenosis. Moderate mitral annular calcification. PDMP was checked and there are no concerning findings. She already has access to a walker and cane. History of Present Illness Chief Complaint: Left knee pain Primary Care Provider: Noman Quiroz MD This 81-year-old female presents with her , for her preoperative history and physical. She is scheduled to undergo a left knee total knee arthroplasty on 05/16/2021. The patient has had a longstanding history of left knee pain. It has been ongoing for years. She has had significant increase in her pain over the last year. She has gone through conservative care measures including activity modification, oral pain medication, viscosupplementation, and cortisone injections without improvement. No numbness or tingling. Pain is worse with weightbearing or activity. Preoperative imaging has been obtained. She does note loss of motion of the knee. She has been using a cane for ambulation. Allergies Allergy/AdvReac Type Severity Reaction Status Date / Time lisinopril Allergy Severe Periorbital Verified 04/30/21 12:34 swelling losartan Allergy Severe "Lesions" Verified 04/30/21 12:34 JEREMI Inhibitors Allergy Intermediate "Lesions", Verified 04/30/21 12:34 itchy Beta-Blockers Allergy Intermediate "Lesions", Verified 04/30/21 12:34 (Beta-Adrenergic Bloc itchy adhesive Allergy Mild Rash Verified 04/30/21 12:34 clindamycin Allergy Mild Rash Verified 04/30/21 12:34 erythromycin base Allergy Mild Itching Verified 04/30/21 12:34 latex Allergy Mild Rash Verified 04/30/21 12:34 Penicillins Allergy Mild Hives Verified 04/30/21 12:34 Sulfa (Sulfonamide Allergy Mild Itching Verified 04/30/21 12:34 Antibiotics) daptomycin AdvReac Severe Anaphylaxis Verified 04/30/21 12:34 gabapentin AdvReac Severe Diffuse Verified 04/30/21 12:34 swelling hydroxychloroquine AdvReac Intermediate Diarrhea Verified 04/30/21 12:34 [From Plaquenil] irbesartan AdvReac Intermediate Fatigue Verified 04/30/21 12:34 niacin AdvReac Intermediate "Did not Verified 04/30/21 12:34 tolerate" ezetimibe AdvReac Mild Memory loss Verified 04/30/21 12:34 Quinolones AdvReac Mild Intolerance Verified 04/30/21 12:34 simvastatin AdvReac Mild Muscle Verified 04/30/21 12:34 aches tetracycline AdvReac Mild GI Verified 04/30/21 12:34 intolerance Home Medications Medication Instructions Recorded Confirmed Type acetaminophen 500 mg tablet 500 mg PO UD PRN tab 02/02/19 04/23/21 History mometasone 0.1 % topical ointment 1 appln TOPICAL UD PRN gm 02/02/19 04/23/21 History clonidine HCl 0.1 mg tablet 0.1 mg PO DAILY PRN #30 tab 03/18/19 04/23/21 Rx triamcinolone acetonide 0.1 % 1 appln TOP BID 05/14/19 04/23/21 History topical cream cefuroxime axetil 500 mg tablet 1,000 mg PO UD PRN 03/08/20 04/23/21 History famotidine 20 mg tablet (Pepcid AC) 20 mg PO DAILY PRN 03/08/20 04/23/21 History multivitamin 1 tab PO QAM 03/08/20 04/23/21 History furosemide 20 mg tablet 40 mg PO Q OTHER DAY #30 tab 03/28/20 04/23/21 Rx tramadol 50 mg tablet See Rx Instructions PO Q6H PRN 11/02/20 04/23/21 Rx #100 tab hydroxyzine HCl 10 mg tablet 10 mg PO TID PRN 03/08/21 04/23/21 History amlodipine 2.5 mg tablet 2.5 mg PO QAM #90 tab 03/19/21 04/23/21 Rx clobetasol 0.05 % topical ointment 1 applic TOPICAL BID 04/23/21 04/23/21 History colestipol 1 gram tablet 1 g PO BID PRN 04/23/21 04/23/21 History diphenoxylate-atropine 2.5 1 tab PO BID 04/23/21 04/23/21 History mg-0.025 mg tablet (Lomotil) isosorbide mononitrate 30 mg 30 mg PO QAM 04/23/21 04/23/21 History tablet,extended release 24 hr isosorbide mononitrate 60 mg 60 mg PO QAM 04/23/21 04/23/21 History tablet,extended release 24 hr furosemide 20 mg tablet 20 mg PO Q OTHER DAY #100 tab 04/25/21 Rx levothyroxine 125 mcg capsule 125 mcg PO HS #90 cap 04/25/21 Rx Past Med/Surg History Medical History Carotid artery stenosis Per remote records, no evidence of stenosis on 2014 carotid imaging Chronic kidney disease, stage 3 (moderate) Depression Gastroesophageal reflux disease History of blood transfusion Remote hx post-op knee surgery History of fluid overload 2015 (fluid overload 2/2 reaction from prednisone tx for PMR) Hypercholesterolemia Hypertension Hypothyroidism Lumbar radiculopathy Morbid obesity with BMI of 45.0-49.9, adult Polymyalgia rheumatica Prediabetes Psoriasis Sleep apnea CPAP (compliant) Squamous cell carcinoma of left wrist Venous insufficiency Surgical History History of arthroscopy of knee R/L History of carpal tunnel release of both wrists History of cataract surgery R/L History of colonoscopy with polypectomy History of dilation and curettage History of esophagogastroduodenoscopy (EGD) History of foot surgery Right "toes straightened"/subsequent pins removal History of lumbar surgery Laminectomy History of squamous cell carcinoma excision History of tooth extraction History of total hip arthroplasty Right DEANN (03/19/17): DL x1 attempt, grade 4 view > Glidescope#3 at [facility] Right hip I&D, poly exchange insertion, stimulan beads (05/09/17): Grade view 1 with glidescope #3, *several attempts with glidescope to advance ETT* at [facility] History of total hysterectomy with bilateral salpingo-oophorectomy (BSO) S/P tonsillectomy and adenoidectomy Status post excision of Cortes's neuroma Family History Father Malignant neoplasm of parotid gland Hypertension Stroke Family history of reaction to anesthesia "coded on table during hernia sx 1951"--able to bring him back Mother Hypertension Stroke Brother Diabetes Aneurysm artery, iliac Sister Diabetes Coronary heart disease Hyperlipidemia Hypothyroidism Breast cancer Renal failure Hypertension Denies family history of Ovarian cancer Prostate cancer Myocardial infarction Colorectal cancer Social History (Updated 05/01/21 @ 14:52 by Barrington Agosto PA-C) Smoking Status: Former smoker Age Started Using Tobacco: 21; Age Quit Using Tobacco: 47; packs per day: 1.5; Years Smoked: 26; Number of Years Since Quit: 32; Second Hand Exposure: Yes (father smoked); Hx Alcohol Use: Yes Alcohol type: wine Hx Substance Use: No Preferred Language: Setswana Communication Ability: Effective Visual Impairment: No Limitations Hearing Ability: Normal Abstract Clerk Required: No Beliefs That Will Affect Care: None marital status: Current Living Situation: Spouse and Family Current Living Situation Comment: Lives with and daughter, son in law, granddaughter 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 Physical Exam Physical Exam: Vitals: Height 152.4 cm, weight 105.8 kilograms, BMI high. Temperature 36.4, BP 150/84, pulse 94, O2 sat 97% on room air, respirations 16. General: Well-developed, well-nourished, obese, elderly white female in no acute distress. Sitting in a chair. Alert and oriented. Skin: Warm and dry with good turgor. No rashes currently. She does have significant varicosities present in her lower extremities. No intra-articular effusion in the left knee. HEENT: Normocephalic, atraumatic. Eyes: PERRLA, EOMI. Nares and oropharynx exams deferred due to COVID precautions. Heart: RRR, soft systolic ejection murmur at 2/6. No gallops or rubs. Lungs: Clear to auscultation bilaterally. No crackles, rhonchi or wheezing. Good air movement. Abdomen: Obese, bowel sounds present x4, soft, nontender. No organomegaly. No masses. Musculoskeletal: Left knee evaluation reveals no intraarticular effusion. No redness or warmth. She lacks about 5 degrees of terminal extension. Flexion to around 90 degrees. Strength is 5/5 with fair quad tone. Valgus alignment. Stable collateral ligaments. She has focal discomfort with palpation over the lateral joint line. There is also some pain medially, but her worst pain is lateral. There is crepitus with motion. No defect in the patellar tendon or quadriceps tendon. Ambulates with a slightly antalgic gait using her cane. Neurologic: Gross sensation is intact across the upper and lower extremities by soft touch. Peripheral pulses are 2+. Results & Data Results & Data ([facility]) Diagnostic Findings Radiographic imaging previously obtained shows end-stage DJD of the left knee. Worst in the lateral compartment. Periarticular osteophytes, subchondral sclerosis, and joint space narrowing are all present. Code Status & VTE Plan VTE Prophylaxis Plan VTE Prophylaxis will be ordered: Yes
--- NOTE | 2021-06-04 13:39 | History & Physical Report ---
Date of Service June 04, 2021 Assessment & Plan (1) Left knee DJD: Plan: Postoperative prescriptions for Percocet and Coumadin will be provided at discharge from the hospital. Anticipate discharge to home with home health services. She understands that the surgery may be postponed secondary to bed status availability. She is currently asymptomatic of any COVID-19 symptoms. She is aware of the COVID-19 risks associated with surgery. She will obtain nasal swab testing for COVID-19 two days prior to surgery. She has already attended PAT. New lab work was ordered today. She has already received medical clearance from her PCP. She had a normal echocardiogram on 03/13/2021 that showed a normal ejection fraction of 55-60%. There is aortic valve sclerosis without significant aortic valve stenosis. Moderate mitral annular calcification. PDMP was checked, and there are no concerning findings. She already has access to a walker and cane. History of Present Illness Primary Care Provider: Noman Quiroz MD This 81-year-old female presents with her for her preoperative history and physical. She is scheduled to undergo a left total knee arthroplasty on 06/06/2021. The patient was previously scheduled to have her knee done on May 16, but was canceled due to COVID admissions and lack of bed space at the hospital. She has a longstanding history of left knee pain. It has been ongoing for years. She has significant increase in her pain over the last year. She has gone through conservative care measures including activity modification, oral pain medication, viscosupplementation and cortisone injections without improvement. No numbness or tingling. Pain is worse with weightbearing or activity. She does note loss of motion of the knee. She has been using a cane for ambulation. Preoperative imaging has been obtained. Allergies Allergy/AdvReac Type Severity Reaction Status Date / Time lisinopril Allergy Severe Periorbital Verified 05/31/21 16:05 swelling losartan Allergy Severe "Lesions" Verified 05/31/21 16:05 JEREMI Inhibitors Allergy Intermediate "Lesions", Verified 05/31/21 16:05 itchy Beta-Blockers Allergy Intermediate "Lesions", Verified 05/31/21 16:05 (Beta-Adrenergic Bloc itchy adhesive Allergy Mild Rash Verified 05/31/21 16:05 clindamycin Allergy Mild Rash Verified 05/31/21 16:05 erythromycin base Allergy Mild Itching Verified 05/31/21 16:05 latex Allergy Mild Rash Verified 05/31/21 16:05 Penicillins Allergy Mild Hives Verified 05/31/21 16:05 Sulfa (Sulfonamide Allergy Mild Itching Verified 05/31/21 16:05 Antibiotics) daptomycin AdvReac Severe Anaphylaxis Verified 05/31/21 16:05 gabapentin AdvReac Severe Diffuse Verified 05/31/21 16:05 swelling hydroxychloroquine AdvReac Intermediate Diarrhea Verified 05/31/21 16:05 [From Plaquenil] irbesartan AdvReac Intermediate Fatigue Verified 05/31/21 16:05 niacin AdvReac Intermediate "Did not Verified 05/31/21 16:05 tolerate" ezetimibe AdvReac Mild Memory loss Verified 05/31/21 16:05 Quinolones AdvReac Mild Intolerance Verified 05/31/21 16:05 simvastatin AdvReac Mild Muscle Verified 05/31/21 16:05 aches tetracycline AdvReac Mild GI Verified 05/31/21 16:05 intolerance Home Medications Medication Instructions Recorded Confirmed Type acetaminophen 500 mg tablet 500 mg PO UD PRN tab 02/02/19 05/31/21 History mometasone 0.1 % topical ointment 1 appln TOPICAL UD PRN gm 02/02/19 05/31/21 History clonidine HCl 0.1 mg tablet 0.1 mg PO DAILY PRN #30 tab 03/18/19 05/31/21 Rx triamcinolone acetonide 0.1 % 1 appln TOP BID 05/14/19 05/31/21 History topical cream cefuroxime axetil 500 mg tablet 1,000 mg PO UD PRN 03/08/20 05/31/21 History famotidine 20 mg tablet (Pepcid AC) 20 mg PO DAILY PRN 03/08/20 05/31/21 History multivitamin 1 tab PO QAM 03/08/20 05/31/21 History furosemide 20 mg tablet 40 mg PO Q OTHER DAY #30 tab 03/28/20 05/31/21 Rx hydroxyzine HCl 10 mg tablet 10 mg PO TID PRN 03/08/21 05/31/21 History amlodipine 2.5 mg tablet 2.5 mg PO QAM #90 tab 03/19/21 05/31/21 Rx clobetasol 0.05 % topical ointment 1 applic TOPICAL BID 04/23/21 05/31/21 History colestipol 1 gram tablet 1 g PO BID PRN 04/23/21 05/31/21 History diphenoxylate-atropine 2.5 1 tab PO BID 04/23/21 05/31/21 History mg-0.025 mg tablet (Lomotil) isosorbide mononitrate 30 mg 30 mg PO QAM 04/23/21 05/31/21 History tablet,extended release 24 hr isosorbide mononitrate 60 mg 60 mg PO QAM 04/23/21 05/31/21 History tablet,extended release 24 hr furosemide 20 mg tablet 20 mg PO Q OTHER DAY #100 tab 04/25/21 05/31/21 Rx levothyroxine 125 mcg capsule 125 mcg PO HS #90 cap 04/25/21 05/31/21 Rx tramadol 50 mg tablet See Rx Instructions PO Q6H PRN 05/25/21 05/31/21 Rx #100 tab Past Med/Surg History Medical History Carotid artery stenosis Per remote records, no evidence of stenosis on 2014 carotid imaging Chronic kidney disease, stage 3 (moderate) Depression Gastroesophageal reflux disease History of blood transfusion Remote hx post-op knee surgery History of fluid overload 2015 (fluid overload 2/2 reaction from prednisone tx for PMR) Hypercholesterolemia Hypertension Hypothyroidism Lumbar radiculopathy Morbid obesity with BMI of 45.0-49.9, adult Polymyalgia rheumatica Prediabetes Psoriasis Sleep apnea CPAP (compliant) Squamous cell carcinoma of left wrist Venous insufficiency Surgical History History of arthroscopy of knee R/L History of carpal tunnel release of both wrists History of cataract surgery R/L History of colonoscopy with polypectomy History of dilation and curettage History of esophagogastroduodenoscopy (EGD) History of foot surgery Right "toes straightened"/subsequent pins removal History of lumbar surgery Laminectomy History of squamous cell carcinoma excision History of tooth extraction History of total hip arthroplasty Right DEANN (03/19/17): DL x1 attempt, grade 4 view > Glidescope#3 at [facility] Right hip I&D, poly exchange insertion, stimulan beads (05/09/17): Grade view 1 with glidescope #3, *several attempts with glidescope to advance ETT* at [facility] History of total hysterectomy with bilateral salpingo-oophorectomy (BSO) S/P tonsillectomy and adenoidectomy Status post excision of Cortes's neuroma Family History Father Malignant neoplasm of parotid gland Hypertension Stroke Family history of reaction to anesthesia "coded on table during hernia sx 1951"--able to bring him back Mother Hypertension Stroke Brother Diabetes Aneurysm artery, iliac Sister Diabetes Coronary heart disease Hyperlipidemia Hypothyroidism Breast cancer Renal failure Hypertension Denies family history of Ovarian cancer Prostate cancer Myocardial infarction Colorectal cancer Social History Smoking Status: Former smoker Age Started Using Tobacco: 21; Age Quit Using Tobacco: 47; packs per day: 1.5; Years Smoked: 26; Number of Years Since Quit: 32; Second Hand Exposure: Yes (father smoked); Hx Alcohol Use: Yes Alcohol type: wine Hx Substance Use: No Preferred Language: Italian Communication Ability: Effective Visual Impairment: No Limitations Hearing Ability: Normal Certified Home Health Aide Required: No Beliefs That Will Affect Care: None marital status: Current Living Situation: Spouse and Family Current Living Situation Comment: Lives with and daughter, son in law, granddaughter 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 Physical Exam Physical Exam: Vitals: Height 152.4 cm, weight 105.8 kilograms, BMI 47.4, temperature 36.6, BP 170/80, pulse 100, O2 sat 96% on room air. General: Well-developed, well-nourished, obese, elderly white female in no acute distress. Sitting in a chair. Alert and oriented. Ambulatory with a cane. Skin: Warm and dry with good turgor. No rashes. She continues to have significant varicosities present in her lower extremities. No intra-articular effusion in the left knee. HEENT: Normocephalic, atraumatic. Eyes: PERRLA, EOMI. Nares and oropharynx exams deferred due to COVID precautions. Heart: RRR, soft systolic ejection murmur at 2/6. Mcminn best at the left sternal border. No gallops or rubs. Lungs: Clear to auscultation bilaterally. No crackles, rhonchi or wheezing. Good air movement. Abdomen: Obese, bowel sounds present x4, soft, nontender. No organomegaly. No masses. Musculoskeletal: Left knee evaluation reveals no intraarticular effusion. No redness or warmth. She lacks about 5 degrees of terminal extension. Flexion to around 90 degrees. Strength is 5/5 with fair quad tone. Valgus alignment. Stable collateral ligaments. She has focal discomfort with palpation over the lateral joint line. She does have pain medially as well, but the worst pain is lateral. She has crepitus palpable with motion. No defect in the patellar tendon or quadriceps tendon. Ambulating with a slightly antalgic gait using her cane. Neurologic: Gross sensation is intact across the upper and lower extremities by soft touch. Peripheral pulses are 2+. Results & Data Results & Data ([facility]) Diagnostic Findings Radiographic imaging previously obtained shows end-stage DJD of the left knee. It is worst in the lateral compartment. Periarticular osteophytes, subchondral sclerosis and joint space narrowing are all present. Code Status & VTE Plan VTE Prophylaxis Plan VTE Prophylaxis will be ordered: Yes
[2021-06-06] MEDS ORDERED: TRANEXAMIC ACID 1,000 MG **IV Pre-op IV SCH (06:00)
[2021-06-06] MEDS ORDERED: LR 500ML BOLUS, THEN 15ML/HR IV SCH (06:00)
[2021-06-06] MEDS ORDERED: ROPIVACAINE 0.5% HCL/PF 150 MG, BUPIVACAINE 0.75% MPF 20 ML, EPINEPHrine 0.15 MG, Ketor... INFIL SCH (06:00)
[2021-06-06] MEDS ORDERED: LR 60ML/HR IV SCH (06:00)
[2021-06-06] MEDS ORDERED: ceFAZolin 2000MG 2,000 MG/15 ML SYR IV SCH (06:00)
[2021-06-06] MEDS ORDERED: BUPIVACAINE 0.5 % 5 MG/1 ML PF 10ML VIAL ONE (06:22)
[2021-06-06] MEDS ORDERED: ROPIVACAINE 0.5% 5 MG/ML 30 ML VIAL ONE (06:22)
--- NOTE | 2021-06-06 06:22 | History & Physical Bridge Note ---
Date of Service June 06, 2021 History & Physical Bridge Note I have examined the patient, reviewed the History & Physical and in the interval since the performance of the History & Physical I have noted the following changes of clinical significance: consent obtained/site verified/covid screen negative.no changes noted
[2021-06-06] MEDS ORDERED: MIDAZOLAM HCL 1 MG/ML 2ML VIAL ONE (06:25)
[2021-06-06] MEDS ORDERED: PROPOFOL IV EMULSION 10 MG/ML 20 ML VIAL IV ONE (06:25)
[2021-06-06] MEDS ORDERED: ORTHO JOINT ANESTHETIC ONE (06:34)
[2021-06-06] MEDS ORDERED: ROCURONIUM BROMIDE 10 MG/ML 5 ML VIAL IV ONE (06:58)
[2021-06-06] MEDS ORDERED: fentaNYL citrate 100 MCG/2 ML VIAL ONE ×3 (06:58→08:51)
[2021-06-06] MEDS ORDERED: ATROPINE SULFATE 0.1 MG/ML 10ML SYR IV PRN (07:11)
[2021-06-06] MEDS ORDERED: ONDANSETRON INJ 2 MG/ML 2 ML VIAL IV PRN ×2 (07:11→11:45)
[2021-06-06] MEDS ORDERED: ePHEDrine sulfate 50 MG/ML AMP IV PRN (07:11)
[2021-06-06] MEDS ORDERED: LABETALOL HCL IV 5 MG/ML 20ML IV ONE (07:20)
[2021-06-06] MEDS ORDERED: ONDANSETRON INJ 2 MG/ML 2 ML VIAL ONE (07:20)
[2021-06-06] MEDS ORDERED: DEXAMETHASONE SOD INJ 4 MG/ML VIAL ONE (07:20)
[2021-06-06] MEDS ORDERED: hydrALAZINE HCL 20 MG/ML VIAL ONE (07:43)
[2021-06-06] MEDS ORDERED: SUGAMMADEX SODIUM 200 MG/2 ML VIAL IV ONE (08:11)
--- NOTE | 2021-06-06 08:48 | Post Operative Brief Note ---
Immediate Post Op Note v1 Date of Surgery June 06, 2021 Pre & Post Diagnosis Operation Date: 06/06/21 07:00 Pre-Op Diagnosis: Left Knee Osteoarthritis Post-Op Diagnosis: Left Knee Osteoarthritis I identified the patient and participated in the time-out.: Yes Procedure Operation Date: 06/06/21 07:00 Actual Procedures p Left Total Knee Arthroplasty, Cemented(Left) - Vinny Hong MD Surgeon Vinny Hong MD Glass Cutting Machine Feeder Fior/Triny/Koffi-MS2 Estimated Blood Loss 100 Findings Consistent with Post-Op Diagnosis
--- NOTE | 2021-06-06 09:04 | Operative Report ---
Post Operative Report Pre & Post Diagnosis Operation Date: 06/06/21 07:00 Pre-Op Diagnosis: Left Knee Osteoarthritis Post-Op Diagnosis: Left Knee Osteoarthritis I identified the patient and participated in the time-out.: Yes Procedure Operation Date: 06/06/21 07:00 Actual Procedures p Left Total Knee Arthroplasty, Cemented(Left) - Vinny Hong MD Surgeon CONNIE Hong MD Kettle Worker Fior/Triny/Koffi-MS2 Estimated Blood Loss 100 Findings Consistent with Post-Op Diagnosis see operative report Specimens see operative report Drains none Complications Skin tear popliteal fossa Disposition Accompanied Patient To Recovery: Yes Indications This 81-year-old female presented to the office with complaints of intractable left knee pain. She had tried conservative care measures without improvement. She elected to proceed with surgical intervention after being educated about potential risks and outcomes. Preoperative imaging was obtained. Description of Procedure Patient was administered taken to the operating room where she was given general anesthesia. She was prepped and draped in the usual sterile fashion. Please see Dr. Hong's operative report for specifics of the procedure. I was present for the entire case from initial patient positioning through final wound closure. Assistance was provided in tissue retraction, hemostasis, trial implant placement, final implant placement, and final wound closure. Patient was taken to the recovery room in satisfactory condition. I attest to the content of the Intraoperative Record and any orders documented therein. Any exceptions are noted below.
[2021-06-06] MEDS: fentaNYL citrate 100 MCG/2 ML VIAL IV PRN ×4 (09:08→09:36)
--- NOTE | 2021-06-06 09:08 | Operative Report ---
Post Operative Report Pre & Post Diagnosis Operation Date: 06/06/21 07:00 Pre-Op Diagnosis: Left Knee Osteoarthritis Post-Op Diagnosis: Left Knee Osteoarthritis I identified the patient and participated in the time-out.: Yes Procedure Operation Date: 06/06/21 07:00 Actual Procedures p Left Total Knee Arthroplasty, Cemented(Left) - Vinny Hong MD Surgeon Kt Hong MD Spring Tier Fior/Triny/Koffi-MS2 Estimated Blood Loss 100 Findings Consistent with Post-Op Diagnosis Consistent with post op diagnosis. Specimens No specimens Description of Procedure I participated in prepping dressing and assisted DR. Hong during the procedure. Please see Dr. Hong note I attest to the content of the Intraoperative Record and any orders documented therein. Any exceptions are noted below. Supervising Physician Co-Signing Physician Notes Dr. Hong
[2021-06-06] MEDS ORDERED: TRANEXAMIC ACID / 0.7% NACL 1,000 MG/100 ML BAG IV ONE (09:17)
[2021-06-06] MEDS ORDERED: VANCOMYCIN HCL 1,500 MG in SODIUM CHLORIDE 0.9% 500 ML IV ONE (09:30)
--- NOTE | 2021-06-06 09:41 | Operative Report (OR) ---
DATE OF PROCEDURE: 06/06/2021. SURGEON: Vinny Hong MD. PEELED POTATO INSPECTOR: Henrry Childress MD SECOND PEELED POTATO INSPECTOR: Barrington Agosto PA-C. THIRD PEELED POTATO INSPECTOR: Medical student Koffi. PREOPERATIVE DIAGNOSIS: Osteoarthritis, left knee, with valgus deformity. POSTOPERATIVE DIAGNOSIS: Osteoarthritis, left knee, with valgus deformity. OPERATION PERFORMED: Cemented left total knee replacement. PERIOPERATIVE SITUATION: Medically cleared female with intractable left knee pain, has significant m edical comorbidities, but at this point in time is cleared for this procedure. She understands risks and consequences including cardiac issues, neurologic issues, and . DVT, PE all were discussed in detail, as well as infection. She has a history of having that in the past in her right hip. SUMMARY OF IMPLANTS: Size 2 left femur posterior cruciate substituting, size 2 mobile bearing tray, size 2 x 10 insert, patella 38, two bags of Palacos G cement. ESTIMATED BLOOD LOSS: 100 mL. PATHOLOGY: Pending on bone. CRYSTALLOID: Per anesthesia. DESCRIPTION OF PROCEDURE: The patient was appropriately identified, site verified, consent verified. Antibiotics were confirmed as being given. Left lower extremity was prepped and draped in usual ro utine fashion. The midline exposure was utilized. There were some significant varicosities that required special at tention. Parapatellar arthrotomy performed, synovectomy completed, osteophytes resected. Distal fem ur entered. Distal femur resected 12 mm, proximal tibia resected 4 mm off the high side. Extension gap was excellent. The alignment was excellent. The femur was sized to a 2 appropriate and anterior, posterior condylar and chamfer cuts made. The f lexion gap was checked, it was excellent. The box cut was then made and the size 2 fit well. The ti juanito was sized to a 2 and appropriate broaching and reaming carried out and the size 2 placed with a 1 0 mm spacer with excellent stability, excellent patellar tracking. The patella was sized after resec ting leaving 14 mm to a size 38, appropriate seating holes made, and the patella seated well. All im plants were then removed. The wound was irrigated with Betadine, Pulsavac, and then the permanent ce mented in position, tibia, femur, and patella in that order. After 14 minutes, the tourniquet was le t down. There was no major bleeding. Actually most of the bleeding occurred during the case with po or tourniquet control based on her size. The wound was then irrigated after 14 minutes. The trial liner removed. No cement removal required. The permanent liner seated. The knee reduced and closed with #2 Vicryl, 2-0 Vicryl, and stainless steel clips. Appropriate dressing was then applied. It should be mentioned that upon removal of the Ioban on the backside of her knee, she had a superficial skin slough, which will require Adaptic dressing changes and monitoring, nothing else. This was probably approximately 5 x 5 cm. There was no full thickness injury, it was all superficial. There was no active bleeding. It looked like a skin graft harvest, partial thickness, split thin. The wound was then appropriately dressed and the patient was then transferred to the Recovery Room in satisfactory condition, having tolerated the procedure well. Pathology pending on bone. ESTIMATED BLOOD LOSS: 100 mL. CRYSTALLOID: Per anesthesia. Job ID: [id number]
--- NOTE | 2021-06-06 10:10 | Anesthesiology Progress Note ---
Date of Service June 06, 2021 Anesthesia Post Procedure Vital Signs Vital Signs: Temp Pulse Pulse Resp BP Pulse Ox 06/06/21 10:00 36.2 C L 91 H 14 158/68 H 98 06/06/21 09:50 91 H 12 159/64 H 97 06/06/21 09:40 88 14 170/71 H 85 L 06/06/21 09:30 90 11 L 159/67 H 98 06/06/21 09:20 87 10 L 134/73 96 06/06/21 09:10 90 10 L 187/74 H 96 06/06/21 09:02 36.5 C 92 H 24 159/67 H 96 06/06/21 05:39 37 C 108 H 20 209/98 H 99 Pain Intensity Left Knee: Pain Intensity: 6 Transfer of Care Handoff Completed per policy Notes Mental Status: alert / awake / arousable and participated in evaluation Patient Amnestic to Procedure: Yes Nausea / Vomiting: adequately controlled Pain: adequately controlled Airway Patency, RR, SpO2: stable & adequate BP & HR: stable & adequate Hydration State: stable & adequate Anesthetic Complications: no major complications apparent
[2021-06-06] MEDS: HYDROmorphone INJ 2 MG/ML SYR/VIAL IV PRN ×3 (10:19→10:41)
--- NOTE | 2021-06-06 10:24 | XRay Report ---
XR knee LT 1 or 2V routine HISTORY: 81 years-old Female S/P L TKA [total joint arthroplasty COMPARISON: None TECHNIQUE: 2 views of the left knee FINDINGS: Left knee total joint arthroplasty and patella resurfacing. No acute fracture, dislocation or unexpec mackenzie opaque foreign body. Expected postoperative soft tissue swelling and deep tissue air with anterio r skin olivia. IMPRESSION: Left knee total joint arthroplasty with expected postoperative changes. ACT 112: Negative or not required by law. The above report was generated using voice recognition software. It may contain grammatical, syntax o r spelling errors. Electronically signed by: Blaine Washington M.D. 06/06/2021 10:22 AM
[2021-06-06] MEDS ORDERED: bisacodyL 10 MG SUPP PR PRN (11:45)
[2021-06-06] MEDS ORDERED: SODIUM CHLORIDE 0.9% 1000ML 1,000 ML IV SCH (11:45)
[2021-06-06] MEDS ORDERED: HYDROmorphone INJ 0.5 MG/0.5 ML SYR IV PRN (11:45)
[2021-06-06] MEDS ORDERED: oxyCODONE HCL IR 5 MG TAB (IMMEDIATE RELEASE) PO PRN (11:45)
[2021-06-06] MEDS ORDERED: COLESTIPOL HCL 1 GM TAB PO PRN (11:45)
[2021-06-06] MEDS ORDERED: MAGNESIUM HYDROXIDE SUSP 30 ML UDC PO PRN (11:45)
[2021-06-06] MEDS ORDERED: ALUMINUM/MAGNESIUM SUSP 30 ML UDC PO PRN (11:45)
[2021-06-06] MEDS ORDERED: MOMETASONE FUROATE 0.1% OINT 15 GM TUBE EXT PRN (11:45)
[2021-06-06] MEDS ORDERED: diphenhydrAMINE 50 MG/ML VIAL IV PRN (11:45)
[2021-06-06] MEDS ORDERED: cloNIDine HCL 0.1 MG TAB PO PRN (11:45)
[2021-06-06] MEDS ORDERED: NALOXONE HCL 0.4 MG/1 ML VIAL/CARP IV PRN (11:45)
[2021-06-06] MEDS ORDERED: FAMOTIDINE 20 MG TAB PO PRN (11:45)
[2021-06-06] MEDS ORDERED: METOCLOPRAMIDE HCL INJ 5 MG/ML 2 ML VIAL IV PRN (11:45)
[2021-06-06] MEDS ORDERED: hydrOXYzine HCl 10 MG TAB PO PRN (11:45)
[2021-06-06] MEDS ORDERED: KETOROLAC 30 MG/ML VIAL ONE (12:19)
[2021-06-06] MEDS: KETOROLAC TROMETHAMINE 15 MG/ML VIAL IV SCH ×2 (12:20→17:49)
--- NOTE | 2021-06-06 13:49 | Progress Notes ---
DATE OF SERVICE: 06/06/2021 Postop check, doing well. Neurovascular check of femoral sciatic nerve is normal. X-rays, AP and lateral of the left knee look ed excellent. ASSESSMENT: Doing reasonably well. At this point in time, will need appropriate postoperative care p athway, will need additional care for a skin tear created by the Ioban dressing posteriorly. Will ne ed the present dressing in place for 48 hours. Return to clinic on Friday and have things changed en. The patient is aware. is aware. Job ID: [id number]
[2021-06-06] MEDS ORDERED: ORTHO WARFARIN NOMOGRAM SCH ×2 (14:00)
--- NOTE | 2021-06-06 14:15 | Discharge Summary (DS) ---
DATE OF ADMISSION: 06/06/2021 DATE OF POTENTIAL DISCHARGE: 06/07/2021 CHIEF COMPLAINT: Left knee pain. HISTORY OF PRESENT ILLNESS: The patient underwent elective left total knee replacement. Presently, the patient's pain is well managed. She has normal neurovascular status. ALLERGIES: EXTENSIVE ALLERGY LIST, PLEASE SEE THAT IN HER CHART. HOME MEDICATIONS: Extensive, please see med reconciliation. PAST MEDICAL AND PAST SURGICAL HISTORY: Remarkable for coronary artery stenosis, kidney disease stag e III, history of depression, history of GERD, history of blood transfusion, history of fluid overloa d, hypercholesterolemia, hypertension, hypothyroidism, lumbar radiculopathy, morbid obesity, polymyal [place] rheumatica, prediabetes, psoriasis, sleep apnea, CPAP compliant, skin cancers, venous insufficien cy, carpal tunnel releases, cataract surgery, EGDs, colonoscopies, multiple surgical procedures inclu ding right total hip complicated with infection, I and D, exchange, and now left total knee replaceme nt. FAMILY HISTORY: Remarkable for malignant neoplasm of the parotid gland, family history of reaction t o anesthesia, hypertension, stroke, diabetes, aneurysm iliac, ovarian and prostate cancer, myocardial infarction, colorectal cancer. SOCIAL HISTORY: She is and lives with her . Quit smoking at age 47. Smoked for 26 y ears. REVIEW OF SYSTEMS: Reveals no chest pain, shortness of breath, fever, chills, nausea, vomiting or he adache. Postoperative x-rays look excellent. ASSESSMENT: Overall doing well. Continue preadmission medications. Add deep venous thrombosis proph ylaxis per protocol. Will need wound care for a skin tear posteriorly from the Ioban dressing. Job ID: [id number]
[2021-06-06] MEDS ORDERED: WARFARIN SOD 5 MG TAB PO ONE (16:00)
[2021-06-06] MEDS: ACETAMINOPHEN 500 MG TAB PO SCH ×2 (16:01→21:47)
[2021-06-06] MEDS: ceFAZolin 2000MG 2,000 MG/15 ML SYR IV SCH (16:24)
[2021-06-06] MEDS: ASCORBIC ACID 500 MG TAB PO SCH (17:49)
[2021-06-06] MEDS: FERROUS GLUCONATE 324 MG TAB PO SCH (17:50)
[2021-06-06] MEDS: DOCUSATE SODIUM 100 MG CAP PO SCH (19:56)
[2021-06-06] MEDS ORDERED: SENNA 8.6 MG TAB PO SCH (21:00)
[2021-06-06] MEDS ORDERED: LEVOTHYROXINE SODIUM 125 MCG TABLET PO SCH (21:00)
[2021-06-06] MEDS ORDERED: DIPHENOXYLATE/ATROPINE 2.5/0.025MG TAB PO PRN (21:00)
[2021-06-06] MEDS ORDERED: CLOBETASOL 0.05% TOP SCH (21:00)
[2021-06-06] MEDS: TRIAMCINOLONE ACET 0.1% CR 15 GM TUBE TOP SCH (21:50)
[2021-06-07] MEDS: KETOROLAC TROMETHAMINE 15 MG/ML VIAL IV SCH ×2 (00:01→05:51)
[2021-06-07] MEDS: ceFAZolin 2000MG 2,000 MG/15 ML SYR IV SCH (00:02)
[2021-06-07] MEDS: ACETAMINOPHEN 500 MG TAB PO SCH (05:50)
[2021-06-07 06:11] LABS: Hematocrit (blood only) 33.3 % (37-47); Hemoglobin 10.5 g/dL (12.0-16.0); Mean Corpuscular Hemoglobin 28.4 pg (25-34); Mean Corpuscular Hgb Conc 31.5 g/dL (32-36); Mean Platelet Volume 8.8 fL (7.4-10.4); Platelet Count 287 K/uL (130-400); RDW Coefficient of Variation 15.3 % (11.5-14.5); RDW Standard Deviation 50.1 fL (36.4-46.3); White Blood Count 11.08 K/uL (4.8-10.8)
[2021-06-07 06:15] LABS: Prothrombin Time 9.9 Seconds (9.0-12.0)
[2021-06-07 06:40] LABS: BUN Creatinine Ratio 19.3 (10-20); Calcium 9.1 mg/dl (8.5-10.1); Creatinine Clr Calc Pharmacy 23.5 ml/min; Est GFR (African American) 25.2 ml/min; Est GFR (Non-African American) 21.8 ml/min; Potassium 4.3 mmol/L (3.5-5.1)
[2021-06-07] MEDS ORDERED: dexAMETHasone 10 MG in SYRINGE 0 ML IV SCH (08:00)
[2021-06-07] MEDS ORDERED: ISOSORBIDE MONO EXTENDED REL 60 MG TABCR PO SCH (09:00)
[2021-06-07] MEDS ORDERED: MULTIVITAMIN TAB PO SCH (09:00)
[2021-06-07] MEDS ORDERED: amLODIPine BESYLATE 5 MG TAB PO SCH (09:00)
[2021-06-07] MEDS ORDERED: ISOSORBIDE MONO EXTENDED REL 30 MG TABCR PO SCH (09:00)
[2021-06-07] MEDS ORDERED: FUROSEMIDE 20 MG TAB PO SCH (09:00)
[2021-06-07] MEDS ORDERED: WARFARIN SOD 5 MG TAB PO SCH (09:00)
--- NOTE | 2021-06-07 09:52 | Orthopedic Progress Note ---
Date of Service June 07, 2021 Assessment & Plan (1) Status post total left knee replacement using cement: Plan: Patient was seen in her room this morning. Postsurgical dressing was left in place. She will see me in the office on Friday at 130 for a dressing change. Continue using the knee immobilizer when out of bed. She may discontinue its use on Friday morning. Continue with her exercises daily. Discharge to home after PT/OT today. Continue to use the walker for ambulation. Prescriptions for Percocet and Coumadin have been sent to her pharmacy. Written discharge instructions were provided. Admission and Anticipated Discharge Date Admission Date: June 06, 2021 Subjective Patient is seen in her room this morning. States she did well overnight. She currently has no knee pain. She is very pleased. Denies any chest pain, shortness of breath, nausea, vomiting, or abdominal pain. She has been up and out of bed to go to the bathroom. She feels ready for discharge to home. No other complaints. Review of Systems Review of Systems: Unchanged from yesterday. Physical Exam Physical Exam: General: Well-developed, well-nourished, elderly female, in no acute distress. Sitting in a chair. Alert and oriented. Skin: Warm and dry with good turgor. No rashes or lesions. Ecchymosis present on her left forearm. Postsurgical dressing in place on her left knee. This was not removed. Musculoskeletal: Patient has intact motor function of her left ankle and toes. She has a brace in place as well as a Torres dressing on her left knee. This was not disturbed. Neurologic: Gross sensation is intact across both lower extremities by soft touch. Peripheral pulses are 2+. Results & Data ([facility]) Vital Signs (Past 12 Hours) Vital Signs Temp Pulse Resp BP Pulse Ox 06/07/21 03:20 36.4 C L 94 H 16 146/79 H 98 06/06/21 22:10 37.0 C 93 H 16 150/81 H 94 Laboratory Results WBCs are 11.08, H&H 10.5 and 33.3. INR is 1.0. Electrolytes are normal. BUN of 40 with creatinine 2.08. This is consistent with her baseline. Glucose level 135.
[2021-06-07] MEDS: TRIAMCINOLONE ACET 0.1% CR 15 GM TUBE TOP SCH (10:26)
[2021-06-07] MEDS: ASCORBIC ACID 500 MG TAB PO SCH (10:27)
[2021-06-07] MEDS: FERROUS GLUCONATE 324 MG TAB PO SCH (10:28)
[2021-06-07] MEDS: DOCUSATE SODIUM 100 MG CAP PO SCH (10:31)
[2021-06-08] MEDS ORDERED: FUROSEMIDE 40 MG TAB PO SCH (09:00)
== END 2021-06-07 11:25 | disposition home health service (06) ==
LOC: ASU 05:11 → PACUINP 05:11 → 3E 15:13
DX: Z99.89 Dependence on other enabling machines and devices; M54.16 Radiculopathy, lumbar region; Z88.8 Allergy status to other drugs, medicaments and biological substances; E78.00 Pure hypercholesterolemia, unspecified; I25.10 Atherosclerotic heart disease of native coronary artery without angina pectoris; Z79.890 Hormone replacement therapy; Z91.040 Latex allergy status; Z87.891 Personal history of nicotine dependence; M17.12 Unilateral primary osteoarthritis, left knee; M35.3 Polymyalgia rheumatica; M65.9 Synovitis and tenosynovitis, unspecified; Z88.5 Allergy status to narcotic agent; I87.2 Venous insufficiency (chronic) (peripheral); I70.0 Atherosclerosis of aorta; N18.30 Chronic kidney disease, stage 3 unspecified; Z91.048 Other nonmedicinal substance allergy status; I12.9 Hypertensive chronic kidney disease with stage 1 through stage 4 chronic kidney disease, or unspecified chronic kidney disease; Z68.42 Body mass index [BMI] 45.0-49.9, adult; K21.9 Gastro-esophageal reflux disease without esophagitis; Z88.2 Allergy status to sulfonamides; E66.01 Morbid (severe) obesity due to excess calories; Z79.899 Other long term (current) drug therapy

== ENCOUNTER 2022-08-21 06:22 | Observation (INO) ==
--- NOTE | 2022-07-25 15:35 | PAT Medication Instructions ---
Medication Instructions Date of Service July 25, 2022 Home Medications Medication Instructions Recorded furosemide 20 mg tablet 40 mg PO Q OTHER DAY #30 tabs 03/28/20 levothyroxine 125 mcg capsule 125 mcg PO HS #90 caps 07/30/21 tramadol 50 mg tablet See Rx Instructions PO Q6H PRN 11/30/21 pain #100 tabs amlodipine 2.5 mg tablet 2.5 mg PO BID #180 tabs 01/31/22 cefuroxime axetil 500 mg tablet 1,000 mg PO UD PRN prior to 02/20/22 procedures #2 tabs isosorbide mononitrate 60 mg 60 mg PO QAM #90 tabs 06/10/22 tablet,extended release 24 hr isosorbide mononitrate 30 mg 30 mg PO QAM #90 tabs 06/24/22 tablet,extended release 24 hr furosemide 20 mg tablet 20 mg PO Q OTHER DAY #100 tabs 06/26/22 oxycodone-acetaminophen 5 mg-325 2 tab PO Q6H PRN pain #120 tabs 07/24/22 mg tablet (Percocet) acetaminophen 500 mg tablet 500 mg PO UD PRN mometasone 0.1 % topical ointment 1 appln topical UD PRN triamcinolone acetonide 0.1 % topical cream 1 appln topical BID famotidine 20 mg tablet (Pepcid AC) 20 mg PO BID PRN multivitamin 1 tab PO QAM furosemide 20 mg tablet 40 mg PO Q OTHER DAY hydroxyzine HCl 10 mg tablet 10 mg PO TID PRN clobetasol 0.05 % topical ointment 1 applic topical BID levothyroxine 125 mcg capsule 125 mcg PO HS diphenoxylate-atropine 2.5 mg-0.025 mg tablet (Lomotil) 1 tab PO BID PRN tramadol 50 mg tablet See Rx Instructions PO Q6H PRN amlodipine 2.5 mg tablet 2.5 mg PO BID cefuroxime axetil 500 mg tablet 1,000 mg PO UD PRN Stable GI (probiotic) 1 tab PO BID budesonide 3 mg capsule,delayed,extended release See Rx Instructions PO DAILY PRN isosorbide mononitrate 60 mg tablet,extended release 24 hr 60 mg PO QAM isosorbide mononitrate 30 mg tablet,extended release 24 hr 30 mg PO QAM furosemide 20 mg tablet 20 mg PO Q OTHER DAY oxycodone-acetaminophen 5 mg-325 mg tablet (Percocet) 2 tab PO Q6H PRN Continue as directed cefuroxime axetil 500 mg tablet 1,000 mg PO UD PRN(if needed) STOP taking 2 weeks before surgery Stable GI (probiotic) 1 tab PO BID STOP taking 24 hours before surgery mometasone 0.1 % topical ointment 1 appln topical UD PRN triamcinolone acetonide 0.1 % topical cream 1 appln topical BID clobetasol 0.05 % topical ointment 1 applic topical BID DO NOT take the morning of surgery multivitamin 1 tab PO QAM furosemide 20 mg tablet 40 mg PO Q OTHER DAY diphenoxylate-atropine 2.5 mg-0.025 mg tablet (Lomotil) 1 tab PO BID PRN budesonide 3 mg capsule,delayed,extended release See Rx Instructions PO DAILY PRN furosemide 20 mg tablet 20 mg PO Q OTHER DAY Take morning of surgery With a small sip of water, OTHERWISE NOTHING TO EAT OR DRINK AFTER MIDNIGHT: acetaminophen 500 mg tablet 500 mg PO UD PRN(if needed) famotidine 20 mg tablet (Pepcid AC) 20 mg PO BID PRN(if needed) hydroxyzine HCl 10 mg tablet 10 mg PO TID PRN(if needed) tramadol 50 mg tablet See Rx Instructions PO Q6H PRN(if needed) amlodipine 2.5 mg tablet 2.5 mg PO BID isosorbide mononitrate 60 mg tablet,extended release 24 hr 60 mg PO QAM isosorbide mononitrate 30 mg tablet,extended release 24 hr 30 mg PO QAM oxycodone-acetaminophen 5 mg-325 mg tablet (Percocet) 2 tab PO Q6H PRN(if needed) Take evening before surgery acetaminophen 500 mg tablet 500 mg PO UD PRN(if needed) famotidine 20 mg tablet (Pepcid AC) 20 mg PO BID PRN(if needed) hydroxyzine HCl 10 mg tablet 10 mg PO TID PRN(if needed) levothyroxine 125 mcg capsule 125 mcg PO HS tramadol 50 mg tablet See Rx Instructions PO Q6H PRN(if needed) amlodipine 2.5 mg tablet 2.5 mg PO BID oxycodone-acetaminophen 5 mg-325 mg tablet (Percocet) 2 tab PO Q6H PRN(if needed) Other Notes If you have any questions please call us at [phone] or [phone] or [phone] or [phone]
--- NOTE | 2022-07-26 11:55 | Anesthesiology Consultation ---
Date of Service July 26, 2022 Assessment & Plan (1) Encounter for pre-operative examination: - COVID screening: Per assessment on 07/26: No known COVID-19 positive contacts or current COVID-19 related symptoms. Travel screen negative. Patient vaccinated. At surgeon discretion if preop Covid testing being done. - Outpatient joint assessment: Pt currently scheduled for inpatient pathway. If surgeon requests review for outpatient joint pathway, patient is not recommended candidate for outpatient joint program from anesthesia standpoint. - Positioning concern: Pt reports right shoulder pain/chronic issues- requesting caution when positioning. - Hx unsuccessful SAB/difficult intubation: Per patient, remote hx of unsuccessful spinal. She states she was told this might have been related to previous lumbar decompression surgery that she had. She states that for that reason, previous right hip surgeries were under under GA. S/P Right DEANN (03/19/17): DL x1 attempt, grade 4 view > Glidescope#3 at [facility]. Right hip I&D, poly exchange insertion, stimulan beads (05/09/17): Grade view 1 with glidescope #3, *several attempts with glidescope to advance ETT* at [facility]. Patient requested GA for Left TKA- done 06/06/21: Glidescope#3, ETT 7.0 + PNB at [facility]. Patient again requesting GA for upcoming left DEANN* - Blood bank: Known hx of positive antibodies requiring additional preop testing closer to DOS timing. Spoke with Snehal at blood bank- she states that patient needs to come in 08/19 for repeat labs (they will put orders in)- pt aware/agreeable. - CKD stage 4: Pt scheduled to see nephrology prior to upcoming surgery for routine appointment. Awaiting nephrology office visit note ([facility] [place] - Awaiting surgeon-ordered PCP preop evaluation ([facility] [place] already done 07/2022- note still in draft). Chart Review Chart Review: Patient seen in Pre Admission Testing Teaching & Discussion Pre-Anesthesia Teaching/Discussion Notes: Instructed NPO after midnight before surgery,except medications with 15 cc of water. Medication instructions provided according to the PAT guidelines. History Surgery Operation Date: 08/21/22 07:00 Proposed Procedures p Left Total Hip Arthroplasty - Vinny Hong MD Height/Weight Height: 5 ft 1 in Weight: 104.2 kg Allergies Allergy/AdvReac Type Severity Reaction Status Date / Time lisinopril Allergy Severe Periorbital Verified 07/26/22 11:03 swelling losartan Allergy Severe "Lesions" Verified 07/26/22 11:03 JEREMI Inhibitors Allergy Intermediate "Lesions", Verified 07/26/22 11:03 itchy adhesive Allergy Intermediate Hives (can Verified 07/26/22 14:37 only tolerate paper tape per pt) Beta-Blockers Allergy Intermediate "Lesions", Verified 07/26/22 11:03 (Beta-Adrenergic Bloc itchy clindamycin Allergy Mild Rash Verified 07/26/22 11:03 erythromycin base Allergy Mild Itching Verified 07/26/22 11:03 latex Allergy Mild Rash Verified 07/26/22 11:03 Penicillins Allergy Mild Hives Verified 07/26/22 11:03 Sulfa (Sulfonamide Allergy Mild Itching Verified 07/26/22 11:03 Antibiotics) daptomycin AdvReac Severe Anaphylaxis Verified 07/26/22 11:03 gabapentin AdvReac Severe Diffuse Verified 07/26/22 11:03 swelling hydroxychloroquine AdvReac Intermediate Diarrhea Verified 07/26/22 11:03 [From Plaquenil] irbesartan AdvReac Intermediate Fatigue Verified 07/26/22 11:03 niacin AdvReac Intermediate "Did not Verified 07/26/22 11:03 tolerate" ezetimibe AdvReac Mild Memory loss Verified 07/26/22 11:03 Quinolones AdvReac Mild Intolerance Verified 07/26/22 11:03 simvastatin AdvReac Mild Muscle Verified 07/26/22 11:03 aches tetracycline AdvReac Mild GI Verified 07/26/22 11:03 intolerance Medications Home Medications Medication Instructions Recorded Confirmed Last Taken acetaminophen 500 mg tablet 500 mg PO UD PRN Pain 02/02/19 07/26/22 06/05/21 10:00 mometasone 0.1 % topical ointment 1 appln topical UD PRN Rash 02/02/19 07/26/22 06/05/21 triamcinolone acetonide 0.1 % 1 appln topical BID 05/14/19 07/26/22 06/05/21 09:00 topical cream famotidine 20 mg tablet (Pepcid AC) 20 mg PO BID PRN Acid Reflux 03/08/20 07/26/22 06/05/21 20:00 multivitamin 1 tab PO QAM 03/08/20 07/26/22 06/05/21 09:00 furosemide 20 mg tablet 40 mg PO Q OTHER DAY #30 tabs 03/28/20 07/26/22 06/04/21 hydroxyzine HCl 10 mg tablet 10 mg PO TID PRN itching 03/08/21 07/26/22 06/05/21 20:00 clobetasol 0.05 % topical ointment 1 applic topical BID 04/23/21 07/26/22 06/05/21 09:00 levothyroxine 125 mcg capsule 125 mcg PO HS #90 caps 07/30/21 07/26/22 Unknown diphenoxylate-atropine 2.5 1 tab PO BID PRN diarrhea 10/09/21 07/26/22 Unknown mg-0.025 mg tablet (Lomotil) tramadol 50 mg tablet See Rx Instructions PO Q6H PRN 11/30/21 07/26/22 Unknown pain #100 tabs amlodipine 2.5 mg tablet 2.5 mg PO BID #180 tabs 01/31/22 07/26/22 Unknown cefuroxime axetil 500 mg tablet 1,000 mg PO UD PRN prior to 02/20/22 07/26/22 Unknown procedures #2 tabs Stable GI (probiotic) 1 tab PO BID 04/17/22 07/26/22 Unknown budesonide 3 mg See Rx Instructions PO DAILY PRN 04/17/22 07/26/22 Unknown capsule,delayed,extended release diarrhea isosorbide mononitrate 60 mg 60 mg PO QAM #90 tabs 06/10/22 07/26/22 Unknown tablet,extended release 24 hr isosorbide mononitrate 30 mg 30 mg PO QAM #90 tabs 06/24/22 07/26/22 Unknown tablet,extended release 24 hr furosemide 20 mg tablet 20 mg PO Q OTHER DAY #100 tabs 06/26/22 07/26/22 Unknown oxycodone-acetaminophen 5 mg-325 2 tab PO Q6H PRN pain #120 tabs 07/24/22 07/26/22 Unknown mg tablet (Percocet) Past Medical History Medical History Carotid artery stenosis <50% B/L ICA stenosis per 09/2021 carotid duplex Chronic kidney disease, stage 4 (severe) Baseline creatinine 2.0 per 03/2022 nephro notes Follows with [facility] nephro Depression Gastroesophageal reflux disease History of blood transfusion Remote hx post-op knee surgery History of COVID-19 08/2021 History of fluid overload 2016 (fluid overload 2/2 reaction from prednisone tx for PMR) Hypercholesterolemia Hypertension Hypothyroidism Lumbar radiculopathy Morbid obesity Polymyalgia rheumatica Prediabetes Psoriasis Sleep apnea CPAP (compliant) Venous insufficiency Exercise / Class Metabolic Activity III < 4 Walking/Shop/Light housework Past Family History Family History Father Malignant neoplasm of parotid gland Hypertension Stroke Family history of reaction to anesthesia "coded on table during hernia sx 1951"--able to bring him back Mother Hypertension Stroke Brother Diabetes Aneurysm artery, iliac Sister Diabetes Coronary heart disease Hyperlipidemia Hypothyroidism Breast cancer Renal failure Hypertension Denies family history of Ovarian cancer Prostate cancer Myocardial infarction Colorectal cancer Past Surgical History Surgical History H/O ligation of vein RT/LEFT History of anesthesia problem Hx unsuccessful SAB: Per patient, remote hx of unsuccessful spinal. She states she was told this might have been related to previous lumbar decompression surgery that she had. She states that for that reason, previous right hip surgeries were under under [place]. S/P Right DEANN (03/19/17): DL x1 attempt, grade 4 view > Glidescope#3 at [facility]. Right hip I&D, poly exchange insertion, stimulan beads (05/09/17): Grade view 1 with glidescope #3, *several attempts with glidescope to advance ETT* at [facility]. Patient requested GA for Left TKA (done 05/2021 under GA at [facility]) History of arthroscopy of knee R/L History of carpal tunnel release of both wrists History of cataract surgery R/L History of colonoscopy with polypectomy History of dilation and curettage History of esophagogastroduodenoscopy (EGD) History of foot surgery Right "toes straightened"/subsequent pins removal History of lumbar surgery Laminectomy History of squamous cell carcinoma excision History of tooth extraction History of total hip arthroplasty Right DEANN (03/19/17): DL x1 attempt, grade 4 view > Glidescope#3 at [facility] Right hip I&D, poly exchange insertion, stimulan beads (05/09/17): Grade view 1 with glidescope #3, *several attempts with glidescope to advance ETT* at [facility] History of total hysterectomy with bilateral salpingo-oophorectomy (BSO) History of total left knee replacement Left TKA (06/06/21): Glidescope#3, ETT 7.0 + PNB at [facility] S/P tonsillectomy and adenoidectomy Status post excision of Cortes's neuroma Past Anesthesia History Difficult Airway and Other Father- Perioperative code during 1951 hernia repair > survived Patient- Hx unsuccessful SAB/difficult intubation: Per patient, remote hx of unsuccessful spinal. She states she was told this might have been related to previous lumbar decompression surgery that she had. She states that for that reason, previous right hip surgeries were under under [facility]. S/P Right DEANN (03/19/17): DL x1 attempt, grade 4 view > Glidescope#3 at [facility]. Right hip I&D, poly exchange insertion, stimulan beads (05/09/17): Grade view 1 with glidescope #3, *several attempts with glidescope to advance ETT* at [facility]. Patient requested GA for Left TKA (done 05/2021 under GA at [facility]) History of PONV No Hx of PONV and No Hx of Motion Sickness Social History Smoking Status: Former smoker tobacco type: cigarettes Smoking End Date: 1986 Hx Alcohol Use: Yes Alcohol type: wine alcohol intake frequency: 0-2 drinks per day Alcohol Intake Frequency Comment: 1 GLASS OF WINE DAILY Hx Substance Use: No substance use type: does not use Review of Systems Patient denies chest pain, shortness of breath, fever, chills, cough, wheezing, palpitations. Physical Exam Vital Signs VITALS BP 138/71 P 85 TEMP 98.1 SP02 98%RA RESP 16 PHYSICAL Full cervical extension range of motion. Full TMJ range of motion. TMD 3.5 finger breaths Mallampati Score 3 Dentition: upper front left chipped tooth (r/t trauma in past- subsequently repaired and chipped again perioperatively with [facility] procedure) Lungs: clear throughout to auscultation Cardiac: regular rate and rhythm, I/ systolic murmur with faint right carotid bruit vs. murmur Spine: normal Carotid arteries: negative bruit Extremities: no edema Short, thick neck Lab Results Anesthesia Preop Results Results Anesthesia Widget: WBC 7.10 K/ul (4.8-10.8) 07/26/22 Hgb 11.6 g/dl (12.0-16.0) L 07/26/22 Hct 36.1 % (34.1-44.9) 07/26/22 Plt 295 K/uL (130-400) 07/26/22 Na 137 mmol/L (136-145) 07/26/22 K 4.3 mmol/L (3.5-5.1) 07/26/22 Cl 103 mmol/L (98-107) 07/26/22 CO2 26 mmol/L (21-32) 07/26/22 BUN 53 mg/dl (6-23) H 07/26/22 Creat 2.19 mg/dl (0.6-1.2) H 07/26/22 Glucose Level 99 mg/dl (70-99(Fasting)) 07/26/22 PT 10.1 Seconds (9.0-12.0) 07/26/22 PTT 28.2 Seconds (21.0-31.0) 07/26/22 INR 0.9 (0.9-1.1) 07/26/22 Urine Color Yellow 07/26/22 Urine Appearance Clear (Clear) 07/26/22 Urine pH 5.0 (4.5-7.5) 07/26/22 Urine Specific [place] 1.017 (1.000-1.030) 07/26/22 Urine Protein 3+ (Negative) H 07/26/22 Urine Glucose (UA) Negative (Negative) 07/26/22 Urine Ketones Negative (Negative) 07/26/22 Urine Blood Negative (Negative) 07/26/22 Urine Nitrite Negative (Negative) 07/26/22 Urine Bilirubin Negative (Negative) 07/26/22 Urine Urobilinogen Negative (Negative) 07/26/22 Urine Leukocyte Esterase Negative (Negative) 07/26/22 Urine WBC (Auto) 1-5 /hpf (0-5) 07/26/22 Urine RBC (Auto) 0-4 /hpf (0-4) 07/26/22 Urine Hyaline Casts (Auto) 0 /lpf (0-5) 07/26/22 Urine Epithelial Cells (Auto) 0-5 /lpf (0-5) 07/26/22 Urine Bacteria (Auto) 1+ (Negative) H 07/26/22 Urine Yeast Not Reportable 07/26/22 Blood Type O Positive 07/26/22 Antibody Screen POSITIVE A 07/26/22 Testing Electrocardiogram Date: 07/26/22 NSR at 81bpm. Chest X-Ray Date: 07/26/22 FINDINGS: Cardiac mediastinal and hilar silhouettes are within normal limits. Atherosclerosis of the aorta. No pneumothorax, pleural effusion, airspace consolidation or overt pulmonary edema. Chronic T6 compression deformity. Degenerative loose bodies of the right subscapularis recess. Degenerative changes of the shoulders and spine. IMPRESSION: No acute process. Echocardiogram Date: 03/13/21 EF 55-60%. No regional wall motion abnormality. Moderate mitral annular calcification. RVSP elevated at 38-48 mmHg. Mild AV sclerosis. Other Testing Carotid artery Duplex (10/15/21) Less than 50% stenosis in bilateral ICA. Antegrade flow in both vertebral arteries. No significant change compared to previous exam 08/13/2018 per report. COVID-19 Risk Screen Screening Information COVID-19 Screen Date: 07/26/22 Exposure 21 Days Family/Household +COVID Last 21 Days: No Exposure 10 Days Any COVID Exposure Last 10 Days: No Symptoms Last 10 Days Experienced COVID Sx Last 10 Days: No + COVID 0-90 Days COVID + in Last 0-90 Days: No
[~2022-08-21 06:22] MED LIST changes: -ASPI-435 PO; -CARV12.52 PO; -CHOL20007 PO; -DOCU100C31 PO; -ESTR0.5T3 PO; -FRRS300 PO; -FRS/40 PO; -LEVO-17 PO; -LOSA50TA6 PO; +LR 60ML/HR IV SCH; -MULT-506 PO; -RANI300T2 PO; +SODIUM CHLORIDE 0.9% 1000ML IV SCH; -THY/120 PO; -THYR15TA PO; +TRANEXAMIC ACID 1,000 MG **IV Pre-op IV SCH; +ceFAZolin 2000MG 2,000 MG/15 ML SYR IV SCH
--- NOTE | 2022-08-21 06:28 | History & Physical Bridge Note ---
Date of Service August 21, 2022 History & Physical Bridge Note I have examined the patient, reviewed the History & Physical and in the interval since the performance of the History & Physical I have noted the following changes of clinical significance:consen reviewed/site marked. no changes noted
[2022-08-21] MEDS ORDERED: BUPIVACAINE 0.5 % 5 MG/1 ML PF 10ML VIAL ONE (06:30)
[2022-08-21] MEDS ORDERED: LIDOCAINE 2% MPF LOCAL 5 ML VIAL INFIL ONE (08:30)
[2022-08-21] MEDS ORDERED: DEXAMETHASONE SOD INJ 4 MG/ML VIAL ONE (08:30)
[2022-08-21] MEDS ORDERED: ROCURONIUM BROMIDE 10 MG/ML 5 ML VIAL IV ONE (08:30)
[2022-08-21] MEDS ORDERED: ONDANSETRON INJ 2 MG/ML 2 ML VIAL ONE (08:30)
[2022-08-21] MEDS ORDERED: PROPOFOL IV EMULSION 10 MG/ML 20 ML VIAL IV ONE (08:30)
[2022-08-21] MEDS ORDERED: fentaNYL citrate 100 MCG/2 ML VIAL ONE ×3 (08:32→10:50)
[2022-08-21] MEDS ORDERED: ORTHO JOINT ANESTHETIC ONE (08:47)
[2022-08-21] MEDS ORDERED: VANCOMYCIN HCL 1000MG/20ML VIAL ONE (08:47)
[2022-08-21] MEDS ORDERED: ACETAMINOPHEN 1000 MG/100 ML IV IV ONE (09:18)
[2022-08-21] MEDS ORDERED: FLUMAZENIL 0.1 MG/1 ML 10 ML VIAL IV PRN (09:35)
[2022-08-21] MEDS ORDERED: NALOXONE HCL 0.4 MG/1 ML VIAL/CARP IV PRN ×2 (09:35→13:35)
[2022-08-21] MEDS ORDERED: ePHEDrine sulfate 50 MG/ML AMP IV PRN (09:35)
[2022-08-21] MEDS ORDERED: LABETALOL HCL IV 5 MG/ML 20ML IV PRN (09:35)
[2022-08-21] MEDS ORDERED: PROMETHAZINE HCL 12.5 MG in SODIUM CHLORIDE 0.9% 50 ML IV PRN (09:35)
[2022-08-21] MEDS ORDERED: ATROPINE SULFATE 0.1 MG/ML 10ML SYR IV PRN (09:35)
[2022-08-21] MEDS ORDERED: ONDANSETRON INJ 2 MG/ML 2 ML VIAL IV PRN ×2 (09:35→13:35)
[2022-08-21] MEDS ORDERED: LABETALOL HCL IV 5 MG/ML 20ML IV ONE (09:41)
[2022-08-21] MEDS ORDERED: PHENYLEPHRINE HCL 10 MG/ML VIAL ONE (09:42)
[2022-08-21] MEDS ORDERED: SUCCINYLCHOLINE 100MG/5ML SYR IV ONE (09:42)
[2022-08-21] MEDS: ROPIVACAINE 0.5% HCL/PF 150 MG, BUPIVACAINE 0.75% MPF 20 ML, EPINEPHrine 0.15 MG, Ketor... INFIL SCH ×2 (10:01→10:51)
[2022-08-21] MEDS ORDERED: ePHEDrine sulfate 50 MG/ML AMP ONE (10:01)
[2022-08-21] MEDS ORDERED: SUGAMMADEX SODIUM 200 MG/2 ML VIAL IV ONE (10:28)
[2022-08-21] MEDS ORDERED: ceFAZolin 1000MG 1,000 MG/7.5 ML SYR IV ONE (10:40)
[2022-08-21] MEDS ORDERED: HYDROmorphone INJ 2 MG/ML SYR/VIAL ONE (11:10)
--- NOTE | 2022-08-21 11:16 | Post Operative Brief Note ---
Immediate Post Op Note v1 Date of Surgery August 21, 2022 Pre & Post Diagnosis Operation Date: 08/21/22 08:50 Pre-Op Diagnosis: Left Hip Degenerative Joint Disease Post-Op Diagnosis: Left Hip Degenerative Joint Disease I identified the patient and participated in the time-out.: Yes Procedure Operation Date: 08/21/22 08:50 Actual Procedures p Left Total Hip Arthroplasty(Left) - Vinny Hong MD Surgeon Vinny Hong MD Sheet Metal Superintendent Nicki/ulysses/Millicent DEAL Estimated Blood Loss 200 Findings Consistent with Post-Op Diagnosis see op note Drains Hemovac Drain
[2022-08-21] MEDS: fentaNYL citrate 100 MCG/2 ML VIAL IV PRN ×4 (11:32→11:47)
--- NOTE | 2022-08-21 11:36 | XRay Report ---
XR pelvis 1-2V routine HISTORY: 82 years-old Female S/P L DEANN left hip total joint arthroplasty COMPARISON: Pelvis radiographs 04/29/2022 TECHNIQUE: AP view of the pelvis FINDINGS: Bilateral hip total joint arthroplasties. Expected postoperative soft tissue swelling with deep tissu e air lateral to the left hip. No acute fracture or unexpected opaque foreign body. IMPRESSION: Left hip total joint arthroplasty with expected postoperative changes. ACT 112: Negative or not required by law. The above report was generated using voice recognition software. It may contain grammatical, syntax o r spelling errors. Electronically signed by: Blaine Washington M.D. 08/21/2022 11:34 AM
--- NOTE | 2022-08-21 11:39 | Progress Notes ---
SUBJECTIVE: Postop check status post left total hip replacement. The patient is awake, alert, conversant. She states she has some discomfort. She notes no major problems. She denies chest pain, shortness of breath, fever, chills, nausea, vomiting or headache. VITAL SIGNS: Stable. She is afebrile. Neurovascular check, sciatic nerve is normal. Leg lengths are equal. X-rays look good. ASSESSMENT: Doing well status post left total hip replacement. Check x-ray to verify. PLAN: Continue protocol. DVT prophylaxis per protocol. Job ID: [id number] [facility]
--- NOTE | 2022-08-21 11:39 | Operative Report ---
Post Operative Report Pre & Post Diagnosis Operation Date: 08/21/22 08:50 Pre-Op Diagnosis: Left Hip Degenerative Joint Disease Post-Op Diagnosis: Left Hip Degenerative Joint Disease I identified the patient and participated in the time-out.: Yes Procedure Operation Date: 08/21/22 08:50 Actual Procedures p Left Total Hip Arthroplasty(Left) - Vinny Hong MD Surgeon CONNIE Hong MD Exceptional Student Education Aide Nicki/ulysses/Millicent DEAL Estimated Blood Loss 200 Findings Consistent with Post-Op Diagnosis see operative report Specimens see operative report Drains Hemovac x2 left thigh Complications none Disposition Accompanied Patient To Recovery: Yes Indications This 82 year old female presented to the office with complaints of persisting left hip pain. She had tried conservative care measures without improvement. She elected to proceed with surgical intervention after being educated about potential risks and outcomes. Preoperative imaging was obtained. Description of Procedure Patient was taken to the operating room where she was given general anesthesia. She was prepped and draped in the usual sterile fashion. Please see Dr. Hong's operative report for specifics of the procedure. I was present for the entire case from initial patient positioning through final wound closure. Assistance was provided in tisssue retraction, hemostasis, trial implant placement, final implant placement, and final wound closure. Patient was taken to the recovery room in satisfactory condition. I attest to the content of the Intraoperative Record and any orders documented therein. Any exceptions are noted below.
--- NOTE | 2022-08-21 11:52 | Operative Report (OR) ---
DATE OF PROCEDURE: 08/21/2022. SURGEON: Vinny Hong MD. OUTBOARD MOTOR INSPECTOR: Nicki. SECOND OUTBOARD MOTOR INSPECTOR: Barrington Agosto PA-C. THIRD OUTBOARD MOTOR INSPECTOR: Millicent. PREOPERATIVE DIAGNOSIS: Osteoarthritis, left hip. POSTOPERATIVE DIAGNOSIS: Osteoarthritis, left hip. OPERATION PERFORMED: Noncemented left total hip replacement. SUMMARY OF IMPLANTS: Size 48 cup hole eliminator, 30 mm screw x1, 6.5 diameter, 32 x 48 neutral line r, 2 standard Tri-Lock stem, 32+1 ceramic head, DePuy J and J implants. ESTIMATED BLOOD LOSS: 200 mL CRYSTALLOID: Per anesthesia. PERIOPERATIVE SITUATION: Medically cleared female with intractable hip pain, has high BMI, very comp licated patient. At this point in time, she understands the risks and consequences, especially with respect to infection, DVT, PE. DESCRIPTION OF PROCEDURE: The patient was appropriately identified, site verified, consent verified. Antibiotics were confirmed as being given. The left lower extremity was prepped and draped in usua l routine fashion with the patient in right lateral decubitus position. A generous exposure was made based on the appropriate need for the high BMI. Full thickness flaps raised. IT band fascia and gl uteal zeynep fascia was then incised under direct vision. Appropriate retractors placed. Care was taken to protect the sciatic nerve, it was palpated, but not explored. The short external rotators w ere then released. The capsule was then T'd and was very contracted. Capsule needed to be excised t o get the hip to dislocate. The hip was then dislocated. Femoral neck resected. Remaining labrum w as then removed. Appropriate exposure was obtained and serial reaming carried up to 48 and 48 cup im pacted into appropriate anteversion and inclination. She has had an excellent rim fit. A 6.5 x 30 screw was placed with excellent purchase. The trial li ner was seated. The hip was then flexed, internally rotated. Proximal femur prepared with the box c utter, lateralizing rasp, canal finder, and serial broaching up to a 2. The trial reduction was roberto ed out and it was noted to have excellent stability with a size 2 Tri-Lock stem and the 32+1 trial he ad. It was then dislocated. All remaining trial elements were removed. The wound was then irrigate d with Betadine Pulsavac, and then hole eliminator seated, permanent liner seated, permanent head and stem seated. The hip was then reduced. It was stable in all planes. The leg lengths were excellen t. The wound was then irrigated one final time and then vancomycin powder 1 gram was sprinkled throu ghout the wound from deep to superficial as we went through layer by layer. The capsule again was co ntracted. It was not able to be closed. The remnants were approximated together. The short externa l rotators were approximated to the femur. The IT band and gluteal zeynep fascia were repaired. All of this was done using #2 Vicryl. Several deep layers of fat were then closed with that and then th e drains placed over that and then closed with 2-0 plain, above that the vancomycin powder was also s prinkled in this area. Once the subcutaneous layer was closed with 2-0 Vicryl, stainless steel clips were applied as well as #1 Prolene retention suture. Appropriate dressing applied. The patient was transferred to recovery room in satisfactory condition, having tolerated the procedure well. Pathol ogy pending on bone. ESTIMATED BLOOD LOSS: 200 mL or less. CRYSTALLOID: Per anesthesia. SUMMARY OF IMPLANTS: Size 48 cup, 30 x 6.5 screw, 32 x 48 neutral liner, 2 standard Tri-Lock stem an d a 32+1 ceramic head. Job ID: [id number]
--- NOTE | 2022-08-21 11:55 | Discharge Summary (DS) ---
DATE OF ADMISSION: 08/21/2022. DATE OF POTENTIAL DISCHARGE: 08/22/2022. CHIEF COMPLAINT: Left hip pain. HISTORY OF PRESENT ILLNESS: The patient underwent elective left total hip replacement. At this point in time, hospital course has been uneventful. She is a complex patient with high BMI, and significant medical comorbidities. PAST MEDICAL HISTORY: Remarkable for heart murmur, hypertension, hypercholesterolemia, sleep apnea, CPAP, obesity, hypothyroidism, osteoarthritis, GERD, neck pain, history of skin cancer, eczema, psoriasis, colitis, congestive heart failure, diastolic, chronic kidney disease stage III, depression, history of right hip prosthesis infection, polymyalgia rheumatica, vitamin D deficiency. PAST SURGICAL HISTORY: Remarkable for lumbar laminectomy, colonoscopy, multiple shave biopsies of her skin, endoscopies, hip replacement in 2016, cataract surgery, multiple foot surgeries, hysterectomy in 1986, tonsillectomy in 1945, vein surgery, carpal tunnel releases, and a total knee done in 2020 on the left. FAMILY HISTORY: Remarkable for cancer, diabetes, heart disease, stroke, breast cancer and renal failure. 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 Occasional alcohol use. ALLERGIES: ERYTHROMYCIN, LOSARTAN, PENICILLIN, SULFA, BETA BLOCKERS, ADHESIVES, JEREMI INHIBITORS, APRISO, AND TAPE. Tolerates Keflex. PREADMISSION MEDICATIONS: Include amlodipine, Lomotil, Pepto-Bismol, budesonide, dental prophylaxis for joint replacement, clobetasol, colestipol, iron, hydroxyzine, isosorbide, levothyroxine, tramadol p.r.n., triamcinolone cream p.r.n., Tylenol. REVIEW OF SYSTEMS: Noncontributory. ASSESSMENT: Status post left total hip replacement. Complex patient medically. Continue with care pathway. Have case management evaluate, prepare for home. If she does well overnight, discharge tomorrow. Job ID: [id number] [facility]
[2022-08-21] MEDS ORDERED: HYDROmorphone INJ 0.5 MG/0.5 ML SYR IV PRN (12:22)
[2022-08-21] MEDS ORDERED: HYDROmorphone INJ 1 MG/ML SYRINGE ONE (12:22)
--- NOTE | 2022-08-21 13:09 | Anesthesiology Progress Note ---
Date of Service August 21, 2022 Anesthesia Post Procedure Vital Signs Vital Signs: Temp Pulse Resp BP Pulse Ox O2 Del Method O2 Flow Rate 08/21/22 13:00 68 19 110/57 L 100 Nasal Cannula 2 08/21/22 12:45 36.3 C L 74 19 97/45 L 96 Nasal Cannula 2 08/21/22 12:35 67 19 108/56 L 100 Nasal Cannula 4 08/21/22 12:25 72 13 118/50 L 100 Nasal Cannula 4 08/21/22 12:15 36.2 C L 73 18 116/44 L 100 Oxymask 5 08/21/22 12:05 70 15 97/57 L 98 Oxymask 5 08/21/22 11:55 68 16 109/56 L 97 Oxymask 5 08/21/22 11:45 64 16 110/59 L 100 Oxymask 5 08/21/22 11:35 63 16 129/57 L 96 Oxymask 5 08/21/22 11:25 83 16 116/60 100 Oxymask 5 08/21/22 11:15 36.1 C L 91 H 18 148/58 H 100 Oxymask 5 08/21/22 07:09 36.8 C 94 H 20 154/76 H 98 Room Air Pain Intensity Left Hip: Pain Intensity: 7 Transfer of Care Handoff Completed per policy Notes Mental Status: alert / awake / arousable Patient Amnestic to Procedure: Yes Nausea / Vomiting: adequately controlled Pain: adequately controlled Airway Patency, RR, SpO2: stable & adequate BP & HR: stable & adequate Hydration State: stable & adequate Anesthetic Complications: no major complications apparent
[2022-08-21] MEDS ORDERED: hydrOXYzine HCl 10 MG TAB PO PRN (13:35)
[2022-08-21] MEDS ORDERED: diphenhydrAMINE 50 MG/ML VIAL IV PRN (13:35)
[2022-08-21] MEDS ORDERED: METOCLOPRAMIDE HCL INJ 5 MG/ML 2 ML VIAL IV PRN (13:35)
[2022-08-21] MEDS ORDERED: MAGNESIUM HYDROXIDE SUSP 30 ML UDC PO PRN (13:35)
[2022-08-21] MEDS ORDERED: ALUMINUM/MAGNESIUM SUSP 30 ML UDC PO PRN (13:35)
[2022-08-21] MEDS ORDERED: bisacodyL 10 MG SUPP PR PRN (13:35)
[2022-08-21] MEDS ORDERED: VANCOMYCIN CONSULT ACTIVE PRN (13:35)
[2022-08-21] MEDS ORDERED: DIPHENOXYLATE/ATROPINE 2.5/0.025MG TAB PO PRN (13:35)
[2022-08-21] MEDS ORDERED: ORTHO WARFARIN NOMOGRAM SCH (14:00)
[2022-08-21] MEDS ORDERED: SODIUM CHLORIDE 0.9% 1000ML 1,000 ML IV SCH (14:20)
[2022-08-21] MEDS: HYDROmorphone INJ 0.5 MG/0.5 ML SYR IV PRN ×2 (14:23→18:16)
[2022-08-21] MEDS: ASCORBIC ACID 500 MG TAB PO SCH (16:51)
[2022-08-21] MEDS: FERROUS GLUCONATE 324 MG TAB PO SCH (16:51)
[2022-08-21] MEDS: ACETAMINOPHEN 500 MG TAB PO SCH ×2 (16:52→21:12)
[2022-08-21] MEDS: FAMOTIDINE 20 MG TAB PO SCH ×2 (16:52→21:08)
[2022-08-21] MEDS: ceFAZolin 2000MG 2,000 MG/15 ML SYR IV SCH (16:53)
[2022-08-21] MEDS: KETOROLAC TROMETHAMINE 15 MG/ML VIAL IV SCH ×2 (16:54→21:12)
[2022-08-21] MEDS ORDERED: FUROSEMIDE 20 MG TAB PO SCH (17:00)
[2022-08-21] MEDS ORDERED: TRANEXAMIC ACID / 0.7% NACL 1,000 MG/100 ML BAG IV SCH (17:00)
[2022-08-21] MEDS ORDERED: WARFARIN SOD 5 MG TAB PO ONE (17:25)
[2022-08-21] MEDS: oxyCODONE HCL IR 5 MG TAB (IMMEDIATE RELEASE) PO PRN (20:09)
[2022-08-21] MEDS ORDERED: SENNA 8.6 MG TAB PO SCH (21:00)
[2022-08-21] MEDS: amLODIPine BESYLATE 5 MG TAB PO SCH (21:08)
[2022-08-21] MEDS: DOCUSATE SODIUM 100 MG CAP PO SCH (21:11)
[2022-08-21] MEDS ORDERED: VANCOMYCIN HCL 1,250 MG in SODIUM CHLORIDE 0.9% 250 ML IV SCH (23:00)
[2022-08-21] MEDS ORDERED: VANCOMYCIN HCL 1,250 MG in SODIUM CHLORIDE 0.9% 500 ML IV SCH (23:00)
[2022-08-22] MEDS: ceFAZolin 2000MG 2,000 MG/15 ML SYR IV SCH (00:11)
[2022-08-22] MEDS: KETOROLAC TROMETHAMINE 15 MG/ML VIAL IV SCH ×2 (02:26→09:09)
[2022-08-22] MEDS: FAMOTIDINE 20 MG TAB PO SCH ×2 (02:26→09:02)
[2022-08-22] MEDS: HYDROmorphone INJ 0.5 MG/0.5 ML SYR IV PRN (02:56)
[2022-08-22] MEDS: ACETAMINOPHEN 500 MG TAB PO SCH (05:31)
[2022-08-22] MEDS: oxyCODONE HCL IR 5 MG TAB (IMMEDIATE RELEASE) PO PRN (05:31)
[2022-08-22] MEDS ORDERED: LEVOTHYROXINE SODIUM 125 MCG TABLET PO SCH (06:30)
--- NOTE | 2022-08-22 06:49 | Progress Notes ---
SUBJECTIVE: Postop day #1, status post left total hip replacement. The patient has been up to the bathroom multiple times. She states she is feeling better each time. She denies any chest pain, shortness of breath, fever, chills, nausea, vomiting, or headache. OBJECTIVE: VITAL SIGNS: Stable. She is afebrile. Wound dressing clean, dry, and intact. Minimal drainage. Femoral sciatic nerve function has good. Hip rotation is excellent. Calf is nontender. Abdomen is soft and nontender. ASSESSMENT AND PLAN: Doing well, status post left total hip replacement. Finalization of discharge plans per case management today. She was a little drowsy when she talked with him yesterday. Dressing change later today. Discontinue drains with dressing change. Needs large padded dressing. Start Coumadin today. Job ID: [id number] [facility]
[2022-08-22 07:49] LABS: Prothrombin Time 10.6 Seconds (9.0-12.0)
[2022-08-22 07:52] LABS: Basophils # (auto) 0.03 K/uL (0-0.2); Basophils % (auto) 0.4 %; Eosinophils # (auto) 0.22 K/uL (0-0.50); Eosinophils % (auto) 2.7 %; Hematocrit (blood only) 29.1 % (37.0-47.0); Hemoglobin 9.1 g/dl (12.0-16.0); Immature Granulocytes # (auto) 0.03 K/uL (0.01-0.20); Immature Granulocytes % (auto) 0.4 %; Lymphocytes # (auto) 0.53 K/uL (1.2-3.4); Lymphocytes % (auto) 6.6 %; Mean Corpuscular Hemoglobin 28.3 pg (25.0-34.0); Mean Corpuscular Hgb Conc 31.3 g/dL (32.0-36.0); Mean Corpuscular Volume 90.4 fL (80.0-100.0); Mean Platelet Volume 8.8 fL (9.4-12.4); Monocytes # (auto) 0.46 K/uL (0.11-0.59); Monocytes % (auto) 5.7 %; Neutrophils # (auto) 6.82 K/uL (1.40-6.50); Neutrophils % (auto) 84.2 %; Platelet Count 217 K/uL (130-400); RDW Coefficient of Variation 14.2 % (11.5-14.5); RDW Standard Deviation 46.4 fL (36.4-46.3); Red Blood Count 3.22 M/uL (4.20-5.40); White Blood Count 8.09 K/ul (4.8-10.8)
[2022-08-22] MEDS ORDERED: dexAMETHasone 10 MG in SYRINGE 0 ML IV SCH (08:00)
[2022-08-22] MEDS: FERROUS GLUCONATE 324 MG TAB PO SCH (08:58)
[2022-08-22] MEDS: ASCORBIC ACID 500 MG TAB PO SCH (08:58)
[2022-08-22] MEDS ORDERED: ISOSORBIDE MONO EXTENDED REL 60 MG TABCR PO SCH (09:00)
[2022-08-22] MEDS ORDERED: MULTIVITAMIN TAB PO SCH (09:00)
[2022-08-22] MEDS: amLODIPine BESYLATE 5 MG TAB PO SCH (09:00)
[2022-08-22] MEDS ORDERED: ISOSORBIDE MONO EXTENDED REL 30 MG TABCR PO SCH (09:00)
[2022-08-22] MEDS: DOCUSATE SODIUM 100 MG CAP PO SCH (09:02)
--- NOTE | 2022-08-22 09:14 | Orthopedic Progress Note ---
Date of Service August 22, 2022 Assessment & Plan (1) Status post total hip replacement, left: Plan: Patient was educated regarding today's findings. Her drain was initially removed and the pressure dressing was allowed to be in place for approximately 10 minutes. Drain tips were checked and they were fully intact with 7 holes present on each, consistent with placement yesterday in the OR. Patient's dressings were then removed and inspected. There is scant dried blood on the innermost gauze. It is approximately the size of a $0.50 piece. Drain holes are no longer leaking. A new pressure dressing was applied using gauze, ABDs, and paper tape. A good pressure dressing was applied. Patient may have this changed on Friday if there is any soiling. She has already been set up with home health. Prescriptions for Coumadin, Percocet, cefuroxime, and prednisone were sent to her pharmacy. She will take prednisone daily for 10 days. Cefuroxime twice daily for 10 days. 2 tablets daily have her blood rechecked on Friday. Written discharge instructions were provided. Call the office with any other concerns. Follow-up with me in 2 weeks as scheduled for staple removal. Admission and Anticipated Discharge Date Admission Date: August 21, 2022 Subjective Patient is seen in her room this morning. She states she did well overnight. She has already been out of bed into the bathroom several times. She is ready to go home today. She states her pain is controlled with the Percocet. No other issues. She denies any chest pain, shortness of breath, nausea, vomiting, or abdominal pain. Review of Systems Review of Systems: Unchanged from yesterday. Physical Exam Physical Exam: General: Well-developed, obese elderly female, in no acute distress. Laying in bed. Alert and oriented. Conversant. Skin: Warm and dry with good turgor. No rashes or lesions. No ecchymosis or erythema. The patient is not diaphoretic. No abrasions. Postsurgical dressing is in place on the left hip. Drain is also present on her left hip. Musculoskeletal: Patient is able to sit herself on the side of the bed and stand without assistance using her walker. She was observed walking to the bathroom and back to her bed. She insists that her left leg is longer. She has intact motor function to her toes, ankle, knee, and hip. Neurologic: Gross sensation is intact across the left leg by soft touch. Peripheral pulses are 2+. Results & Data ([facility]) Vital Signs (Past 12 Hours) Vital Signs Temp Pulse Resp BP BP Pulse Ox O2 Del Method 08/22/22 07:24 36.4 C L 80 16 112/65 97 Room Air 08/22/22 02:30 36.6 C 79 22 163/83 H 98 Room Air Laboratory Results CBC obtained today shows a white count of 8.1. Hemoglobin of of 9.1 and hematocrit of 29.1. INR is 1.0. PRP is pending.
[2022-08-22 11:51] LABS: Calcium 8.3 mg/dl (8.5-10.1); Creatinine Clr Calc Pharmacy 16.4 ml/min; Est GFR (Non-African American) 15.6 ml/min; Potassium 4.5 mmol/L (3.5-5.1)
[2022-08-22] MEDS ORDERED: FUROSEMIDE 40 MG TAB PO SCH (17:00)
== END 2022-08-22 11:49 | disposition home health service (06) ==
LOC: 3W 06:22 → ASU 06:22

== ENCOUNTER 2024-10-01 19:38 | Inpatient (IN) ==
--- NOTE | 2024-10-01 20:21 | Emergency Department Note ---
Impression & Plan Precordial chest pain, Pleuritic chest pain, Elevated d-dimer, CRF (chronic renal failure) ED Provider Note NAME: MAGDY CARDOZA AGE: 84 SEX: F : 1940 ARRIVES VIA: Ambulance INFORMANT: [Patient][nursing] ED PROVIDER(S): [Eugenio Quiles MD] CHIEF COMPLAINT: Chest pain HISTORY OF PRESENT ILLNESS: The patient is an 84-year-old female who has been sick for 11 or so days with flulike symptoms. Her fever resolved and she felt she was getting better. She has still been coughing. She states that an hour ago, she was laying down when she suddenly developed severe sharp left chest pain that radiated into her shoulder blade, left arm. She was not short of breath. Patient states the pain became fairly severe, it did hurt a bit to take a deep breath. She did take aspirin. The ambulance arrived and brought her to the hospital, no interventions en route. She is feeling better since arriving in the ED. She has no history of heart or lung disease. PMHx/PSHx/Social Hx: See Below PHYSICAL EXAM: GENERAL: Patient is in no acute distress. HEENT: No acute trauma, normocephalic atraumatic, mucous membranes moist, no nasal congestion. NECK: No stridor, no adenopathy, no meningismus, trachea is midline. LUNGS: Clear to auscultation bilaterally, no wheeze, no rhonchi, breath sounds equal. HEART: 2/6 systolic murmur, regular rate and rhythm. Chest: Tender to the left anterior chest wall in the area of the breast. ABDOMEN: Soft, nontender, no peritonitis. EXTREMITIES: No cyanosis, full range of motion of all the joints without pain or difficulty. NEUROLOGIC: Oriented x 3, no acute motor or sensory deficits, no focal weakness. SKIN: No jaundice, no diaphoresis. DIFFERENTIAL DIAGNOSIS: Bronchitis or pneumonia, pneumothorax, PE, [place], among others. EMERGENCY DEPARTMENT PROCEDURES: MEDICAL DECISION MAKING: There is no leukocytosis. A mild anemia was seen. There was a normal platelet count. No coagulopathy. D-dimer was quite high at 2700, this certainly makes PE more likely. There was renal failure seen with a creatinine of 2.98, this is baseline though for the patient. No electrolyte abnormality in need of emergent correction. Lactic acid level was not elevated making sepsis less likely. There was no concerning liver enzyme elevation. No evidence for pancreatitis. Procalcitonin level was not elevated making serious bacterial infection less likely. ECG showed a sinus rhythm, no obvious ischemia. Cardiac enzyme testing x 1 was not consistent with acute cardiac injury. Respiratory bio fire was negative. Chest x-ray showed some chronic change, no pneumonia or pneumothorax. On exam, the patient did have some tenderness to the left chest wall. Patient did not require anything for pain during her stay. Patient presents with left pleuritic chest pain. She has a high D-dimer and is at risk for PE. She has a high creatinine and thus, IV contrast for CT imaging is not recommended. The patient is to be hospitalized at our facility. Hopefully, she can undergo VQ scan imaging tomorrow to properly rule out PE. I spoke with the patient and her family. I spoke with the patient and case management, the on-call hospitalist was consulted. Prior/Outside records/notes reviewed: Today's EMS notes describing her presentation and transport to this hospital. ECG per my interpretation: Indication was chest pain. The ECG shows a sinus rhythm with a first-degree AV block. The rate is 81. There is no acute ST elevation, no PVCs. The QTc is 439. Continuous Cardiac Monitoring per my interpretation: An order was placed for continuous cardiac monitoring. The monitor shows a rate of 87 with sinus rhythm with a first AV block. Imaging/x-ray results per my interpretation: Chest x-ray shows clear lungs. There is no pneumonia or pneumothorax. Chronic Medical/Social conditions affecting care: Advanced age. Care/Management discussed with: Case management, the on-call hospitalist. 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 Dizziness Aortic stenosis SVT (supraventricular tachycardia) Obesity (BMI 30-39.9) Difficulty swallowing Aortic valve sclerosis Esophageal dysphagia Nausea Status post total hip replacement, left Chronic kidney disease Morbid obesity Encounter for pre-operative examination Carotid artery plaque Per remote records, no evidence of stenosis on 2014 carotid imaging History of vitamin D deficiency Status post total left knee replacement using cement Nocturnal hypoxemia Carotid artery stenosis <50% B/L ICA stenosis per 09/2021 carotid duplex Prediabetes Venous insufficiency (Acute) 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) Sleep apnea (Acute) CPAP (compliant) Psoriasis (Acute) Postmenopausal hormone replacement therapy (Acute) Polyneuropathy (Acute) Polymyalgia rheumatica (Acute) Lumbar radiculopathy (Acute) Hypothyroidism (Chronic) Hypertension (Chronic) Hypercholesterolemia (Acute) Hypercalcemia (Acute) Gastroesophageal reflux disease (Acute) Depression (Acute) Arthralgia of multiple sites (Acute) Allergic rhinitis (Acute) Arthritis Paroxysmal SVT (supraventricular tachycardia) Medical History Tubular adenoma of colon Nausea History of COVID-19 08/2021 Chronic kidney disease, stage 4 (severe) Baseline creatinine 2.0 per 03/2022 nephro notes Follows with [facility] nephro History of fluid overload 2015 (fluid overload 2/2 reaction from prednisone tx for PMR) History of blood transfusion Remote hx post-op knee surgery Prediabetes Surgical History History of reverse total replacement of right shoulder joint History of left hip replacement History of anesthesia problem H/O ligation of vein History of total left knee replacement History of squamous cell carcinoma excision History of carpal tunnel release of both wrists History of colonoscopy with polypectomy History of foot surgery History of esophagogastroduodenoscopy (EGD) History of total hip arthroplasty History of lumbar surgery History of tooth extraction S/P tonsillectomy and adenoidectomy History of cataract surgery Status post excision of Cortes's neuroma History of arthroscopy of knee History of dilation and curettage History of total hysterectomy with bilateral salpingo-oophorectomy (BSO) Family History Father Malignant neoplasm of parotid gland Hypertension Stroke Family history of reaction to anesthesia "coded on table during hernia sx 1951"--able to bring him back Mother Hypertension Stroke Brother Diabetes Aneurysm artery, iliac Sister Diabetes Coronary heart disease Hyperlipidemia Hypothyroidism Breast cancer Renal failure Hypertension Denies family history of Ovarian cancer Prostate cancer Myocardial infarction Colorectal cancer Social History Smoking Status: Former smoker Tobacco Type: Cigarettes Age Started Using Tobacco: 21; Age Quit Using Tobacco: 47; packs per day: 1.5; Second Hand Exposure: No ( A CHILD); Do You Dip or Chew Tobacco: No; Hx Alcohol Use: Yes Alcohol type: wine Alcohol Intake Frequency: 4 or More x per/Week Hx Substance Use: No Preferred Language: Syriac Communication Ability: Effective Visual Impairment: No Limitations Hearing Ability: Normal 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 Required: No Beliefs That Will Affect Care: None marital status: Current Living Situation: Family Current Living Situation Comment: Lives with and daughter, son in law, granddaughter 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 Feels Safe at Home: Yes Childhood Exposure to Second-Hand Smoke: Yes Diet: regular Dental Care, Regularly: Yes Physical Activity Frequency: Does not Exercise Seatbelt Use: always Sunscreen Use: Yes Assistive Devices: Cane, CPAP and Glasses Allergies Allergies Allergy/AdvReac Type Severity Reaction Status Date / Time lisinopril Allergy Severe Periorbital Verified 08/27/24 11:16 swelling losartan Allergy Severe "Lesions" Verified 08/27/24 11:16 JEREMI Inhibitors Allergy Intermediate "Lesions", Verified 08/27/24 11:16 itchy adhesive Allergy Intermediate Hives (can Verified 08/27/24 11:16 only tolerate paper tape per pt) Beta-Blockers Allergy Intermediate "Lesions", Verified 08/27/24 11:16 (Beta-Adrenergic Bloc itchy clindamycin Allergy Mild Rash Verified 08/27/24 11:16 erythromycin base Allergy Mild Itching Verified 08/27/24 11:16 latex Allergy Mild Rash Verified 08/27/24 11:16 Penicillins Allergy Mild Hives Verified 08/27/24 11:16 Sulfa (Sulfonamide Allergy Mild Itching Verified 08/27/24 11:16 Antibiotics) daptomycin AdvReac Severe pneumonia- Verified 08/27/24 11:16 developed while on med gabapentin AdvReac Severe Diffuse Verified 08/27/24 11:16 swelling hydroxychloroquine AdvReac Intermediate Diarrhea Verified 08/27/24 11:16 [From Plaquenil] irbesartan AdvReac Intermediate Fatigue Verified 08/27/24 11:16 niacin AdvReac Intermediate "Did not Verified 08/27/24 11:16 tolerate" ezetimibe AdvReac Mild Memory loss Verified 08/27/24 11:16 Quinolones AdvReac Mild Intolerance Verified 08/27/24 11:16 simvastatin AdvReac Mild Muscle Verified 08/27/24 11:16 aches tetracycline AdvReac Mild GI Verified 08/27/24 11:16 intolerance Home Meds Home Medications Medication Instructions Recorded Confirmed acetaminophen 500 mg tablet 500 mg PO UD PRN Pain 02/02/19 07/22/24 triamcinolone acetonide 0.1 % 1 appln topical BID 05/14/19 07/22/24 topical cream multivitamin 1 tab PO QAM 03/08/20 07/22/24 clobetasol 0.05 % topical ointment 1 applic topical BID 04/23/21 07/22/24 Stable GI (probiotic) 1 tab PO BID 04/17/22 07/22/24 famotidine 20 mg tablet (Pepcid AC) 20 mg PO BID Acid Reflux 02/03/23 07/22/24 cholestyramine (with sugar) 4 gram ea PO BID 06/25/24 07/22/24 oral powder pantoprazole 40 mg tablet,delayed 40 mg PO DAILY PRN gerd 07/22/24 release Previous Rx's Medication Instructions Recorded hydroxyzine HCl 10 mg tablet 10 mg PO TID PRN itching #30 tabs 12/23/22 mometasone 0.1 % topical ointment 1 applic topical DAILY PRN skin 04/23/23 irritation #15 grams cefuroxime axetil 500 mg tablet 1,000 mg (2 x 500 mg) PO UD PRN 06/10/23 dental procedures #10 tabs diphenoxylate-atropine 2.5 1 tab PO BID PRN diarrhea #30 tabs 07/28/23 mg-0.025 mg tablet (Lomotil) levothyroxine 137 mcg tablet 137 mcg PO DAILY #90 tabs 02/24/24 furosemide 20 mg tablet 20 mg PO .COMPLEX PRN Fluid 05/03/24 Retention #100 tabs amlodipine 2.5 mg tablet 2.5 mg PO PM #90 tabs 06/25/24 amlodipine 5 mg tablet 5 mg PO .am #90 tabs 06/25/24 isosorbide mononitrate 60 mg 60 mg PO QAM #90 tabs 06/25/24 tablet,extended release 24 hr tramadol 50 mg tablet See Rx Instructions PO Q6H PRN 07/12/24 pain #100 tabs fluconazole 100 mg tablet 100 mg PO DAILY #2 tabs 09/07/24 (Diflucan) isosorbide mononitrate 30 mg 30 mg PO QAM #90 tabs 09/16/24 tablet,extended release 24 hr Results & Data (ED) Vital Signs Vital Signs - 24 hr 10/01/24 19:52 10/01/24 19:55 10/01/24 19:55 Temperature 36.5 C Temperature Source Oral Pulse Rate 87 77 Pulse Rate [Apical] Respiratory Rate 22 Respiratory Effort / Characteristics Spontaneous Non-Labored Spontaneous Blood Pressure 206/78 H Blood Pressure [Right Arm] Blood Pressure Mean 120 Blood Pressure Mean [Right Arm] Pulse Oximetry 97 Oxygen Delivery Method Room Air Room Air Sepsis Recent Fever Within 48 Hours No Sepsis New/Unexplained Change in Mental Status No Sepsis Action Taken by Nursing No Action Required 10/01/24 20:05 10/01/24 20:22 10/01/24 21:12 Temperature Temperature Source Pulse Rate 79 Pulse Rate [Apical] 83 76 Respiratory Rate 22 20 16 Respiratory Effort / Characteristics Non-Labored Spontaneous Non-Labored Spontaneous Blood Pressure Blood Pressure [Right Arm] 195/90 H 189/88 H Blood Pressure Mean Blood Pressure Mean [Right Arm] 125 121 Pulse Oximetry 97 97 98 Oxygen Delivery Method Room Air Room Air Room Air Sepsis Recent Fever Within 48 Hours Sepsis New/Unexplained Change in Mental Status Sepsis Action Taken by Nursing 10/01/24 22:20 Temperature Temperature Source Pulse Rate Pulse Rate [Apical] 80 Respiratory Rate 18 Respiratory Effort / Characteristics Non-Labored Spontaneous Blood Pressure Blood Pressure [Right Arm] 175/97 H Blood Pressure Mean Blood Pressure Mean [Right Arm] 123 Pulse Oximetry 96 Oxygen Delivery Method Room Air Sepsis Recent Fever Within 48 Hours Sepsis New/Unexplained Change in Mental Status Sepsis Action Taken by Detention Medications Current Medication List: was personally reviewed by me Laboratory Data Attestation: I reviewed the patient's lab results. 10/01/24 19:57 10/01/24 19:57 Lab Results 10/01/24 Range/Units 19:57 WBC 6.34 (4.8-10.8) K/ul RBC 4.06 L (4.20-5.40) M/uL Hgb 11.1 L (12.0-16.0) g/dl Hct 35.4 L (37.0-47.0) % MCV 87.2 (80.0-100.0) fL MCH 27.3 (25.0-34.0) pg MCHC 31.4 L (32.0-36.0) g/dL RDW Std Deviation 43.9 (36.4-46.3) fL RDW Coeff of Fortunato 13.9 (11.5-14.5) % Plt Count 268 (130-400) K/uL MPV 8.3 L (9.4-12.4) fL Immature Gran % (Auto) 0.6 % Neut % (Auto) 54.6 % Lymph % (Auto) 30.1 % Howard % (Auto) 8.2 % Eos % (Auto) 5.7 % Baso % (Auto) 0.8 % Neut # (Auto) 3.46 (1.40-6.50) K/uL Lymph # (Auto) 1.91 (1.20-3.40) K/uL Howard # (Auto) 0.52 (0.11-0.59) K/uL Eos # (Auto) 0.36 (0.00-0.50) K/uL Baso # (Auto) 0.05 (0.00-0.20) K/uL Immature Gran # (Auto) 0.04 (0.01-0.20) K/uL PT 9.8 (9.0-12.0) Seconds INR 0.9 (0.9-1.1) APTT 25 (21-31) Seconds PTT Ratio 0.9 D-Dimer 2740 H* (0-500) ug/L FEU Sodium 138 (136-145) mmol/L Potassium 4.4 (3.5-5.1) mmol/L Chloride 103 (98-107) mmol/L Carbon Dioxide 28 (21-32) mmol/L Anion Gap 7 (3-11) BUN 49 H (6-23) mg/dl Creatinine 2.98 H (0.6-1.2) mg/dl Est Cr Clr Drug Dosing 15.3 ml/min eGFR 14.98 BUN/Creatinine Ratio 16.4 (10-20) Glucose 112 H (70-99(Fasting)) mg/dl Lactate 1.0 (0.4-2.0) mmol/L Calcium 9.3 (8.6-10.3) mg/dl Magnesium 2.3 (1.7-2.4) mg/dl Total Bilirubin 0.2 (0.2-1.0) mg/dl AST 23 (13-39) U/L ALT 19 (7-52) U/L Alkaline Phosphatase 85 (34-104) U/L Troponin I High Sens 13.1 (0-14) pg/ml Total Protein 6.9 (6.0-8.3) gm/dl Albumin 4.2 (3.4-5.0) gm/dl Globulin 2.7 (2.5-4.0) gm/dl Albumin/Globulin Ratio 1.6 (0.9-2) Lipase 68 (11-82) U/L Procalcitonin 0.09 (0-0.5) ng/ml Adenovirus (PCR) Not Detected (NotDetected) B. pertussis DNA (PCR) Not Detected (NotDetected) B.parapertussis DNA PCR Not Detected (NotDetected) C. pneumoniae DNA (PCR) Not Detected (NotDetected) Coronavirus OC43 (PCR) Not Detected (NotDetected) Coronavirus HKU1 (PCR) Not Detected (NotDetected) Coronavirus 229E (PCR) Not Detected (NotDetected) SARS-CoV-2 (PCR) Not Detected (NotDetected) Coronavirus NL63 (PCR) Not Detected (NotDetected) Human Metapneumovir PCR Not Detected (NotDetected) Influenza Type A (PCR) Not Detected (NotDetected) Influenza Type B (PCR) Not Detected (NotDetected) M. pneumoniae (PCR) Not Detected (NotDetected) Parainfluenza 1 (PCR) Not Detected (NotDetected) Parainfluenza 2 (PCR) Not Detected (NotDetected) Parainfluenza 3 (PCR) Not Detected (NotDetected) Parainfluenza 4 (PCR) Not Detected (NotDetected) RSV (PCR) Not Detected (NotDetected) Entero/Rhino (PCR) Not Detected (NotDetected) Imaging Data Radiologist's Impression: Chest X-Ray 10/01/24 19:44 Exam(s): XR CXR 1 VIEW EXAM: XR Chest, 1 View CLINICAL HISTORY: Chest pain, nonspecific. TECHNIQUE: Frontal view of the chest. COMPARISON: 09/27/2021 FINDINGS: Heart is normal in size. Minimal bibasilar vascular crowding. No CHF or focal infiltrate. No pleural effusion or pneumothorax. Interval right shoulder bipolar arthroplasty. Bones are otherwise unchanged. IMPRESSION: Minimal bibasilar faster chronic. No CHF or infiltrate. Electronically signed by: Rajendra Bhatti M.D. 10/01/24 21:49 PM Discharge Plan Visit Data Chief Complaint: Cardiac Assessment Stated Complaint: FLU LIKE SX, CHEST PAIN ED Provider: Eugenio Quiles Discharge Problem: Precordial chest pain, Pleuritic chest pain, Elevated d-dimer, CRF (chronic renal failure) Patient Disposition: Admitted As Inpatient Condition: Fair Forms Stand Alone Forms: [facility] [employer] Prescriptions Prescriptions: No Action hydroxyzine HCl 10 mg tablet 10 mg PO TID PRN (Reason: itching) Qty: 30 11RF cefuroxime axetil 500 mg tablet 1,000 mg PO UD PRN (Reason: dental procedures) Qty: 10 4RF diphenoxylate-atropine [Lomotil] 2.5-0.025 mg tablet 1 tab PO BID PRN (Reason: diarrhea) Qty: 30 5RF levothyroxine 137 mcg tablet 137 mcg PO DAILY Qty: 90 3RF furosemide 20 mg tablet 20 mg PO .COMPLEX PRN (Reason: Fluid Retention) Qty: 100 5RF Rx Instructions: Adjusts as needed 40mg alternating with 20mg PO q day and 40 mg extra PO q day prn weight gain/fluid retention tramadol 50 mg tablet See Rx Instructions PO Q6H PRN (Reason: pain) Qty: 100 3RF Patient Comments: pt states she typically takes one every am Rx Instructions: take 1-2 tablets PO Q6H PRN fluconazole [Diflucan] 100 mg tablet 100 mg PO DAILY Qty: 2 0RF isosorbide mononitrate 30 mg tablet extended release 24 hr 30 mg PO QAM Qty: 90 3RF Rx Instructions: Take one tablet daily with 60mg tablet to equal 90mg daily. acetaminophen 500 mg tablet 500 mg PO UD PRN (Reason: Pain) mometasone 0.1 % ointment 1 applic topical DAILY PRN (Reason: skin irritation) Qty: 15 2RF famotidine [Pepcid AC] 20 mg tablet 20 mg PO BID triamcinolone acetonide 0.1 % cream 1 appln TOP BID Stable GI (probiotic) 1 tab PO BID Rx Instructions: on hold at this time- taking lamotil instead pantoprazole 40 mg tablet,delayed release (DR/EC) 40 mg PO DAILY PRN (Reason: gerd) cholestyramine (with sugar) 4 gram powder PO BID Patient Comments: Taking 1/4 of a pack BID amlodipine 5 mg tablet 5 mg PO .am Qty: 90 3RF Rx Instructions: Take 5 mg qAM, 2.5 mg qPM amlodipine 2.5 mg tablet 2.5 mg PO PM Qty: 90 3RF Rx Instructions: Take 5 mg qAM, 2.5 mg qPM isosorbide mononitrate 60 mg tablet extended release 24 hr 60 mg PO QAM Qty: 90 3RF Rx Instructions: Take one 60mg and one 30 mg tablet (total 90 mg) daily multivitamin Tablet 1 tab PO QAM clobetasol 0.05 % Ointment 1 applic TOPICAL BID Referrals Referrals: Noman Quiroz MD [Primary Care Provider] - Discharge Problem: CRF (chronic renal failure) Qualifiers: Chronic kidney disease stage: unspecified stage Qualified Code(s): N18.9 - Chronic kidney disease, unspecified
[2024-10-01 20:27] LABS: Basophils # (auto) 0.05 K/uL (0.00-0.20); Basophils % (auto) 0.8 %; Eosinophils # (auto) 0.36 K/uL (0.00-0.50); Eosinophils % (auto) 5.7 %; Hematocrit (blood only) 35.4 % (37.0-47.0); Hemoglobin 11.1 g/dl (12.0-16.0); Immature Granulocytes # (auto) 0.04 K/uL (0.01-0.20); Immature Granulocytes % (auto) 0.6 %; Lymphocytes # (auto) 1.91 K/uL (1.20-3.40); Lymphocytes % (auto) 30.1 %; Mean Corpuscular Hemoglobin 27.3 pg (25.0-34.0); Mean Corpuscular Hgb Conc 31.4 g/dL (32.0-36.0); Mean Corpuscular Volume 87.2 fL (80.0-100.0); Mean Platelet Volume 8.3 fL (9.4-12.4); Monocytes # (auto) 0.52 K/uL (0.11-0.59); Monocytes % (auto) 8.2 %; Neutrophils # (auto) 3.46 K/uL (1.40-6.50); Neutrophils % (auto) 54.6 %; Platelet Count 268 K/uL (130-400); RDW Coefficient of Variation 13.9 % (11.5-14.5); RDW Standard Deviation 43.9 fL (36.4-46.3); Red Blood Count 4.06 M/uL (4.20-5.40); White Blood Count 6.34 K/ul (4.8-10.8)
[2024-10-01 20:50] LABS: INR 0.9 (0.9-1.1); Partial Thromboplastin Ratio 0.9; Partial Thromboplastin Time 25 Seconds (21-31); Prothrombin Time 9.8 Seconds (9.0-12.0)
[2024-10-01 20:57] LABS: D Dimer 2740 ug/L FEU (0-500)
[2024-10-01 20:58] LABS: Albumin Globulin Ratio 1.6 (0.9-2); Albumin Level 4.2 gm/dl (3.4-5.0); BUN Creatinine Ratio 16.4 (10-20); Bilirubin,Total 0.2 mg/dl (0.2-1.0); Calcium 9.3 mg/dl (8.6-10.3); Creatinine Clr Calc Pharmacy 15.3 ml/min; Globulin 2.7 gm/dl (2.5-4.0); Magnesium 2.3 mg/dl (1.7-2.4); Potassium 4.4 mmol/L (3.5-5.1); Total Protein 6.9 gm/dl (6.0-8.3)
[2024-10-01 21:07] LABS: Troponin I High Sensitivity 13.1 pg/ml (0-14)
[2024-10-01 21:14] LABS: Adenovirus PCR Not Detected (NotDetected); Bordetella parapertussis PCR Not Detected (NotDetected); Bordetella pertussis PCR Not Detected (NotDetected); Chlamydia pneumoniae PCR Not Detected (NotDetected); Coronavirus 229E PCR Not Detected (NotDetected); Coronavirus CoV-2 (COVID19)PCR Not Detected (NotDetected); Coronavirus HKU1 PCR Not Detected (NotDetected); Coronavirus NL63 PCR Not Detected (NotDetected); Coronavirus OC43PCR Not Detected (NotDetected); Human Metapneumovirus PCR Not Detected (NotDetected); Influenza A PCR Not Detected (NotDetected); Influenza B PCR Not Detected (NotDetected); Mycoplasma pneumoniae PCR Not Detected (NotDetected); Parainfluenza Virus 1 PCR Not Detected (NotDetected); Parainfluenza Virus 2 PCR Not Detected (NotDetected); Parainfluenza Virus 3 PCR Not Detected (NotDetected); Parainfluenza Virus 4 PCR Not Detected (NotDetected); Respiratory Syncytial VirusPCR Not Detected (NotDetected); Rhinovirus/Enterovirus PCR Not Detected (NotDetected)
--- NOTE | 2024-10-01 21:50 | XRay Report ---
Exam(s): XR CXR 1 VIEW EXAM: XR Chest, 1 View CLINICAL HISTORY: Chest pain, nonspecific. TECHNIQUE: Frontal view of the chest. COMPARISON: 09/27/2021 FINDINGS: Heart is normal in size. Minimal bibasilar vascular crowding. No CHF or focal infiltrate. No pleural effusion or pneumothorax. Interval right shoulder bipolar arthroplasty. Bones are otherwise unchanged. IMPRESSION: Minimal bibasilar faster chronic. No CHF or infiltrate. Electronically signed by: Rajendra Bhatti M.D. 10/01/24 21:49 PM
--- NOTE | 2024-10-01 22:50 | History & Physical Report ---
Date of Service October 01, 2024 Assessment & Plan (1) Chest pain: (2) Microscopic colitis: (3) Prediabetes: (4) Sleep apnea: (5) Hypothyroidism: (6) Hypertension: (7) Hypercholesterolemia: (8) Gastroesophageal reflux disease: (9) Depression: Plan Patient is a 40-year-old female with past medical history of hypertension, CKD stage IV (baseline creatinine between 2 and 2.5), SILVIO on CPAP, prediabetes, hyperlipidemia, GERD, microscopic colitis, Aortic stenosis, chronic venous insufficiency, Hypothyroidism, Depression, and OA who was admitted due to chest pain and concern for potential PE. Chest pain -Patient with central chest pain w/ radiation to left side -Patient with limited movement this last 11 days due to weakness that was worsened by flulike illness; raises risk for DVT/PE which may explain current symptoms (D-dimer in 1999s) -Recent flulike illness can also explain current symptoms (costochondritis, pleurisy) -Given history of CKD and current slight elevation of creatinine from baseline, holding off from chest CTA for now -Will admit to med/telemetry -Order for IVF placed since slight worsening in renal function may be due to limited p.o. intake during current flulike illness -If a.m. labs show some improvement in renal function, could consider chest CTA versus VQ scan for PE rule out versus initiating DOAC therapy assuming PE is the cause of sxs Hypertension -Patient on multiple antihypertensive medications at home due to difficulty controlling blood pressure Elevated blood pressure while in the ED although asymptomatic Will resume home medications: amlodipine, furosemide, isosorbide mononitrate CKD Stage IV - Follows [facility] Nephrology - Baseline cr of 2-2.5 - Slight increase in admission labs possibly related to poor PO intake in the setting of flu-like illness - Will order mIVF - Monitor am labs Weakness/deconditioning -Patient with weakness that was made worse by current flulike illness Will consult PT/OT to determine if patient will be candidate for acute rehab versus return home Flulike illness -Manage supportively Hyperlipidemia - Continue home meds Hypothyroidism - Continue Home meds Dispo: Admit to med telemetry PT/OT consulted Fluids: NSS @ 80 ml/hr Diet: HH, DM2 VTE ppx: Eliquis Code Status: DNR/DNI History of Present Illness Chief Complaint: Chest Pain Primary Care Provider: Noman Quiroz MD Patient is a 40-year-old female with past medical history of hypertension, CKD stage IV (baseline creatinine between 2 and 2.5), SILVIO on CPAP, prediabetes, hype rlipidemia, GERD, microscopic colitis, Aortic stenosis, chronic venous insufficiency, Hypothyroidism, Depression, and OA who came to the ED after experiencing episode of crushing substernal chest pain earlier this evening. Patient was laying down in bed when she began to experience crushing left-sided chest pain with radiation to left subscapular region and associated left arm numbness. Did not have associated shortness of breath, diaphoresis, N/V, lightheadedness/syncope, or other sxs. The time she arrived to the emergency department, the chest pain had improved and he now describes it as a dull/constant ache that is worse with deep inspiration. She had been having flu sxs for 11 days prior to her current presentation, and had been taking OTC cold and flu medications w/o sympathomimetics since patient and her family are very vigilant to avoid this ingredient given patient's hx of HTN. During this time patient had also been experiencing weakness, which led her to stay in bed most of the time. On the occasions where she did stand to go to the bathroom or other places in the house, patient states that she felt dizzy/lightheaded sometimes and family member who is at bedside also states that at 1 point she looked like she was going to "pass out ". Family member also states that, even before she had flulike symptoms, she had been getting gradually weaker. Labs/Imaging: CBC without leukocytosis, hemoglobin of 11.1, lakelets of 268. Coagulation studies unremarkable. CMP with creatinine up slightly above baseline at 2.98 (baseline between 2 and 2.5) with GFR 14.98. Lactate of 1. Magnesium of 2.3. LFTs unremarkable. Troponin of 13.1 with slight increase to 15.13 hours later. Lipase 68. Pro-Vel of 0.09. Bio fire negative. Chest x- ray unremarkable. Bilateral lower extremity venous Doppler without signs of DVT. Medical History: [Reviewed] Medications: [Reviewed] Surgical History: [Reviewed] Family history: [Reviewed] Allergies: [Reviewed] Social History: [Reviewed] Allergies Allergy/AdvReac Type Severity Reaction Status Date / Time lisinopril Allergy Severe Periorbital Verified 10/01/24 23:41 swelling losartan Allergy Severe "Lesions" Verified 10/01/24 23:41 JEREMI Inhibitors Allergy Intermediate "Lesions", Verified 10/01/24 23:41 itchy adhesive Allergy Intermediate Hives (can Verified 10/01/24 23:41 only tolerate paper tape per pt) Beta-Blockers Allergy Intermediate "Lesions", Verified 10/01/24 23:41 (Beta-Adrenergic Bloc itchy clindamycin Allergy Mild Rash Verified 10/01/24 23:41 erythromycin base Allergy Mild Itching Verified 10/01/24 23:41 latex Allergy Mild Rash Verified 10/01/24 23:41 Penicillins Allergy Mild Hives Verified 10/01/24 23:41 Sulfa (Sulfonamide Allergy Mild Itching Verified 10/01/24 23:41 Antibiotics) daptomycin AdvReac Severe pneumonia- Verified 10/01/24 23:41 developed while on med gabapentin AdvReac Severe Diffuse Verified 10/01/24 23:41 swelling hydroxychloroquine AdvReac Intermediate Diarrhea Verified 10/01/24 23:41 [From Plaquenil] irbesartan AdvReac Intermediate Fatigue Verified 10/01/24 23:41 niacin AdvReac Intermediate "Did not Verified 10/01/24 23:41 tolerate" ezetimibe AdvReac Mild Memory loss Verified 10/01/24 23:41 Quinolones AdvReac Mild Intolerance Verified 10/01/24 23:41 simvastatin AdvReac Mild Muscle Verified 10/01/24 23:41 aches tetracycline AdvReac Mild GI Verified 10/01/24 23:41 intolerance dapagliflozin [From Farxiga] AdvReac Abdominal Unverified 10/01/24 23:41 Pain Home Medications Medication Instructions Recorded Confirmed Type acetaminophen 500 mg tablet 500 mg PO UD PRN Pain 02/02/19 10/01/24 History triamcinolone acetonide 0.1 % 1 appln topical BID 05/14/19 10/01/24 History topical cream multivitamin 1 tab PO QAM 03/08/20 10/01/24 History clobetasol 0.05 % topical ointment 1 applic topical BID 04/23/21 10/01/24 History Stable GI (probiotic) 1 tab PO BID 04/17/22 10/01/24 History hydroxyzine HCl 10 mg tablet 10 mg PO TID PRN itching #30 tabs 12/23/22 10/01/24 Rx famotidine 20 mg tablet (Pepcid AC) 20 mg PO BID Acid Reflux 02/03/23 10/01/24 History mometasone 0.1 % topical ointment 1 applic topical DAILY PRN skin 04/23/23 10/01/24 Rx irritation #15 grams cefuroxime axetil 500 mg tablet 1,000 mg (2 x 500 mg) PO UD PRN 06/10/23 10/01/24 Rx dental procedures #10 tabs diphenoxylate-atropine 2.5 1 tab PO BID PRN diarrhea #30 tabs 07/28/23 10/01/24 Rx mg-0.025 mg tablet (Lomotil) levothyroxine 137 mcg tablet 137 mcg PO DAILY #90 tabs 02/24/24 10/01/24 Rx furosemide 20 mg tablet 20 mg PO .COMPLEX PRN Fluid 05/03/24 10/01/24 Rx Retention #100 tabs amlodipine 2.5 mg tablet 2.5 mg PO PM #90 tabs 06/25/24 10/01/24 Rx amlodipine 5 mg tablet 5 mg PO .am #90 tabs 06/25/24 10/01/24 Rx cholestyramine (with sugar) 4 gram 1 ea PO BID 06/25/24 10/01/24 History oral powder isosorbide mononitrate 60 mg 60 mg PO QAM #90 tabs 06/25/24 10/01/24 Rx tablet,extended release 24 hr tramadol 50 mg tablet See Rx Instructions PO Q6H PRN 07/12/24 10/01/24 Rx pain #100 tabs pantoprazole 40 mg tablet,delayed 40 mg PO DAILY PRN gerd 07/22/24 10/01/24 History release isosorbide mononitrate 30 mg 30 mg PO QAM #90 tabs 09/16/24 10/01/24 Rx tablet,extended release 24 hr fluconazole 100 mg tablet 100 mg PO DAILY 10/01/24 10/01/24 History (Diflucan) Past Med/Surg History Problem List (Updated 10/01/24 @ 23:18 by Eugenio Quiles MD) CRF (chronic renal failure) (Acute) Elevated d-dimer (Acute) Pleuritic chest pain (Acute) Precordial chest pain (Acute) Chest pain Microscopic colitis History of adenomatous polyp of colon 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 Dizziness Aortic stenosis SVT (supraventricular tachycardia) Obesity (BMI 30-39.9) Difficulty swallowing Aortic valve sclerosis Esophageal dysphagia Nausea Status post total hip replacement, left Chronic kidney disease Morbid obesity Encounter for pre-operative examination Carotid artery plaque Per remote records, no evidence of stenosis on 2014 carotid imaging History of vitamin D deficiency Status post total left knee replacement using cement Nocturnal hypoxemia Carotid artery stenosis <50% B/L ICA stenosis per 09/2021 carotid duplex Prediabetes Venous insufficiency (Acute) 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) Sleep apnea (Acute) CPAP (compliant) Psoriasis (Acute) Postmenopausal hormone replacement therapy (Acute) Polyneuropathy (Acute) Polymyalgia rheumatica (Acute) Lumbar radiculopathy (Acute) Hypothyroidism (Chronic) Hypertension (Chronic) Hypercholesterolemia (Acute) Hypercalcemia (Acute) Gastroesophageal reflux disease (Acute) Depression (Acute) Arthralgia of multiple sites (Acute) Allergic rhinitis (Acute) Arthritis Paroxysmal SVT (supraventricular tachycardia) Medical History Tubular adenoma of colon Nausea History of COVID-19 08/2021 Chronic kidney disease, stage 4 (severe) Baseline creatinine 2.0 per 03/2022 nephro notes Follows with [facility] nephro History of fluid overload 2015 (fluid overload 2/2 reaction from prednisone tx for PMR) History of blood transfusion Remote hx post-op knee surgery Prediabetes Surgical History History of reverse total replacement of right shoulder joint History of left hip replacement History of anesthesia problem H/O ligation of vein History of total left knee replacement History of squamous cell carcinoma excision History of carpal tunnel release of both wrists History of colonoscopy with polypectomy History of foot surgery History of esophagogastroduodenoscopy (EGD) History of total hip arthroplasty History of lumbar surgery History of tooth extraction S/P tonsillectomy and adenoidectomy History of cataract surgery Status post excision of Cortes's neuroma History of arthroscopy of knee History of dilation and curettage History of total hysterectomy with bilateral salpingo-oophorectomy (BSO) Family History Father Malignant neoplasm of parotid gland Hypertension Stroke Family history of reaction to anesthesia "coded on table during hernia sx 1951"--able to bring him back Mother Hypertension Stroke Brother Diabetes Aneurysm artery, iliac Sister Diabetes Coronary heart disease Hyperlipidemia Hypothyroidism Breast cancer Renal failure Hypertension Denies family history of Ovarian cancer Prostate cancer Myocardial infarction Colorectal cancer Social History Smoking Status: Former smoker Tobacco Type: Cigarettes Age Started Using Tobacco: 21; Age Quit Using Tobacco: 47; packs per day: 1.5; Second Hand Exposure: No ( A CHILD); Do You Dip or Chew Tobacco: No; Hx Alcohol Use: Yes Alcohol type: wine Alcohol Intake Frequency: 4 or More x per/Week Hx Substance Use: No Preferred Language: Uzbek Communication Ability: Effective Visual Impairment: No Limitations Hearing Ability: Normal Corsage Maker Required: No Beliefs That Will Affect Care: None marital status: Current Living Situation: Spouse and Family Current Living Situation Comment: Lives with and daughter, son in law, granddaughter 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 Feels Safe at Home: Yes Childhood Exposure to Second-Hand Smoke: Yes Diet: regular Dental Care, Regularly: Yes Physical Activity Frequency: Does not Exercise Seatbelt Use: always Sunscreen Use: Yes Assistive Devices: Walker Review of Systems Review of Systems: As per HPI Physical Exam Physical Exam: GENERAL: Awake alert and oriented in all spheres, afebrile, no acute distress HEAD: Atraumatic, normocephalic EYES: PERRL, EOM intact, noninjected conjunctiva THROAT: Normal to visual inspection CHEST: Symmetric chest expansions with respirations, slight tenderness with palpation of left sided anterior chest wall is not reproducible with pain that she had experienced earlier today CARDIO: Regular rate and rhythm, aortic murmur PULMONARY: Clear to auscultation bilaterally, normal respiratory effort, no respiratory distress GI: Soft, nondistended, nontender EXTREMITIES: No swelling or calf tenderness in bilateral lower extremities SKIN: No rashes or lesions appreciated Results & Data Results & Data Vital Signs (Past 12 Hours) Vital Signs Temp Pulse Pulse Resp BP BP Pulse Ox 10/01/24 22:20 80 18 175/97 H 96 10/01/24 21:12 76 16 189/88 H 98 10/01/24 20:22 83 20 195/90 H 97 10/01/24 20:05 79 22 97 10/01/24 19:55 36.5 C 77 22 206/78 H 97 10/01/24 19:55 10/01/24 19:52 87 O2 Del Method 10/01/24 22:20 Room Air 10/01/24 21:12 Room Air 10/01/24 20:22 Room Air 10/01/24 20:05 Room Air 10/01/24 19:55 Room Air 10/01/24 19:55 Room Air 10/01/24 19:52 Supervising Physician Co-Signing Physician Notes Attending addendum: I have physically seen this patient, have supervised the medical residents activities, and agree with the H&P unless as otherwise noted. Assessment and Plan: The patient is a 84-year-old female with a past medical history including hypertension, CKD stage IV, SILVIO on CPAP, prediabetes, hyperlipidemia, GERD, microscopic colitis, aortic stenosis, chronic venous insufficiency, hypothyroidism, depression, and osteoarthritis, who presents to the emergency department with left-sided chest pain, of unknown etiology. The patient reports that over the past 11 days she has had weakness, that was worsened by a flulike illness. The patient is referred to the [facility] for further evaluation and treatment Left-sided chest pain/hypertension- The patient will be admitted to telemetry for serial cardiac enzymes, serial EKG's, cardiac rhythm monitoring and a 2-D echocardiogram with Dopplers. Initial D-dimer [address] angiography PE protocol due to significant CKD Therefore, patient will undergo VQ scan in the a.m. Order venous Doppler lower extremity to assess for possible DVT Further treatment based upon results of above Continue usual home medications of amlodipine, furosemide, isosorbide mononitrate CKD stage IV- Creatinine 2.98, with base 2.87 Follow serial laboratories Generalized weakness and deconditioning- Consult PT/OT Patient should be considered for possible acute rehab versus returning home Chronic medical conditions: Hypothyroidism-continue levothyroxine GERD-continue pantoprazole and famotidine Hyperlipidemia-continue cholestyramine Resident Activity Tracking Resident Involvement: Resident Care Provided Care Provided: Adult Hospital Medicine (4) Sleep apnea Sleep apnea type: obstructive Qualified Code(s): G47.33 - Obstructive sleep apnea (adult) (pediatric) (5) Hypothyroidism Hypothyroidism type: acquired Qualified Code(s): E03.9 - Hypothyroidism, unspecified (6) Hypertension Hypertension type: primary hypertension Qualified Code(s): I10 - Essential (primary) hypertension (8) Gastroesophageal reflux disease Esophagitis presence: without esophagitis Qualified Code(s): K21.9 - Gastro- esophageal reflux disease without esophagitis
--- NOTE | 2024-10-02 00:08 | Ultrasound Report ---
Exam(s): US VENOUS BILATERAL LOWER EXTREMITIES EXAM: US Duplex Bilateral Lower Extremities Veins CLINICAL HISTORY: Poss dvt, pleuritic cp. TECHNIQUE: Real-time duplex ultrasound scan of the bilateral lower extremity veins integrating B-mode two-dimensional vascular structure, Doppler spectral analysis, color flow Doppler imaging and compression. COMPARISON: No relevant prior studies available. FINDINGS: Right deep veins: Unremarkable. No DVT in the right common femoral, femoral, proximal deep femoral or popliteal veins. The veins demonstrate normal color flow, are normally compressible, with normal phasic flow and/or augmentation response. Right superficial veins: Unremarkable. No thrombus in the visualized right great saphenous vein. Left deep veins: Patient unable to tolerate compression the distal left superficial femoral vein. No DVT in the left common femoral, femoral, proximal deep femoral or popliteal veins. The veins demonstrate normal color flow, are normally compressible, with normal phasic flow and/or augmentation response. Left superficial veins: Unremarkable. No thrombus in the visualized left great saphenous vein. Soft tissues: No acute abnormality. No popliteal cyst. IMPRESSION: No evidence of deep venous thrombosis. Electronically signed by: Rajendra Bhatti M.D. 10/02/24 00:07 AM
[2024-10-02] MEDS ORDERED: ONDANSETRON INJ 2 MG/ML 2 ML VIAL IV PRN (00:46)
[2024-10-02] MEDS ORDERED: ACETAMINOPHEN 325 MG TAB PO PRN (00:46)
[2024-10-02] MEDS ORDERED: POLYETHYLENE (MIRALAX) 17 GM PACK PO PRN (00:46)
[2024-10-02] MEDS: SODIUM CHLORIDE 0.9% 1,000 ML IV SCH (01:01)
[2024-10-02] MEDS: amLODIPine BESYLATE 5 MG TAB PO ONE (02:45)
[2024-10-02] MEDS: FUROSEMIDE 20 MG TAB PO ONE (03:07)
[2024-10-02] MEDS: LEVOTHYROXINE SODIUM 137 MCG TABLET PO SCH (05:33)
--- NOTE | 2024-10-02 05:36 | Billing Data ---
Date of Service October 02, 2024 Coding Level of Care Code 30681 INT INP/OBS CARE
[2024-10-02 07:05] LABS: Basophils # (auto) 0.03 K/uL (0.00-0.20); Basophils % (auto) 0.5 %; Eosinophils # (auto) 0.33 K/uL (0.00-0.50); Eosinophils % (auto) 5.2 %; Hemoglobin 10.5 g/dl (12.0-16.0); Immature Granulocytes # (auto) 0.02 K/uL (0.01-0.20); Immature Granulocytes % (auto) 0.3 %; Lymphocytes # (auto) 1.87 K/uL (1.20-3.40); Lymphocytes % (auto) 29.3 %; Mean Corpuscular Hemoglobin 27.6 pg (25.0-34.0); Mean Corpuscular Hgb Conc 31.8 g/dL (32.0-36.0); Mean Corpuscular Volume 86.8 fL (80.0-100.0); Mean Platelet Volume 8.4 fL (9.4-12.4); Monocytes # (auto) 0.45 K/uL (0.11-0.59); Monocytes % (auto) 7.1 %; Neutrophils # (auto) 3.68 K/uL (1.40-6.50); Neutrophils % (auto) 57.6 %; Platelet Count 250 K/uL (130-400); RDW Coefficient of Variation 13.8 % (11.5-14.5); RDW Standard Deviation 43.8 fL (36.4-46.3); White Blood Count 6.38 K/ul (4.8-10.8)
--- NOTE | 2024-10-02 07:17 | Hospitalist Progress Note ---
Date of Service October 02, 2024 Assessment & Plan (1) Chest pain: Plan: High-sensitivity troponin was normal on admission but then jumped to 15.2 with a second set of troponins. Troponin ordered for this afternoon Patient echocardiogram was 02/19/2023. No abnormal wall movements at that time. Will repeat echocardiogram today given chest pain Electrolytes are balanced EKG without evidence of ST changes Elevated D-dimer. This is most likely in the setting of ischemic demand. Unable to perform CTA of the chest secondary to renal failure. Low likelihood of PE with a Well's score of 1.5 points. Bilateral lower extremity Doppler was negative. Continue to monitor on telemetry (2) Sleep apnea: Plan: Patient has been unable to use her CPAP machine at home secondary to upper respiratory illness for the past 12 days. Compliance report reviewed. Patient is currently set with a ramp of 10 to 20 cm of water. Median pressure 15.5 cm of water. AHI 6.4 Patient states that she is unable to tolerate secondary to sinus congestion (3) Hypothyroidism: Plan: Continue levothyroxine 137 mcg p.o. daily Most recent TSH is March 2024 at 1.409 (0.3-4.5) (4) Hypertension: Plan: Continue home medications including Imdur 90 mg p.o. every morning, amlodipine 5 mg every morning and 2.5 mg every afternoon JEREMI/ARB held by dermatology secondary to lichen planus. Will start patient on hydralazine 10 mg p.o. twice daily due to hypertension with systolic pressure of 188 this morning Check echo for elevated troponin (5) Gastroesophageal reflux disease: Plan: No current symptoms. Continue clonidine and pantoprazole (6) Weakness: Plan: Patient with weakness that was made worse by current flulike illness Will consult PT/OT to determine if patient will be candidate for acute rehab versus return home (7) Microscopic colitis: Plan: Follows with outpatient GI Continue home cholestyramine Plan Dispo: Admit to med telemetry PT/OT consulted Fluids: NSS @ 80 ml/hr Diet: HH, DM2 VTE ppx: Eliquis Code Status: DNR/DNI Admission and Anticipated Discharge Date Admission Date: October 01, 2024 Supervising Physician Co-Signing Physician Notes Attending Attestation - Chart reviewed, care plan d/w CAITLIN Rosenberg. I agree w/ the anthony components of his documentation. Dylon Stovall MD Subjective Attending: Dr. Stovall This is an 84-year-old female who presents morning for chest pain. She had radiation on the left side. EKG revealed sinus rhythm with first-degree block. QTc is 439 ms. Ventricular rate is 81 bpm. Troponin is 15.1 (13.1). Electrolytes are balanced. Magnesium 2.3. Initial D-dimer was 2740. Patient unable to have CTA of chest secondary to stage IV renal failure. Patient seen at bedside this morning with her and her daughter. Chest pain is currently resolved. She does have some bilateral gastrocnemius pain as of lower extremity edema. Homans' sign is negative. Patient denies any hemoptysis, no shortness of breath, no hypoxia. While she did have precordial chest pain that was focal, she denies any other pleuritic pain. She denies fever or awareness of tacky arrhythmia. She has no other acute complaints at this time. Patient reports that she has been ill with upper respiratory symptoms and has decreased activity for the last 12 days. Review of Systems 2 Review of Systems: A total of 10 systems was reviewed and is negative other than as listed in the HPI Physical Exam 2 Physical Exam: GENERAL : No acute distress EYES: No icterus, gaze conjugate NOSE: No evidence of epistaxis MOUTH: No lesions or candidiasis NECK: Supple. No appreciation of carotid bruits LUNGS: CTA B/L, no wheezes, rales or rhonchi. Good inspirational effort. HEART: Regular, rate controlled. Grade 2/6 heart murmur. ABDOMEN: Soft, NT, ND, BS Present EXTREMITIES: No LE edema, pedal pulses intact. Homans' sign is negative. Patient does have bilateral gastrocnemius pain with palpation. Evidence of chronic venous stasis. NEURO: A&OX3 Results & Data Results & Data Vital Signs (Past 12 Hours) Vital Signs Temp Pulse Pulse Resp BP BP Pulse Ox 10/02/24 03:54 36.4 C L 99 H 16 176/81 H 97 10/02/24 01:09 36.7 C 84 16 199/102 H 97 10/02/24 00:33 79 10/02/24 00:00 36.4 C L 74 16 195/86 H 97 10/01/24 23:42 76 18 185/89 H 97 10/01/24 22:20 80 18 175/97 H 96 10/01/24 21:12 76 16 189/88 H 98 10/01/24 20:22 83 20 195/90 H 97 10/01/24 20:05 79 22 97 10/01/24 19:55 36.5 C 77 22 206/78 H 97 10/01/24 19:55 10/01/24 19:52 87 O2 Del Method 10/02/24 03:54 Room Air 10/02/24 01:09 Room Air 10/02/24 00:33 10/02/24 00:00 Room Air 10/01/24 23:42 Room Air 10/01/24 22:20 Room Air 10/01/24 21:12 Room Air 10/01/24 20:22 Room Air 10/01/24 20:05 Room Air 10/01/24 19:55 Room Air 10/01/24 19:55 Room Air 10/01/24 19:52 Laboratory Results 10/02/24 06:23 Laboratory Tests 10/01/24 10/01/24 19:57 23:30 Troponin I High Sens 13.1 15.1 H ECG Additional Comments: PG Care Time/CCT Total # of Minutes Spent Total Time Spent with Patient: Total time spent is greater than 50% in coordination of care (as documented) at patient's floor/unit and/or counseling patient:30 minutes with patient, and daughter Coding Level of Care Code 10132 SUB INP/OBS CARE 2/35MIN Diagnoses Chest pain R07.9 Obstructive sleep apnea syndrome G47.33 Sleep apnea type: obstructive Acquired hypothyroidism E03.9 Hypothyroidism type: acquired Primary hypertension I10 Hypertension type: primary hypertension Gastroesophageal reflux disease without esophagitis K21.9 Esophagitis presence: without esophagitis Weakness R53.1 Microscopic colitis K52.839 Time Spent (min) 30 Comment 30 minutes face to face plus chart review and document completion (2) Sleep apnea Sleep apnea type: obstructive Qualified Code(s): G47.33 - Obstructive sleep apnea (adult) (pediatric) (3) Hypothyroidism Hypothyroidism type: acquired Qualified Code(s): E03.9 - Hypothyroidism, unspecified (4) Hypertension Hypertension type: primary hypertension Qualified Code(s): I10 - Essential (primary) hypertension (5) Gastroesophageal reflux disease Esophagitis presence: without esophagitis Qualified Code(s): K21.9 - Gastro- esophageal reflux disease without esophagitis
[2024-10-02 07:27] LABS: BUN Creatinine Ratio 16.9 (10-20); Calcium 9.2 mg/dl (8.6-10.3); Creatinine Clr Calc Pharmacy 16.7 ml/min; Potassium 4.2 mmol/L (3.5-5.1)
[2024-10-02] MEDS: ISOSORBIDE MONO EXTENDED REL 30 MG TABCR PO SCH (08:28)
[2024-10-02] MEDS: amLODIPine BESYLATE 5 MG TAB PO SCH ×2 (08:28→20:55)
[2024-10-02] MEDS: APIXABAN 5 MG TABLET PO SCH (08:28)
[2024-10-02] MEDS: CHOLESTYRAMINE LIGHT 4 GM PKT PO SCH (11:15)
[2024-10-02] MEDS: hydrALAZINE 10 MG TAB PO SCH (12:53)
--- NOTE | 2024-10-02 13:13 | Electrocardiogram Report ---
Test Reason : Blood Pressure : */* mmHG Vent. Rate : 81 BPM Atrial Rate : 81 BPM P-R Int : 210 ms QRS Dur : 80 ms QT Int : 378 ms P-R-T Axes : 62 -4 10 degrees QTcB Int : 439 ms Sinus rhythm with 1st degree A-V block Otherwise normal ECG When compared with ECG of 26-Jul-2022 12:25, No significant change was found Confirmed by Severino Arciniega ([id number]) on 10/02/2024 1:13:24 PM Referred By: REFERRED SELF Confirmed By: Severino Arciniega
[2024-10-02] MEDS: FUROSEMIDE 20 MG TAB PO SCH (20:54)
[2024-10-02] MEDS ORDERED: FUROSEMIDE 20 MG TAB PO SCH (21:00)
[2024-10-02] MEDS ORDERED: amLODIPine BESYLATE 5 MG TAB PO SCH (21:00)
[2024-10-03 06:31] LABS: Basophils # (auto) 0.03 K/uL (0.00-0.20); Basophils % (auto) 0.5 %; Eosinophils # (auto) 0.32 K/uL (0.00-0.50); Eosinophils % (auto) 5.5 %; Hematocrit (blood only) 32.9 % (37.0-47.0); Hemoglobin 10.4 g/dl (12.0-16.0); Immature Granulocytes # (auto) 0.03 K/uL (0.01-0.20); Immature Granulocytes % (auto) 0.5 %; Lymphocytes # (auto) 1.78 K/uL (1.20-3.40); Lymphocytes % (auto) 30.4 %; Mean Corpuscular Hemoglobin 27.3 pg (25.0-34.0); Mean Corpuscular Hgb Conc 31.6 g/dL (32.0-36.0); Mean Corpuscular Volume 86.4 fL (80.0-100.0); Mean Platelet Volume 8.7 fL (9.4-12.4); Monocytes # (auto) 0.47 K/uL (0.11-0.59); Neutrophils # (auto) 3.23 K/uL (1.40-6.50); Neutrophils % (auto) 55.1 %; Platelet Count 253 K/uL (130-400); RDW Coefficient of Variation 13.7 % (11.5-14.5); RDW Standard Deviation 43.1 fL (36.4-46.3); Red Blood Count 3.81 M/uL (4.20-5.40); White Blood Count 5.86 K/ul (4.8-10.8)
[2024-10-03 06:47] LABS: Calcium 9.2 mg/dl (8.6-10.3); Creatinine Clr Calc Pharmacy 16.7 ml/min; Potassium 4.2 mmol/L (3.5-5.1)
--- NOTE | 2024-10-03 07:28 | Hospitalist Progress Note ---
Date of Service October 03, 2024 Assessment & Plan (1) Chest pain: Plan: High-sensitivity troponin was normal on admission but then jumped to 15.2 with a second set of troponins. Troponin decreased to 8.4 Patient echocardiogram was 02/19/2023. No abnormal wall movements at that time. Will repeat echocardiogram today given chest pain Electrolytes are balanced EKG without evidence of ST changes Elevated D-dimer. This is most likely in the setting of ischemic demand. Unable to perform CTA of the chest secondary to renal failure. Low likelihood of PE with a Well's score of 1.5 points. Bilateral lower extremity Doppler was negative. Continue to monitor on telemetry (2) Sleep apnea: Plan: Patient has been unable to use her CPAP machine at home secondary to upper respiratory illness for the past 12 days. Compliance report reviewed. Patient is currently set with a ramp of 10 to 20 cm of water. Median pressure 15.5 cm of water. AHI 6.4 Patient states that she is unable to tolerate secondary to sinus congestion (3) Hypothyroidism: Plan: Continue levothyroxine 137 mcg p.o. daily Most recent TSH is March 2024 at 1.409 (0.3-4.5) (4) Hypertension: Plan: Continue home medications including Imdur 90 mg p.o. every morning, amlodipine 5 mg every morning and 2.5 mg every afternoon JEREMI/ARB held by dermatology secondary to lichen planus. Initiated hydralazine 10 mg p.o. twice daily due to hypertension Check echo for elevated troponin -pending (5) Gastroesophageal reflux disease: Plan: No current symptoms. Continue pantoprazole (6) Weakness: Plan: Patient with weakness that was made worse by current flulike illness Will consult PT/OT to determine if patient will be candidate for acute rehab versus return home (7) Microscopic colitis: Plan: Follows with outpatient GI Continue home cholestyramine Plan Dispo: Admit to med telemetry PT/OT consulted Fluids: NSS @ 80 ml/hr Diet: HH, DM2 VTE ppx: Eliquis Code Status: DNR/DNI Admission and Anticipated Discharge Date Admission Date: October 01, 2024 Review of Systems 2 Review of Systems: A total of 10 systems was reviewed and is negative other than as listed in the HPI Physical Exam 2 Physical Exam: GENERAL : No acute distress EYES: No icterus, gaze conjugate NOSE: No evidence of epistaxis MOUTH: No lesions or candidiasis NECK: Supple LUNGS: CTA B/L, no wheezes, rales or rhonchi HEART: Regular, rate controlled ABDOMEN: Soft, NT, ND, BS Present EXTREMITIES: No LE edema, pedal pulses intact NEURO: A&OX3 Results & Data Results & Data Vital Signs (Past 12 Hours) Vital Signs Temp Pulse Pulse Resp BP Pulse Ox O2 Del Method 10/03/24 07:18 81 10/03/24 03:43 36.6 C 89 16 174/90 H 91 Room Air 10/02/24 23:19 36.9 C 80 16 147/86 H 96 Room Air 10/02/24 22:04 80 10/02/24 19:50 36.6 C 79 16 149/76 H 94 Room Air Laboratory Results 10/03/24 05:58 10/03/24 05:58 Laboratory Tests 10/01/24 10/01/24 10/02/24 19:57 23:30 13:00 Troponin I High Sens 13.1 15.1 H 8.4 D PG Care Time/CCT Total # of Minutes Spent Total Time Spent with Patient: Total time spent is greater than 50% in coordination of care (as documented) at patient's floor/unit and/or counseling patient: Coding Diagnoses Chest pain R07.9 Obstructive sleep apnea syndrome G47.33 Sleep apnea type: obstructive Acquired hypothyroidism E03.9 Hypothyroidism type: acquired Primary hypertension I10 Hypertension type: primary hypertension Gastroesophageal reflux disease without esophagitis K21.9 Esophagitis presence: without esophagitis Weakness R53.1 Microscopic colitis K52.839 (2) Sleep apnea Sleep apnea type: obstructive Qualified Code(s): G47.33 - Obstructive sleep apnea (adult) (pediatric) (3) Hypothyroidism Hypothyroidism type: acquired Qualified Code(s): E03.9 - Hypothyroidism, unspecified (4) Hypertension Hypertension type: primary hypertension Qualified Code(s): I10 - Essential (primary) hypertension (5) Gastroesophageal reflux disease Esophagitis presence: without esophagitis Qualified Code(s): K21.9 - Gastro- esophageal reflux disease without esophagitis
[2024-10-03 07:43] VITALS: TEMP 97.5
--- NOTE | 2024-10-03 09:30 | XCELERA ---
[id number]
[2024-10-03 11:40] VITALS: BP 152/80; PULSE 86; RESP 18; O2SAT 94
--- NOTE | 2024-10-03 12:27 | Discharge Summary ---
Discharge Summary Date of Service October 03, 2024 Principal Dx & Hospital Course #1 = Principal Diagnosis (1) Chest pain: High-sensitivity troponin was normal on admission but then jumped to 15.2 with a second set of troponins. Troponin ordered for this afternoon Patient echocardiogram was 02/19/2023. No abnormal wall movements at that time. Repeat echocardiogram with no significant change from prior. There is evidence of aortic stenosis Electrolytes are balanced EKG without evidence of ST changes Elevated D-dimer. This is most likely in the setting of ischemic demand. Unable to perform CTA of the chest secondary to renal failure. Low likelihood of PE with a Well's score of 1.5 points. Bilateral lower extremity Doppler was negative. Patient instructed to come to the ER with sudden shortness of breath, pleuritic chest pain, asymmetrical edema, hemoptysis. (2) Hypertension: Patient with stage IV chronic renal failure followed by Dr. Lindsey JEREMI/ARB held by dermatology secondary to lichen planus. In addition to patient's home regimen of amlodipine furosemide and Imdur, hydralazine 10 mg p.o. twice daily was prescribed Patient advised to follow-up with Dr. Lindsey for further medical management Patient also advised to follow-up with cardiology due to chest pain, slight elevation in troponin and for ongoing management (3) Weakness: Patient has been sick for the last 12 days. PT/OT was consulted and cleared the patient for discharge home Advised patient to increase activity as tolerated (4) Sleep apnea: Continue CPAP as prescribed by Dr. Jefferson Compliance report reviewed and given to patient to take to her next sleep appointment (5) Hypothyroidism: Last TSH 04/16/2024 was 1.4 (0.3-4.5) Continue levothyroxine Continue management with primary care physician (6) Gastroesophageal reflux disease: Continue PPI for chronic microscopic colitis (7) Microscopic colitis: Patient currently follows with gastroenterology Continue outpatient management No evidence of acute flare Plan Discharge home with self-care. Patient and daughter are in agreement that she is at baseline and able to go home. Notes For Next Care Provider Medication Changes From Visit Hydralazine 10 mg p.o. twice daily started while inpatient. Prescription sent to the patient's pharmacy to continue until seen by nephrology and/or cardiology Admission HPI Per Admitting Provider Patient is a 40-year-old female with past medical history of hypertension, CKD stage IV (baseline creatinine between 2 and 2.5), SILVIO on CPAP, prediabetes, hyperlipidemia, GERD, microscopic colitis, Aortic stenosis, chronic venous insufficiency, Hypothyroidism, Depression, and OA who came to the ED after experiencing episode of crushing substernal chest pain earlier this evening. Patient was laying down in bed when she began to experience crushing left-sided chest pain with radiation to left subscapular region and associated left arm numbness. Did not have associated shortness of breath, diaphoresis, N/V, lightheadedness/syncope, or other sxs. The time she arrived to the emergency department, the chest pain had improved and he now describes it as a dull/constant ache that is worse with deep inspiration. She had been having flu sxs for 11 days prior to her current presentation, and had been taking OTC cold and flu medications w/o sympathomimetics since patient and her family are very vigilant to avoid this ingredient given patient's hx of HTN. During this time patient had also been experiencing weakness, which led her to stay in bed most of the time. On the occasions where she did stand to go to the bathroom or other places in the house, patient states that she felt dizzy/lightheaded sometimes and family member who is at bedside also states that at 1 point she looked like she was going to "pass out ". Family member also states that, even before she had flulike symptoms, she had been getting gradually weaker. Labs/Imaging: CBC without leukocytosis, hemoglobin of 11.1, lakelets of 268. Coagulation studies unremarkable. CMP with creatinine up slightly above baseline at 2.98 (baseline between 2 and 2.5) with GFR 14.98. Lactate of 1. Magnesium of 2.3. LFTs unremarkable. Troponin of 13.1 with slight increase to 15.13 hours later. Lipase 68. Pro-Vel of 0.09. Bio fire negative. Chest x- ray unremarkable. Bilateral lower extremity venous Doppler without signs of DVT. Medical History: [Reviewed] Medications: [Reviewed] Surgical History: [Reviewed] Family history: [Reviewed] Allergies: [Reviewed] Social History: [Reviewed] Admission Exam Per Admitting Provider Physical Exam: GENERAL: Awake alert and oriented in all spheres, afebrile, no acute distress HEAD: Atraumatic, normocephalic EYES: PERRL, EOM intact, noninjected conjunctiva THROAT: Normal to visual inspection CHEST: Symmetric chest expansions with respirations, slight tenderness with palpation of left sided anterior chest wall is not reproducible with pain that she had experienced earlier today CARDIO: Regular rate and rhythm, aortic murmur PULMONARY: Clear to auscultation bilaterally, normal respiratory effort, no respiratory distress GI: Soft, nondistended, nontender EXTREMITIES: No swelling or calf tenderness in bilateral lower extremities SKIN: No rashes or lesions appreciated Discharge Exam GENERAL : No acute distress. Pleasant. Daughter and present as well EYES: No icterus, gaze conjugate NOSE: No evidence of epistaxis MOUTH: No lesions or candidiasis NECK: Supple LUNGS: CTA B/L, no wheezes, rales or rhonchi. Good inspirational effort HEART: Regular, rate controlled. Grade 2/6 aortic murmur. No other abnormal findings appreciated. ABDOMEN: Soft, NT, ND, BS Present EXTREMITIES: No LE edema, pedal pulses intact NEURO: A&OX3 Discharge Plan Discharge Items Patient Disposition: Home - Self-Care Reason For Visit: CHEST PAIN Discharge Diagnosis: Chest pain with slight elevation in Troponin, elevated D-dimer, hypertension Condition on Discharge: Fair Activity: Resume your previous activity Lifting: Gradually increase as tolerated Bathing: No limitations Exercise/Sports: Gradually increase as tolerated Weightbearing: Full weightbearing Non-emergency contact: Primary Care Provider and Dry Cleaner Apprentice Call non-emergency contact if: you have any medication questions and your symptoms worsen Follow-up/Referrals: Severino Arciniega MD [Physician] - (Follow up within 2 weeks regarding chest pain and elevated troponin) Noman Quiroz MD [Primary Care Provider] - 10/11/24 3:00 pm (Appointment is with Jade Nava PA-C.) Diet: Carb Consistent or DM2 and Heart Healthy Addtl Attending Provider Instructions: Readmitted with chest pain and had 2 concerning findings; there is slight elevation in your troponin. This corrected by the following day. You also had an elevated D-dimer (2740). The D-dimer is very sensitive but not selective. This means that this can be elevated for any evidence of inflammation. Of concern with an elevated D-dimer and is whether or not you h ave a blood clot. Bilateral ultrasound of lower extremity was negative for any evidence of clot. Because of your renal failure, we were unable to check for blood clots in your lungs. You were started on anticoagulation as a precaution during hospitalization. Your risk of blood clots based on your history and clinical findings is very low (Wells score of 1.5). Consequently, you are being discharged without any anticoagulation (blood thinner). Should you develop shortness of breath, low oxygen levels, bloody sputum, pleuritic chest pain, asymmetrical edema, you should report to the emergency department for further evaluation. Regarding your blood pressure, review of your chart indicates that you are taken off beta-blockers and JEREMI/ARB medications as recommended by dermatology for [facility]. Your blood pressure was elevated and in addition to your amlodipine, isosorbide mononitrate, hydralazine 10 mg by mouth twice daily has been added to your blood pressure medications. A prescription has been sent to your pharmacy. Please take this as directed and schedule appoint with Dr. Lindsey with nephrology to further discuss blood pressure management. You should continue diuretics as previously directed by Dr. Lindsey To your recent period of decreased activity from illness, physical therapy and Occupational Therapy evaluations were completed. You should increase activity as tolerated. If you feel as though physical therapy at home or in a physical therapy lab would be beneficial, please coordinate with your primary care provider. You should follow-up with Dr. Jefferson to review CPAP compliance. Please take your compliance report with you. Should you have any further questions or complications, please contact your primary care teams. You can resume all of your home medications on discharge Pending Studies at Discharge: No Stand-Alone Forms: My [facility] Medications and DC Order Prescriptions: New hydralazine 10 mg Tablet 10 mg PO BID Qty: 60 1RF Continued hydroxyzine HCl 10 mg tablet 10 mg PO TID PRN (Reason: itching) Qty: 30 11RF cefuroxime axetil 500 mg tablet 1,000 mg PO UD PRN (Reason: dental procedures) Qty: 10 4RF diphenoxylate-atropine [Lomotil] 2.5-0.025 mg tablet 1 tab PO BID PRN (Reason: diarrhea) Qty: 30 5RF levothyroxine 137 mcg tablet 137 mcg PO DAILY Qty: 90 3RF furosemide 20 mg tablet 20 mg PO .COMPLEX PRN (Reason: Fluid Retention) Qty: 100 5RF Rx Instructions: Adjusts as needed 40mg alternating with 20mg PO q day and 40 mg extra PO q day prn weight gain/fluid retention tramadol 50 mg tablet See Rx Instructions PO Q6H PRN (Reason: pain) Qty: 100 3RF Patient Comments: pt states she typically takes one every am Rx Instructions: take 1-2 tablets PO Q6H PRN isosorbide mononitrate 30 mg tablet extended release 24 hr 30 mg PO QAM Qty: 90 3RF Rx Instructions: Take one tablet daily with 60mg tablet to equal 90mg daily. acetaminophen 500 mg tablet 500 mg PO UD PRN (Reason: Pain) mometasone 0.1 % ointment 1 applic topical DAILY PRN (Reason: skin irritation) Qty: 15 2RF famotidine [Pepcid AC] 20 mg tablet 20 mg PO BID triamcinolone acetonide 0.1 % cream 1 appln TOP BID Stable GI (probiotic) 1 tab PO BID Rx Instructions: on hold at this time- taking lamotil instead pantoprazole 40 mg tablet,delayed release (DR/EC) 40 mg PO DAILY PRN (Reason: gerd) cholestyramine (with sugar) 4 gram powder 1 ea PO BID Patient Comments: Taking 1/4 of a pack BID amlodipine 5 mg tablet 5 mg PO .am Qty: 90 3RF Rx Instructions: Take 5 mg qAM, 2.5 mg qPM amlodipine 2.5 mg tablet 2.5 mg PO PM Qty: 90 3RF Rx Instructions: Take 5 mg qAM, 2.5 mg qPM isosorbide mononitrate 60 mg tablet extended release 24 hr 60 mg PO QAM Qty: 90 3RF Rx Instructions: Take one 60mg and one 30 mg tablet (total 90 mg) daily multivitamin Tablet 1 tab PO QAM clobetasol 0.05 % Ointment 1 applic TOPICAL BID fluconazole [Diflucan] 100 mg tablet 100 mg PO DAILY Rx Instructions: PT took this due to allergic reaction to Farxiga Discharge Orders: Discharge Order (Routine); Ordered 10/03/24 Ordered By: Eugenio Rosenberg Admission Data Admit Date/Time: 10/01/24 22:47 Attending Provider: Dylon Stovall Admit Provider: Madison Montanez Primary Care Provider: Noman Quiroz Other Providers: Garrett Madrid Other Interventions: Discharge Summary Assessment (RN) Last Done: 10/03/24 12:32 Hospital Stay Data Consultations 10/01/24 21:47 ED Decision to Admit Stat Diagnostic Imagining Performed 10/01/24 22:05 US venous doppler LE BI Stat Pending Results Patient Have Any Pending Studies at Discharge: No Discharge Instructions Given to Patient (Per Discharging Provider) Readmitted with chest pain and had 2 concerning findings; there is slight elevation in your troponin. This corrected by the following day. You also had an elevated D-dimer (2740). The D-dimer is very sensitive but not selective. This means that this can be elevated for any evidence of inflammation. Of concern with an elevated D-dimer and is whether or not you have a blood clot. Bilateral ultrasound of lower extremity was negative for any evidence of clot. Because of your renal failure, we were unable to check for blood clots in your lungs. You were started on anticoagulation as a precaution during hospitalization. Your risk of blood clots based on your history and clinical findings is very low (Wells score of 1.5). Consequently, you are being discharged without any anticoagulation (blood thinner). Should you develop shortness of breath, low oxygen levels, bloody sputum, pleuritic chest pain, asymmetrical edema, you should report to the emergency department for further evaluation. Regarding your blood pressure, review of your chart indicates that you are taken off beta-blockers and JEREMI/ARB medications as recommended by dermatology for lichen planus. Your blood pressure was elevated and in addition to your amlodipine, isosorbide mononitrate, hydralazine 10 mg by mouth twice daily has been added to your blood pressure medications. A prescription has been sent to your pharmacy. Please take this as directed and schedule appoint with Dr. Lindsey with nephrology to further discuss blood pressure management. You should continue diuretics as previously directed by Dr. Lindsey To your recent period of decreased activity from illness, physical therapy and Occupational Therapy evaluations were completed. You should increase activity as tolerated. If you feel as though physical therapy at home or in a physical therapy lab would be beneficial, please coordinate with your primary care provider. You should follow-up with Dr. Jefferson to review CPAP compliance. Please take your compliance report with you. Should you have any further questions or complications, please contact your primary care teams. You can resume all of your home medications on discharge Total Time Total Time Spent Total Time Spent (In Minutes): 45 Coding Level of Care Code 47789 INP/OBS DISCH >30 MIN Diagnoses Chest pain R07.9 Primary hypertension I10 Hypertension type: primary hypertension Weakness R53.1 Obstructive sleep apnea syndrome G47.33 Sleep apnea type: obstructive Acquired hypothyroidism E03.9 Hypothyroidism type: acquired Gastroesophageal reflux disease without esophagitis K21.9 Esophagitis presence: without esophagitis Microscopic colitis K52.839 Time Spent (min) 45
== END 2024-10-03 13:14 | disposition home or self-care (01) | DRG 313 ==
LOC: ED 19:38 → SUATTDRO 22:47 → 2N 22:47